=== PATIENT | male | born 1960 | race Caucasian/White ===

== ENCOUNTER 2017-01-26 15:11 | Inpatient (IN) | payer BC ==
[~2017-01-26] VITALS: Ht 172.7 cm; Wt 127.0 kg
[~2017-01-26 15:11] MED LIST: BUSP5TAB PEG; CHOL100017 PO; DICL100G28 TP; DICL100G7 TP; FAMO20TA5 PO; FLUO20CA8 PEG; FLUO90CA5 PO; FLUT16SP NS; IPRA3AMP NEB; LOPE2CAP3 PO; MELA1TAB33 PEG; MERO500V3 IV; NYST1000 PO; OXCA300T PEG; QUET25TA PEG; RIVA20TA2 PEG; THIA100T8 PEG; VANC125S PO
[2017-01-26] MEDS ORDERED: ONDANSETRON PF 4 MG/2 ML VIAL. IV PRN (16:30)
[2017-01-26] MEDS ORDERED: IV NORMAL SALINE 1000ML BAG 1,000 ML IV ONE (16:30)
[2017-01-26 16:57] LABS: BASO # 0.1 x10^3/uL (0.0-0.2); BASO % 1 % (0-3); EOS % 6 % (0-3); HEMATOCRIT 35.5 % (39.0-53.0); HEMOGLOBIN 11.9 g/dL (13.0-17.5); LYMPH # 1.5 x10^3/uL (1.0-4.8); LYMPH % 28 % (24-48); MEAN CORPUSCULAR HEMOGLOBIN 30 pg (25-35); MEAN CORPUSCULAR HGB CONC 34 g/dL (31-37); MEAN CORPUSCULAR VOLUME 89 fL (79-100); MONO % 8 % (0-9); NEUT % 57 % (31-73); PLATELET COUNT 237 x10^3/uL (140-400); RED BLOOD COUNT 4.01 x10^6/uL (4.30-5.70); RED CELL DISTRIBUTION WIDTH 16.1 % (11.5-14.5); WHITE BLOOD COUNT 5.5 x10^3/uL (4.0-11.0)
--- NOTE | 2017-01-26 17:04 | PDOC1 ---
History and Physical Date of Admission Date of Admission DATE: 01/26/17 TIME: 17:01 Identification/Chief Complaint Chief Complaint lost j-tube access Source Source: Chart review, Patient History of Present Illness History of Present Illness 57 yo male, [place] resident, aphasic mostly, w/ malnutrition and dysphagia, transferred to ER when J-tube "fell out" IR consulted, will replace 4/5 has abd wound, poorly healing after gastric bypass surg per some pain, 02/01, not much complaint Family History Family History: No Significant Social History Smoke: No ALCOHOL: rare Current Medications Current Medications Current Medications Ondansetron HCl 4 mg 4 mg PRN Q8HRS PRN IV NAUSEA/VOMITING; Start 01/26/17 at 16 :30; Stop 01/27/17 at 16:29 Sodium Chloride (Iv Sodium Chloride 0.9% 1000ml Bag) 1,000 ml @ 100 mls/hr 1X ONCE IV ; Start 01/26/17 at 16:30; Stop 01/27/17 at 02:29 Active Scripts Active Reported Fluticasone Propionate Nasal Mcdaniels (Fluticasone Propionate) 16 Gm Mcdaniels.susp 2 Mcdaniels NS HS Fluoxetine Hcl 20 Mg Capsule 1 Cap PEG DAILY Fluoxetine Dr (Fluoxetine Hcl) 90 Mg Capsule.dr 90 Mg PO WEEKLY Fluoxetine Hcl 20 Mg Capsule 1 Cap PEG DAILY Xarelto (Rivaroxaban) 20 Mg Tablet 20 Mg PEG DAILY Buspirone Hcl 5 Mg Tablet 1 Tab PEG TID Vitamin D (Cholecalciferol (Vitamin D3)) 10,000 Unit Capsule 50,000 Unit PO Diclofenac Sodium 100 Gm Gel..gram. 100 Gm TP BID Voltaren (Diclofenac Sodium) 100 Gm Gel..gram. 1 Gm TP BID Famotidine 20 Mg Tablet 20 Mg PO BID Thiamine Hcl 100 Mg Tablet 100 Mg PEG DAILY Quetiapine Fumarate 25 Mg Tablet 25 Mg PEG HS Oxcarbazepine 300 Mg Tablet 1 Tab PEG BID Melatonin 1 Mg Tablet.er 3 Mg PEG HS Nystatin 100,000 Unit/1 Ml Oral.susp 5 Ml PO QID Duoneb 0.5-3(2.5) Mg/3 Ml (Albuterol/Ipratropium) 3 Ml Ampul.neb 3 Ml NEB BID Anti-Diarrheal (Loperamide Hcl) 2 Mg Capsule 2 Mg PO BID Vancomycin HCl 125 Mg/2.5 Ml Syringe 125 Mg PO QID Meropenem 500 Mg Vial 500 Mg IV Q8HRS Allergies Allergies: Coded Allergies: aripiprazole (Verified Allergy, Intermediate, 01/06/17) clarithromycin (Verified Allergy, Intermediate, 01/06/17) divalproex sodium (Verified Allergy, Intermediate, 01/06/17) fluvoxamine (Verified Allergy, Intermediate, 01/06/17) gabapentin (Verified Allergy, Intermediate, 01/06/17) gluten (Verified Allergy, Intermediate, 01/06/17) lurasidone (Verified Allergy, Intermediate, 01/06/17) pregabalin (Verified Allergy, Intermediate, 01/06/17) ROS Review of System unable to fully complete due to aphasia General: No: Appetite, Chills, Fatigue, Malaise, Night Sweats, Other Musculoskeletal: Yes Pain In: (back) Physical Exam General: Alert, Cooperative, No acute distress, Other HEENT: Atraumatic, PERRLA, EOMI, Mucous membr. moist/pink Lungs: Clear to auscultation Heart: no murmurs Abdomen: Normal bowel sounds, Soft Extremities: Normal pulses Neuro: Normal tone, Sensation intact, Other (sluggish speech, slow to respond , word finding difficulty) Psych/Mental Status: Other Vitals Vitals Vital Signs Date Time Temp Pulse Resp B/P Pulse Ox O2 Delivery O2 Flow Rate FiO2 01/26/17 15:11 98.0 88 18 132/73 99 Room Air 98.0 VTE Prophylaxis Ordered VTE Prophylaxis Devices: No (obs) VTE Pharmacological Prophylaxi: No Assessment/Plan Assessment/Plan dysphagia aphasia J tube fell out today needs replaced, discussed with IR, case was complicated before, needs at least 33 minutes fluoro. WIll sched for AM admit obs, plan to DC after tube placed WADE MOHAN MD Jan 26, 2017 17:04
[2017-01-26 17:21] LABS: CALCIUM 9.1 mg/dL (8.5-10.1); CREATININE 0.6 mg/dL (0.7-1.3); GFR 139.4; POTASSIUM 4.6 mmol/L (3.5-5.1)
--- NOTE | 2017-01-26 17:36 | PHYS DOC ---
Past Medical History Past Medical History: Anxiety, GERD, Seizure, Schizophrenia Additional Past Medical Histor: ENCEPHALITIS, RESPIRATORY DISORDERS Past Surgical History: Gastric Bypass Additional Past Surgical Histo: J TUBE PLACEMENT Additional Information: UNKNOWN Social History Narrative: UNKNOWN Adult General Chief Complaint Chief Complaint: GTUBE REPLACEMENT/MALFUNCTION HPI HPI 57-year-old male who is usually nonverbal who pulled out his J-tube at his assisted living facility approximately 1-2 hours prior to arrival. Upon my initial evaluation, patient cannot verbalize any complaints but appears to be in no distress. There is an ostomy overlying his right upper quadrant that is not draining. There is no evidence of any cellulitic change or bleeding. Review of Systems Review of Systems A 10 point review of systems is unable to be obtained secondary to the patient' s underlying mental status. Allergies Allergies Allergies Coded Allergies Type Severity Reaction Last Updated Verified aripiprazole Allergy Intermediate 01/06/17 Yes clarithromycin Allergy Intermediate 01/06/17 Yes divalproex sodium Allergy Intermediate 01/06/17 Yes fluvoxamine Allergy Intermediate 01/06/17 Yes gabapentin Allergy Intermediate 01/06/17 Yes gluten Allergy Intermediate 01/06/17 Yes lurasidone Allergy Intermediate 01/06/17 Yes pregabalin Allergy Intermediate 01/06/17 Yes Physical Exam Physical Exam Constitutional: Well developed, well nourished, no acute distress, non-toxic appearance. [] HENT: Normocephalic, atraumatic, bilateral external ears normal, oropharynx moist, no oral exudates, nose normal. [] Eyes: PERRLA, EOMI, conjunctiva normal, no discharge. [] Neck: Normal range of motion, no tenderness, supple, no stridor. [] Cardiovascular:Heart rate regular rhythm, no murmur [] Lungs & Thorax: Bilateral breath sounds clear to auscultation [] Abdomen: Bowel sounds normal, soft, no tenderness, no masses, no pulsatile masses, ostomy site in the RUQ is non-draining and non-cellulitic. [] Skin: Warm, dry, no erythema, no rash. [] Back: No tenderness, no CVA tenderness. [] Extremities: No tenderness, no cyanosis, no clubbing, ROM intact, no edema. [] Neurologic: Normal motor function, normal sensory function, no focal deficits noted. [] Psychologic: Affect normal, judgement normal, mood normal. [] Current Patient Data Vital Signs Vital Signs Date Time Temp Pulse Resp B/P Pulse Ox O2 Delivery O2 Flow Rate FiO2 01/26/17 16:20 76 102/64 01/26/17 15:11 98.0 18 99 Room Air 98.0 EKG EKG [] Radiology/Procedures Radiology/Procedures [] Course & Med Decision Making Course & Med Decision Making Pertinent Labs and Imaging studies reviewed. (See chart for details) 57-year-old male who had a J-tube that was pulled out inadvertently by the patient will be admitted. I discussed the case with the on-call interventionalist, Dr. Cervantes, who states he does not have a team available right now to replace it. Dr. Cervantes replaced his J-tube several weeks ago and states it was a complicated placement. I discussed the need to admit the patient with the hospitalist, Dr. Keenan, who agrees with this plan. A 16 [place] Heart catheter was slightly advanced into the ostomy site and the balloon was inflated with several cc of air to keep the ostomy site patent. This was then taped to the abdomen and secured with gauze. Pt tolerated the procedure well. He was admitted without incident. Dragon Disclaimer Dragon Disclaimer This electronic medical record was generated, in whole or in part, using a voice recognition dictation system. Departure Departure Impression: Primary Impression: Feeding tube dysfunction Disposition: ADMITTED INPATIENT Admitting Physician: Cynthia Keenan Condition: STABLE Referrals: ULYSSES LAN MD (PCP) MARGOTH REED DO Jan 26, 2017 17:36
[2017-01-26 19:00] VITALS: BP 112/72
[2017-01-26 23:00] VITALS: BP 117/75
[2017-01-27] VITALS (21 sets, daily range): BP systolic 89–139; BP diastolic 46–93
[2017-01-27] MEDS: MORPHINE SULFATE 4 MG/ML DISP.SYRIN. IV PRN ×5 (01:42→23:20)
[2017-01-27] MEDS ORDERED: LACT20SO AD (02:50)
[2017-01-27] MEDS ORDERED: TAMS0.4C2 PO (02:50)
[2017-01-27] MEDS ORDERED: DICL1PAT4 TP (02:50)
[2017-01-27] MEDS ORDERED: TRAZ100T12 PEG (02:50)
[2017-01-27] MEDS ORDERED: MELA5CAP PEG (02:50)
[2017-01-27] MEDS ORDERED: VALA10005 PO (02:50)
[2017-01-27] MEDS ORDERED: CYAN10002 IJ (02:50)
[2017-01-27] MEDS ORDERED: METH479P PO (02:50)
[2017-01-27] MEDS ORDERED: FLUT16SP NS (02:50)
[2017-01-27] MEDS ORDERED: HYDR-2679 PO (02:50)
[2017-01-27] MEDS ORDERED: TEST5GEL TP (02:50)
[2017-01-27] MEDS ORDERED: HYDR-2678 PEG (02:50)
[2017-01-27] MEDS ORDERED: POLY17PO5 PO (02:50)
[2017-01-27] MEDS ORDERED: OXCA300T3 PO (02:50)
[2017-01-27] MEDS: LIDOCAINE (700MG/PATCH) PATCH. TD SCH (08:03)
[2017-01-27] MEDS ORDERED: ONDANSETRON PF 4 MG/2 ML VIAL. IV PRN (08:06)
[2017-01-27] MEDS ORDERED: HYDROCODONE/APAP 5/325MG TABLET. PEG PRN (08:15)
[2017-01-27 08:47] LABS: BASO % 1 % (0-3); EOS % 8 % (0-3); HEMATOCRIT 32.9 % (39.0-53.0); HEMOGLOBIN 11.2 g/dL (13.0-17.5); LYMPH # 1.6 x10^3/uL (1.0-4.8); LYMPH % 32 % (24-48); MEAN CORPUSCULAR HEMOGLOBIN 30 pg (25-35); MEAN CORPUSCULAR HGB CONC 34 g/dL (31-37); MEAN CORPUSCULAR VOLUME 88 fL (79-100); MONO % 9 % (0-9); NEUT % 51 % (31-73); PLATELET COUNT 197 x10^3/uL (140-400); RED BLOOD COUNT 3.73 x10^6/uL (4.30-5.70); RED CELL DISTRIBUTION WIDTH 16.2 % (11.5-14.5)
[2017-01-27 09:00] LABS: CALCIUM 8.8 mg/dL (8.5-10.1); CREATININE 0.6 mg/dL (0.7-1.3); GFR 139.4; POTASSIUM 4.4 mmol/L (3.5-5.1)
[2017-01-27] MEDS: THIAMINE 100 MG TABLET. PEG SCH (09:00)
[2017-01-27] MEDS: FAMOTIDINE 20 MG TABLET. PO SCH ×2 (09:00→21:09)
[2017-01-27] MEDS ORDERED: FLUOXETINE HCL 90 MG PO SCH (09:00)
[2017-01-27] MEDS: NON FORMULARY ITEM (Testosterone (Androgel) 1 PACKET) TP SCH (09:00)
[2017-01-27] MEDS: OXCARBAZEPINE 300 MG TABLET. PEG SCH ×2 (09:00→21:10)
[2017-01-27] MEDS: TAMSULOSIN 0.4 MG CAP.ER.24H. PO SCH (09:00)
[2017-01-27] MEDS: LACTULOSE 20 GM/30 ML SOLUTION. FT SCH ×2 (09:00→17:00)
[2017-01-27] MEDS ORDERED: DICLOFENAC EPOLAMINE 1.3% PATCH 5PATCH PACKET. TD SCH (09:00)
[2017-01-27] MEDS: POLYETHYLENE GLYCOL 3350 17 GM PACKET. PO SCH (09:00)
[2017-01-27] MEDS: LOPERAMIDE 2 MG CAPSULE PO SCH ×2 (09:00→21:09)
[2017-01-27] MEDS: RIVAROXABAN 10 MG TABLET. PO SCH (09:00)
[2017-01-27] MEDS: FLUOXETINE HCL 20 MG CAPSULE. PEG SCH (09:00)
[2017-01-27] MEDS: valACYclovir 500 MG TABLET. PO SCH (09:00)
[2017-01-27] MEDS: NYSTATIN 100,000 UNITS/ML 5 ML ORAL.SUSP. PO SCH ×4 (09:00→21:00)
[2017-01-27] MEDS: FLUTICASONE 50MCG/NASAL SPRAY 16GM BOTTLE. NS SCH ×2 (09:00→15:44)
[2017-01-27] MEDS: busPIRone 5 MG TABLET. PEG SCH ×3 (09:00→21:09)
--- NOTE | 2017-01-27 11:15 | ACF ---
Admission Forms Criteria GENERAL ADMISSION CRITERIA (Place 'X' for any and all applicable criteria): Admission is indicated for ANY ONE of the following: [ ]I. Hemodynamic instability as indicated by ANY ONE of the following(1)(2) (3)(4)(5): [ ]a) Vital sign abnormality not readily corrected by appropriate treatment within 12 to 24 hours indicated by ANY ONE of the following: [ ]i) Hypotension [ ]ii) Symptomatic Tachycardia unresponsive to treatment (eg , analgesia, fluids, sedation as indicated) [ ]iii) Orthostatic vital sign changes unresponsive to treatment (eg, fluids) [ ]b) Vital sign abnormality that is severe indicated by ANY ONE of the following: [ ]i) Inadequate perfusion indicated by ANY ONE of the following: [ ]1) Lactic acidosis (greater than 2 mmol/L) [ ]2) New abnormal capillary refill (greater than 3 seconds) [ ]3) Other metabolic acidosis (arterial pH less than 7.35) not otherwise explained [ ]4) Reduced urine output [ ]5) Altered mental status [ ]6) Myocardial Ischemia [ ]v) Mean arterial pressure[A] less than 60 mm Hg [ ]vi) Mean arterial pressure[A] less than 70 mm Hg after 30 minutes of appropriate treatment (eg, fluid resuscitation) [ ]vii) IV inotropic or vasopressor medication required to maintain adequate blood pressure or perfusion [ ]viii) Sustained heart rate greater than 120 beats per minute in adult or child 6 years or older[B]] [ ]II. Hypertension requiring inpatient treatment as indicated by ANY ONE of the following(6)(7)(8): [ ]a) SBP greater than 220 mm Hg or DBP greater than 120 mm Hg despite treatment [ ]b) SBP greater than 140 mm Hg or DBP greater than 100 mm Hg with evidence of acute end organ damage as indicated by ANY ONE of the following: [ ]i) Encephalopathy [ ]ii) Acute renal failure as indicated by new onset of ANY ONE of the following(9)(10)(11)(12)(13): [ ]1) A 3-fold rise in serum creatinine from baseline [ ]2) Serum creatinine greater than 4 mg/dL ( 354 micromoles/L) with acute rise greater than 0.5 mg/dL (44.2 micromoles/L) [ ]3) Reduction of more than 75% in estimated glomerular filtration rate from baseline [ ]4) Estimated glomerular filtration rate less than 35 mL/min/1.73m2 (0.59 mL/sec/1.73m2) in child up to 18 years of age [ ]5) Cessation of urine output indicated by ALL of the following: [ ]A. Adequate volume status [ ]B. Inadequate urine output as indicated by ANY ONE of the following: [ ]a. Urine output less than 0.3 mL/kg/hr for 24 hours [ ]b. Anuria (urine output less than 0.1 mL/kg/hr) for 12 hours [ ]iii) Aortic dissection [ ]iv) Myocardial ischemia [ ]v) Left ventricular heart failure [ ]vi) Retinal hemorrhage [ ]vii) Other significant finding [ ]c) Hypertension in child requiring inpatient treatment as indicated by ALL of the following(14)(15)(16): [ ]i) Outpatient treatment not effective, not available, or not appropriate [ ]ii) SBP or DBP greater than 95th percentile for age [ ]iii) Evidence of acute end organ damage as indicated by ANY ONE of the following: [ ]1) Altered mental status [ ]2) Acute renal failure as indicated by new onset of ANY ONE of the following(9)(10)(11)(12)(13): [ ]A. A 3-fold rise in serum creatinine from baseline [ ]B. Serum creatinine greater than 4 mg/dL (354 micromoles/L) with acute rise greater than 0.5 mg/dL (44.2 micromoles/L) [ ]C. Reduction of more than 75% in estimated glomerular filtration rate from baseline [ ]D. Estimated glomerular filtration rate less than 35 mL/min/1.73m2 (0.59 mL/sec/1.73m2)in child up to 18 years of age [ ]E. Cessation of urine output indicated by ALL of the following: [ ]a. Adequate volume status [ ]b. Inadequate urine output as indicated by ANY ONE of the following: [ ]1) Urine output less than 0.3 mL/kg/hr for 24 hours [ ]2) Anuria (urine output less than 0.1 mL/kg/hr) for 12 hours [ ]3) Severe headache [ ]4) Visual disturbance [ ]5) Retinal hemorrhage [ ]6) Other significant finding [ ]III. Acute cardiac or peripheral ischemia as indicated by ANY ONE of the following: [ ]a) Acute coronary syndrome(17)(18) [ ]b) Acute peripheral ischemia (eg, pulseless, cool, mottled, or cyanotic extremity)(19) [ ]IV. Cardiac arrhythmias or findings of immediate concern indicated by ANY ONE of the following(20)(21): [ ]a) Heart rhythms that are inherently dangerous or unstable indicated by ANY ONE of the following(22)(23)(24): [ ]i) Resuscitated ventricular fibrillation or cardiac arrest [ ]ii) Ventricular escape rhythm [ ]iii) Sustained ventricular tachycardia (30 seconds or more of ventricular rhythm at greater than 100 beats per minute) [ ]iv) Nonsustained ventricular tachycardia and ANY ONE of the following: [ ]1) Suspected cardiac ischemia as cause or consequence of ventricular tachycardia [ ]2) In setting of acute myocarditis [ ]b) Unstable cardiac conduction defects indicated by ANY ONE of the following(24)(25)(26): [ ]i) Type II second-degree atrioventricular block [ ]ii) Third-degree atrioventricular block [ ]iii) New-onset left bundle branch block with suspected myocardial ischemia [ ]c) Any heart rhythm and ANY ONE of the following(22)(23)(27)(28)( 29): [ ] i) Continuous long-term ECG monitoring needed (eg, initiation of drug requiring monitoring for more than 24 hours) [ ] ii) Patient has automatic implanted cardioverter defibrillator that is repeatedly firing, malfunctioning, or in need of immediate adjustment of settings beyond the scope of ambulatory or observation care. [ ]d) Heart rhythms of concern due to ANY ONE of the following: [ ]i) Hypotension [ ]ii) Respiratory distress [ ]iii) Association with other significant symptoms (eg, bradycardia with syncope or ongoing dizziness, supraventricular tachycardia with chest pain) (27)(28) (30) [ ] V. Severe heart failure as indicated by ANY ONE of the following ( 31)(32): [ ]a) Respiratory distress [ ]b) Hypotension [ ]c) Anasarca (refractory to outpatient therapy) [ ]d) Cardiac arrhythmias of immediate concern [ ]e) Myocardial ischemia [ ]. Respiratory abnormalities, including ANY ONE of the following(33)(34) (35)(36): [ ]a) Respiratory rate greater than 30 breaths per minute unresponsive to treatment [A] [ ]b) New saturation of arterial oxygen less than 90% [ ]c) New partial pressure of carbon dioxide greater than 44 mm Hg ( 5.9 kPa) [ ]d) Supplemental oxygen or respiratory treatments needed that are new or not performable at other levels of care [ ]e) New-onset cyanosis [ ]f) Inability to protect airway [ ]g) Chronic lung disease with severe deterioration (not responsive to emergency and observation care treatment as appropriate) as indicated by ANY ONE of the following(34)(36 ): [ ]i) SaO2 5% below baseline in patient with chronic hypoxemia [ ]ii) New requirement for supplemental oxygen to keep SaO2 at baseline or acceptable level [ ]iii) Required supplemental oxygen performable only in acute inpatient setting [ ]iv) Severe airflow or ventilation abnormalities [ ]v) Previously mobile patient unable to walk between rooms [ ]vi Inability to eat or sleep due to dyspnea [ ]vii) Rapid rate of exacerbation onset [ ]viii) Altered mental status ]VII. Severe airflow or ventilation abnormalities (not responsive to emergency and observation care treatment as appropriate) as indicated by ANY ONE of the following(33)(34)(35)(37): [ ]a) PCO2 greater than 42 mm Hg (5.6 kPa) and pH less than 7.35 (new ) [ ]b) Documented PCO2 increased more than 5 mm Hg (0.7 kPa) from disease baseline [ ]c) Airflow measurements [B] less than 60% of previous best or predicted (eg, peak expiratory flow rate less than 300 L/minute) despite intensive emergent treatment [C] [ ]d) Required respiratory treatments that are performable only in acute inpatient setting [ ]VIII. Impending or actual respiratory arrest ( Also use Respiratory Failure GRG for severe respiratory disease and long-term mechanical ventilation patients) [ ]IX. Neurologic abnormalities, including ANY ONE of the following: [ ]a) New findings that suggest ANY ONE of the following: [ ]i) GRAVEL SCREENER infection(38) [ ]ii) Cerebral bleeding, ischemia, or vasospasm(39)(40) [ ]iii) Increased intracranial pressure, hydrocephalus, or cerebral edema(41)(42)(43) [ ]iv) Spinal cord injury(44) [ ]b) Uncontrolled seizures(45) [ ]c) New-onset coma (eg, Erika coma scale score less than 9) or unexplained abnormal mental status (eg, Erika coma scale score less than 14) [D](41)(46)(47) [ ]X. New-onset severe neurologic findings requiring inpatient care; examples include(42)(48)(49): [ ]a) Papilledema [ ]b) Cerebral edema [ ]c) Mass effect on CT scan [ ]XI. Suspected acute intra-abdominal process with peritoneal signs, abdominal mass, or similar findings (50)(51)(52) [ ]XII. Severe physiologic disorder remaining after emergency or observation level care (as appropriate) as indicated by ANY ONE of the following (53): [ ]a) Significant dehydration [ ]b) Diabetic ketoacidosis [ ]c) Hyperglycemic hyperosmolar state (eg, osmolality greater than 320 mOsm/kg (mmol/kg) [ ]d) Hypoglycemia [ ]e) Other (new) acid-base disorder with pH less than 7.35 or greater than 7.5(54) [ ]f) Thyroid storm (55) [ ]g) Myxedema coma (55) [ ]XIII. Abdominal abnormalities with ANY ONE of the following(56)(57): [ ]a) Absent bowel sounds with complete ileus [ ]b) Signs of intestinal obstruction or peritonitis [E] [ ]c) Nausea and vomiting that cannot be controlled with outpatient or observation care [ ]XIV. Acute renal failure as indicated by new onset of ANY ONE of the following(9)(10)(11)(12)(13): [ ]a) A 3-fold rise in serum creatinine from baseline [ ]b) Serum creatinine greater than 4 mg/dL (354 micromoles/L) with acute rise greater than 0.5 mg/dL (44.2 micromoles/L) [ ]c) Reduction of more than 75% in estimated glomerular filtration rate from baseline [ ]d) Estimated glomerular filtration rate less than 35 mL/min/ 1.73m2 (0.59 mL/sec/1.73m2) in child up to 18 years of age [ ]e) Cessation of urine output indicated by ALL of the following: [ ]i) Adequate volume status [ ]ii) Inadequate urine output as indicated by ANY ONE of the following: [ ]1) Urine output less than 0.3 mL/kg/hr for 24 hours [ ]2) Anuria (urine output less than 0.1 mL/kg/hr) for 12 hours [ ]XV. Significant uremic complications as indicated by ANY ONE of the following(58)(59)(60): [ ]a) Outpatient therapy is ineffective or not feasible for ANY ONE of the following: [ ]i) Severe heart failure [ ]ii) Severehypertension [ ]iii) Pleural effusion [ ]iv) Pericarditis or pericardial effusion [ ]b) Cardiac arrhythmias of immediate concern [ ]c) Intractable nausea or vomiting [ ]d) Recurrent seizures [ ]e) Encephalopathy [ ]f) Bleeding abnormalities (eg, platelet dysfunction) with active (eg, gastrointestinal) bleeding [ ]g) Dialysis indicated before long-term access or ambulatory arrangements can be made [ ]h) Significant metabolic or electrolyte abnormalities (eg, severe acidosis or hyperkalemia) [ ]XVI. High fever or other high-risk infection situation as indicated by ANY ONE of the following(61)(62)(63)(64): [ ]a) Outpatient and observation care antimicrobial treatment unavailable, not effective, or not appropriate [ ]b) Documented bacteremia [ ]c) Temperature greater than 40.5 degrees C (104.9 degrees F) ( oral) [ ]d) Temperature greater than 39.5 degrees C (103.1 degrees F) ( oral) or less than 36 degrees C (96.8 degrees F) (rectal) that does not respond to e treatment and observation care [ ] XVII. Temperature less than 95 degrees F (35 degrees C)(rectal)(65) [ ] XVIII. Severe nutritional abnormalities as indicated by ALL of the following (66)(67): [ ]a) Inability to tolerate or establish sufficient oral or other enteral nutrition in outpatient setting [ ]b) Parenteral nutrition regimen need that must be implemented on inpatient basis [ ] XIX. Severe electrolyte abnormalities indicated by ALL of the following(68) (69)(70): [ ]a) Electrolytes and associated findings are not as expected for patient baseline or acceptable treatment effects. [ ]b) Severe abnormalities indicated by ANY ONE of the following: [ ]i) Sodium less than 130 mEq/L (mmol/L) (new) [ ]ii)Sodium less than 135 mEq/L (mmol/L) with ANY ONE of the following: [ ]1) Uncorrectable (to near normal or chronic baseline) after trial of outpatient and emergency treatment [ ]2) Altered mental status [ ]3) Seizures [ ]4) Severe medical etiology requiring inpatient management (eg, heart failure, hypovolemia) [ ]iii) Sodium greater than 155 mEq/L (mmol/L) [ ]iv) Sodium greater than 150 mEq/L (mmol/L) with ANY ONE of the following: [ ]1) Uncorrectable (to near normal or chronic baseline) with outpatient and emergency treatment [ ]2) Altered mental status [ ]3) Seizures [ ]4) Severe medical etiology (eg, hypovolemia, diabetes insipidus) [ ]v) Potassium less than 2.5 mEq/L (mmol/L) despite outpatient and emergency treatment [ ]vi) Potassium less than 3 mEq/L (mmol/L) with ANY ONE of the following: [ ]1) Weakness [ ]2) Cardiac abnormality (eg, arrhythmia, conduction disturbance) [ ]3) Cardiac ischemia [ ]4) Ileus [ ]5) Ongoing medical cause requiring inpatient management (eg, acute renal wasting or SIADH) [ ]6) Other severe symptoms [ ]vii) Potassium greater than 6.5 mEq/L (mmol/L) [ ]viii) Potassium greater than 5 mEq/L (mmol/L) with ANY ONE of the following: [ ]1) Uncorrectable (to near normal or chronic baseline) with outpatient and emergency treatment [ ]2) Severe ECG findings [F] [ ]3) Acute worsening of renal failure (creatinine greater than 2.5 mg/dL (221 micromoles/L) or significant elevation for age and size) [ ]4) Severe weakness [ ]5) Severe medical etiology (eg, hemolysis, infection, drug overdose) [ ]ix) Calcium less than 7 mg/dL (1.75 mmol/L) despite outpatient and emergency treatment (72) [ ]x) Calcium less than 8 mg/dL (2 mmol/L) with significant symptoms or findings; examples include(72): [ ]1) Altered mental status [ ]2) Muscle spasms [ ]3) Seizures [ ]4) Breathing difficulty [ ]5) Cardiac abnormality (eg, arrhythmia or conduction disturbance) [ ]xi) Calcium greater than 14 mg/dL (3.5 mmol/L)(72) [ ]xii) Calcium greater than 12 mg/dL (3 mmol/L) with ANY ONE of the following(72): [ ]1) Uncorrectable (to near normal or chronic baseline) with outpatient and emergency treatment [ ]2) Significant dehydration or hypovolemia as indicated by ALL of the following(70)(73)(74): [ ]A. Not resolved with initial treatments [ ]B. Clinically significant dehydration as indicated by ANY ONE of the following: [ ]a. Vomiting refractory to outpatient treatment (ie, precluding oral rehydration) [ ]b. Inability to drink [ ]c. Hypernatremia or other electrolyte abnormality unable to be corrected with outpatient and emergency treatment [ ]d. Failure to remain hydrated with outpatient therapy [ ]e. Reduced urine output [ ]f. Hypotension [ ]g. Serious cause for dehydration requiring acute hospitalization (eg, bowel obstruction, increased intracranial pressure, infectious cause) [ ]h. Child with ANY ONE of the following(75): [ ]1) Severe abdominal tenderness [ ]2) Adequate care not available at home [ ]3) Severe dehydration ( greater than 9% loss of body weight) [ ]4) Significant symptoms or findings; examples include: [ ]A. Altered mental status [ ]B. Cardiac abnormality (eg, arrhythmia, conduction disturbance) [ ]C. Malignant etiology requiring inpatient treatment [ ]xiii) Phosphorus less than 1 mg/dL (0.32 mmol/L) [ ]xiv) Phosphorus less than 1.5 mg/dL (0.48 mmol/L) with ANY ONE of the following: [ ]1) Patient unresponsive to outpatient and emergency treatment [ ]2) Significant symptoms or findings; examples include: [ ]A. Weakness [ ]B. Altered mental status [ ]C. Breathing difficulty [ ]D. Seizures [ ]E. Rhabdomyolysis [ ]xv) Phosphorus greater than 10 mg/dL (3.2 mmol/L) [ ]xvi) Phosphorus greater than 4.5 mg/dL (1.45 mmol/L) (new) with ANY ONE of the following: [ ]1) Severe medical etiology (eg, crush injury, acute renal failure) [ ]2) Associated hypocalcemia with significant findings; examples include: [ ]A. Neurologic symptoms [ ]B. Altered mental status [ ]C. Muscle spasms [ ]D. Seizures [ ]E. Breathing difficulty [ ]F. Cardiac abnormality (eg, arrhythmia, conduction disturbance) [ ]xvii) Magnesium less than 1 mg/dL (0.41 mmol/L) [ ]xviii) Magnesium less than 1.5 mg/dL (0.62 mmol/L) with ANY ONE of the following: [ ]1) Patient unresponsive to outpatient and emergency treatment [ ]2) Associated hypocalcemia with significant findings; examples include: [ ]A. Altered mental status [ ]B. Muscle spasms [ ]C. Seizures [ ]D. Breathing difficulty [ ]E. Cardiac abnormality (eg, arrhythmia , conduction disturbance) [ ]3) Associated hypokalemia (potassium less than 3 mEq/L (mmol/L)) with risk of arrhythmia [ ]xix) Magnesium greater than 4 mEq/L (2 mmol/L) [ ]xx) Magnesium greater than 2.5 mEq/L (1.25 mmol/L) with significant symptoms or findings; examples include: [ ]1) Weakness [ ]2) Altered mental status [ ]3) Cardiac abnormality (eg, arrhythmia, conduction disturbance) [ ]4) Breathing difficulty [ ]5) Severe medical etiology (eg, renal failure, hypovolemia) [ ]xxi) Uric acid greater than 20 mg/dL (1190 micromoles/L)(76) [ ]xxii) Uric acid greater than 8 mg/dL (476 micromoles/L) with significant symptoms or findings of tumor lysis syndrome; examples include(76): [ ]1) Creatinine greater than 1.5 times upper limit of normal [ ]2) Cardiac abnormality (eg, arrhythmia, conduction disturbance) [ ]3) Seizure [ ]XX. Acute blood loss causing significant abnormality as indicated by ANY ONE of the following(77)(78): [ ]a) Hemoglobin less than 10 g/dL (100 g/L) (not baseline) [ ]b) Hematocrit less than 30% (0.30) (not baseline) [ ]c) Repeat hematocrit decreased more than 2% (0.02) [ ]d) Uncontrolled bleeding [ ]XXI. Severe anemia indicated by ANY ONE of the following(78)(79): [ ]a) Altered mental status [ ]b) Chest pain [ ]c) Exertional dyspnea [ ]d) Syncope [ ]e) Other findings suggesting inadequate perfusion [ ]f) Treatment with transfusion or volume replacement is ineffective at resolving ANY ONE of the following [G]: [ ]i) Tachycardia for age [ ]ii) Orthostatic vital sign changes as indicated by ANY ONE of the following(80): [ ]1) Fall in SBP of 20 mm Hg or more 1 to 3 minutes after patient sits or stands from recumbent position [ ]2) Fall in DBP of 10 mm Hg or more 1 to 3 minutes after patient sits or stands from recumbent position [ ]XXII. High-risk low platelet count as indicated by ANY ONE of the following( 81)(82): [ ]a) Severe or life-threatening bleeding (eg, intracranial, major gastrointestinal, or extensive mucosal bleeding), with any reduced platelet count [ ]b) Platelet count less than 20,000/mm3 (20 x109/L) with any active bleeding [ ]c) Platelet count less than 10,000/mm3 (10 x109/L) with minor purpura or petechiae [ ]d) Platelet count less than 5000/mm3 (5 x109/L) [ ]e) Low platelet count with hemolytic anemia [ ]XXIII. Disseminated intravascular coagulation(77)(83) [ ]XXIV. Severe adverse drug or systemic toxin reaction requiring inpatient treatment; examples include(84)(85): [ ]a) Serotonin syndrome(86) [ ]b) Neuroleptic malignant syndrome(86) [ ]c) Cholinergic syndrome with severe symptoms (eg, bronchorrhea, weakness, mental status changes, seizures) [ ]d) Sympathetic syndrome with severe symptoms (eg, seizures, mental status changes, cardiac dysrhythmias) [ ]e) Anticholinergic syndrome [ ]XXV. Severe pain requiring acute inpatient management as indicated by ALL of the following (87)(88)(89): [ ]a) Continuous or frequent (eg, every 2 to 4 hours) parenteral analgesics required [H] [ ]b) Rapid improvement expected from treatment or acute intervention (eg, surgery, anesthesia procedure) [ ]XXVI.Severe behavioral health issues judged unmanageable at a lower level of care (eg, residential) in a patient who is ANY ONE of the following(91) [ ]a) Acutely suicidal [ ]b) A danger to self (eg, self-mutilating or suicidal behavior) [ ]c) A danger to others (eg, assaultive or homicidal behavior) [ ]d) Incapacitated because of grave disability (eg, inability to provide for self at lower level of care) (92) [X]XXVII. Inpatient monitoring needed; examples include(1)(3)(87)(93)(94)(95)(96 ): [X]a) Vital signs, neurologic signs, or vascular checks more frequently than every 4 hours [ ]b) Cardiac or respiratory monitoring beyond the scope (eg, over 24 hours) of observation care [ ]c) Pulmonary artery catheter monitoring [ ]d) Suspected compartment syndrome(97) (98) [ ]e) Cerebral bleeding, hydrocephalus, or vasospasm monitoring [ ]f) Increased intracranial pressure or cerebral edema monitoring [ ]g) monitoring [ ]XXVIII. Treatment requiring inpatient care; examples include: [ ]a) IV fluid to replace significant ongoing losses (greater than 3 L/m2 per day)(53) [ ]b) High concentration oxygen (greater than 40%)(33)(99)(100) [ ]c) Frequent respiratory therapy (more frequently than every 4 hours) to maintain airflow rates greater than 60% of baseline(33)(99)(100) [ ]d) Epidural analgesia(87) [ ]e) IV anticoagulation, vasoactive, or antiarrhythmic medication(19 )(23) [ ]f) Acute thrombolytics (generally require 24 hours of observation )(101)(102) [ ]XXIX. Emergency procedures needed; examples include: [ ]a) Emergency inpatient surgery [ ]b) Temporary pacemaker placement(103) [ ]c) Chest tube placement with active evacuation (eg, suction, drainage)(104) [ ]d) Emergent cardioversion(105) [ ]e) Emergent cardiac or vascular procedures (eg, cardiac catheterization, angioplasty) (17)(18) [ ]f) Emergent dialysis access placement and institution(10)(106) [ ]g) Emergent pericardiocentesis(107) [ ]h) Emergent plasmapheresis or leukapheresis(83) [ ]i) Emergent tracheostomy The original [employer] content created by [employer] has been revised. The portions of the content which have been revised are identified through the use of italic text or in bold, and [facility] has neither reviewed nor approved the modified material. All other unmodified content is copyright [employer]. Please see references footnoted in the original [employer] edition 2016 Admission Criteria Met?: Yes MONTSERRAT CHAWLA Jan 27, 2017 11:15
[2017-01-27] MEDS: IPRATRPIUM/ALBUTEROL 0.5/2.5MG 3 ML NEBU. NEB SCH ×2 (12:00→21:09)
[2017-01-27] MEDS ORDERED: IOHEXOL 300 MG/ML 50 ML VIAL. ONE (13:16)
--- NOTE | 2017-01-27 13:33 | PDOC ---
PROGRESS NOTES Chief Complaint Chief Complaint 1. J tube malfunction 2. Hx elective gastric bypass with morbid complications thereafter including sepsis, chronic encephalopathy, trached decanulated, bed bound/immobility 3. Muscle spasms, chronic 4,. Chronic encephalopathy 5. Ventral abdominal wound (exposed dermis) 6. MUltiple allergies including to clinda History of Present Illness History of Present Illness Confused [facility]U resident Labs and VS ok PLanned for IR re insertion of J tube later PM Nutrition consulted -Jevity at 65cc is the goal BUt abd has a significant sized exposed dermis, some yellowish dc on dressing and mild erythema around the site NO fevers, no white ct PLAn; NPO, NS at 100 while NPO Dc NS once TF started VAnc x 1 Wound care Will dc on PO augmentin for the wound once TF functioning fine Home meds resumed Dw JONNATHAN Allen Vitals Vitals Vital Signs Date Time Temp Pulse Resp B/P Pulse Ox O2 Delivery O2 Flow Rate FiO2 01/27/17 13:15 67 20 122/55 100 Room Air 01/27/17 09:45 97.9 97.9 Physical Exam General: Alert, Cooperative, No acute distress, Other Abdomen: Normal bowel sounds, Soft Extremities: Normal pulses Labs LABS Laboratory Tests Test 01/26/17 16:45 01/27/17 08:35 White Blood Count 5.5x10^3/uL (4.0-11.0) 5.0x10^3/uL (4.0-11.0) Red Blood Count 4.01x10^6/uL (4.30-5.70) 3.73x10^6/uL (4.30-5.70) Hemoglobin 11.9g/dL (13.0-17.5) 11.2g/dL (13.0-17.5) Hematocrit 35.5% (39.0-53.0) 32.9% (39.0-53.0) Mean Corpuscular Volume 89fL (79-100) 88fL (79-100) Mean Corpuscular Hemoglobin 30pg (25-35) 30pg (25-35) Mean Corpuscular Hemoglobin Concent 34g/dL (31-37) 34g/dL (31-37) Red Cell Distribution Width 16.1% (11.5-14.5) 16.2% (11.5-14.5) Platelet Count 237x10^3/uL (140-400) 197x10^3/uL (140-400) Neutrophils (%) (Auto) 57% (31-73) 51% (31-73) Lymphocytes (%) (Auto) 28% (24-48) 32% (24-48) Monocytes (%) (Auto) 8% (0-9) 9% (0-9) Eosinophils (%) (Auto) 6% (0-3) 8% (0-3) Basophils (%) (Auto) 1% (0-3) 1% (0-3) Neutrophils # (Auto) 3.1x10^3uL (1.8-7.7) 2.5x10^3uL (1.8-7.7) Lymphocytes # (Auto) 1.5x10^3/uL (1.0-4.8) 1.6x10^3/uL (1.0-4.8) Monocytes # (Auto) 0.4x10^3/uL (0.0-1.1) 0.4x10^3/uL (0.0-1.1) Eosinophils # (Auto) 0.4x10^3/uL (0.0-0.7) 0.4x10^3/uL (0.0-0.7) Basophils # (Auto) 0.1x10^3/uL (0.0-0.2) 0.0x10^3/uL (0.0-0.2) Sodium Level 141mmol/L (136-145) 143mmol/L (136-145) Potassium Level 4.6mmol/L (3.5-5.1) 4.4mmol/L (3.5-5.1) Chloride Level 102mmol/L (98-107) 107mmol/L (98-107) Carbon Dioxide Level 30mmol/L (21-32) 27mmol/L (21-32) Anion Gap 9 (6-14) 9 (6-14) Blood Urea Nitrogen 10mg/dL (8-26) 9mg/dL (8-26) Creatinine 0.6mg/dL (0.7-1.3) 0.6mg/dL (0.7-1.3) Estimated GFR (Cockcroft-Gault) 139.4 139.4 Glucose Level 101mg/dL (70-99) 96mg/dL (70-99) Calcium Level 9.1mg/dL (8.5-10.1) 8.8mg/dL (8.5-10.1) Review of Systems Review of Systems confused Assessment and Plan Assessmemt and Plan Problems Medical Problems: (1) Feeding tube dysfunction Status: Acute Problems: Comment Review of Relevant I have reviewed the following items ambrose (where applicable) has been applied. Labs Laboratory Tests Test 01/26/17 16:45 01/27/17 08:35 White Blood Count 5.5x10^3/uL (4.0-11.0) 5.0x10^3/uL (4.0-11.0) Red Blood Count 4.01x10^6/uL (4.30-5.70) 3.73x10^6/uL (4.30-5.70) Hemoglobin 11.9g/dL (13.0-17.5) 11.2g/dL (13.0-17.5) Hematocrit 35.5% (39.0-53.0) 32.9% (39.0-53.0) Mean Corpuscular Volume 89fL (79-100) 88fL (79-100) Mean Corpuscular Hemoglobin 30pg (25-35) 30pg (25-35) Mean Corpuscular Hemoglobin Concent 34g/dL (31-37) 34g/dL (31-37) Red Cell Distribution Width 16.1% (11.5-14.5) 16.2% (11.5-14.5) Platelet Count 237x10^3/uL (140-400) 197x10^3/uL (140-400) Neutrophils (%) (Auto) 57% (31-73) 51% (31-73) Lymphocytes (%) (Auto) 28% (24-48) 32% (24-48) Monocytes (%) (Auto) 8% (0-9) 9% (0-9) Eosinophils (%) (Auto) 6% (0-3) 8% (0-3) Basophils (%) (Auto) 1% (0-3) 1% (0-3) Neutrophils # (Auto) 3.1x10^3uL (1.8-7.7) 2.5x10^3uL (1.8-7.7) Lymphocytes # (Auto) 1.5x10^3/uL (1.0-4.8) 1.6x10^3/uL (1.0-4.8) Monocytes # (Auto) 0.4x10^3/uL (0.0-1.1) 0.4x10^3/uL (0.0-1.1) Eosinophils # (Auto) 0.4x10^3/uL (0.0-0.7) 0.4x10^3/uL (0.0-0.7) Basophils # (Auto) 0.1x10^3/uL (0.0-0.2) 0.0x10^3/uL (0.0-0.2) Sodium Level 141mmol/L (136-145) 143mmol/L (136-145) Potassium Level 4.6mmol/L (3.5-5.1) 4.4mmol/L (3.5-5.1) Chloride Level 102mmol/L (98-107) 107mmol/L (98-107) Carbon Dioxide Level 30mmol/L (21-32) 27mmol/L (21-32) Anion Gap 9 (6-14) 9 (6-14) Blood Urea Nitrogen 10mg/dL (8-26) 9mg/dL (8-26) Creatinine 0.6mg/dL (0.7-1.3) 0.6mg/dL (0.7-1.3) Estimated GFR (Cockcroft-Gault) 139.4 139.4 Glucose Level 101mg/dL (70-99) 96mg/dL (70-99) Calcium Level 9.1mg/dL (8.5-10.1) 8.8mg/dL (8.5-10.1) Laboratory Tests Test 01/26/17 16:45 01/27/17 08:35 White Blood Count 5.5x10^3/uL (4.0-11.0) 5.0x10^3/uL (4.0-11.0) Red Blood Count 4.01x10^6/uL (4.30-5.70) 3.73x10^6/uL (4.30-5.70) Hemoglobin 11.9g/dL (13.0-17.5) 11.2g/dL (13.0-17.5) Hematocrit 35.5% (39.0-53.0) 32.9% (39.0-53.0) Mean Corpuscular Volume 89fL (79-100) 88fL (79-100) Mean Corpuscular Hemoglobin 30pg (25-35) 30pg (25-35) Mean Corpuscular Hemoglobin Concent 34g/dL (31-37) 34g/dL (31-37) Red Cell Distribution Width 16.1% (11.5-14.5) 16.2% (11.5-14.5) Platelet Count 237x10^3/uL (140-400) 197x10^3/uL (140-400) Neutrophils (%) (Auto) 57% (31-73) 51% (31-73) Lymphocytes (%) (Auto) 28% (24-48) 32% (24-48) Monocytes (%) (Auto) 8% (0-9) 9% (0-9) Eosinophils (%) (Auto) 6% (0-3) 8% (0-3) Basophils (%) (Auto) 1% (0-3) 1% (0-3) Neutrophils # (Auto) 3.1x10^3uL (1.8-7.7) 2.5x10^3uL (1.8-7.7) Lymphocytes # (Auto) 1.5x10^3/uL (1.0-4.8) 1.6x10^3/uL (1.0-4.8) Monocytes # (Auto) 0.4x10^3/uL (0.0-1.1) 0.4x10^3/uL (0.0-1.1) Eosinophils # (Auto) 0.4x10^3/uL (0.0-0.7) 0.4x10^3/uL (0.0-0.7) Basophils # (Auto) 0.1x10^3/uL (0.0-0.2) 0.0x10^3/uL (0.0-0.2) Sodium Level 141mmol/L (136-145) 143mmol/L (136-145) Potassium Level 4.6mmol/L (3.5-5.1) 4.4mmol/L (3.5-5.1) Chloride Level 102mmol/L (98-107) 107mmol/L (98-107) Carbon Dioxide Level 30mmol/L (21-32) 27mmol/L (21-32) Anion Gap 9 (6-14) 9 (6-14) Blood Urea Nitrogen 10mg/dL (8-26) 9mg/dL (8-26) Creatinine 0.6mg/dL (0.7-1.3) 0.6mg/dL (0.7-1.3) Estimated GFR (Cockcroft-Gault) 139.4 139.4 Glucose Level 101mg/dL (70-99) 96mg/dL (70-99) Calcium Level 9.1mg/dL (8.5-10.1) 8.8mg/dL (8.5-10.1) Medications Current Medications Ondansetron HCl 4 mg 4 mg PRN Q8HRS PRN IV NAUSEA/VOMITING; Start 01/26/17 at 16 :30; Stop 01/27/17 at 08:10; Status DC Sodium Chloride (Iv Sodium Chloride 0.9% 1000ml Bag) 1,000 ml @ 100 mls/hr 1X ONCE IV Last administered on 01/26/17 18:30; Start 01/26/17 at 16:30; Stop at 02:29; Status DC Morphine Sulfate 4 mg PRN Q2HR PRN IV severe pain Last administered on 08:06; Start 01/26/17 at 22:30 Lidocaine (Lidoderm) 1 patch DAILY TD Last administered on 01/27/17 08:03; Start 01/27/17 at 09:00 Ondansetron HCl (Zofran) 4 mg PRN Q6HRS PRN IV NAUSEA/VOMITING; Start 01/27/17 at 08:06 Buspirone HCl (Buspar) 5 mg TID PEG ; Start 01/27/17 at 09:00 Diclofenac Epolamine (Flector) 1 patch BID TD ; Start 01/27/17 at 09:00; Stop 01/27/17 at 09:00; Status DC Diclofenac Sodium (Voltaren) 1 vijay BID TP ; Start 01/27/17 at 09:00 Famotidine (Pepcid) 20 mg BID PO ; Start 01/27/17 at 09:00 Fluoxetine HCl (Prozac) 20 mg DAILY PEG ; Start 01/27/17 at 09:00 Fluticasone Propionate (Flonase) 2 spray DAILY NS ; Start 01/27/17 at 09:00 Acetaminophen/ Hydrocodone Bitart (Lortab 5/325) 1 tab PRN Q6HRS PRN PEG PAIN; Start 01/27/17 at 08:15 Albuterol/ Ipratropium (Duoneb) 3 ml RTBID NEB Last administered on 01/27/17t 12 :00; Start 01/27/17 at 09:00 Lactulose 10 gm BIDWMEALS FT ; Start 01/27/17 at 09:00 Loperamide HCl (Imodium) 2 mg BID PO ; Start 01/27/17 at 09:00 Nystatin 5 ml QID PO ; Start 01/27/17 at 09:00 Oxcarbazepine (Trileptal) 300 mg BID PEG ; Start 01/27/17 at 09:00 Polyethylene Glycol (miraLAX PACKET) 17 gm DAILY PO ; Start 01/27/17 at 09:00 Quetiapine Fumarate (SEROquel) 25 mg HS PEG ; Start 01/27/17 at 21:00 Tamsulosin HCl (Flomax) 0.4 mg DAILY PO ; Start 01/27/17 at 09:00 Thiamine HCl (Vitamin B-1) 100 mg DAILY PEG ; Start 01/27/17 at 09:00 Trazodone HCl (Desyrel) 100 mg QHS PEG ; Start 01/27/17 at 21:00 Non-Formulary Medication 90 mg WEEKLY PO ; Start 01/27/17 at 09:00; Stop 01/27/17 at 09:00; Status DC Non-Formulary Medication 3 mg HS PEG ; Start 01/27/17 at 21:00; Stop 01/27/17 at 21:00; Status DC Rivaroxaban (Xarelto) 20 mg DAILY PO ; Start 01/27/17 at 09:00 Non-Formulary Medication 1 packet DAILY TP ; Start 01/27/17 at 09:00; Status UNV Valacyclovir HCl 1000 mg 1,000 mg DAILY PO ; Start 01/27/17 at 09:00 Vancomycin HCl 1 gm/Sodium Chloride 250 ml @ 250 mls/hr 1X ONCE IV ; Start 01/27/17 at 14:00; Stop 01/27/17 at 14:59 Sodium Chloride (Iv Sodium Chloride 0.9% 1000ml Bag) 1,000 ml @ 100 mls/hr Q10H IV ; Start 01/27/17 at 13:00 Active Scripts Active Reported Valtrex (Valacyclovir Hcl) 1,000 Mg Tablet 1 Tab PO DAILY Trileptal (Oxcarbazepine) 300 Mg Tablet 1 Tab PO BID Trazodone Hcl 100 Mg Tablet 2 Tab PEG QHS Tamsulosin Hcl 0.4 Mg Cap.er.24h 1 Cap PO DAILY Miralax (Polyethylene Glycol 3350) 17 Gm Powd.pack 1 Packet PO DAILY Melatonin 5 Mg Capsule 5 Mg PEG PRN QHS PRN Lactulose 20 Gm/30 Ml Solution 10 Gm AD BIDWMEALS Lortab 7.5-325 mg Tablet (Hydrocodone/Acetaminophen) 1 Each Tablet 1 Tab PO PRN Q12HR PRN Lortab 5-325 mg Tablet (Hydrocodone/Acetaminophen) 1 Each Tablet 1 Tab PEG PRN Q6HRS PRN Fluticasone Propionate Nasal [place] (Fluticasone Propionate) 16 Gm [place].susp 2 [place] NS DAILY Flector (Diclofenac Epolamine) 1 Each Patch.td12 1 Patch TP BID Cyanocobalamin Injection (Cyanocobalamin (Vitamin B-12)) 1,000 Mcg/1 Ml Vial 1, 000 Mcg IJ Citrucel (Methylcellulose) 479 Gm Powder 479 Gm PO Androgel (Testosterone) 5 Gm Gel.packet 1 Packet TP DAILY Fluticasone Propionate Nasal [place] (Fluticasone Propionate) 16 Gm [place].susp 2 [place] NS HS Fluoxetine Hcl 20 Mg Capsule 1 Cap PEG DAILY Fluoxetine Dr (Fluoxetine Hcl) 90 Mg Capsule.dr 90 Mg PO WEEKLY Fluoxetine Hcl 20 Mg Capsule 1 Cap PEG DAILY Xarelto (Rivaroxaban) 20 Mg Tablet 20 Mg PEG DAILY Buspirone Hcl 5 Mg Tablet 1 Tab PEG TID Vitamin D (Cholecalciferol (Vitamin D3)) 10,000 Unit Capsule 50,000 Unit PO Diclofenac Sodium 100 Gm Gel..gram. 100 Gm TP BID Voltaren (Diclofenac Sodium) 100 Gm Gel..gram. 1 Gm TP BID Famotidine 20 Mg Tablet 20 Mg PO BID Thiamine Hcl 100 Mg Tablet 100 Mg PEG DAILY Quetiapine Fumarate 25 Mg Tablet 25 Mg PEG HS Oxcarbazepine 300 Mg Tablet 1 Tab PEG BID Melatonin 1 Mg Tablet.er 3 Mg PEG HS Nystatin 100,000 Unit/1 Ml Oral.susp 5 Ml PO QID Duoneb 0.5-3(2.5) Mg/3 Ml (Albuterol/Ipratropium) 3 Ml Ampul.neb 3 Ml NEB BID Anti-Diarrheal (Loperamide Hcl) 2 Mg Capsule 2 Mg PO BID Vancomycin HCl 125 Mg/2.5 Ml Syringe 125 Mg PO QID Meropenem 500 Mg Vial 500 Mg IV Q8HRS Vitals/I & O Vital Sign - Last 24 Hours 01/26/17 01/26/17 01/26/17 01/26/17 15:11 15:50 16:20 16:50 Temp 98.0 98.0 Pulse 88 83 76 83 Resp 18 B/P 132/73 117/82 102/64 120/71 Pulse Ox 99 97 O2 Delivery Room Air Room Air 01/26/17 01/26/17 01/26/17 01/26/17 17:20 19:00 20:00 23:00 Temp 98.2 97.6 98.2 97.6 Pulse 79 79 75 Resp 18 18 B/P 180/90 112/72 117/75 Pulse Ox 97 97 95 O2 Delivery Room Air Room Air Room Air Room Air 01/27/17 01/27/17 01/27/17 01/27/17 01:42 03:00 05:02 05:33 Temp 98.2 98.2 Pulse 79 Resp 18 B/P 114/68 Pulse Ox 95 95 95 95 O2 Delivery Room Air Room Air Room Air Room Air 01/27/17 01/27/17 01/27/17 01/27/17 07:00 08:00 08:06 09:30 Temp 98.0 98.0 Pulse 83 70 Resp 18 20 20 B/P 132/47 139/93 Pulse Ox 95 95 O2 Delivery Room Air Room Air Room Air Room Air 01/27/17 01/27/17 01/27/17 01/27/17 09:45 10:00 10:15 10:45 Temp 97.9 97.9 Pulse 80 84 83 77 Resp 20 B/P 110/46 116/77 128/79 126/74 Pulse Ox 93 O2 Delivery Room Air 01/27/17 01/27/17 01/27/17 01/27/17 11:15 12:15 13:03 13:15 Pulse 82 80 67 Resp 20 20 B/P 89/61 130/79 122/55 92/56 113/65 Pulse Ox 93 100 O2 Delivery Room Air Room Air Room Air Intake and Output 01/26/17 01/26/17 01/27/17 15:00 23:00 07:00 Intake Total 0 ml 950 ml Output Total 0 ml 0 ml Balance 0 ml 950 ml KUSUM OSPINA MD Jan 27, 2017 13:33
[2017-01-27] MEDS ORDERED: MIDAZOLAM HCL/PF 2 MG/2 ML VIAL. ONE (13:55)
[2017-01-27] MEDS ORDERED: FENTANYL PF 100 MCG/2 ML VIAL. ONE (13:55)
[2017-01-27] MEDS ORDERED: VANCOMYCIN 1 GM in IV NORMAL SALINE 250ML 250 ML IV ONE (14:00)
[2017-01-27] MEDS ORDERED: FENTANYL PF 100 MCG/2 ML VIAL. IV ONE (14:15)
[2017-01-27] MEDS ORDERED: MIDAZOLAM HCL/PF 2 MG/2 ML VIAL. IV ONE (14:15)
[2017-01-27] MEDS ORDERED: IOHEXOL 350 MG/ML 50 ML VIAL. IART ONE (14:15)
--- NOTE | 2017-01-27 14:26 | PDOC ---
MODERATE SEDATION ASSESSMENT RISKS/ALTERNATIVES Risks/Alternatives Risks and alternatives of this type of sedation and procedure discussed with: RISK/ALTERNATIVES: Patient H & P ON CHART H & P H & P on chart and reviewed for co-morbid conditions and appropriate labs. H&P ON CHART: Yes STATUS PREG STATUS ASSESSED: N/A MEDS/ALLERGIES REVIEWED Meds/Allergies Reviewed Medications and Allergies including time and route of recently administered narcotics and sedatives. MEDS/ALLERGIES REVIEWED: Yes ASA RATING ASA RATING: III AIRWAY ASSESSMENT Airway Assessment Airway patency, oral function limitations, presence of caps, crowns, dentures, partials, and ability to extend neck assessed. AIRWAY ASSESSMENT: Yes MALLAMPATI SCORE MALLAMPATI SCORE: III PRE-SEDATION ASSESSMENT PRE-SEDATION ASSESSMENT: Yes DANIELE FINN MD Jan 27, 2017 14:25
[2017-01-27] MEDS ORDERED: IOHEXOL 300 MG/ML 50 ML VIAL. IJ ONE (14:30)
--- NOTE | 2017-01-27 14:32 | PDOC ---
Exam Child Monitor Child Monitor Helen Thread Winder Automatic Thread Winder Automatic F Ndumbu Pre-Procedure Diagnosis Pre-Procedure Diagnosis 57 YO male with dysphagia, s/p gastric bypass surgery. Indwelling J-tube "fell out". Post-Procedure Diagnosis Post-Procedure Diagnosis Same Procedure Performed Procedure Performed Fluoro guided J-tube replacement Type of Anesthesia Type of Anesthesia Mod sedation. Estimated Blood Loss EBL: Trace Specimens Specimans 16F marin catheter removed from J-tube tract Drain/Tubes Drains/Tubes New 22F STACI J-tube inserted. Note: Distance from J-tube hub to retention balloon within J-tube tract is barely long enough to allow intraluminal position of balloon. Surgical replacement with a shorter tract may be necessary. Condition of Patient Condition of Patient No apparent compliciation. Disposition Disposition From IR return to 408. OK to use new J-tube. Full report to follow. DANIELE FINN MD Jan 27, 2017 14:32
[2017-01-27] MEDS: IV NORMAL SALINE 1000ML BAG 1,000 ML IV SCH (15:33)
[2017-01-27] MEDS: DICLOFENAC SODIUM 1% TOPICAL GEL 100GM TUBE. TP SCH ×2 (15:44→21:00)
[2017-01-27] MEDS ORDERED: CONTRAST GIVEN MC PRN (16:00)
[2017-01-27] MEDS ORDERED: QUEtiapine 25 MG TABLET. PEG SCH (21:00)
[2017-01-27] MEDS ORDERED: traZODone 100 MG TABLET. PEG SCH (21:00)
[2017-01-27] MEDS ORDERED: NON FORMULARY ITEM (Melatonin 3 MG) PEG SCH (21:00)
[2017-01-28] MEDS: IV NORMAL SALINE 1000ML BAG 1,000 ML IV SCH ×2 (02:22→09:00)
[2017-01-28 02:56] VITALS: BP 130/72
[2017-01-28 07:00] VITALS: BP 114/65
[2017-01-28] MEDS: IPRATRPIUM/ALBUTEROL 0.5/2.5MG 3 ML NEBU. NEB SCH (07:12)
--- NOTE | 2017-01-28 07:15 | RAD ---
Fluoroscopy guided replacement of jejunostomy tube Indication: 57-year-old male with dysphagia, status post gastric bypass surgery. His recently replaced jejunostomy tube has been pulled out. Fluoroscopy guided replacement has been requested. Fluoroscopy time: 4.2 minutes Kerma-area Product: 26 Gycm2 Contrast material: 20 cc Omnipaque 300 Anesthesia: 16 minutes moderate sedation was provided utilizing a total of 1.5 mg Versed and 75 mcg fentanyl, IV. The patient was appropriately monitored by a qualified independent observer throughout the time of moderate sedation. Sterility: All elements of maximal sterile barrier technique were utilized, including cap, mask, sterile gown, sterile gloves, large sterile sheet, appropriate hand hygiene, and 2% chlorhexidine for cutaneous antisepsis. Procedure: Informed consent was obtained from the patient's . He was placed supine on the angiography table. Moderate sedation was provided with IV Versed and fentanyl. Upper abdomen was prepped and draped in the usual sterile fashion. A 16 [place] Heart type catheter had been placed into the jejunostomy tract, to keep it open. The 16 [place] Heart catheter was then exchanged over a Roadrunner wire for a 5 [place] Omni Flush catheter, which was easily advanced through the jejunostomy tract and was positioned deeply within jejunum. Intraluminal position of the Omni Flush catheter within jejunum was confirmed with contrast injection and a fluoroscopic spot image. The Omni Flush catheter was then removed over a stiff Glidewire. A new 20 [place] STACI jejunostomy tube was then advanced over the stiff Glidewire under fluoroscopic guidance. Tip of the J-tube was appropriately positioned within jejunum. This was documented with contrast injection. Retention balloon of the jejunostomy tube was inflated with 10 cc of sterile water. A sterile dressing was applied. Patient tolerated the procedure well without apparent complication. Impression: Successful, uneventful fluoroscopy guided jejunostomy tube replacement, as described.
[2017-01-28] MEDS: NON FORMULARY ITEM (Testosterone (Androgel) 1 PACKET) TP SCH (09:00)
[2017-01-28] MEDS: LOPERAMIDE 2 MG CAPSULE PO SCH ×2 (09:00→09:03)
[2017-01-28] MEDS: DICLOFENAC SODIUM 1% TOPICAL GEL 100GM TUBE. TP SCH (09:00)
[2017-01-28] MEDS ORDERED: RIVAROXABAN 10 MG TABLET. ONE (09:00)
[2017-01-28] MEDS: POLYETHYLENE GLYCOL 3350 17 GM PACKET. PO SCH (09:02)
[2017-01-28] MEDS: LIDOCAINE (700MG/PATCH) PATCH. TD SCH (09:02)
[2017-01-28] MEDS: LACTULOSE 20 GM/30 ML SOLUTION. FT SCH (09:03)
[2017-01-28] MEDS: THIAMINE 100 MG TABLET. PEG SCH (09:03)
[2017-01-28] MEDS: FLUOXETINE HCL 20 MG CAPSULE. PEG SCH (09:03)
[2017-01-28] MEDS: NYSTATIN 100,000 UNITS/ML 5 ML ORAL.SUSP. PO SCH ×2 (09:03→13:18)
[2017-01-28] MEDS: FAMOTIDINE 20 MG TABLET. PO SCH (09:04)
[2017-01-28] MEDS: OXCARBAZEPINE 300 MG TABLET. PEG SCH (09:04)
[2017-01-28] MEDS: TAMSULOSIN 0.4 MG CAP.ER.24H. PO SCH (09:04)
[2017-01-28] MEDS: RIVAROXABAN 10 MG TABLET. PO SCH (09:04)
[2017-01-28] MEDS: valACYclovir 500 MG TABLET. PO SCH (09:04)
[2017-01-28] MEDS: busPIRone 5 MG TABLET. PEG SCH ×2 (09:04→13:18)
[2017-01-28 11:00] VITALS: BP 92/60
--- NOTE | 2017-01-28 12:40 | PDOC3 ---
Discharge Summary Visit Information Date of Admission: Jan 26, 2017 Date of Discharge: Jan 28, 2017 Admitting Diagnosis Comment: 1. J tube malfunction 2. Hx elective gastric bypass with morbid complications thereafter including sepsis, chronic encephalopathy, trached decanulated, bed bound/immobility 3. Muscle spasms, chronic 4,. Chronic encephalopathy 5. Ventral abdominal wound (exposed dermis) 6. MUltiple allergies including to clinda Final Diagnosis Problems Medical Problems: (1) Feeding tube dysfunction Status: Acute (2) Malfunctioning jejunostomy tube Status: Acute Brief Hospital Course Allergies Allergies Coded Allergies Type Severity Reaction Last Updated Verified aripiprazole Allergy Intermediate 01/06/17 Yes clarithromycin Allergy Intermediate 01/06/17 Yes divalproex sodium Allergy Intermediate 01/06/17 Yes fluvoxamine Allergy Intermediate 01/06/17 Yes gabapentin Allergy Intermediate 01/06/17 Yes gluten Allergy Intermediate 01/06/17 Yes lurasidone Allergy Intermediate 01/06/17 Yes pregabalin Allergy Intermediate 01/06/17 Yes Vital Signs Vital Signs Date Time Temp Pulse Resp B/P Pulse Ox O2 Delivery O2 Flow Rate FiO2 01/28/17 11:00 98.0 86 22 92/60 92 Room Air 98.0 Lab Results Laboratory Tests Test 01/26/17 16:45 01/27/17 08:35 White Blood Count 5.5x10^3/uL (4.0-11.0) 5.0x10^3/uL (4.0-11.0) Red Blood Count 4.01x10^6/uL (4.30-5.70) 3.73x10^6/uL (4.30-5.70) Hemoglobin 11.9g/dL (13.0-17.5) 11.2g/dL (13.0-17.5) Hematocrit 35.5% (39.0-53.0) 32.9% (39.0-53.0) Mean Corpuscular Volume 89fL (79-100) 88fL (79-100) Mean Corpuscular Hemoglobin 30pg (25-35) 30pg (25-35) Mean Corpuscular Hemoglobin Concent 34g/dL (31-37) 34g/dL (31-37) Red Cell Distribution Width 16.1% (11.5-14.5) 16.2% (11.5-14.5) Platelet Count 237x10^3/uL (140-400) 197x10^3/uL (140-400) Neutrophils (%) (Auto) 57% (31-73) 51% (31-73) Lymphocytes (%) (Auto) 28% (24-48) 32% (24-48) Monocytes (%) (Auto) 8% (0-9) 9% (0-9) Eosinophils (%) (Auto) 6% (0-3) 8% (0-3) Basophils (%) (Auto) 1% (0-3) 1% (0-3) Neutrophils # (Auto) 3.1x10^3uL (1.8-7.7) 2.5x10^3uL (1.8-7.7) Lymphocytes # (Auto) 1.5x10^3/uL (1.0-4.8) 1.6x10^3/uL (1.0-4.8) Monocytes # (Auto) 0.4x10^3/uL (0.0-1.1) 0.4x10^3/uL (0.0-1.1) Eosinophils # (Auto) 0.4x10^3/uL (0.0-0.7) 0.4x10^3/uL (0.0-0.7) Basophils # (Auto) 0.1x10^3/uL (0.0-0.2) 0.0x10^3/uL (0.0-0.2) Sodium Level 141mmol/L (136-145) 143mmol/L (136-145) Potassium Level 4.6mmol/L (3.5-5.1) 4.4mmol/L (3.5-5.1) Chloride Level 102mmol/L (98-107) 107mmol/L (98-107) Carbon Dioxide Level 30mmol/L (21-32) 27mmol/L (21-32) Anion Gap 9 (6-14) 9 (6-14) Blood Urea Nitrogen 10mg/dL (8-26) 9mg/dL (8-26) Creatinine 0.6mg/dL (0.7-1.3) 0.6mg/dL (0.7-1.3) Estimated GFR (Cockcroft-Gault) 139.4 139.4 Glucose Level 101mg/dL (70-99) 96mg/dL (70-99) Calcium Level 9.1mg/dL (8.5-10.1) 8.8mg/dL (8.5-10.1) Brief Hospital Course Mr. Stevens is a 57 old male sent from [facility]U bec J tube fell off. Pt underwent IR replacement of J tube, TF running fine post procedure, INcidental anterior abd wound, not infected but did have some yellowish minor dc on arrival. Got a dose of vanc, no fever, no white ct. WOund care consulted, Will dc on PO augmentin - has allergy to clinda- dw over he phone, SW and RN Dc 31 mins Pt seen and examined MAR done DIspo: back to SNU Partial code Discharge Information Condition at Discharge: Improved, Stable Disposition/Orders: Other (snu) Scheduled Buspirone Hcl (Buspirone Hcl) 1 TAB PEG TID (Reported) Diclofenac Epolamine (Flector) 1 PATCH TP BID (Reported) Diclofenac Sodium (Voltaren) 1 GM TP BID (Reported) Diclofenac Sodium (Diclofenac Sodium) 100 GM TP BID (Reported) Famotidine (Famotidine) 20 MG PO BID (Reported) Fluoxetine Hcl (Fluoxetine Hcl) 1 CAP PEG DAILY (Reported) Fluoxetine Hcl (Fluoxetine Dr) 90 MG PO WEEKLY (Reported) Fluoxetine Hcl (Fluoxetine Hcl) 1 CAP PEG DAILY (Reported) Fluticasone Propionate (Fluticasone Propionate Nasal [place]) 2 SPRAY NS HS ( Reported) Fluticasone Propionate (Fluticasone Propionate Nasal [place]) 2 SPRAY NS DAILY ( Reported) Ipratropium/Albuterol Sulfate (Duoneb 0.5-3(2.5) Mg/3 Ml) 3 ML NEB BID (Reported ) Lactulose (Lactulose) 10 GM AD BIDWMEALS (Reported) Loperamide Hcl (Anti-Diarrheal) 2 MG PO BID (Reported) Melatonin (Melatonin) 3 MG PEG HS (Reported) Meropenem (Meropenem) 500 MG IV Q8HRS (Reported) Nystatin (Nystatin) 5 ML PO QID (Reported) Oxcarbazepine (Oxcarbazepine) 1 TAB PEG BID (Reported) Oxcarbazepine (Trileptal) 1 TAB PO BID (Reported) Polyethylene Glycol 3350 (Miralax) 1 PACKET PO DAILY (Reported) Quetiapine Fumarate (Quetiapine Fumarate) 25 MG PEG HS (Reported) Rivaroxaban (Xarelto) 20 MG PEG DAILY (Reported) Tamsulosin Hcl (Tamsulosin Hcl) 1 CAP PO DAILY (Reported) Testosterone (Androgel) 1 PACKET TP DAILY (Reported) Thiamine Hcl (Thiamine Hcl) 100 MG PEG DAILY (Reported) Trazodone Hcl (Trazodone Hcl) 2 TAB PEG QHS (Reported) Valacyclovir Hcl (Valtrex) 1 TAB PO DAILY (Reported) Vancomycin HCl (Vancomycin HCl) 125 MG PO QID (Reported) Scheduled PRN Hydrocodone/Acetaminophen (Lortab 5-325 mg Tablet) 1 TAB PEG PRN Q6HRS PRN PRN PAIN (Reported) Hydrocodone/Acetaminophen (Lortab 7.5-325 mg Tablet) 1 TAB PO PRN Q12HR PRN PRN PAIN (Reported) Melatonin (Melatonin) 5 MG PEG PRN QHS PRN PRN INSOMNIA (Reported) Miscellaneous Medications Cholecalciferol (Vitamin D3) (Vitamin D) 50,000 UNIT PO (Reported) Cyanocobalamin (Vitamin B-12) (Cyanocobalamin Injection) 1,000 MCG IJ (Reported ) Methylcellulose (Citrucel) 479 GM PO (Reported) KUSUM OSPINA MD Jan 28, 2017 12:40
[2017-01-28 15:00] VITALS: BP 108/66
== END 2017-01-28 16:05 | DRG 393 ==
LOC: ER 15:11 → 4 NORTH 16:22
PROVIDERS: ADMIT Internal Medicine; ATTEND Internal Medicine
PROC: 0DHA3UZ Insertion of Feeding Device into Jejunum, Percutaneous Approach (ICD-10-PCS; principal; 2017-01-27)
DX: K94.13 Enterostomy malfunction (principal); G93.40 Encephalopathy, unspecified; E46 Unspecified protein-calorie malnutrition; Z68.41 Body mass index [BMI] 40.0-44.9, adult; K21.9 Gastro-esophageal reflux disease without esophagitis; F20.9 Schizophrenia, unspecified; R13.10 Dysphagia, unspecified; Y83.3 Surgical operation with formation of external stoma as the cause of abnormal reaction of the patient, or of later complication, without mention of misadventure at the time of the procedure; Z86.61 Personal history of infections of the central nervous system; Z98.84 Bariatric surgery status; Z79.899 Other long term (current) drug therapy; Z88.8 Allergy status to other drugs, medicaments and biological substances
CPT/HCPCS: 36415; 43760; 49451; 51702; 80048; 85027; 94640; 94760; C1713; C1769; J2250; J2270; J2405; J3010; J3370; J7030; J7050; J7620; Q9967; 99285-25

== ENCOUNTER 2017-01-31 19:55 | Emergency (ER) | payer BC ==
[~2017-01-31] VITALS: Ht 180.3 cm; Wt 127.0 kg
[~2017-01-31 19:55] MED LIST changes: +CYAN10002 IJ; +DICL1PAT4 TP; +HYDR-2678 PEG; +HYDR-2679 PO; +LACT20SO AD; +MELA5CAP PEG; +METH479P PO; +OXCA300T3 PO; +POLY17PO5 PO; +TAMS0.4C2 PO; +TEST5GEL TP; +TRAZ100T12 PEG; +VALA10005 PO
[2017-01-31 20:34] VITALS: BP 135/70
--- NOTE | 2017-01-31 20:39 | PHYS DOC ---
Past Medical History Past Medical History: Anxiety, GERD, Seizure, Schizophrenia Additional Past Medical Histor: ENCEPHALITIS, RESPIRATORY DISORDERS Past Surgical History: Gastric Bypass Additional Past Surgical Histo: J TUBE PLACEMENT Adult General Chief Complaint Chief Complaint: OTHER COMPLAINTS HPI HPI 57-year-old male with chronic encephalopathy who is bed bound and uses a J- tube. He returns tonight to the emergency department after pulling out his J- tube. There are no other issues. Patient was admitted and had a jejunostomy tube replaced on January 26, 2017. [] Review of Systems Review of Systems Review of systems is unobtainable secondary to dementia Allergies Allergies Allergies Coded Allergies Type Severity Reaction Last Updated Verified aripiprazole Allergy Intermediate 01/06/17 Yes clarithromycin Allergy Intermediate 01/06/17 Yes divalproex sodium Allergy Intermediate 01/06/17 Yes fluvoxamine Allergy Intermediate 01/06/17 Yes gabapentin Allergy Intermediate 01/06/17 Yes gluten Allergy Intermediate 01/06/17 Yes lurasidone Allergy Intermediate 01/06/17 Yes pregabalin Allergy Intermediate 01/06/17 Yes Physical Exam Physical Exam Constitutional: Well developed, well nourished, no acute distress, non-toxic appearance. [] HENT: Normocephalic, atraumatic, bilateral external ears normal, oropharynx moist, no oral exudates, nose normal. [] Eyes: PERRLA, EOMI, conjunctiva normal, no discharge. [] Neck: Normal range of motion, no tenderness, supple, no stridor. [] Cardiovascular:Heart rate regular rhythm, no murmur [] Lungs & Thorax: Bilateral breath sounds clear to auscultation [] Abdomen: Stoma from jejunostomy there does not appear to be any significant damage from the removal of the tube. [] Skin: Warm, dry, no erythema, no rash. [] Back: No tenderness, no CVA tenderness. [] Extremities: No tenderness, no cyanosis, no clubbing, ROM intact, no edema. [] Neurologic: Awake and alert but unable to communicate, normal motor function, normal sensory function, no focal deficits noted. [] Psychologic: Unable to assess Current Patient Data Vital Signs Vital Signs Date Time Temp Pulse Resp B/P Pulse Ox O2 Delivery O2 Flow Rate FiO2 01/31/17 20:34 96 20 135/70 96 Room Air 01/31/17 20:00 98.5 98.5 EKG EKG [] Radiology/Procedures Radiology/Procedures [] Course & Med Decision Making Course & Med Decision Making Pertinent Labs and Imaging studies reviewed. (See chart for details) [ED course: Evaluation reveals a 57-year-old male in no distress who had a jejunostomy tube accidentally pulled out today. This will need to be placed by interventional radiology. This is nonemergent procedure and can be arranged as an outpatient tomorrow.] Dragon Disclaimer Dragon Disclaimer This electronic medical record was generated, in whole or in part, using a voice recognition dictation system. Departure Departure Impression: Primary Impression: Malfunctioning jejunostomy tube Disposition: HOME, SELF-CARE Condition: STABLE Referrals: ULYSSES LAN MD (PCP) Additional Instructions: He'll need to follow up with interventional radiology tomorrow to have her J- tube replaced. SAMEER LAN DO Jan 31, 2017 20:39
[2017-02-01] MEDS ORDERED: ACET325T9 PEG (15:19)
== END 2017-01-31 21:55 | disposition home or self-care (01) ==
LOC: ER 19:55
DX: K94.13 Enterostomy malfunction (principal); K21.9 Gastro-esophageal reflux disease without esophagitis; F20.9 Schizophrenia, unspecified; F41.9 Anxiety disorder, unspecified; Z98.84 Bariatric surgery status; Z88.1 Allergy status to other antibiotic agents; Z88.8 Allergy status to other drugs, medicaments and biological substances; Z88.9 Allergy status to unspecified drugs, medicaments and biological substances
CPT/HCPCS: 99284

== ENCOUNTER 2017-02-01 11:45 | Inpatient (IN) | payer BC ==
[~2017-02-01] VITALS: Ht 172.7 cm; Wt 127.0 kg
[2017-02-01 12:57] LABS: BASO # 0.1 x10^3/uL (0.0-0.2); BASO % 1 % (0-3); EOS % 5 % (0-3); LYMPH # 1.2 x10^3/uL (1.0-4.8); LYMPH % 22 % (24-48); MEAN CORPUSCULAR HEMOGLOBIN 30 pg (25-35); MEAN CORPUSCULAR HGB CONC 34 g/dL (31-37); MEAN CORPUSCULAR VOLUME 89 fL (79-100); MONO % 8 % (0-9); NEUT % 64 % (31-73); PLATELET COUNT 245 x10^3/uL (140-400); RED BLOOD COUNT 4.05 x10^6/uL (4.30-5.70); WHITE BLOOD COUNT 5.5 x10^3/uL (4.0-11.0)
[2017-02-01 13:05] LABS: CALCIUM 9.3 mg/dL (8.5-10.1); CREATININE 0.8 mg/dL (0.7-1.3); POTASSIUM 4.1 mmol/L (3.5-5.1)
[2017-02-01 14:20] VITALS: BP 119/79
[2017-02-01] MEDS ORDERED: ONDANSETRON PF 4 MG/2 ML VIAL. IV PRN (15:00)
[2017-02-01] MEDS ORDERED: ACET325T9 PEG (15:19)
[2017-02-01] MEDS: IV DEXTROSE 5% - 0.9 % NACL 1,000 ML IV SCH (15:30)
--- NOTE | 2017-02-01 16:11 | PDOC2 ---
CONSULT Date of Consult Date of Consult DATE: 02/01/17 TIME: 15:53 Reason for Consult Reason for Consult: Dislodged jejunostomy tube. Referring Physician Referring Physician: Dr. Rodgers Source Source: Chart review, Unable to obtain due to (chronic encephalopathy) History of Present Illness Reason for Visit: 57 y/o male with complications of bariatric surgery (type unknown), including chronic abdominal wound (nearly healed). Dependent on jejunostomy feedings, but apparently has repeatedly pulled these out. Last here for this on 01/26; in ER last night and sent back to SNU with the expressed intent to have replacement done today as outpatient, though apparently no arrangements made. Patient chronically encephalopathic (Wernicke's? per prior EEG). No history available from him. Others' notes reviewed and no mention of other GI issues/ history other than possible GERD. Not currently smoking or using alcohol obviously, but past history of any of this not available. Past Medical History CENTRAL NERVOUS SYSTEM: Other (chronic encephalopathy, "muscle spasms") GI: GERD (?) Psych: Schizophrenia Musculoskeletal: Other (spasms) Endocrine: Other (obesity) Dermatology: Other (chronic wound) Past Surgical History Past Surgical History: Other (gastric "bypass"/surgical jejunostomy) Family History Family History unable to obtain Social History Social History past habits unknown No ALCOHOL: none Current Problem List Problem List Problems Medical Problems: (1) Feeding tube dysfunction Status: Acute (2) Malfunctioning jejunostomy tube Status: Acute Current Medications Current Medications Current Medications Ondansetron HCl 4 mg 4 mg PRN Q8HRS PRN IV NAUSEA/VOMITING; Start 02/01/17 at 15:00; Stop 02/02/17 at 14:59 Dextrose/Sodium Chloride (Iv D5% - NS) 1,000 ml @ 100 mls/hr Q10H IV Last administered on 02/01/17t 15:30; Start 02/01/17 at 15:00 Active Scripts Active Reported Tylenol (Acetaminophen) 325 Mg Tablet 2 Tab PEG PRN Q4-6HRS PRN Valtrex (Valacyclovir Hcl) 1,000 Mg Tablet 1 Tab PO DAILY Trazodone Hcl 100 Mg Tablet 2 Tab PEG QHS Tamsulosin Hcl 0.4 Mg Cap.er.24h 1 Cap PO DAILY Miralax (Polyethylene Glycol 3350) 17 Gm Powd.pack 1 Packet PO DAILY Melatonin 5 Mg Capsule 5 Mg PEG PRN QHS PRN Lactulose 20 Gm/30 Ml Solution 10 Gm AD BIDWMEALS Lortab 7.5-325 mg Tablet (Hydrocodone/Acetaminophen) 1 Each Tablet 1 Tab PO PRN Q12HR PRN Lortab 5-325 mg Tablet (Hydrocodone/Acetaminophen) 1 Each Tablet 1 Tab PEG PRN Q6HRS PRN Cyanocobalamin Injection (Cyanocobalamin (Vitamin B-12)) 1,000 Mcg/1 Ml Vial 1, 000 Mcg IJ Citrucel (Methylcellulose) 479 Gm Powder 479 Gm PO Fluticasone Propionate Nasal [place] (Fluticasone Propionate) 16 Gm [place].susp 2 [place] NS HS Xarelto (Rivaroxaban) 20 Mg Tablet 20 Mg PEG DAILY Buspirone Hcl 5 Mg Tablet 1 Tab PEG TID Vitamin D (Cholecalciferol (Vitamin D3)) 10,000 Unit Capsule 50,000 Unit PO QFR Voltaren (Diclofenac Sodium) 100 Gm Gel..gram. 1 Gm TP BID Famotidine 20 Mg Tablet 20 Mg PO BID Thiamine Hcl 100 Mg Tablet 100 Mg PEG DAILY Quetiapine Fumarate 25 Mg Tablet 25 Mg PEG HS Oxcarbazepine 300 Mg Tablet 1 Tab PEG BID Melatonin 1 Mg Tablet.er 3 Mg PEG HS Nystatin 100,000 Unit/1 Ml Oral.susp 5 Ml PO QID Duoneb 0.5-3(2.5) Mg/3 Ml (Albuterol/Ipratropium) 3 Ml Ampul.neb 3 Ml NEB BID Anti-Diarrheal (Loperamide Hcl) 2 Mg Capsule 2 Mg PO BID Vancomycin HCl 125 Mg/2.5 Ml Syringe 125 Mg PO QID Allergies Allergies: Coded Allergies: aripiprazole (Verified Allergy, Intermediate, 01/06/17) clarithromycin (Verified Allergy, Intermediate, 01/06/17) divalproex sodium (Verified Allergy, Intermediate, 01/06/17) fluvoxamine (Verified Allergy, Intermediate, 01/06/17) gabapentin (Verified Allergy, Intermediate, 01/06/17) gluten (Verified Allergy, Intermediate, 01/06/17) lurasidone (Verified Allergy, Intermediate, 01/06/17) pregabalin (Verified Allergy, Intermediate, 01/06/17) ROS Review of System unobtainable from patient Physical Exam General: No acute distress, Other (awake, not oriented/mumbles unintelligibly) Lungs: Clear to auscultation Heart: Regular rate, Normal S1, Normal S2, No murmurs Abdomen: Normal bowel sounds, Soft, No tenderness, No hepatosplenomegaly, No masses, Other (nearly healed midline incisiion/RUQ jejunostomy) Extremities: No edema Skin: No significant lesion Neuro: Normal tone, Sensation intact, Cranial nerves 3-12 NL, Reflexes 2+ Psych/Mental Status: Other (unable to gauge) MUSCULOSKELETAL: No deformity, No swelling Vitals VITALS Vital Signs Date Time Temp Pulse Resp B/P Pulse Ox O2 Delivery O2 Flow Rate FiO2 02/01/17 14:48 Room Air 02/01/17 14:20 96.8 85 20 119/79 96 96.8 Labs Labs Laboratory Tests Test 02/01/17 12:30 White Blood Count 5.5x10^3/uL (4.0-11.0) Red Blood Count 4.05x10^6/uL (4.30-5.70) Hemoglobin 12.0g/dL (13.0-17.5) Hematocrit 36.0% (39.0-53.0) Mean Corpuscular Volume 89fL (79-100) Mean Corpuscular Hemoglobin 30pg (25-35) Mean Corpuscular Hemoglobin Concent 34g/dL (31-37) Red Cell Distribution Width 16.0% (11.5-14.5) Platelet Count 245x10^3/uL (140-400) Neutrophils (%) (Auto) 64% (31-73) Lymphocytes (%) (Auto) 22% (24-48) Monocytes (%) (Auto) 8% (0-9) Eosinophils (%) (Auto) 5% (0-3) Basophils (%) (Auto) 1% (0-3) Neutrophils # (Auto) 3.5x10^3uL (1.8-7.7) Lymphocytes # (Auto) 1.2x10^3/uL (1.0-4.8) Monocytes # (Auto) 0.4x10^3/uL (0.0-1.1) Eosinophils # (Auto) 0.3x10^3/uL (0.0-0.7) Basophils # (Auto) 0.1x10^3/uL (0.0-0.2) Sodium Level 143mmol/L (136-145) Potassium Level 4.1mmol/L (3.5-5.1) Chloride Level 104mmol/L (98-107) Carbon Dioxide Level 30mmol/L (21-32) Anion Gap 9 (6-14) Blood Urea Nitrogen 9mg/dL (8-26) Creatinine 0.8mg/dL (0.7-1.3) Estimated GFR (Cockcroft-Gault) 100.0 Glucose Level 91mg/dL (70-99) Calcium Level 9.3mg/dL (8.5-10.1) Laboratory Tests Test 02/01/17 12:30 White Blood Count 5.5x10^3/uL (4.0-11.0) Red Blood Count 4.05x10^6/uL (4.30-5.70) Hemoglobin 12.0g/dL (13.0-17.5) Hematocrit 36.0% (39.0-53.0) Mean Corpuscular Volume 89fL (79-100) Mean Corpuscular Hemoglobin 30pg (25-35) Mean Corpuscular Hemoglobin Concent 34g/dL (31-37) Red Cell Distribution Width 16.0% (11.5-14.5) Platelet Count 245x10^3/uL (140-400) Neutrophils (%) (Auto) 64% (31-73) Lymphocytes (%) (Auto) 22% (24-48) Monocytes (%) (Auto) 8% (0-9) Eosinophils (%) (Auto) 5% (0-3) Basophils (%) (Auto) 1% (0-3) Neutrophils # (Auto) 3.5x10^3uL (1.8-7.7) Lymphocytes # (Auto) 1.2x10^3/uL (1.0-4.8) Monocytes # (Auto) 0.4x10^3/uL (0.0-1.1) Eosinophils # (Auto) 0.3x10^3/uL (0.0-0.7) Basophils # (Auto) 0.1x10^3/uL (0.0-0.2) Sodium Level 143mmol/L (136-145) Potassium Level 4.1mmol/L (3.5-5.1) Chloride Level 104mmol/L (98-107) Carbon Dioxide Level 30mmol/L (21-32) Anion Gap 9 (6-14) Blood Urea Nitrogen 9mg/dL (8-26) Creatinine 0.8mg/dL (0.7-1.3) Estimated GFR (Cockcroft-Gault) 100.0 Glucose Level 91mg/dL (70-99) Calcium Level 9.3mg/dL (8.5-10.1) Assessment/Plan Assessment/Plan IMP: Dislodged J-tube. Case discussed with Dr. Cervantes; he feels anatomy of jejunostomy is such that no available tube will remain in place, hence the recurring issues. He recommends surgical consultation re: revision (has apparently discussed with Dr. Gallardo in the past). Complications of bariatric surgery; exact nature unclear from available records, but tube-feeding dependent. Chronic encephalopathy; Dr. Shea mentions Wernicke's on EEG report. REC: After consulting IR, they recommend GS opinion. Will ask Dr. Gallardo to see. Thanks for allowing me to assist in the care of this patient. Please call if questions. MALIK CANAS MD Feb 01, 2017 16:11
--- NOTE | 2017-02-01 17:18 | ED.ADGEN ---
Past Medical History Past Medical History: Anxiety, GERD, Seizure, Schizophrenia Additional Past Medical Histor: ENCEPHALITIS, RESPIRATORY DISORDERS Past Surgical History: Gastric Bypass Additional Past Surgical Histo: J TUBE PLACEMENT Alcohol Use: None Drug Use: None Adult General Chief Complaint Chief Complaint: OTHER COMPLAINTS HPI HPI Patient is a 57 year old man, history of encephalopathy, seizure disorder, schizophrenia, GERD, chronic wound to the abdomen, who presents the emergency department with report of J-tube dislodgment. Patient was seen in the emergency department and subsequently admitted for replacement of G-tube 5 days ago. Patient dislodged tube last night. No other concerning history reported. Patient is nonverbal at baseline. Afebrile upon arousing the emergency department, resting comfortably in the ED. Review of Systems Review of Systems Patient is nonverbal, unable to provide information. Allergies Allergies Allergies Coded Allergies Type Severity Reaction Last Updated Verified aripiprazole Allergy Intermediate 01/06/17 Yes clarithromycin Allergy Intermediate 01/06/17 Yes divalproex sodium Allergy Intermediate 01/06/17 Yes fluvoxamine Allergy Intermediate 01/06/17 Yes gabapentin Allergy Intermediate 01/06/17 Yes gluten Allergy Intermediate 01/06/17 Yes lurasidone Allergy Intermediate 01/06/17 Yes pregabalin Allergy Intermediate 01/06/17 Yes Physical Exam Physical Exam Constitutional: Well developed, well nourished, no acute distress, non-toxic appearance. [] HENT: Normocephalic, atraumatic, bilateral external ears normal, oropharynx moist, no oral exudates, nose normal. [] Eyes: PERRLA, EOMI, conjunctiva normal, no discharge. [] Neck: Normal range of motion, no tenderness, supple, no stridor. [] Cardiovascular:Heart rate regular rhythm, no murmur , S1, S2, rubs or gallops. [ ] Lungs & Thorax: Bilateral breath sounds clear to auscultation, no wheezing, rhonchi, rales. [] Abdomen: Bowel sounds normal, soft, no tenderness, no masses, no pulsatile masses. Patient with chronic low noted on the mid abdominal region, area of exposed lower dermis, no evidence of inflammation or induration, granulation tissue is present, sterile dressing in place. J-tube insertion site is clean dry and intact, nontender, no signs of irritation or other concerning findings. Skin: Warm, dry, no erythema, no rash. [] Back: No tenderness, no CVA tenderness. [] Extremities: No tenderness, no cyanosis, no clubbing, ROM intact, no edema. [] Neurologic: Alert, patient with spontaneous eye opening, moving extremities, at baseline mental status per report. Psychologic: Affect baseline, mood normal. Current Patient Data Vital Signs Vital Signs Date Time Temp Pulse Resp B/P Pulse Ox O2 Delivery O2 Flow Rate FiO2 02/01/17 11:55 98.0 88 18 170/73 95 Room Air 98.0 EKG EKG Not indicated. [] Radiology/Procedures Radiology/Procedures Not indicated. [] Course & Med Decision Making Course & Med Decision Making Pertinent Labs and Imaging studies reviewed. (See chart for details) Patient presents for reinsertion of jejunostomy tube. Patient is well-appearing , with no concerning findings identified at the tube site. As tube was previously inserted by IR, IR was contacted. Dr. Cervantes is familiar with this patient, reviewed the patient's imaging, and made the recommendation is that the tube be surgically implanted, as there is a great likelihood that it would be dislodged again based on the patient's anatomy and history. I did speak to Dr. Gallardo of Gen. surgery, request the patient be admitted to the hospitalist service, he will see the patient for placement of a jejunostomy tube. Findings as above discussed with Dr. Treadwell of internal medicine, patient accepted to his service as a full admission to the medical surgical floor, with surgery consultation for tube placement as stated. Dragon Disclaimer Dragon Disclaimer This electronic medical record was generated, in whole or in part, using a voice recognition dictation system. Departure Impression: Primary Impression: Dislodged jejunostomy tube Disposition: ADMITTED INPATIENT Admitting Physician: Reinier Treadwell Condition: IMPROVED RA CABEZAS DO Feb 01, 2017 17:18
[2017-02-01 19:00] VITALS: BP 118/73
[2017-02-01 23:00] VITALS: BP 110/42
--- NOTE | 2017-02-02 00:25 | HP ---
ADMIT DATE: 02/01/2017 CHIEF COMPLAINT: Pulled his PEG tube. HISTORY OF PRESENT ILLNESS: The patient is a pleasant 57-year-old male who is at a facility. He has seizures, schizophrenia and chronic encephalopathy basically pulled his PEG tube. I have discussed the case with the ER physician. We are going to admit the patient and consult GI for a new PEG. PAST MEDICAL HISTORY: Schizophrenia, PEG tube, GERD, seizures, ____, respiratory issues, anxiety and gastric bypass. ALLERGIES: MULTIPLE, PLEASE REFER TO THE CHART. FAMILY HISTORY: Unknown. SOCIAL HISTORY: He resides at a facility. He does not drink, smoke or take drugs. MEDICATIONS: Reviewed, please refer to the MRAD. REVIEW OF SYSTEMS: Unobtainable. PHYSICAL EXAMINATION: VITAL SIGNS: Temperature afebrile, pulse 63, respirations 18, blood pressure 118/70. GENERAL: He is awake. He mumbles. HEART: Normal S1, S2. LUNGS: Clear. ABDOMEN: Soft, decreased bowel sounds. EXTREMITIES: There is a PEG site without a PEG in place. It has been pulled. The left side of the abdomen also has some excoriation, this appears to be chronic. ENDOCRINE: No thyromegaly. LYMPHATICS: No cervical nodes. HEMATOPOIETIC: No bruising. LABORATORY DATA: White count 5, hemoglobin 12, platelets 245. Electrolytes normal. ASSESSMENT AND PLAN: Pulled PEG. The patient has been admitted. We are consulting GI. He will be given a new PEG tomorrow. We hope to ____. MANNY MONTERO DO DR: RAY/franny JOB#: [id number] / [id number]
[2017-02-02] MEDS: IV DEXTROSE 5% - 0.9 % NACL 1,000 ML IV SCH ×3 (01:07→21:00)
[2017-02-02 07:00] VITALS: BP 117/82
[2017-02-02 07:17] LABS: BASO % 0 % (0-3); EOS % 1 % (0-3); HEMATOCRIT 34.2 % (39.0-53.0); HEMOGLOBIN 11.3 g/dL (13.0-17.5); LYMPH # 1.1 x10^3/uL (1.0-4.8); LYMPH % 13 % (24-48); MEAN CORPUSCULAR HEMOGLOBIN 30 pg (25-35); MEAN CORPUSCULAR HGB CONC 33 g/dL (31-37); MEAN CORPUSCULAR VOLUME 90 fL (79-100); MONO % 8 % (0-9); NEUT % 78 % (31-73); PLATELET COUNT 248 x10^3/uL (140-400); RED BLOOD COUNT 3.79 x10^6/uL (4.30-5.70); RED CELL DISTRIBUTION WIDTH 15.8 % (11.5-14.5)
--- NOTE | 2017-02-02 07:25 | PDOC2 ---
CONSULT Date of Consult Date of Consult DATE: 02/01/17 TIME: 07:24 Past Medical History CENTRAL NERVOUS SYSTEM: Other (chronic encephalopathy, "muscle spasms") GI: GERD (?) Psych: Schizophrenia Musculoskeletal: Other (spasms) Endocrine: Other (obesity) Dermatology: Other (chronic wound) Past Surgical History Past Surgical History: Other (gastric "bypass"/surgical jejunostomy) Social History No ALCOHOL: none Current Problem List Problem List Problems Medical Problems: (1) Dislodged jejunostomy tube Status: Acute (2) Feeding tube dysfunction Status: Acute (3) Malfunctioning jejunostomy tube Status: Acute Current Medications Current Medications Current Medications Ondansetron HCl 4 mg 4 mg PRN Q8HRS PRN IV NAUSEA/VOMITING; Start 02/01/17 at 15:00; Stop 02/02/17 at 14:59 Dextrose/Sodium Chloride (Iv D5% - NS) 1,000 ml @ 100 mls/hr Q10H IV Last administered on 02/02/17t 01:07; Start 02/01/17 at 15:00 Active Scripts Active Reported Tylenol (Acetaminophen) 325 Mg Tablet 2 Tab PEG PRN Q4-6HRS PRN Valtrex (Valacyclovir Hcl) 1,000 Mg Tablet 1 Tab PO DAILY Trazodone Hcl 100 Mg Tablet 2 Tab PEG QHS Tamsulosin Hcl 0.4 Mg Cap.er.24h 1 Cap PO DAILY Miralax (Polyethylene Glycol 3350) 17 Gm Powd.pack 1 Packet PO DAILY Melatonin 5 Mg Capsule 5 Mg PEG PRN QHS PRN Lactulose 20 Gm/30 Ml Solution 10 Gm AD BIDWMEALS Lortab 7.5-325 mg Tablet (Hydrocodone/Acetaminophen) 1 Each Tablet 1 Tab PO PRN Q12HR PRN Lortab 5-325 mg Tablet (Hydrocodone/Acetaminophen) 1 Each Tablet 1 Tab PEG PRN Q6HRS PRN Cyanocobalamin Injection (Cyanocobalamin (Vitamin B-12)) 1,000 Mcg/1 Ml Vial 1, 000 Mcg IJ Citrucel (Methylcellulose) 479 Gm Powder 479 Gm PO Fluticasone Propionate Nasal [place] (Fluticasone Propionate) 16 Gm [place].susp 2 [place] NS HS Xarelto (Rivaroxaban) 20 Mg Tablet 20 Mg PEG DAILY Buspirone Hcl 5 Mg Tablet 1 Tab PEG TID Vitamin D (Cholecalciferol (Vitamin D3)) 10,000 Unit Capsule 50,000 Unit PO QFR Voltaren (Diclofenac Sodium) 100 Gm Gel..gram. 1 Gm TP BID Famotidine 20 Mg Tablet 20 Mg PO BID Thiamine Hcl 100 Mg Tablet 100 Mg PEG DAILY Quetiapine Fumarate 25 Mg Tablet 25 Mg PEG HS Oxcarbazepine 300 Mg Tablet 1 Tab PEG BID Melatonin 1 Mg Tablet.er 3 Mg PEG HS Nystatin 100,000 Unit/1 Ml Oral.susp 5 Ml PO QID Duoneb 0.5-3(2.5) Mg/3 Ml (Albuterol/Ipratropium) 3 Ml Ampul.neb 3 Ml NEB BID Anti-Diarrheal (Loperamide Hcl) 2 Mg Capsule 2 Mg PO BID Vancomycin HCl 125 Mg/2.5 Ml Syringe 125 Mg PO QID Allergies Allergies: Coded Allergies: aripiprazole (Verified Allergy, Intermediate, 01/06/17) clarithromycin (Verified Allergy, Intermediate, 01/06/17) divalproex sodium (Verified Allergy, Intermediate, 01/06/17) fluvoxamine (Verified Allergy, Intermediate, 01/06/17) gabapentin (Verified Allergy, Intermediate, 01/06/17) gluten (Verified Allergy, Intermediate, 01/06/17) lurasidone (Verified Allergy, Intermediate, 01/06/17) pregabalin (Verified Allergy, Intermediate, 01/06/17) Vitals VITALS Vital Signs Date Time Temp Pulse Resp B/P Pulse Ox O2 Delivery O2 Flow Rate FiO2 02/01/17 23:00 79 22 110/42 Room Air 02/01/17 19:00 98.2 91 98.2 Labs Labs Laboratory Tests Test 02/01/17 12:30 02/01/17 17:22 White Blood Count 5.5x10^3/uL (4.0-11.0) Red Blood Count 4.05x10^6/uL (4.30-5.70) Hemoglobin 12.0g/dL (13.0-17.5) Hematocrit 36.0% (39.0-53.0) Mean Corpuscular Volume 89fL (79-100) Mean Corpuscular Hemoglobin 30pg (25-35) Mean Corpuscular Hemoglobin Concent 34g/dL (31-37) Red Cell Distribution Width 16.0% (11.5-14.5) Platelet Count 245x10^3/uL (140-400) Neutrophils (%) (Auto) 64% (31-73) Lymphocytes (%) (Auto) 22% (24-48) Monocytes (%) (Auto) 8% (0-9) Eosinophils (%) (Auto) 5% (0-3) Basophils (%) (Auto) 1% (0-3) Neutrophils # (Auto) 3.5x10^3uL (1.8-7.7) Lymphocytes # (Auto) 1.2x10^3/uL (1.0-4.8) Monocytes # (Auto) 0.4x10^3/uL (0.0-1.1) Eosinophils # (Auto) 0.3x10^3/uL (0.0-0.7) Basophils # (Auto) 0.1x10^3/uL (0.0-0.2) Sodium Level 143mmol/L (136-145) Potassium Level 4.1mmol/L (3.5-5.1) Chloride Level 104mmol/L (98-107) Carbon Dioxide Level 30mmol/L (21-32) Anion Gap 9 (6-14) Blood Urea Nitrogen 9mg/dL (8-26) Creatinine 0.8mg/dL (0.7-1.3) Estimated GFR (Cockcroft-Gault) 100.0 Glucose Level 91mg/dL (70-99) Calcium Level 9.3mg/dL (8.5-10.1) Nasal Screen MRSA (PCR) Positive (Negative) Laboratory Tests Test 02/01/17 12:30 02/01/17 17:22 White Blood Count 5.5x10^3/uL (4.0-11.0) Red Blood Count 4.05x10^6/uL (4.30-5.70) Hemoglobin 12.0g/dL (13.0-17.5) Hematocrit 36.0% (39.0-53.0) Mean Corpuscular Volume 89fL (79-100) Mean Corpuscular Hemoglobin 30pg (25-35) Mean Corpuscular Hemoglobin Concent 34g/dL (31-37) Red Cell Distribution Width 16.0% (11.5-14.5) Platelet Count 245x10^3/uL (140-400) Neutrophils (%) (Auto) 64% (31-73) Lymphocytes (%) (Auto) 22% (24-48) Monocytes (%) (Auto) 8% (0-9) Eosinophils (%) (Auto) 5% (0-3) Basophils (%) (Auto) 1% (0-3) Neutrophils # (Auto) 3.5x10^3uL (1.8-7.7) Lymphocytes # (Auto) 1.2x10^3/uL (1.0-4.8) Monocytes # (Auto) 0.4x10^3/uL (0.0-1.1) Eosinophils # (Auto) 0.3x10^3/uL (0.0-0.7) Basophils # (Auto) 0.1x10^3/uL (0.0-0.2) Sodium Level 143mmol/L (136-145) Potassium Level 4.1mmol/L (3.5-5.1) Chloride Level 104mmol/L (98-107) Carbon Dioxide Level 30mmol/L (21-32) Anion Gap 9 (6-14) Blood Urea Nitrogen 9mg/dL (8-26) Creatinine 0.8mg/dL (0.7-1.3) Estimated GFR (Cockcroft-Gault) 100.0 Glucose Level 91mg/dL (70-99) Calcium Level 9.3mg/dL (8.5-10.1) Nasal Screen MRSA (PCR) Positive (Negative) Assessment/Plan Assessment/Plan FND Wk # [id number] needs feeding tube replaced will follow Thanks for consult MARK BARAKAT MD Feb 02, 2017 07:25
[2017-02-02 07:36] LABS: CALCIUM 8.9 mg/dL (8.5-10.1); CREATININE 0.8 mg/dL (0.7-1.3); POTASSIUM 4.1 mmol/L (3.5-5.1)
--- NOTE | 2017-02-02 09:44 | PDOC ---
Provider Note Provider Note IR Note: IR has been asked to again replace J-tube. This tube has been recently replaced percutaneously with fluoro guidance on 01/06 and 01/27/17. Unfortunately, the J-tube tract is longer than distance between STACI catheter hub and retention balloon----therefore the retention balloon cannot be appropriately placed within gut lumen. Further attempt to replace tube percutaneously is considered futile. I recommend general surgery consideration to replace tube via new, shorter tract. Call for questions. DANIELE FINN MD Feb 02, 2017 09:44
[2017-02-02 11:29] VITALS: BP 125/73
--- NOTE | 2017-02-02 11:50 | PDOC ---
G I PROGRESS NOTE Subjective Mumbling. Physical Exam Lungs clear. RRR Abdomen soft, not apparently tender. Wound/stoma present. Review of Relevant I have reviewed the following items ambrose (where applicable) has been applied. Labs Laboratory Tests Test 02/01/17 12:30 02/01/17 17:22 02/02/17 06:50 White Blood Count 5.5x10^3/uL (4.0-11.0) 8.0x10^3/uL (4.0-11.0) Red Blood Count 4.05x10^6/uL (4.30-5.70) 3.79x10^6/uL (4.30-5.70) Hemoglobin 12.0g/dL (13.0-17.5) 11.3g/dL (13.0-17.5) Hematocrit 36.0% (39.0-53.0) 34.2% (39.0-53.0) Mean Corpuscular Volume 89fL (79-100) 90fL (79-100) Mean Corpuscular Hemoglobin 30pg (25-35) 30pg (25-35) Mean Corpuscular Hemoglobin Concent 34g/dL (31-37) 33g/dL (31-37) Red Cell Distribution Width 16.0% (11.5-14.5) 15.8% (11.5-14.5) Platelet Count 245x10^3/uL (140-400) 248x10^3/uL (140-400) Neutrophils (%) (Auto) 64% (31-73) 78% (31-73) Lymphocytes (%) (Auto) 22% (24-48) 13% (24-48) Monocytes (%) (Auto) 8% (0-9) 8% (0-9) Eosinophils (%) (Auto) 5% (0-3) 1% (0-3) Basophils (%) (Auto) 1% (0-3) 0% (0-3) Neutrophils # (Auto) 3.5x10^3uL (1.8-7.7) 6.3x10^3uL (1.8-7.7) Lymphocytes # (Auto) 1.2x10^3/uL (1.0-4.8) 1.1x10^3/uL (1.0-4.8) Monocytes # (Auto) 0.4x10^3/uL (0.0-1.1) 0.6x10^3/uL (0.0-1.1) Eosinophils # (Auto) 0.3x10^3/uL (0.0-0.7) 0.1x10^3/uL (0.0-0.7) Basophils # (Auto) 0.1x10^3/uL (0.0-0.2) 0.0x10^3/uL (0.0-0.2) Sodium Level 143mmol/L (136-145) 146mmol/L (136-145) Potassium Level 4.1mmol/L (3.5-5.1) 4.1mmol/L (3.5-5.1) Chloride Level 104mmol/L (98-107) 108mmol/L (98-107) Carbon Dioxide Level 30mmol/L (21-32) 25mmol/L (21-32) Anion Gap 9 (6-14) 13 (6-14) Blood Urea Nitrogen 9mg/dL (8-26) 13mg/dL (8-26) Creatinine 0.8mg/dL (0.7-1.3) 0.8mg/dL (0.7-1.3) Estimated GFR (Cockcroft-Gault) 100.0 100.0 Glucose Level 91mg/dL (70-99) 104mg/dL (70-99) Calcium Level 9.3mg/dL (8.5-10.1) 8.9mg/dL (8.5-10.1) Nasal Screen MRSA (PCR) Positive (Negative) Laboratory Tests Test 02/01/17 12:30 02/01/17 17:22 02/02/17 06:50 White Blood Count 5.5x10^3/uL (4.0-11.0) 8.0x10^3/uL (4.0-11.0) Red Blood Count 4.05x10^6/uL (4.30-5.70) 3.79x10^6/uL (4.30-5.70) Hemoglobin 12.0g/dL (13.0-17.5) 11.3g/dL (13.0-17.5) Hematocrit 36.0% (39.0-53.0) 34.2% (39.0-53.0) Mean Corpuscular Volume 89fL (79-100) 90fL (79-100) Mean Corpuscular Hemoglobin 30pg (25-35) 30pg (25-35) Mean Corpuscular Hemoglobin Concent 34g/dL (31-37) 33g/dL (31-37) Red Cell Distribution Width 16.0% (11.5-14.5) 15.8% (11.5-14.5) Platelet Count 245x10^3/uL (140-400) 248x10^3/uL (140-400) Neutrophils (%) (Auto) 64% (31-73) 78% (31-73) Lymphocytes (%) (Auto) 22% (24-48) 13% (24-48) Monocytes (%) (Auto) 8% (0-9) 8% (0-9) Eosinophils (%) (Auto) 5% (0-3) 1% (0-3) Basophils (%) (Auto) 1% (0-3) 0% (0-3) Neutrophils # (Auto) 3.5x10^3uL (1.8-7.7) 6.3x10^3uL (1.8-7.7) Lymphocytes # (Auto) 1.2x10^3/uL (1.0-4.8) 1.1x10^3/uL (1.0-4.8) Monocytes # (Auto) 0.4x10^3/uL (0.0-1.1) 0.6x10^3/uL (0.0-1.1) Eosinophils # (Auto) 0.3x10^3/uL (0.0-0.7) 0.1x10^3/uL (0.0-0.7) Basophils # (Auto) 0.1x10^3/uL (0.0-0.2) 0.0x10^3/uL (0.0-0.2) Sodium Level 143mmol/L (136-145) 146mmol/L (136-145) Potassium Level 4.1mmol/L (3.5-5.1) 4.1mmol/L (3.5-5.1) Chloride Level 104mmol/L (98-107) 108mmol/L (98-107) Carbon Dioxide Level 30mmol/L (21-32) 25mmol/L (21-32) Anion Gap 9 (6-14) 13 (6-14) Blood Urea Nitrogen 9mg/dL (8-26) 13mg/dL (8-26) Creatinine 0.8mg/dL (0.7-1.3) 0.8mg/dL (0.7-1.3) Estimated GFR (Cockcroft-Gault) 100.0 100.0 Glucose Level 91mg/dL (70-99) 104mg/dL (70-99) Calcium Level 9.3mg/dL (8.5-10.1) 8.9mg/dL (8.5-10.1) Nasal Screen MRSA (PCR) Positive (Negative) Medications Current Medications Ondansetron HCl 4 mg 4 mg PRN Q8HRS PRN IV NAUSEA/VOMITING; Start 02/01/17 at 15:00; Stop 02/02/17 at 14:59 Dextrose/Sodium Chloride (Iv D5% - NS) 1,000 ml @ 100 mls/hr Q10H IV Last administered on 02/02/17t 11:46; Start 02/01/17 at 15:00 Active Scripts Active Reported Tylenol (Acetaminophen) 325 Mg Tablet 2 Tab PEG PRN Q4-6HRS PRN Valtrex (Valacyclovir Hcl) 1,000 Mg Tablet 1 Tab PO DAILY Trazodone Hcl 100 Mg Tablet 2 Tab PEG QHS Tamsulosin Hcl 0.4 Mg Cap.er.24h 1 Cap PO DAILY Miralax (Polyethylene Glycol 3350) 17 Gm Powd.pack 1 Packet PO DAILY Melatonin 5 Mg Capsule 5 Mg PEG PRN QHS PRN Lactulose 20 Gm/30 Ml Solution 10 Gm AD BIDWMEALS Lortab 7.5-325 mg Tablet (Hydrocodone/Acetaminophen) 1 Each Tablet 1 Tab PO PRN Q12HR PRN Lortab 5-325 mg Tablet (Hydrocodone/Acetaminophen) 1 Each Tablet 1 Tab PEG PRN Q6HRS PRN Cyanocobalamin Injection (Cyanocobalamin (Vitamin B-12)) 1,000 Mcg/1 Ml Vial 1, 000 Mcg IJ Citrucel (Methylcellulose) 479 Gm Powder 479 Gm PO Fluticasone Propionate Nasal [place] (Fluticasone Propionate) 16 Gm [place].susp 2 [place] NS HS Xarelto (Rivaroxaban) 20 Mg Tablet 20 Mg PEG DAILY Buspirone Hcl 5 Mg Tablet 1 Tab PEG TID Vitamin D (Cholecalciferol (Vitamin D3)) 10,000 Unit Capsule 50,000 Unit PO QFR Voltaren (Diclofenac Sodium) 100 Gm Gel..gram. 1 Gm TP BID Famotidine 20 Mg Tablet 20 Mg PO BID Thiamine Hcl 100 Mg Tablet 100 Mg PEG DAILY Quetiapine Fumarate 25 Mg Tablet 25 Mg PEG HS Oxcarbazepine 300 Mg Tablet 1 Tab PEG BID Melatonin 1 Mg Tablet.er 3 Mg PEG HS Nystatin 100,000 Unit/1 Ml Oral.susp 5 Ml PO QID Duoneb 0.5-3(2.5) Mg/3 Ml (Albuterol/Ipratropium) 3 Ml Ampul.neb 3 Ml NEB BID Anti-Diarrheal (Loperamide Hcl) 2 Mg Capsule 2 Mg PO BID Vancomycin HCl 125 Mg/2.5 Ml Syringe 125 Mg PO QID Vitals/I & O Vital Sign - Last 24 Hours 02/01/17 02/01/17 02/01/17 02/01/17 11:55 14:20 14:20 14:48 Temp 98.0 96.8 96.8 98.0 96.8 96.8 Pulse 88 85 85 Resp 18 20 20 B/P 170/73 119/79 119/79 Pulse Ox 95 96 96 O2 Delivery Room Air Room Air Room Air Room Air 02/01/17 02/01/17 02/01/17 02/02/17 19:00 20:00 23:00 07:00 Temp 98.2 98.4 98.2 98.4 Pulse 94 79 101 Resp 20 22 B/P 118/73 110/42 117/82 Pulse Ox 91 96 O2 Delivery Room Air Room Air Room Air Room Air 02/02/17 02/02/17 07:40 11:29 Temp 98.1 98.1 Pulse 62 Resp 16 B/P 125/73 Pulse Ox 92 O2 Delivery Room Air Room Air Intake and Output 02/01/17 02/01/17 02/02/17 15:00 23:00 07:00 Intake Total 0 ml 0 ml Balance 0 ml 0 ml Problem List Problems Medical Problems: (1) Dislodged jejunostomy tube Status: Acute (2) Feeding tube dysfunction Status: Acute (3) Malfunctioning jejunostomy tube Status: Acute Assessment Unfavorable jejunostomy anatomy, precluding IR replacement. Plan of Care: Continue current Tx, Mgmt Plan of Care Note Await any surgical plans. MALIK CANAS MD Feb 02, 2017 11:50
--- NOTE | 2017-02-02 14:09 | PDOC ---
SURGICAL PROGRESS NOTE Subjective makes eye contact Vital Signs Vital Signs Date Time Temp Pulse Resp B/P Pulse Ox O2 Delivery O2 Flow Rate FiO2 02/02/17 11:29 98.1 62 16 125/73 92 Room Air 98.1 I&O Intake and Output 02/02/17 07:00 Intake Total 0 ml Balance 0 ml Intake Oral 0 ml # Voids 4 PATIENT HAS A TERAN: No General: No acute distress Abdomen: Soft, Other (midline superficial ulcer in old surgical scar) Labs Laboratory Tests Test 02/01/17 12:30 02/01/17 17:22 02/02/17 06:50 White Blood Count 5.5x10^3/uL (4.0-11.0) 8.0x10^3/uL (4.0-11.0) Red Blood Count 4.05x10^6/uL (4.30-5.70) 3.79x10^6/uL (4.30-5.70) Hemoglobin 12.0g/dL (13.0-17.5) 11.3g/dL (13.0-17.5) Hematocrit 36.0% (39.0-53.0) 34.2% (39.0-53.0) Mean Corpuscular Volume 89fL (79-100) 90fL (79-100) Mean Corpuscular Hemoglobin 30pg (25-35) 30pg (25-35) Mean Corpuscular Hemoglobin Concent 34g/dL (31-37) 33g/dL (31-37) Red Cell Distribution Width 16.0% (11.5-14.5) 15.8% (11.5-14.5) Platelet Count 245x10^3/uL (140-400) 248x10^3/uL (140-400) Neutrophils (%) (Auto) 64% (31-73) 78% (31-73) Lymphocytes (%) (Auto) 22% (24-48) 13% (24-48) Monocytes (%) (Auto) 8% (0-9) 8% (0-9) Eosinophils (%) (Auto) 5% (0-3) 1% (0-3) Basophils (%) (Auto) 1% (0-3) 0% (0-3) Neutrophils # (Auto) 3.5x10^3uL (1.8-7.7) 6.3x10^3uL (1.8-7.7) Lymphocytes # (Auto) 1.2x10^3/uL (1.0-4.8) 1.1x10^3/uL (1.0-4.8) Monocytes # (Auto) 0.4x10^3/uL (0.0-1.1) 0.6x10^3/uL (0.0-1.1) Eosinophils # (Auto) 0.3x10^3/uL (0.0-0.7) 0.1x10^3/uL (0.0-0.7) Basophils # (Auto) 0.1x10^3/uL (0.0-0.2) 0.0x10^3/uL (0.0-0.2) Sodium Level 143mmol/L (136-145) 146mmol/L (136-145) Potassium Level 4.1mmol/L (3.5-5.1) 4.1mmol/L (3.5-5.1) Chloride Level 104mmol/L (98-107) 108mmol/L (98-107) Carbon Dioxide Level 30mmol/L (21-32) 25mmol/L (21-32) Anion Gap 9 (6-14) 13 (6-14) Blood Urea Nitrogen 9mg/dL (8-26) 13mg/dL (8-26) Creatinine 0.8mg/dL (0.7-1.3) 0.8mg/dL (0.7-1.3) Estimated GFR (Cockcroft-Gault) 100.0 100.0 Glucose Level 91mg/dL (70-99) 104mg/dL (70-99) Calcium Level 9.3mg/dL (8.5-10.1) 8.9mg/dL (8.5-10.1) Nasal Screen MRSA (PCR) Positive (Negative) Laboratory Tests Test 02/01/17 17:22 02/02/17 06:50 Nasal Screen MRSA (PCR) Positive (Negative) White Blood Count 8.0x10^3/uL (4.0-11.0) Red Blood Count 3.79x10^6/uL (4.30-5.70) Hemoglobin 11.3g/dL (13.0-17.5) Hematocrit 34.2% (39.0-53.0) Mean Corpuscular Volume 90fL (79-100) Mean Corpuscular Hemoglobin 30pg (25-35) Mean Corpuscular Hemoglobin Concent 33g/dL (31-37) Red Cell Distribution Width 15.8% (11.5-14.5) Platelet Count 248x10^3/uL (140-400) Neutrophils (%) (Auto) 78% (31-73) Lymphocytes (%) (Auto) 13% (24-48) Monocytes (%) (Auto) 8% (0-9) Eosinophils (%) (Auto) 1% (0-3) Basophils (%) (Auto) 0% (0-3) Neutrophils # (Auto) 6.3x10^3uL (1.8-7.7) Lymphocytes # (Auto) 1.1x10^3/uL (1.0-4.8) Monocytes # (Auto) 0.6x10^3/uL (0.0-1.1) Eosinophils # (Auto) 0.1x10^3/uL (0.0-0.7) Basophils # (Auto) 0.0x10^3/uL (0.0-0.2) Sodium Level 146mmol/L (136-145) Potassium Level 4.1mmol/L (3.5-5.1) Chloride Level 108mmol/L (98-107) Carbon Dioxide Level 25mmol/L (21-32) Anion Gap 13 (6-14) Blood Urea Nitrogen 13mg/dL (8-26) Creatinine 0.8mg/dL (0.7-1.3) Estimated GFR (Cockcroft-Gault) 100.0 Glucose Level 104mg/dL (70-99) Calcium Level 8.9mg/dL (8.5-10.1) Problem List Problems Medical Problems: (1) Dislodged jejunostomy tube Status: Acute (2) Feeding tube dysfunction Status: Acute (3) Malfunctioning jejunostomy tube Status: Acute Assessment/Plan feeding tube dependent size and location of chronic would makes surgical approach difficult will check with PCP for possible recent imagery Problems: MARK BARAKAT MD Feb 02, 2017 14:09
--- NOTE | 2017-02-02 14:19 | PDOC ---
PROGRESS NOTES Chief Complaint Chief Complaint cc: Removal of PEG tube -Schizophrenia -Seizures -Chronic encephalopathy -GERD -Anxiety -Respiratory bypass -Gastric bypass -Cholecystectomy -Bipolar personality disorder History of Present Illness History of Present Illness Patient was lying in bed in [facility]. He is a poor historian, but initial impression did not show overt signs of pain or distress. Vitals Vitals Vital Signs Date Time Temp Pulse Resp B/P Pulse Ox O2 Delivery O2 Flow Rate FiO2 02/02/17 11:29 98.1 62 16 125/73 92 Room Air 98.1 Physical Exam General: Cooperative, No acute distress Heart: Regular rate, Normal S1, Normal S2, No murmurs Lungs: Clear, Other (No chest retractions) Abdomen: Soft, No masses Extremities: No clubbing, No edema Skin: No rashes, No breakdown Labs LABS Laboratory Tests Test 02/01/17 17:22 02/02/17 06:50 Nasal Screen MRSA (PCR) Positive (Negative) White Blood Count 8.0x10^3/uL (4.0-11.0) Red Blood Count 3.79x10^6/uL (4.30-5.70) Hemoglobin 11.3g/dL (13.0-17.5) Hematocrit 34.2% (39.0-53.0) Mean Corpuscular Volume 90fL (79-100) Mean Corpuscular Hemoglobin 30pg (25-35) Mean Corpuscular Hemoglobin Concent 33g/dL (31-37) Red Cell Distribution Width 15.8% (11.5-14.5) Platelet Count 248x10^3/uL (140-400) Neutrophils (%) (Auto) 78% (31-73) Lymphocytes (%) (Auto) 13% (24-48) Monocytes (%) (Auto) 8% (0-9) Eosinophils (%) (Auto) 1% (0-3) Basophils (%) (Auto) 0% (0-3) Neutrophils # (Auto) 6.3x10^3uL (1.8-7.7) Lymphocytes # (Auto) 1.1x10^3/uL (1.0-4.8) Monocytes # (Auto) 0.6x10^3/uL (0.0-1.1) Eosinophils # (Auto) 0.1x10^3/uL (0.0-0.7) Basophils # (Auto) 0.0x10^3/uL (0.0-0.2) Sodium Level 146mmol/L (136-145) Potassium Level 4.1mmol/L (3.5-5.1) Chloride Level 108mmol/L (98-107) Carbon Dioxide Level 25mmol/L (21-32) Anion Gap 13 (6-14) Blood Urea Nitrogen 13mg/dL (8-26) Creatinine 0.8mg/dL (0.7-1.3) Estimated GFR (Cockcroft-Gault) 100.0 Glucose Level 104mg/dL (70-99) Calcium Level 8.9mg/dL (8.5-10.1) Review of Systems Review of Systems Patient is a poor historian and did not respond to questioning. Assessment and Plan Assessmemt and Plan Problems Medical Problems: (1) Dislodged jejunostomy tube Status: Acute (2) Feeding tube dysfunction Status: Acute (3) Malfunctioning jejunostomy tube Status: Acute Assessment: Mr. Stevens is a 57 year old male that presented after his PEG tube was pulled out. -Schizophrenia -Seizures -Chronic encephalopathy -GERD -Anxiety -Respiratory bypass -Gastric bypass -Cholecystectomy -Bipolar personality disorder Plan: 1. Continue home medications 2. Recheck labs 3. Consider PT/OT to maintain baseline 4. Continue nutrition through fluids 5. Appreciate consultation from surgery, GI, IR Problems: Comment Review of Relevant I have reviewed the following items ambrose (where applicable) has been applied. Labs Laboratory Tests Test 02/01/17 12:30 02/01/17 17:22 02/02/17 06:50 White Blood Count 5.5x10^3/uL (4.0-11.0) 8.0x10^3/uL (4.0-11.0) Red Blood Count 4.05x10^6/uL (4.30-5.70) 3.79x10^6/uL (4.30-5.70) Hemoglobin 12.0g/dL (13.0-17.5) 11.3g/dL (13.0-17.5) Hematocrit 36.0% (39.0-53.0) 34.2% (39.0-53.0) Mean Corpuscular Volume 89fL (79-100) 90fL (79-100) Mean Corpuscular Hemoglobin 30pg (25-35) 30pg (25-35) Mean Corpuscular Hemoglobin Concent 34g/dL (31-37) 33g/dL (31-37) Red Cell Distribution Width 16.0% (11.5-14.5) 15.8% (11.5-14.5) Platelet Count 245x10^3/uL (140-400) 248x10^3/uL (140-400) Neutrophils (%) (Auto) 64% (31-73) 78% (31-73) Lymphocytes (%) (Auto) 22% (24-48) 13% (24-48) Monocytes (%) (Auto) 8% (0-9) 8% (0-9) Eosinophils (%) (Auto) 5% (0-3) 1% (0-3) Basophils (%) (Auto) 1% (0-3) 0% (0-3) Neutrophils # (Auto) 3.5x10^3uL (1.8-7.7) 6.3x10^3uL (1.8-7.7) Lymphocytes # (Auto) 1.2x10^3/uL (1.0-4.8) 1.1x10^3/uL (1.0-4.8) Monocytes # (Auto) 0.4x10^3/uL (0.0-1.1) 0.6x10^3/uL (0.0-1.1) Eosinophils # (Auto) 0.3x10^3/uL (0.0-0.7) 0.1x10^3/uL (0.0-0.7) Basophils # (Auto) 0.1x10^3/uL (0.0-0.2) 0.0x10^3/uL (0.0-0.2) Sodium Level 143mmol/L (136-145) 146mmol/L (136-145) Potassium Level 4.1mmol/L (3.5-5.1) 4.1mmol/L (3.5-5.1) Chloride Level 104mmol/L (98-107) 108mmol/L (98-107) Carbon Dioxide Level 30mmol/L (21-32) 25mmol/L (21-32) Anion Gap 9 (6-14) 13 (6-14) Blood Urea Nitrogen 9mg/dL (8-26) 13mg/dL (8-26) Creatinine 0.8mg/dL (0.7-1.3) 0.8mg/dL (0.7-1.3) Estimated GFR (Cockcroft-Gault) 100.0 100.0 Glucose Level 91mg/dL (70-99) 104mg/dL (70-99) Calcium Level 9.3mg/dL (8.5-10.1) 8.9mg/dL (8.5-10.1) Nasal Screen MRSA (PCR) Positive (Negative) Laboratory Tests Test 02/01/17 17:22 02/02/17 06:50 Nasal Screen MRSA (PCR) Positive (Negative) White Blood Count 8.0x10^3/uL (4.0-11.0) Red Blood Count 3.79x10^6/uL (4.30-5.70) Hemoglobin 11.3g/dL (13.0-17.5) Hematocrit 34.2% (39.0-53.0) Mean Corpuscular Volume 90fL (79-100) Mean Corpuscular Hemoglobin 30pg (25-35) Mean Corpuscular Hemoglobin Concent 33g/dL (31-37) Red Cell Distribution Width 15.8% (11.5-14.5) Platelet Count 248x10^3/uL (140-400) Neutrophils (%) (Auto) 78% (31-73) Lymphocytes (%) (Auto) 13% (24-48) Monocytes (%) (Auto) 8% (0-9) Eosinophils (%) (Auto) 1% (0-3) Basophils (%) (Auto) 0% (0-3) Neutrophils # (Auto) 6.3x10^3uL (1.8-7.7) Lymphocytes # (Auto) 1.1x10^3/uL (1.0-4.8) Monocytes # (Auto) 0.6x10^3/uL (0.0-1.1) Eosinophils # (Auto) 0.1x10^3/uL (0.0-0.7) Basophils # (Auto) 0.0x10^3/uL (0.0-0.2) Sodium Level 146mmol/L (136-145) Potassium Level 4.1mmol/L (3.5-5.1) Chloride Level 108mmol/L (98-107) Carbon Dioxide Level 25mmol/L (21-32) Anion Gap 13 (6-14) Blood Urea Nitrogen 13mg/dL (8-26) Creatinine 0.8mg/dL (0.7-1.3) Estimated GFR (Cockcroft-Gault) 100.0 Glucose Level 104mg/dL (70-99) Calcium Level 8.9mg/dL (8.5-10.1) Medications Current Medications Ondansetron HCl 4 mg 4 mg PRN Q8HRS PRN IV NAUSEA/VOMITING; Start 02/01/17 at 15:00; Stop 02/02/17 at 14:59 Dextrose/Sodium Chloride (Iv D5% - NS) 1,000 ml @ 100 mls/hr Q10H IV Last administered on 02/02/17t 11:46; Start 02/01/17 at 15:00 Active Scripts Active Reported Tylenol (Acetaminophen) 325 Mg Tablet 2 Tab PEG PRN Q4-6HRS PRN Valtrex (Valacyclovir Hcl) 1,000 Mg Tablet 1 Tab PO DAILY Trazodone Hcl 100 Mg Tablet 2 Tab PEG QHS Tamsulosin Hcl 0.4 Mg Cap.er.24h 1 Cap PO DAILY Miralax (Polyethylene Glycol 3350) 17 Gm Powd.pack 1 Packet PO DAILY Melatonin 5 Mg Capsule 5 Mg PEG PRN QHS PRN Lactulose 20 Gm/30 Ml Solution 10 Gm AD BIDWMEALS Lortab 7.5-325 mg Tablet (Hydrocodone/Acetaminophen) 1 Each Tablet 1 Tab PO PRN Q12HR PRN Lortab 5-325 mg Tablet (Hydrocodone/Acetaminophen) 1 Each Tablet 1 Tab PEG PRN Q6HRS PRN Cyanocobalamin Injection (Cyanocobalamin (Vitamin B-12)) 1,000 Mcg/1 Ml Vial 1, 000 Mcg IJ Citrucel (Methylcellulose) 479 Gm Powder 479 Gm PO Fluticasone Propionate Nasal [place] (Fluticasone Propionate) 16 Gm [place].susp 2 [place] NS HS Xarelto (Rivaroxaban) 20 Mg Tablet 20 Mg PEG DAILY Buspirone Hcl 5 Mg Tablet 1 Tab PEG TID Vitamin D (Cholecalciferol (Vitamin D3)) 10,000 Unit Capsule 50,000 Unit PO QFR Voltaren (Diclofenac Sodium) 100 Gm Gel..gram. 1 Gm TP BID Famotidine 20 Mg Tablet 20 Mg PO BID Thiamine Hcl 100 Mg Tablet 100 Mg PEG DAILY Quetiapine Fumarate 25 Mg Tablet 25 Mg PEG HS Oxcarbazepine 300 Mg Tablet 1 Tab PEG BID Melatonin 1 Mg Tablet.er 3 Mg PEG HS Nystatin 100,000 Unit/1 Ml Oral.susp 5 Ml PO QID Duoneb 0.5-3(2.5) Mg/3 Ml (Albuterol/Ipratropium) 3 Ml Ampul.neb 3 Ml NEB BID Anti-Diarrheal (Loperamide Hcl) 2 Mg Capsule 2 Mg PO BID Vancomycin HCl 125 Mg/2.5 Ml Syringe 125 Mg PO QID Vitals/I & O Vital Sign - Last 24 Hours 02/01/17 02/01/17 02/01/17 02/01/17 14:20 14:20 14:48 19:00 Temp 96.8 96.8 98.2 96.8 96.8 98.2 Pulse 85 85 94 Resp 20 20 20 B/P 119/79 119/79 118/73 Pulse Ox 96 96 91 O2 Delivery Room Air Room Air Room Air Room Air 02/01/17 02/01/17 02/02/17 02/02/17 20:00 23:00 07:00 07:40 Temp 98.4 98.4 Pulse 79 101 Resp 22 B/P 110/42 117/82 Pulse Ox 96 O2 Delivery Room Air Room Air Room Air Room Air 02/02/17 11:29 Temp 98.1 98.1 Pulse 62 Resp 16 B/P 125/73 Pulse Ox 92 O2 Delivery Room Air Intake and Output 02/01/17 02/01/17 02/02/17 15:00 23:00 07:00 Intake Total 0 ml 0 ml Balance 0 ml 0 ml MANNY MONTERO III DO Feb 02, 2017 14:19
[2017-02-02 15:00] VITALS: BP 120/70
--- NOTE | 2017-02-02 18:50 | VNOTE ---
CALL BACK NOTE CALL BACK notified by RN that would like to get pt transferred to [facility], to his bariatric surgeon Dr Rajan Reyes, to address the J-tube issue. Transfer Center at [facility] notified; case d/w transfer surgeon Dr Feli Briggs. unfortunately , no beds available and too many pts waiting in ER currently, that not even "waiting list" is taken. call back in AM; Dr Gallardo can call Dr Reyes through transfer Center, , to discuss options. ILANA VALENTIN MD Feb 02, 2017 18:50
[2017-02-02] MEDS: AA 3%/ELECTROLYTE-TPN SOLN/GLY 1,000 ML IV SCH (19:09)
[2017-02-02 20:30] VITALS: BP 125/83
[2017-02-02 23:37] VITALS: BP 113/69
--- NOTE | 2017-02-03 00:14 | CONS ---
DATE OF CONSULTATION: 02/01/2017 HISTORY OF PRESENT ILLNESS: The patient is a 57-year-old who has a long history is schizophrenia and chronic encephalopathy. He has had some type of weight loss surgery in the past. He was jejunostomy tube feeding dependent. He has pulled this tube out several times in the past, most recently was unable to be replaced. We were asked to see him for possible surgical placement of the feeding tube. Information in the history section is obtained primarily from the chart given the patient's baseline mental status and at times nonsensical speech. PAST MEDICAL HISTORY: Schizophrenia, GERD, and seizure disorder. PAST SURGICAL HISTORY: Bariatric surgery and feeding tube placement. ROUTINE MEDICATIONS: Listed on reconciliation. SOCIAL HISTORY: He ____ facility. FAMILY HISTORY: Unknown. ALLERGIES: MULTIPLE. Please see the chart for details. PHYSICAL EXAMINATION: GENERAL: Reveals an elderly gentleman, who does not make eye contact or respond in understandable verbiage to questions. HEENT: Normocephalic. NECK: Supple. LUNGS: Clear. HEART: Regular rate and rhythm. ABDOMEN: The belly is slightly obese, soft, well-healed scars from previous procedures. Right upper quadrant exit site from the previous jejunostomy tube has a small amount of drainage on the dressing, there is chronic abdominal scar open wound in the mid portion of the midline incision, which by report is gradually healing albeit slowly. EXTREMITIES: Somewhat rigid in an extension. NEUROLOGIC: The patient is awake, mumbles at times. LABORATORY DATA: On presentation showed a white count of 5000, chemistries unremarkable. The patient did have a positive MRSA nasal screen. IMPRESSION: J-tube feeding dependent in this gentleman with a long history of seizure disorder, schizophrenia, status post previous bariatric surgery with a chronic non-healing skin wound. PLAN: Location of the skin wound may have dictated the distance of the exit site previous jejunostomy tube from its insertion into the bowel. We will discuss with the patient's family regarding endeavor to try and replaced some type of tube. Thank you for asking us to see the patient and participate in his care. We will follow him with you during this hospitalization. MARK BARAKAT MD DR: HERMAN/franny JOB#: [id number] / [id number]
[2017-02-03 02:53] VITALS: BP 118/72
[2017-02-03] MEDS: AA 3%/ELECTROLYTE-TPN SOLN/GLY 1,000 ML IV SCH (05:16)
[2017-02-03 07:00] VITALS: BP 99/69
--- NOTE | 2017-02-03 09:59 | PDOC ---
SURGICAL PROGRESS NOTE Subjective I received a call from the RN last evening that Mrs Stevens was here and had questions about replacing the feeding tube for her . I spoke with her on the phone. I explained that it would require and incision to replace the tube since IR was unsuccessful percutaneously. She did not understand why it couldn' t be done that way again since it had been replaced twice before with that method. I told her that the only way I could place a tube was with an incision and that because of his large midline open wound that would be difficult. She expressed concern over Frankie going for 48 hrs without enteral nutrition. She felt like it would be better for him to be transferred to [facility] where his bariatric surgeon is. Vital Signs Vital Signs Date Time Temp Pulse Resp B/P Pulse Ox O2 Delivery O2 Flow Rate FiO2 02/03/17 07:00 96.4 83 20 99/69 95 Room Air 96.4 I&O Intake and Output 02/03/17 07:00 Output Total 250 ml Balance -250 ml Output Urine Total 250 ml # Voids 2 PATIENT HAS A TREAN: No General: Alert Psych/Mental Status: Other (confused, rambling speech when understandable) Labs Laboratory Tests Test 02/01/17 12:30 02/01/17 17:22 02/02/17 06:50 White Blood Count 5.5x10^3/uL (4.0-11.0) 8.0x10^3/uL (4.0-11.0) Red Blood Count 4.05x10^6/uL (4.30-5.70) 3.79x10^6/uL (4.30-5.70) Hemoglobin 12.0g/dL (13.0-17.5) 11.3g/dL (13.0-17.5) Hematocrit 36.0% (39.0-53.0) 34.2% (39.0-53.0) Mean Corpuscular Volume 89fL (79-100) 90fL (79-100) Mean Corpuscular Hemoglobin 30pg (25-35) 30pg (25-35) Mean Corpuscular Hemoglobin Concent 34g/dL (31-37) 33g/dL (31-37) Red Cell Distribution Width 16.0% (11.5-14.5) 15.8% (11.5-14.5) Platelet Count 245x10^3/uL (140-400) 248x10^3/uL (140-400) Neutrophils (%) (Auto) 64% (31-73) 78% (31-73) Lymphocytes (%) (Auto) 22% (24-48) 13% (24-48) Monocytes (%) (Auto) 8% (0-9) 8% (0-9) Eosinophils (%) (Auto) 5% (0-3) 1% (0-3) Basophils (%) (Auto) 1% (0-3) 0% (0-3) Neutrophils # (Auto) 3.5x10^3uL (1.8-7.7) 6.3x10^3uL (1.8-7.7) Lymphocytes # (Auto) 1.2x10^3/uL (1.0-4.8) 1.1x10^3/uL (1.0-4.8) Monocytes # (Auto) 0.4x10^3/uL (0.0-1.1) 0.6x10^3/uL (0.0-1.1) Eosinophils # (Auto) 0.3x10^3/uL (0.0-0.7) 0.1x10^3/uL (0.0-0.7) Basophils # (Auto) 0.1x10^3/uL (0.0-0.2) 0.0x10^3/uL (0.0-0.2) Sodium Level 143mmol/L (136-145) 146mmol/L (136-145) Potassium Level 4.1mmol/L (3.5-5.1) 4.1mmol/L (3.5-5.1) Chloride Level 104mmol/L (98-107) 108mmol/L (98-107) Carbon Dioxide Level 30mmol/L (21-32) 25mmol/L (21-32) Anion Gap 9 (6-14) 13 (6-14) Blood Urea Nitrogen 9mg/dL (8-26) 13mg/dL (8-26) Creatinine 0.8mg/dL (0.7-1.3) 0.8mg/dL (0.7-1.3) Estimated GFR (Cockcroft-Gault) 100.0 100.0 Glucose Level 91mg/dL (70-99) 104mg/dL (70-99) Calcium Level 9.3mg/dL (8.5-10.1) 8.9mg/dL (8.5-10.1) Nasal Screen MRSA (PCR) Positive (Negative) Problem List Problems Medical Problems: (1) Dislodged jejunostomy tube Status: Acute (2) Feeding tube dysfunction Status: Acute (3) Malfunctioning jejunostomy tube Status: Acute Assessment/Plan s/p gastric bypass with feeding tube, now out and needing replacement Mrs Stevens is talking about transferring him to [facility] her decision Problems: MARK BARAKAT MD Feb 03, 2017 09:59
--- NOTE | 2017-02-03 10:12 | PDOC ---
Subjective: Subjective: No meaningful history from pt. Objective: Objective: Reviewed Dr. Gallardo's note, d/w RN - requests transfer to [facility]. Vital Signs: Vital Signs Date Time Temp Pulse Resp B/P Pulse Ox O2 Delivery O2 Flow Rate FiO2 02/03/17 07:00 96.4 83 20 99/69 95 Room Air 96.4 PE: GEN: NAD LUNGS: clear anteriorly HEART: RRR ABD: soft, non-tender, +wound/stoma NEURO/PSYCH: repeats "I'm a number 3" A/P: S/p bariatric surgery, dislodged J-tube, encephalopathy -surgery/IR involved -- Transfer to [facility] requested by family. YESENIA PRICE Feb 03, 2017 10:12
[2017-02-03 11:00] VITALS: BP 134/60
[2017-02-03 15:00] VITALS: BP 128/75
--- NOTE | 2017-02-03 16:07 | PDOC ---
PROGRESS NOTES Chief Complaint Chief Complaint cc: Removal of PEG tube -Schizophrenia -Seizures -Chronic encephalopathy -GERD -Anxiety -Respiratory bypass -Gastric bypass -Cholecystectomy -Bipolar personality disorder History of Present Illness History of Present Illness The patient was lying in bed in NAD. He had problems communicating his present condition, and his thoughts appeared tangential. He appeared to be comfortable. The patient was discussed with Dr. Gallardo. Vitals Vitals Vital Signs Date Time Temp Pulse Resp B/P Pulse Ox O2 Delivery O2 Flow Rate FiO2 02/03/17 11:00 99.1 99 20 134/60 95 Room Air 99.1 Physical Exam General: Alert, Cooperative, No acute distress Heart: Regular rate, Normal S1, Normal S2 Lungs: Clear, Other (No chest retractions) Abdomen: Soft, No masses Extremities: No clubbing, No cyanosis Skin: No rashes, No breakdown Review of Systems Review of Systems The patient was not able to adequately express a response to this line of questioning. Assessment and Plan Assessmemt and Plan Problems Medical Problems: (1) Dislodged jejunostomy tube Status: Acute (2) Feeding tube dysfunction Status: Acute (3) Malfunctioning jejunostomy tube Status: Acute Assessment: Mr. Stevens is a 57 year old male that presented because he removed his PEG tube. -Schizophrenia -Seizures -Chronic encephalopathy -GERD -Anxiety -Respiratory bypass -Gastric bypass -Cholecystectomy -Bipolar personality disorder Plan: 1. Possible transfer to [facility] for procedure 2. Continue nutritional supplement 3. Consider PT/OT 4. Continue home medications if transferred 5. Appreciate consultation from Surgery, GI, and IR Problems: Comment Review of Relevant I have reviewed the following items ambrose (where applicable) has been applied. Labs Laboratory Tests Test 02/01/17 17:22 02/02/17 06:50 Nasal Screen MRSA (PCR) Positive (Negative) White Blood Count 8.0x10^3/uL (4.0-11.0) Red Blood Count 3.79x10^6/uL (4.30-5.70) Hemoglobin 11.3g/dL (13.0-17.5) Hematocrit 34.2% (39.0-53.0) Mean Corpuscular Volume 90fL (79-100) Mean Corpuscular Hemoglobin 30pg (25-35) Mean Corpuscular Hemoglobin Concent 33g/dL (31-37) Red Cell Distribution Width 15.8% (11.5-14.5) Platelet Count 248x10^3/uL (140-400) Neutrophils (%) (Auto) 78% (31-73) Lymphocytes (%) (Auto) 13% (24-48) Monocytes (%) (Auto) 8% (0-9) Eosinophils (%) (Auto) 1% (0-3) Basophils (%) (Auto) 0% (0-3) Neutrophils # (Auto) 6.3x10^3uL (1.8-7.7) Lymphocytes # (Auto) 1.1x10^3/uL (1.0-4.8) Monocytes # (Auto) 0.6x10^3/uL (0.0-1.1) Eosinophils # (Auto) 0.1x10^3/uL (0.0-0.7) Basophils # (Auto) 0.0x10^3/uL (0.0-0.2) Sodium Level 146mmol/L (136-145) Potassium Level 4.1mmol/L (3.5-5.1) Chloride Level 108mmol/L (98-107) Carbon Dioxide Level 25mmol/L (21-32) Anion Gap 13 (6-14) Blood Urea Nitrogen 13mg/dL (8-26) Creatinine 0.8mg/dL (0.7-1.3) Estimated GFR (Cockcroft-Gault) 100.0 Glucose Level 104mg/dL (70-99) Calcium Level 8.9mg/dL (8.5-10.1) Medications Current Medications Ondansetron HCl 4 mg 4 mg PRN Q8HRS PRN IV NAUSEA/VOMITING; Start 02/01/17 at 15:00; Stop 02/02/17 at 14:59; Status DC Dextrose/Sodium Chloride 1,000 ml @ 100 mls/hr Q10H IV Last administered on 11:46; Start 02/01/17 at 15:00; Stop 02/02/17 at 22:00; Status DC Amino Acids/ Glycerin/ Electrolytes (Procalamine) 1,000 ml @ 80 mls/hr [id number] IV Last administered on 02/03/17 05:16; Start 02/02/17 at 19:15 Active Scripts Active Reported Tylenol (Acetaminophen) 325 Mg Tablet 2 Tab PEG PRN Q4-6HRS PRN Valtrex (Valacyclovir Hcl) 1,000 Mg Tablet 1 Tab PO DAILY Trazodone Hcl 100 Mg Tablet 2 Tab PEG QHS Tamsulosin Hcl 0.4 Mg Cap.er.24h 1 Cap PO DAILY Miralax (Polyethylene Glycol 3350) 17 Gm Powd.pack 1 Packet PO DAILY Melatonin 5 Mg Capsule 5 Mg PEG PRN QHS PRN Lactulose 20 Gm/30 Ml Solution 10 Gm AD BIDWMEALS Lortab 7.5-325 mg Tablet (Hydrocodone/Acetaminophen) 1 Each Tablet 1 Tab PO PRN Q12HR PRN Lortab 5-325 mg Tablet (Hydrocodone/Acetaminophen) 1 Each Tablet 1 Tab PEG PRN Q6HRS PRN Cyanocobalamin Injection (Cyanocobalamin (Vitamin B-12)) 1,000 Mcg/1 Ml Vial 1, 000 Mcg IJ Citrucel (Methylcellulose) 479 Gm Powder 479 Gm PO Fluticasone Propionate Nasal [place] (Fluticasone Propionate) 16 Gm [place].susp 2 [place] NS HS Xarelto (Rivaroxaban) 20 Mg Tablet 20 Mg PEG DAILY Buspirone Hcl 5 Mg Tablet 1 Tab PEG TID Vitamin D (Cholecalciferol (Vitamin D3)) 10,000 Unit Capsule 50,000 Unit PO QFR Voltaren (Diclofenac Sodium) 100 Gm Gel..gram. 1 Gm TP BID Famotidine 20 Mg Tablet 20 Mg PO BID Thiamine Hcl 100 Mg Tablet 100 Mg PEG DAILY Quetiapine Fumarate 25 Mg Tablet 25 Mg PEG HS Oxcarbazepine 300 Mg Tablet 1 Tab PEG BID Melatonin 1 Mg Tablet.er 3 Mg PEG HS Nystatin 100,000 Unit/1 Ml Oral.susp 5 Ml PO QID Duoneb 0.5-3(2.5) Mg/3 Ml (Albuterol/Ipratropium) 3 Ml Ampul.neb 3 Ml NEB BID Anti-Diarrheal (Loperamide Hcl) 2 Mg Capsule 2 Mg PO BID Vancomycin HCl 125 Mg/2.5 Ml Syringe 125 Mg PO QID Vitals/I & O Vital Sign - Last 24 Hours 02/02/17 02/02/17 02/02/17 02/02/17 19:15 20:30 20:30 23:37 Temp 98.4 98.0 98.4 98.0 Pulse 90 94 92 Resp 20 18 B/P 125/83 113/69 Pulse Ox 96 96 O2 Delivery Room Air Room Air Room Air 02/03/17 02/03/17 02/03/17 02/03/17 02:53 07:00 08:00 11:00 Temp 98.2 96.4 99.1 98.2 96.4 99.1 Pulse 88 83 99 Resp 20 20 20 B/P 118/72 99/69 134/60 Pulse Ox 95 95 95 O2 Delivery Room Air Room Air Room Air Room Air Intake and Output 02/02/17 02/02/17 02/03/17 15:00 23:00 07:00 Output Total 250 ml Balance -250 ml MANNY MONTERO III DO Feb 03, 2017 16:07
[2017-02-03] MEDS ORDERED: ACETAMINOPHEN 325 MG SUPP.RECT. PR PRN (16:30)
[2017-02-03] MEDS ORDERED: CEFTRIAXONE SODIUM 1 GM in IV NORMAL SALINE 50ML 50 ML IV SCH (17:00)
--- NOTE | 2017-02-16 08:37 | DS ---
DATE OF DISCHARGE: 02/03/2017 ADMISSION DIAGNOSES: Pulled PEG. DISCHARGE DIAGNOSIS: Pulled PEG. HOSPITAL COURSE: The patient is a pleasant elderly male who has a PEG tube, basically he pulled. We admitted him to get a new PEG, but GI could not put it in. Dr. Gallardo said he really could not put it in. It was too complex. He has got unusual anatomy. The patient was transferred to [facility] for the procedure. DISPOSITION: [facility]. ACTIVITY: As tolerated. DIET: N.p.o. MEDICATIONS: Please see the MRAD. TOTAL TIME: 32 minutes. MANNY MONTERO DO DR: RAY/franny JOB#: [id number] / [id number]
== END 2017-02-03 18:00 | disposition short-term general hospital (02) | DRG 393 ==
LOC: ER 11:45 → 5 NORTH 12:19
PROVIDERS: ADMIT Internal Medicine; ATTEND Internal Medicine
DX: Z43.1 Encounter for attention to gastrostomy (principal); G93.40 Encephalopathy, unspecified; Z68.41 Body mass index [BMI] 40.0-44.9, adult; F41.9 Anxiety disorder, unspecified; F31.9 Bipolar disorder, unspecified; K21.9 Gastro-esophageal reflux disease without esophagitis; G40.909 Epilepsy, unspecified, not intractable, without status epilepticus; E66.9 Obesity, unspecified; F20.9 Schizophrenia, unspecified; Z88.1 Allergy status to other antibiotic agents; Z88.8 Allergy status to other drugs, medicaments and biological substances; Z98.84 Bariatric surgery status; Z86.61 Personal history of infections of the central nervous system
CPT/HCPCS: 36415; 80048; 85027; 87641; J0696; J7042; 99285-25

== ENCOUNTER 2017-03-11 18:02 | Inpatient (IN) | payer BC ==
[~2017-03-11] VITALS: Ht 170.2 cm; Wt 93.1 kg
[2017-03-11] VITALS (7 sets, daily range): BP systolic 96–105; BP diastolic 66–70
[2017-03-11] MEDS: POTASSIUM CHLORIDE 10MEQ 100 ML IV SCH
[~2017-03-11 18:02] MED LIST changes: +ACET325T9 PEG; +DICL100G18 TP; -DICL100G7 TP; -DICL1PAT4 TP; +FLECTOR1 EACH TP; +MERO500V15 IV; -MERO500V3 IV; -NYST1000 PO; +NYST100054 PO; +POLY17PO29 PO; -POLY17PO5 PO
[2017-03-11] MEDS ORDERED: 0.9 % SODIUM CHLORIDE 10 ML DISP.SYRIN. IV PRN (18:15)
[2017-03-11] MEDS ORDERED: NORMAL SALINE IV SCH (18:15)
[2017-03-11] MEDS ORDERED: PIPERACILLIN/TAZOBACTAM 4.5 GM in IV NORMAL SALINE 100ML 100 ML IV ONE (18:15)
[2017-03-11] MEDS ORDERED: NOREPINEPHRIN PREMIX 250 ML IV ONE (18:15)
[2017-03-11] MEDS ORDERED: MIDAZOLAM PREMIX 100 ML IV ONE (18:30)
[2017-03-11] MEDS ORDERED: VANCOMYCIN PER PHARMACY MC PRN (18:30)
[2017-03-11] MEDS ORDERED: PIP/TAZO PER PHARMACY MC PRN (18:30)
[2017-03-11 18:40] LABS: BASO # 0.1 x10^3/uL (0.0-0.2); BASO % 0 % (0-3); EOS % 0 % (0-3); HEMATOCRIT 53.2 % (39.0-53.0); HEMOGLOBIN 16.5 g/dL (13.0-17.5); LYMPH # 0.9 x10^3/uL (1.0-4.8); LYMPH % 5 % (24-48); MEAN CORPUSCULAR HEMOGLOBIN 30 pg (25-35); MEAN CORPUSCULAR HGB CONC 31 g/dL (31-37); MEAN CORPUSCULAR VOLUME 96 fL (79-100); MONO % 7 % (0-9); NEUT % 88 % (31-73); PLATELET COUNT 189 x10^3/uL (140-400); RED BLOOD COUNT 5.54 x10^6/uL (4.30-5.70); WHITE BLOOD COUNT 20.3 x10^3/uL (4.0-11.0)
[2017-03-11] MEDS ORDERED: ETOMIDATE 20 MG/10 ML VIAL. IV ONE (18:40)
[2017-03-11] MEDS ORDERED: SUCCINYLCHOLINE 200 MG/10 ML VIAL. ONE (18:40)
[2017-03-11] MEDS ORDERED: IV NORMAL SALINE 1000ML BAG 1,000 ML IV SCH ×2 (18:45→18:51)
[2017-03-11 18:55] LABS: BILIRUBIN,URINE MODERATE (NEG); GLUCOSE,URINE NEGATIVE (NEG); NITRITE,URINE NEGATIVE (NEG); PROTEIN,URINE 30 mg/dL (NEG-TRACE)
[2017-03-11 19:00] LABS: BACTERIA,URINE 0 /HPF (0-FEW); RBC,URINE OCC /HPF (0-2); SQUAMOUS EPITHELIAL CELL,UR FEW /LPF; WBC,URINE 0 /HPF (0-4)
[2017-03-11] MEDS ORDERED: ONDANSETRON PF 4 MG/2 ML VIAL. IV PRN (19:00)
[2017-03-11 19:01] LABS: ALBUMIN 3.6 g/dL (3.4-5.0); ALBUMIN/GLOBULIN RATIO 0.8 (1.0-1.7); CALCIUM 9.5 mg/dL (8.5-10.1); CREATININE 3.2 mg/dL (0.7-1.3); GFR 20.2; TOTAL PROTEIN 8.3 g/dL (6.4-8.2)
--- NOTE | 2017-03-11 19:01 | PHYS DOC ---
Past Medical History Past Medical History: Anxiety, GERD, Seizure, Schizophrenia Additional Past Medical Histor: ENCEPHALITIS, RESPIRATORY DISORDERS Past Surgical History: Gastric Bypass Additional Past Surgical Histo: J TUBE PLACEMENT Alcohol Use: None Drug Use: None Adult General Chief Complaint Chief Complaint: DYSPNEA/RESPIRATOY DISTRESS HPI HPI This is a 57-year-old male who presents by EMS from [facility] for acute respiratory failure as well as concern for aspiration. Upon arrival, the patient is saturating in the mid to upper 80s with copious amounts of oral secretions and significant respiratory distress and visibly gagging on his oral secretions. EMS was able to suction out a large amount of secretions with improvement of saturations. Patient has history of encephalopathic brain injury and is certainly acutely altered compared to his baseline per the facility. Normally he is somewhat conversant but currently he is unable to provide any medical history. Patient does have a fever and appears toxic upon arrival. Review of Systems Review of Systems 10 point review of systems is unable to be obtained secondary to patient's mental status. Current Medications Current Medications Current Medications Medications (Trade) Dose Ordered Sig/Eleazar Start Time Stop Time Status Last Admin Dose Admin Norepinephrine Bitartrate 250 ml @ 0 mls/hr CONT PRN 03/11/17 18:15 Piperacillin Sod/ Tazobactam Sod 4.5 gm/Sodium Chloride 100 ml @ 200 mls/hr 1X ONCE 03/11/17 18:15 03/11/17 18:52 DC 03/11/17 18:54 200 MLS/HR Sodium Chloride 3,300 ml @ 3,300 mls/hr Q1H 03/11/17 18:15 03/11/17 18:37 DC 03/11/17 18:33 3,300 MLS/HR Sodium Chloride (Normal Saline Flush) 10 ml QSHIFT PRN 03/11/17 18:15 Allergies Allergies Allergies Coded Allergies Type Severity Reaction Last Updated Verified aripiprazole Allergy Intermediate 01/06/17 Yes clarithromycin Allergy Intermediate 01/06/17 Yes divalproex sodium Allergy Intermediate 01/06/17 Yes fluvoxamine Allergy Intermediate 01/06/17 Yes gabapentin Allergy Intermediate 01/06/17 Yes gluten Allergy Intermediate 01/06/17 Yes lurasidone Allergy Intermediate 01/06/17 Yes pregabalin Allergy Intermediate 01/06/17 Yes I S O L A T I O N *CONTACT* Allergy Unknown 02/02/17 Yes Physical Exam Physical Exam Constitutional: Significant respiratory distress, toxic appearance. [] HENT: Normocephalic, atraumatic, bilateral external ears normal, oropharynx moist, no oral exudates, nose normal. [] Eyes: PERRLA, EOMI, conjunctiva normal, no discharge. [] Neck: Normal range of motion, no tenderness, supple, no stridor. [] Cardiovascular:Heart rate tachycardic regular rhythm, no murmur [] Lungs & Thorax: Rhonchi bilaterally with significant respiratory distress [] Abdomen: Bowel sounds normal, soft, large wound to the midline of the abdomen, no masses, no pulsatile masses. [] Skin: Warm, dry, no erythema, no rash. [] Back: No tenderness, no CVA tenderness. [] Extremities: No tenderness, no cyanosis, no clubbing, ROM intact, no edema. [] Neurologic: Unable to fully assess secondary to the patient's mental status. Current Patient Data Vital Signs Vital Signs Date Time Temp Pulse Resp B/P (MAP) Pulse Ox O2 Delivery O2 Flow Rate FiO2 03/11/17 18:28 130 24 66/51 (56) 99 Ventilator 03/11/17 18:10 101.6 101.6 Lab Values EKG EKG EKG as interpreted by me shows a sinus tachycardia with a rate of 130 bpm. There were no obvious signs of ischemia. This EKG does not meet STEMI criteria. QTc interval is slightly prolonged at 481 ms Radiology/Procedures Radiology/Procedures One view of the chest as interpreted by me shows what appears to be a bilateral pneumonia with an ET tube that appears appropriate. Course & Med Decision Making Course & Med Decision Making Pertinent Labs and Imaging studies reviewed. (See chart for details) This is a 57 year old male who presented with acute aspiration and was visibly choking on his own oral secretions. Patient was immediately intubated to protect his airway. Family at bedside states he has history of extensive encephalopathy and has had issues with swallowing. They currently stated that they would like him to be kept comfortable with DNI status. I discussed the grave nature of the patient with the family and they stated they would still like CPR done at this time but understand the critical nature of this patient's status. His acute respiratory failure is likely related to aspiration pneumonia as well as wound sepsis potential. Patient was placed on broad-spectrum metabolic therapy. Sepsis fluid protocol was started. Norepinephrine was started as well. Patient continues to remain hypotensive and norepi drip will continue to be titrated upward. Patient was given a stress dose of Solu-Cortef. His laboratory workup reveals a significantly elevated white count and lactate. Patient has a hypernatremia of 175 and a hypokalemia of 2.9. His liver functions are severely abnormal which are likely related to his ongoing sepsis. 1 gram of Tylenol was ordered for his fever. Approximately one hour of critical care time was used on this patient. Dragon Disclaimer Dragon Disclaimer This electronic medical record was generated, in whole or in part, using a voice recognition dictation system. Critical Care Time Critical care time was 60 minutes exclusive of procedures. Intubation Procedure Intub Indication: Respiratory failure Consent: Unable to give consent due to emergent nature. Medications Used: see nursing note Procedure: The patient was placed in the appropriate position. An attempted direct laryngoscopy was unsuccessful due to the patient's significant oral secretions as well as slightly narrowed epiglottic area. Intubation was then performed using video laryngoscopy with a 6.0 endotracheal tube. ET tube was appropriately secured. Initial confirmation of placement included bilateral breath sounds, tube fogging, adequate chest rise, adequate pulse oximetry reading. A chest x-ray to verify correct placement of the tube showed appropriate tube position. The patient tolerated the procedure well. Complications: none. Departure Departure Impression: Primary Impression: Aspiration pneumonia Additional Impressions: Severe sepsis Hypernatremia Hypokalemia Disposition: ADMITTED INPATIENT Admitting Physician: Ministerio Ferguson Condition: CRITICAL Referrals: ULYSSES LAN MD (PCP) Problem Qualifiers MARGOTH REED DO March 11, 2017 19:01
[2017-03-11 19:05] LABS: PLT ESTIMATE ADEQUATE (ADEQUATE); TOXIC GRANULATION SLIGHT
[2017-03-11 19:07] LABS: CKMB MASS 1.3 ng/mL (0.0-3.6)
[2017-03-11 19:12] LABS: POTASSIUM 2.9 mmol/L (3.5-5.1)
[2017-03-11] MEDS ORDERED: HYDROCORTISONE SOD SUCC/PF 100 MG/2 ML VIAL. IV ONE (19:15)
[2017-03-11] MEDS ORDERED: HYDROCORTISONE SOD SUCC/PF 250 MG/2 ML VIAL. IV ONE (19:45)
[2017-03-11] MEDS ORDERED: VANCOMYCIN 2 GM in IV NORMAL SALINE 500ML BAG 500 ML IV ONE (20:00)
[2017-03-11] MEDS ORDERED: ACETAMINOPHEN 650 MG SUPP.RECT. PR ONE (20:00)
[2017-03-11 20:33] LABS: ALLEN TEST POS
--- NOTE | 2017-03-11 20:39 | ACF ---
Admission Forms Criteria PNEUMONIA DUE TO ASPIRATION Clinical Indications for Admission to Inpatient Care (Place 'X' for any and all applicable criteria): Admission is indicated for ANY ONE of the following(1)(2)(3): [ ]I. Respiratory abnormalities [X ]II. Hemodynamic instability [ ]III. Aspiration pneumonitis associated with an acute event (eg, neurologic change, massive emesis, drug overdose) [ ]IV. Patient receives chronic care in a setting (eg, skilled nursing care, fci facility) where care for the aspiration has failed or cannot be provided (eg, patient is clinically unstable, and aggressive medical care is desired) (4) Extended stay beyond goal length of stay may be needed for(1)(6): [ ]a) Continued aspiration [ ]b) Empyema, atelectasis, large pleural effusion or lung abscess [ ]c) Severe hypoxemia or respiratory failure [ ]d) Comorbid clinically significant electrolyte disorder or acute renal injury (eg, hypernatremia, hyponatremia) [ ]e) Need for parenteral or tube (enteral) feedings (eg, severe malnutrition) [ ]f) Active comorbidities (eg, heart failure, COPD, renal failure) [ ]g) Comorbid severe neurologic problems(2)(17) The original [employer] content created by [employer] has been revised. The portions of the content which have been revised are identified through the use of italic text or in bold, and [facility] has neither reviewed nor approved the modified material. All other unmodified content is copyright [employer]. Please see references footnoted in the original [facility] edition 2016 Admission Criteria Met?: Yes RACHEL KING March 11, 2017 20:39
--- NOTE | 2017-03-11 21:14 | PDOC1 ---
History and Physical Past Medical History CENTRAL NERVOUS SYSTEM: Other GI: GERD Psych: Schizophrenia Endocrine: Other Past Surgical History Past Surgical History: Other Social History ALCOHOL: none Current Problem List Problem List Problems Medical Problems: (1) Hypernatremia Status: Acute (2) Hypokalemia Status: Acute Current Medications Current Medications Current Medications Medications (Trade) Dose Ordered Sig/Eleazar Start Time Stop Time Status Last Admin Dose Admin Acetaminophen (Acetaminophen Supp) 1,000 mg 1X ONCE 03/11/17 20:00 03/11/17 20:01 DC 03/11/17 20:27 1,000 MG Albuterol/ Ipratropium (Duoneb) 3 ml RTQID 03/11/17 20:00 03/12/17 19:59 Etomidate (Amidate) 20 mg STK-MED ONCE 03/11/17 18:40 03/11/17 18:41 DC Hydrocortisone Sodium Succinate (Solu-CORTEF) 250 mg 1X ONCE 03/11/17 19:45 03/11/17 19:46 DC 03/11/17 19:37 250 MG Midazolam HCl 100 ml @ 0 mls/hr 1X ONCE 03/11/17 18:30 03/11/17 18:59 DC 03/11/17 18:32 1 MLS/HR Norepinephrine Bitartrate 250 ml @ 0 mls/hr CONT PRN 03/11/17 18:15 Ondansetron HCl (Zofran) 4 mg PRN Q8HRS PRN 03/11/17 19:00 03/12/17 18:59 Piperacillin Sod/ Tazobactam Sod (Zosyn Per Pharmacy) 1 each PRN DAILY PRN 03/11/17 18:30 Piperacillin Sod/ Tazobactam Sod 4.5 gm/Sodium Chloride 100 ml @ 200 mls/hr Q6HRS 03/12/17 00:00 Sodium Chloride 1,000 ml @ 150 mls/hr Q6H40M 03/11/17 18:51 03/12/17 18:50 Sodium Chloride (Normal Saline Flush) 10 ml QSHIFT PRN 03/11/17 18:15 Succinylcholine Chloride (Anectine) 200 mg STK-MED ONCE 03/11/17 18:40 03/11/17 18:41 DC Vancomycin HCl 1 each 1X ONCE 03/13/17 19:30 03/13/17 19:31 Vancomycin HCl (Vanco Per Pharmacy) 1 each PRN DAILY PRN 03/11/17 18:30 03/11/17 19:59 1 EACH Vancomycin HCl 1.25 gm/Sodium Chloride 250 ml @ 166.667 mls/hr Q24H 03/12/17 20:00 Vancomycin HCl 2 gm/Sodium Chloride 500 ml @ 250 mls/hr 1X ONCE 03/11/17 20:00 03/11/17 21:59 03/11/17 19:40 250 MLS/HR Allergies Allergies Allergies Coded Allergies Type Severity Reaction Last Updated Verified aripiprazole Allergy Intermediate 01/06/17 Yes clarithromycin Allergy Intermediate 01/06/17 Yes divalproex sodium Allergy Intermediate 01/06/17 Yes fluvoxamine Allergy Intermediate 01/06/17 Yes gabapentin Allergy Intermediate 01/06/17 Yes gluten Allergy Intermediate 01/06/17 Yes lurasidone Allergy Intermediate 01/06/17 Yes pregabalin Allergy Intermediate 01/06/17 Yes I S O L A T I O N *CONTACT* Allergy Unknown 02/02/17 Yes ROS Review of System Couldn't able to obtain due to severity of the disease. Physical Exam Physical Exam GEN.: sedated and intubated. on Mechanical vetilaiton HEENT: Head is normocephalic, atraumatic NECK: Supple. no JVD, Trach scar LUNGS: Clear to auscultation. basal rales HEART: Tachycardia, S1, S2 present. Peripheral pulses intact ABDOMEN: Soft, nontender. Positive bowel sounds. EXTREMITIES: Without any cyanosis. NEUROLOGIC: sedated, PSYCHIATRIC: SKIN: dry, Vitals Vitals Vital Signs Date Time Temp Pulse Resp B/P (MAP) Pulse Ox O2 Delivery O2 Flow Rate FiO2 03/11/17 20:02 96 20 97/58 (71) 100 Ventilator 03/11/17 18:10 101.6 101.6 Labs Labs Laboratory Tests Test 03/11/17 18:15 03/11/17 18:30 03/11/17 18:38 O2 Saturation 99 % (92-99) Arterial Blood pH 7.33 (7.35-7.45) Arterial Blood pCO2 at Patient Temp 36 mmHg (35-46) Arterial Blood pO2 at Patient Temp 212 mmHg (75-108) Arterial Blood HCO3 18 mmol/L (21-28) Arterial Blood Base Excess -7 mmol/L (-3-3) Raul Test Pos FiO2 100 White Blood Count 20.3 x10^3/uL (4.0-11.0) Red Blood Count 5.54 x10^6/uL (4.30-5.70) Hemoglobin 16.5 g/dL (13.0-17.5) Hematocrit 53.2 % (39.0-53.0) Mean Corpuscular Volume 96 fL (79-100) Mean Corpuscular Hemoglobin 30 pg (25-35) Mean Corpuscular Hemoglobin Concent 31 g/dL (31-37) Red Cell Distribution Width 17.0 % (11.5-14.5) Platelet Count 189 x10^3/uL (140-400) Neutrophils (%) (Auto) 88 % (31-73) Lymphocytes (%) (Auto) 5 % (24-48) Monocytes (%) (Auto) 7 % (0-9) Eosinophils (%) (Auto) 0 % (0-3) Basophils (%) (Auto) 0 % (0-3) Neutrophils # (Auto) 18.0 x10^3uL (1.8-7.7) Lymphocytes # (Auto) 0.9 x10^3/uL (1.0-4.8) Monocytes # (Auto) 1.3 x10^3/uL (0.0-1.1) Eosinophils # (Auto) 0.0 x10^3/uL (0.0-0.7) Basophils # (Auto) 0.1 x10^3/uL (0.0-0.2) Segmented Neutrophils % 81 % (35-66) Band Neutrophils % 6 % (0-9) Lymphocytes % 8 % (24-48) Monocytes % 5 % (0-10) Toxic Granulation Slight Platelet Estimate Adequate (ADEQUATE) Sodium Level 175 mmol/L (136-145) Potassium Level 2.9 mmol/L (3.5-5.1) Chloride Level 132 mmol/L (98-107) Carbon Dioxide Level 25 mmol/L (21-32) Anion Gap 18 (6-14) Blood Urea Nitrogen 71 mg/dL (8-26) Creatinine 3.2 mg/dL (0.7-1.3) Estimated GFR (Cockcroft-Gault) 20.2 BUN/Creatinine Ratio 22 (6-20) Glucose Level 155 mg/dL (70-99) Lactic Acid Level 8.6 mmol/L (0.4-2.0) Calcium Level 9.5 mg/dL (8.5-10.1) Total Bilirubin 1.0 mg/dL (0.2-1.0) Aspartate Amino Transf (AST/SGOT) 86 U/L (15-37) Alanine Aminotransferase (ALT/SGPT) 117 U/L (16-63) Alkaline Phosphatase 236 U/L (46-116) Creatine Kinase 427 U/L (39-308) Creatine Kinase MB (Mass) 1.3 ng/mL (0.0-3.6) Creatine Kinase MB Relative Index 0.3 % (0-4) Troponin I Quantitative 0.027 ng/mL (0.000-0.055) Total Protein 8.3 g/dL (6.4-8.2) Albumin 3.6 g/dL (3.4-5.0) Albumin/Globulin Ratio 0.8 (1.0-1.7) Amylase Level 109 U/L (25-115) Lipase 57 U/L (73-393) Urine Collection Type U cath Urine Color Nicolasa Urine Clarity Clear Urine pH 5.0 Urine Specific Murdock >=1.030 Urine Protein 30 mg/dL (NEG-TRACE) Urine Glucose (UA) Negative mg/dL (NEG) Urine Ketones (Stick) Negative mg/dL (NEG) Urine Blood Negative (NEG) Urine Nitrite Negative (NEG) Urine Bilirubin Moderate (NEG) Urine Urobilinogen Dipstick 1.0 mg/dL (0.2 mg/dL) Urine Leukocyte Esterase Negative (NEG) Urine RBC Occ /HPF (0-2) Urine WBC 0 /HPF (0-4) Urine Squamous Epithelial Cells Few /LPF Urine Amorphous Sediment Present /HPF Urine Bacteria 0 /HPF (0-FEW) Urine Mucus Slight /LPF Laboratory Tests Test 03/11/17 18:15 03/11/17 18:30 03/11/17 18:38 O2 Saturation 99 % (92-99) Arterial Blood pH 7.33 (7.35-7.45) Arterial Blood pCO2 at Patient Temp 36 mmHg (35-46) Arterial Blood pO2 at Patient Temp 212 mmHg (75-108) Arterial Blood HCO3 18 mmol/L (21-28) Arterial Blood Base Excess -7 mmol/L (-3-3) Raul Test Pos FiO2 100 White Blood Count 20.3 x10^3/uL (4.0-11.0) Red Blood Count 5.54 x10^6/uL (4.30-5.70) Hemoglobin 16.5 g/dL (13.0-17.5) Hematocrit 53.2 % (39.0-53.0) Mean Corpuscular Volume 96 fL (79-100) Mean Corpuscular Hemoglobin 30 pg (25-35) Mean Corpuscular Hemoglobin Concent 31 g/dL (31-37) Red Cell Distribution Width 17.0 % (11.5-14.5) Platelet Count 189 x10^3/uL (140-400) Neutrophils (%) (Auto) 88 % (31-73) Lymphocytes (%) (Auto) 5 % (24-48) Monocytes (%) (Auto) 7 % (0-9) Eosinophils (%) (Auto) 0 % (0-3) Basophils (%) (Auto) 0 % (0-3) Neutrophils # (Auto) 18.0 x10^3uL (1.8-7.7) Lymphocytes # (Auto) 0.9 x10^3/uL (1.0-4.8) Monocytes # (Auto) 1.3 x10^3/uL (0.0-1.1) Eosinophils # (Auto) 0.0 x10^3/uL (0.0-0.7) Basophils # (Auto) 0.1 x10^3/uL (0.0-0.2) Segmented Neutrophils % 81 % (35-66) Band Neutrophils % 6 % (0-9) Lymphocytes % 8 % (24-48) Monocytes % 5 % (0-10) Toxic Granulation Slight Platelet Estimate Adequate (ADEQUATE) Sodium Level 175 mmol/L (136-145) Potassium Level 2.9 mmol/L (3.5-5.1) Chloride Level 132 mmol/L (98-107) Carbon Dioxide Level 25 mmol/L (21-32) Anion Gap 18 (6-14) Blood Urea Nitrogen 71 mg/dL (8-26) Creatinine 3.2 mg/dL (0.7-1.3) Estimated GFR (Cockcroft-Gault) 20.2 BUN/Creatinine Ratio 22 (6-20) Glucose Level 155 mg/dL (70-99) Lactic Acid Level 8.6 mmol/L (0.4-2.0) Calcium Level 9.5 mg/dL (8.5-10.1) Total Bilirubin 1.0 mg/dL (0.2-1.0) Aspartate Amino Transf (AST/SGOT) 86 U/L (15-37) Alanine Aminotransferase (ALT/SGPT) 117 U/L (16-63) Alkaline Phosphatase 236 U/L (46-116) Creatine Kinase 427 U/L (39-308) Creatine Kinase MB (Mass) 1.3 ng/mL (0.0-3.6) Creatine Kinase MB Relative Index 0.3 % (0-4) Troponin I Quantitative 0.027 ng/mL (0.000-0.055) Total Protein 8.3 g/dL (6.4-8.2) Albumin 3.6 g/dL (3.4-5.0) Albumin/Globulin Ratio 0.8 (1.0-1.7) Amylase Level 109 U/L (25-115) Lipase 57 U/L (73-393) Urine Collection Type U cath Urine Color Nicolasa Urine Clarity Clear Urine pH 5.0 Urine Specific Murdock >=1.030 Urine Protein 30 mg/dL (NEG-TRACE) Urine Glucose (UA) Negative mg/dL (NEG) Urine Ketones (Stick) Negative mg/dL (NEG) Urine Blood Negative (NEG) Urine Nitrite Negative (NEG) Urine Bilirubin Moderate (NEG) Urine Urobilinogen Dipstick 1.0 mg/dL (0.2 mg/dL) Urine Leukocyte Esterase Negative (NEG) Urine RBC Occ /HPF (0-2) Urine WBC 0 /HPF (0-4) Urine Squamous Epithelial Cells Few /LPF Urine Amorphous Sediment Present /HPF Urine Bacteria 0 /HPF (0-FEW) Urine Mucus Slight /LPF VTE Prophylaxis Ordered VTE Prophylaxis Devices: Yes VTE Pharmacological Prophylaxi: No STORMY ARAIZA MD March 11, 2017 21:14
[2017-03-11] MEDS: IPRATRPIUM/ALBUTEROL 0.5/2.5MG 3 ML NEBU. NEB SCH (21:20)
[2017-03-11] MEDS ORDERED: IV DEXTROSE 5% - 0.9 % NACL 1,000 ML IV SCH (21:30)
[2017-03-11] MEDS ORDERED: IV DEXTROSE 5 %-0.45 % NACL 500 ML IV ONE ×2 (21:30→22:30)
[2017-03-11] MEDS ORDERED: POTASSIUM CHLORIDE 40 MEQ in IV DEXTROSE 5% 1,000 ML IV ONE (21:45)
[2017-03-11 21:47] LABS: CALCIUM 8.2 mg/dL (8.5-10.1); CREATININE 2.7 mg/dL (0.7-1.3); GFR 24.6
[2017-03-11 21:49] LABS: POTASSIUM 2.7 mmol/L (3.5-5.1)
[2017-03-11] MEDS ORDERED: STERILE WATER IV SCH ×2 (22:30)
[2017-03-11] MEDS ORDERED: IV DEXTROSE 5 %-0.45 % NACL 1,000 ML IV ONE (22:30)
--- NOTE | 2017-03-11 23:00 | RAD ---
PROCEDURE Single view chest dated 03/11/2017. HISTORY Intubation. Cough. Respiratory failure. TECHNIQUE Single supine portable exam performed. COMPARISON None. FINDINGS Heart and mediastinal contours within normal limits. Endotracheal tube tip approximately 3.8 centimeters above the level the gracie. Lungs are somewhat hyperinflated. There is some minimal patchy infrahilar opacities bilaterally. No consolidation or pleural effusion. No pneumothorax. IMPRESSION - Mild patchy bibasilar opacities, atelectasis versus early pneumonia. - Endotracheal tube tip at mid trachea. Electronically signed by: Giovanni Denny (March 11, 2017 22:58:50)
[2017-03-12] VITALS (31 sets, daily range): BP systolic 72–125; BP diastolic 48–89
--- NOTE | 2017-03-12 00:36 | RAD ---
INDICATION: Tube placement COMPARISON: None IMPRESSION: Chest: Single view of chest obtained. Endotracheal tube mid thoracic trachea. Cardiac silhouette prominent but could be from portable technique. No definite focal consolidation or edema. Abdomen: Single-view abdomen obtained. There is a single enteric tube seen with tip likely just distal to the gastroesophageal junction. Probable cholecystectomy clips right upper quadrant. Electronically signed by: Skip Stephens (March 12, 2017 00:34:17)
--- NOTE | 2017-03-12 02:06 | HP ---
ADMIT DATE: 03/11/2017 CHIEF COMPLAINT: Respiratory distress. HISTORY OF PRESENT ILLNESS: A 57-year-old male patient with a prior history of encephalopathy and schizophrenia and bipolar disorder, brought to the hospital from [facility] for respiratory failure and possible aspiration. He was brought by the EMS and most of the history was obtained from the ER physician and the ER notes. Reportedly, the patient's saturations were low around 80s with copious amount of oral secretions and significant respiratory distress. He was immediately intubated in the ER; however, it was a difficult intubation due to his prior tracheostomy. 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 Also, he was noted to have some fevers and appears toxic and directed to the ICU for septic shock. PAST MEDICAL HISTORY: Anxiety, GERD, seizures, encephalitis, respiratory disorders, gastric bypass and J-tube placement. ALLERGIES: CLARITHROMYCIN, DIVALPROEX, GABAPENTIN, GLUTEN, PREGABALIN. REVIEW OF SYSTEMS: Please see my electronic H and P. PHYSICAL EXAMINATION: Please see my electronic H and P. FAMILY HISTORY: Unknown due to acuity of his illness. PAST SURGICAL HISTORY: As mentioned above. LABORATORY FINDINGS: Sodium is 175, potassium is 2.9, chloride is 132, gap is 18, BUN is 71, creatinine is 3.2, GFR is 20.2, BUN/creatinine ratio 22, glucose 155, calcium is 9.5, total bilirubin 1.0, AST is 86, ALT 117, alkaline phosphatase 236, lipase is 51. Hematology: WBC 20.3, hemoglobin is 16.5, MCV is 96, MCHC 31, platelets 189, neutrophils 88%. Blood gases, pH is 7.3, pO2 is 212, 100% oxygen. Urine, ketones negative, nitrites negative, leukocyte esterase negative. IMAGING STUDIES: Chest x-ray, preliminary report, suspected aspiration, final report pending. ASSESSMENT: 1. Acute hypoxic respiratory failure, present on admission. 2. Suspected aspiration pneumonia, present on admission. 3. Shock, sepsis versus hypovolemia. 4. Severe hypernatremia at 175. 5. Hypokalemia, present on admission. 6. Metabolic acidosis. 7. Acute kidney injury, present on admission. 8. Mild elevation of LFTs. 9. Acute on chronic metabolic encephalopathy. PLAN: 1. The patient is currently on broad-spectrum antibiotics, Zosyn and vancomycin. We will continue antibiotics. 2. Also, he was on severe volume resuscitation with Levophed and goal is to keep his systolic blood pressure, MAP more than 65. Central line placement ordered. 3. The patient's sodium is 175; however, his water deficit is more than 12 liters. I will start him on free water at 50 mL per hour and repeat. Sodium is still high at 173. Goal is to bring it to 165 at least in 24 hours and Nephrology has been consulted and potassium has been replaced. serial BMP, D/W RN 4. Continue D5 half normal saline at 125 mL per hour. 5. Pharmacy to dose vancomycin according to renal functions. 6. Family is aware of the critical nature of his condition. I did discuss with the ER physician. 7. Overall prognosis is poor/guarded. 8. Ventilator care, consult pulmonology. STORMY ARAIZA MD DR: SUSY/franny JOB#: [id number] / [id number] LESTER
[2017-03-12] MEDS ORDERED: TRAM50TA PO (02:21)
[2017-03-12] MEDS ORDERED: QUET50TA5 PO (02:23)
[2017-03-12] MEDS ORDERED: TRAZ100T12 PO (02:23)
[2017-03-12] MEDS ORDERED: PROT420P PO (02:24)
[2017-03-12] MEDS ORDERED: OLAN5TAB9 PO (02:30)
[2017-03-12] MEDS ORDERED: POLY17PO29 PO (02:32)
[2017-03-12] MEDS ORDERED: FLECTOR1 EACH TP (02:45)
[2017-03-12] MEDS ORDERED: LACT20SO PO (02:46)
[2017-03-12] MEDS ORDERED: CHOL100013 PO (02:53)
[2017-03-12] MEDS ORDERED: MELA3TAB2 PO (02:55)
[2017-03-12] MEDS ORDERED: MELA1TAB9 PO (02:55)
--- NOTE | 2017-03-12 03:11 | RAD ---
INDICATION: PICC line placement COMPARISON: March 11, 2017 FINDINGS: 1 view of chest obtained. Endotracheal tube near the thoracic inlet. Enteric tube seen coursing below the diaphragm. Right-sided PICC line is seen coursing into the neck with the tip not seen but likely pointed superiorly within the neck. No definite focal airspace consolidation or pulmonary edema. Scoliotic curvature of spine. IMPRESSION: Right-sided PICC line is seen coursing into the neck with the tip not seen but likely pointed superiorly within the neck. Electronically signed by: Skip Stephens (March 12, 2017 03:09:48)
[2017-03-12 04:08] LABS: BASO # 0.1 x10^3/uL (0.0-0.2); BASO % 0 % (0-3); EOS % 0 % (0-3); HEMATOCRIT 42.6 % (39.0-53.0); HEMOGLOBIN 13.4 g/dL (13.0-17.5); LYMPH # 1.4 x10^3/uL (1.0-4.8); LYMPH % 6 % (24-48); MEAN CORPUSCULAR HEMOGLOBIN 29 pg (25-35); MEAN CORPUSCULAR HGB CONC 32 g/dL (31-37); MEAN CORPUSCULAR VOLUME 93 fL (79-100); MONO % 4 % (0-9); NEUT % 90 % (31-73); PLATELET COUNT 145 x10^3/uL (140-400); RED CELL DISTRIBUTION WIDTH 16.5 % (11.5-14.5); WHITE BLOOD COUNT 24.1 x10^3/uL (4.0-11.0)
[2017-03-12 04:18] LABS: CALCIUM 8.1 mg/dL (8.5-10.1); CREATININE 2.4 mg/dL (0.7-1.3); GFR 28.1
[2017-03-12 04:26] LABS: POTASSIUM 2.3 mmol/L (3.5-5.1)
[2017-03-12] MEDS: POTASSIUM CHLORIDE 10MEQ 100 ML IV SCH ×15 (04:37→19:00)
[2017-03-12] MEDS: IV DEXTROSE 5 %-0.45 % NACL 1,000 ML IV SCH ×2 (05:23→10:05)
--- NOTE | 2017-03-12 06:16 | EKG ---
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
[2017-03-12] MEDS: PIPERACILLIN/TAZOBACTAM 4.5 GM in IV NORMAL SALINE 100ML 100 ML IV SCH ×3 (06:35)
--- NOTE | 2017-03-12 07:07 | RAD ---
Portable chest, 03/12/2017, 4:02 AM: History: Check PICC position Comparison is made to the study at 3:32 AM. There is continued malposition of the right PICC extending superiorly in the right neck. Its tip is not visible on this exam. The tip of the ET tube lies 7 cm above the gracie. An NG tube extends into the stomach. The heart size is normal. The lungs are clear. There is no evidence of pleural fluid. IMPRESSION: 1. Continued malposition of the right PICC. 2. No significant change since earlier in the day.
--- NOTE | 2017-03-12 07:08 | RAD ---
Portable chest, 03/12/2017, 3:32 AM: History: Check PICC placement Comparison is made to the study of earlier the same day at 2:59 AM. The tube positions are unchanged. There is continued malposition of the right PICC extending into the lower neck. The lungs remain clear.
[2017-03-12] MEDS: IPRATRPIUM/ALBUTEROL 0.5/2.5MG 3 ML NEBU. NEB SCH ×4 (07:30→19:25)
[2017-03-12 07:49] LABS: CARBON MONOXIDE 0.2 % (0.0-1.9); METHEMOGLOBIN 0.3 % (0.0-1.9); OXYHEMOGLOBIN 97.8 %; TOTAL HEMOGLOBIN 13.9 g/dL
[2017-03-12 07:50] LABS: BASE EXCESS COOX -5 mmol/L (-3-3); HCO3 COOX 19 mmol/L (21-28); PCO2 COOX 31 mmHg (35-46); PO2 COOX 136 mmHg (75-108); SAT O2 COOX 98 % (92-99)
[2017-03-12 07:51] LABS: FIO2 COOX 40
--- NOTE | 2017-03-12 09:04 | PDOC ---
PROGRESS NOTES Chief Complaint Chief Complaint cc: aspiration, respiratory failure A/P 1. Acute hypoxic respiratory failure, POA: On mechanical ventilation, on Vent bundle, iv Protonix daily, DVT prophylaxis, daily CXR, daily ABG. pulmonology consulted. 2. Suspected aspiration pneumonia, POA, : Blood cx positive gram negative rods , on Zosyn and vancomycin, ID consulted, continue supportive care. 3. Shock, Septic: on volume resuscitation, Levophed, goal MAP > 65, echo pending, 4. Severe hypernatremia at 175.: previous Na with in normal range, water deficit, 12 hrs, on D5, 1/2 NS, bolus 1l now, periodic BMPs, consult Nephrology, 5. Hypokalemia, present on admission.: check Magnesium, replace potassium. 6. Metabolic acidosis: due to sepsis. 7. Acute kidney injury, present on admission: possible VMN/Sepsis. 8. Mild elevation of LFTs. 9. Acute on chronic metabolic encephalopathy.: due to sepsis and Hyponatremia, 10. Nutrition: start tube feeds, nutrition consult. add free water, 200ml q6hrs for 1 days. 11. Prognosis poor, d/w son and at bedside, all questions answered, d/w RN , CC TIME 35 MIN. History of Present Illness History of Present Illness on Ventilator family at bedside low grade fevers not able to place PICC line Vitals Vitals Vital Signs Date Time Temp Pulse Resp B/P (MAP) Pulse Ox O2 Delivery O2 Flow Rate FiO2 03/12/17 07:31 100 Ventilator 03/12/17 06:00 74 20 103/74 (84) 03/12/17 04:12 99.6 99.6 Physical Exam General: Other (INTUBATED, SEDATED. ) Heart: Normal S1, Normal S2 Lungs: Clear, Other Abdomen: Normal bowel sounds, Soft Extremities: Other (MILD edema. ) Skin: Other (dressing present in abdominal region. ) Labs LABS Laboratory Tests Test 03/11/17 18:15 03/11/17 18:30 03/11/17 18:38 03/11/17 20:18 O2 Saturation 98 % (92-99) Arterial Blood pH 7.40 (7.35-7.45) Arterial Blood pCO2 at Patient Temp 31 mmHg (35-46) Arterial Blood pO2 at Patient Temp 136 mmHg (75-108) Arterial Blood HCO3 19 mmol/L (21-28) Arterial Blood Base Excess -5 mmol/L (-3-3) Raul Test Pos Oxyhemoglobin 97.8 % Methemoglobin 0.3 % (0.0-1.9) Carbon Monoxide, Quantitative 0.2 % (0.0-1.9) FiO2 40 White Blood Count 20.3 x10^3/uL (4.0-11.0) Red Blood Count 5.54 x10^6/uL (4.30-5.70) Hemoglobin 16.5 g/dL (13.0-17.5) Hematocrit 53.2 % (39.0-53.0) Mean Corpuscular Volume 96 fL (79-100) Mean Corpuscular Hemoglobin 30 pg (25-35) Mean Corpuscular Hemoglobin Concent 31 g/dL (31-37) Red Cell Distribution Width 17.0 % (11.5-14.5) Platelet Count 189 x10^3/uL (140-400) Neutrophils (%) (Auto) 88 % (31-73) Lymphocytes (%) (Auto) 5 % (24-48) Monocytes (%) (Auto) 7 % (0-9) Eosinophils (%) (Auto) 0 % (0-3) Basophils (%) (Auto) 0 % (0-3) Neutrophils # (Auto) 18.0 x10^3uL (1.8-7.7) Lymphocytes # (Auto) 0.9 x10^3/uL (1.0-4.8) Monocytes # (Auto) 1.3 x10^3/uL (0.0-1.1) Eosinophils # (Auto) 0.0 x10^3/uL (0.0-0.7) Basophils # (Auto) 0.1 x10^3/uL (0.0-0.2) Segmented Neutrophils % 81 % (35-66) Band Neutrophils % 6 % (0-9) Lymphocytes % 8 % (24-48) Monocytes % 5 % (0-10) Toxic Granulation Slight Platelet Estimate Adequate (ADEQUATE) Sodium Level 175 mmol/L (136-145) Potassium Level 2.9 mmol/L (3.5-5.1) Chloride Level 132 mmol/L (98-107) Carbon Dioxide Level 25 mmol/L (21-32) Anion Gap 18 (6-14) Blood Urea Nitrogen 71 mg/dL (8-26) Creatinine 3.2 mg/dL (0.7-1.3) Estimated GFR (Cockcroft-Gault) 20.2 BUN/Creatinine Ratio 22 (6-20) Glucose Level 155 mg/dL (70-99) Lactic Acid Level 8.6 mmol/L (0.4-2.0) 4.5 mmol/L (0.4-2.0) Calcium Level 9.5 mg/dL (8.5-10.1) Total Bilirubin 1.0 mg/dL (0.2-1.0) Aspartate Amino Transf (AST/SGOT) 86 U/L (15-37) Alanine Aminotransferase (ALT/SGPT) 117 U/L (16-63) Alkaline Phosphatase 236 U/L (46-116) Creatine Kinase 427 U/L (39-308) Creatine Kinase MB (Mass) 1.3 ng/mL (0.0-3.6) Creatine Kinase MB Relative Index 0.3 % (0-4) Troponin I Quantitative 0.027 ng/mL (0.000-0.055) Total Protein 8.3 g/dL (6.4-8.2) Albumin 3.6 g/dL (3.4-5.0) Albumin/Globulin Ratio 0.8 (1.0-1.7) Amylase Level 109 U/L (25-115) Lipase 57 U/L (73-393) Urine Collection Type U cath Urine Color Nicolasa Urine Clarity Clear Urine pH 5.0 Urine Specific [place] >=1.030 Urine Protein 30 mg/dL (NEG-TRACE) Urine Glucose (UA) Negative mg/dL (NEG) Urine Ketones (Stick) Negative mg/dL (NEG) Urine Blood Negative (NEG) Urine Nitrite Negative (NEG) Urine Bilirubin Moderate (NEG) Urine Urobilinogen Dipstick 1.0 mg/dL (0.2 mg/dL) Urine Leukocyte Esterase Negative (NEG) Urine RBC Occ /HPF (0-2) Urine WBC 0 /HPF (0-4) Urine Squamous Epithelial Cells Few /LPF Urine Amorphous Sediment Present /HPF Urine Bacteria 0 /HPF (0-FEW) Urine Mucus Slight /LPF Test 03/11/17 21:30 03/12/17 03:59 Sodium Level 173 mmol/L (136-145) 171 mmol/L (136-145) Potassium Level 2.7 mmol/L (3.5-5.1) 2.3 mmol/L (3.5-5.1) Chloride Level 136 mmol/L (98-107) 134 mmol/L (98-107) Carbon Dioxide Level 20 mmol/L (21-32) 22 mmol/L (21-32) Anion Gap 17 (6-14) 15 (6-14) Blood Urea Nitrogen 69 mg/dL (8-26) 67 mg/dL (8-26) Creatinine 2.7 mg/dL (0.7-1.3) 2.4 mg/dL (0.7-1.3) Estimated GFR (Cockcroft-Gault) 24.6 28.1 Glucose Level 162 mg/dL (70-99) 210 mg/dL (70-99) Calcium Level 8.2 mg/dL (8.5-10.1) 8.1 mg/dL (8.5-10.1) White Blood Count 24.1 x10^3/uL (4.0-11.0) Red Blood Count 4.60 x10^6/uL (4.30-5.70) Hemoglobin 13.4 g/dL (13.0-17.5) Hematocrit 42.6 % (39.0-53.0) Mean Corpuscular Volume 93 fL (79-100) Mean Corpuscular Hemoglobin 29 pg (25-35) Mean Corpuscular Hemoglobin Concent 32 g/dL (31-37) Red Cell Distribution Width 16.5 % (11.5-14.5) Platelet Count 145 x10^3/uL (140-400) Neutrophils (%) (Auto) 90 % (31-73) Lymphocytes (%) (Auto) 6 % (24-48) Monocytes (%) (Auto) 4 % (0-9) Eosinophils (%) (Auto) 0 % (0-3) Basophils (%) (Auto) 0 % (0-3) Neutrophils # (Auto) 21.7 x10^3uL (1.8-7.7) Lymphocytes # (Auto) 1.4 x10^3/uL (1.0-4.8) Monocytes # (Auto) 0.9 x10^3/uL (0.0-1.1) Eosinophils # (Auto) 0.0 x10^3/uL (0.0-0.7) Basophils # (Auto) 0.1 x10^3/uL (0.0-0.2) Lactic Acid Level 2.8 mmol/L (0.4-2.0) Assessment and Plan Assessmemt and Plan Problems Medical Problems: (1) Hypernatremia Status: Acute (2) Hypokalemia Status: Acute Problems: Comment Review of Relevant I have reviewed the following items ambrose (where applicable) has been applied. Labs Laboratory Tests Test 03/11/17 18:15 03/11/17 18:30 03/11/17 18:38 03/11/17 20:18 O2 Saturation 98 % (92-99) Arterial Blood pH 7.40 (7.35-7.45) Arterial Blood pCO2 at Patient Temp 31 mmHg (35-46) Arterial Blood pO2 at Patient Temp 136 mmHg (75-108) Arterial Blood HCO3 19 mmol/L (21-28) Arterial Blood Base Excess -5 mmol/L (-3-3) Raul Test Pos Oxyhemoglobin 97.8 % Methemoglobin 0.3 % (0.0-1.9) Carbon Monoxide, Quantitative 0.2 % (0.0-1.9) FiO2 40 White Blood Count 20.3 x10^3/uL (4.0-11.0) Red Blood Count 5.54 x10^6/uL (4.30-5.70) Hemoglobin 16.5 g/dL (13.0-17.5) Hematocrit 53.2 % (39.0-53.0) Mean Corpuscular Volume 96 fL (79-100) Mean Corpuscular Hemoglobin 30 pg (25-35) Mean Corpuscular Hemoglobin Concent 31 g/dL (31-37) Red Cell Distribution Width 17.0 % (11.5-14.5) Platelet Count 189 x10^3/uL (140-400) Neutrophils (%) (Auto) 88 % (31-73) Lymphocytes (%) (Auto) 5 % (24-48) Monocytes (%) (Auto) 7 % (0-9) Eosinophils (%) (Auto) 0 % (0-3) Basophils (%) (Auto) 0 % (0-3) Neutrophils # (Auto) 18.0 x10^3uL (1.8-7.7) Lymphocytes # (Auto) 0.9 x10^3/uL (1.0-4.8) Monocytes # (Auto) 1.3 x10^3/uL (0.0-1.1) Eosinophils # (Auto) 0.0 x10^3/uL (0.0-0.7) Basophils # (Auto) 0.1 x10^3/uL (0.0-0.2) Segmented Neutrophils % 81 % (35-66) Band Neutrophils % 6 % (0-9) Lymphocytes % 8 % (24-48) Monocytes % 5 % (0-10) Toxic Granulation Slight Platelet Estimate Adequate (ADEQUATE) Sodium Level 175 mmol/L (136-145) Potassium Level 2.9 mmol/L (3.5-5.1) Chloride Level 132 mmol/L (98-107) Carbon Dioxide Level 25 mmol/L (21-32) Anion Gap 18 (6-14) Blood Urea Nitrogen 71 mg/dL (8-26) Creatinine 3.2 mg/dL (0.7-1.3) Estimated GFR (Cockcroft-Gault) 20.2 BUN/Creatinine Ratio 22 (6-20) Glucose Level 155 mg/dL (70-99) Lactic Acid Level 8.6 mmol/L (0.4-2.0) 4.5 mmol/L (0.4-2.0) Calcium Level 9.5 mg/dL (8.5-10.1) Total Bilirubin 1.0 mg/dL (0.2-1.0) Aspartate Amino Transf (AST/SGOT) 86 U/L (15-37) Alanine Aminotransferase (ALT/SGPT) 117 U/L (16-63) Alkaline Phosphatase 236 U/L (46-116) Creatine Kinase 427 U/L (39-308) Creatine Kinase MB (Mass) 1.3 ng/mL (0.0-3.6) Creatine Kinase MB Relative Index 0.3 % (0-4) Troponin I Quantitative 0.027 ng/mL (0.000-0.055) Total Protein 8.3 g/dL (6.4-8.2) Albumin 3.6 g/dL (3.4-5.0) Albumin/Globulin Ratio 0.8 (1.0-1.7) Amylase Level 109 U/L (25-115) Lipase 57 U/L (73-393) Urine Collection Type U cath Urine Color Nicolasa Urine Clarity Clear Urine pH 5.0 Urine Specific [place] >=1.030 Urine Protein 30 mg/dL (NEG-TRACE) Urine Glucose (UA) Negative mg/dL (NEG) Urine Ketones (Stick) Negative mg/dL (NEG) Urine Blood Negative (NEG) Urine Nitrite Negative (NEG) Urine Bilirubin Moderate (NEG) Urine Urobilinogen Dipstick 1.0 mg/dL (0.2 mg/dL) Urine Leukocyte Esterase Negative (NEG) Urine RBC Occ /HPF (0-2) Urine WBC 0 /HPF (0-4) Urine Squamous Epithelial Cells Few /LPF Urine Amorphous Sediment Present /HPF Urine Bacteria 0 /HPF (0-FEW) Urine Mucus Slight /LPF Test 03/11/17 21:30 03/12/17 03:59 Sodium Level 173 mmol/L (136-145) 171 mmol/L (136-145) Potassium Level 2.7 mmol/L (3.5-5.1) 2.3 mmol/L (3.5-5.1) Chloride Level 136 mmol/L (98-107) 134 mmol/L (98-107) Carbon Dioxide Level 20 mmol/L (21-32) 22 mmol/L (21-32) Anion Gap 17 (6-14) 15 (6-14) Blood Urea Nitrogen 69 mg/dL (8-26) 67 mg/dL (8-26) Creatinine 2.7 mg/dL (0.7-1.3) 2.4 mg/dL (0.7-1.3) Estimated GFR (Cockcroft-Gault) 24.6 28.1 Glucose Level 162 mg/dL (70-99) 210 mg/dL (70-99) Calcium Level 8.2 mg/dL (8.5-10.1) 8.1 mg/dL (8.5-10.1) White Blood Count 24.1 x10^3/uL (4.0-11.0) Red Blood Count 4.60 x10^6/uL (4.30-5.70) Hemoglobin 13.4 g/dL (13.0-17.5) Hematocrit 42.6 % (39.0-53.0) Mean Corpuscular Volume 93 fL (79-100) Mean Corpuscular Hemoglobin 29 pg (25-35) Mean Corpuscular Hemoglobin Concent 32 g/dL (31-37) Red Cell Distribution Width 16.5 % (11.5-14.5) Platelet Count 145 x10^3/uL (140-400) Neutrophils (%) (Auto) 90 % (31-73) Lymphocytes (%) (Auto) 6 % (24-48) Monocytes (%) (Auto) 4 % (0-9) Eosinophils (%) (Auto) 0 % (0-3) Basophils (%) (Auto) 0 % (0-3) Neutrophils # (Auto) 21.7 x10^3uL (1.8-7.7) Lymphocytes # (Auto) 1.4 x10^3/uL (1.0-4.8) Monocytes # (Auto) 0.9 x10^3/uL (0.0-1.1) Eosinophils # (Auto) 0.0 x10^3/uL (0.0-0.7) Basophils # (Auto) 0.1 x10^3/uL (0.0-0.2) Lactic Acid Level 2.8 mmol/L (0.4-2.0) Laboratory Tests Test 03/11/17 18:15 03/11/17 18:30 03/11/17 18:38 03/11/17 20:18 O2 Saturation 98 % (92-99) Arterial Blood pH 7.40 (7.35-7.45) Arterial Blood pCO2 at Patient Temp 31 mmHg (35-46) Arterial Blood pO2 at Patient Temp 136 mmHg (75-108) Arterial Blood HCO3 19 mmol/L (21-28) Arterial Blood Base Excess -5 mmol/L (-3-3) Raul Test Pos Oxyhemoglobin 97.8 % Methemoglobin 0.3 % (0.0-1.9) Carbon Monoxide, Quantitative 0.2 % (0.0-1.9) FiO2 40 White Blood Count 20.3 x10^3/uL (4.0-11.0) Red Blood Count 5.54 x10^6/uL (4.30-5.70) Hemoglobin 16.5 g/dL (13.0-17.5) Hematocrit 53.2 % (39.0-53.0) Mean Corpuscular Volume 96 fL (79-100) Mean Corpuscular Hemoglobin 30 pg (25-35) Mean Corpuscular Hemoglobin Concent 31 g/dL (31-37) Red Cell Distribution Width 17.0 % (11.5-14.5) Platelet Count 189 x10^3/uL (140-400) Neutrophils (%) (Auto) 88 % (31-73) Lymphocytes (%) (Auto) 5 % (24-48) Monocytes (%) (Auto) 7 % (0-9) Eosinophils (%) (Auto) 0 % (0-3) Basophils (%) (Auto) 0 % (0-3) Neutrophils # (Auto) 18.0 x10^3uL (1.8-7.7) Lymphocytes # (Auto) 0.9 x10^3/uL (1.0-4.8) Monocytes # (Auto) 1.3 x10^3/uL (0.0-1.1) Eosinophils # (Auto) 0.0 x10^3/uL (0.0-0.7) Basophils # (Auto) 0.1 x10^3/uL (0.0-0.2) Segmented Neutrophils % 81 % (35-66) Band Neutrophils % 6 % (0-9) Lymphocytes % 8 % (24-48) Monocytes % 5 % (0-10) Toxic Granulation Slight Platelet Estimate Adequate (ADEQUATE) Sodium Level 175 mmol/L (136-145) Potassium Level 2.9 mmol/L (3.5-5.1) Chloride Level 132 mmol/L (98-107) Carbon Dioxide Level 25 mmol/L (21-32) Anion Gap 18 (6-14) Blood Urea Nitrogen 71 mg/dL (8-26) Creatinine 3.2 mg/dL (0.7-1.3) Estimated GFR (Cockcroft-Gault) 20.2 BUN/Creatinine Ratio 22 (6-20) Glucose Level 155 mg/dL (70-99) Lactic Acid Level 8.6 mmol/L (0.4-2.0) 4.5 mmol/L (0.4-2.0) Calcium Level 9.5 mg/dL (8.5-10.1) Total Bilirubin 1.0 mg/dL (0.2-1.0) Aspartate Amino Transf (AST/SGOT) 86 U/L (15-37) Alanine Aminotransferase (ALT/SGPT) 117 U/L (16-63) Alkaline Phosphatase 236 U/L (46-116) Creatine Kinase 427 U/L (39-308) Creatine Kinase MB (Mass) 1.3 ng/mL (0.0-3.6) Creatine Kinase MB Relative Index 0.3 % (0-4) Troponin I Quantitative 0.027 ng/mL (0.000-0.055) Total Protein 8.3 g/dL (6.4-8.2) Albumin 3.6 g/dL (3.4-5.0) Albumin/Globulin Ratio 0.8 (1.0-1.7) Amylase Level 109 U/L (25-115) Lipase 57 U/L (73-393) Urine Collection Type U cath Urine Color Nicolasa Urine Clarity Clear Urine pH 5.0 Urine Specific [place] >=1.030 Urine Protein 30 mg/dL (NEG-TRACE) Urine Glucose (UA) Negative mg/dL (NEG) Urine Ketones (Stick) Negative mg/dL (NEG) Urine Blood Negative (NEG) Urine Nitrite Negative (NEG) Urine Bilirubin Moderate (NEG) Urine Urobilinogen Dipstick 1.0 mg/dL (0.2 mg/dL) Urine Leukocyte Esterase Negative (NEG) Urine RBC Occ /HPF (0-2) Urine WBC 0 /HPF (0-4) Urine Squamous Epithelial Cells Few /LPF Urine Amorphous Sediment Present /HPF Urine Bacteria 0 /HPF (0-FEW) Urine Mucus Slight /LPF Test 03/11/17 21:30 03/12/17 03:59 Sodium Level 173 mmol/L (136-145) 171 mmol/L (136-145) Potassium Level 2.7 mmol/L (3.5-5.1) 2.3 mmol/L (3.5-5.1) Chloride Level 136 mmol/L (98-107) 134 mmol/L (98-107) Carbon Dioxide Level 20 mmol/L (21-32) 22 mmol/L (21-32) Anion Gap 17 (6-14) 15 (6-14) Blood Urea Nitrogen 69 mg/dL (8-26) 67 mg/dL (8-26) Creatinine 2.7 mg/dL (0.7-1.3) 2.4 mg/dL (0.7-1.3) Estimated GFR (Cockcroft-Gault) 24.6 28.1 Glucose Level 162 mg/dL (70-99) 210 mg/dL (70-99) Calcium Level 8.2 mg/dL (8.5-10.1) 8.1 mg/dL (8.5-10.1) White Blood Count 24.1 x10^3/uL (4.0-11.0) Red Blood Count 4.60 x10^6/uL (4.30-5.70) Hemoglobin 13.4 g/dL (13.0-17.5) Hematocrit 42.6 % (39.0-53.0) Mean Corpuscular Volume 93 fL (79-100) Mean Corpuscular Hemoglobin 29 pg (25-35) Mean Corpuscular Hemoglobin Concent 32 g/dL (31-37) Red Cell Distribution Width 16.5 % (11.5-14.5) Platelet Count 145 x10^3/uL (140-400) Neutrophils (%) (Auto) 90 % (31-73) Lymphocytes (%) (Auto) 6 % (24-48) Monocytes (%) (Auto) 4 % (0-9) Eosinophils (%) (Auto) 0 % (0-3) Basophils (%) (Auto) 0 % (0-3) Neutrophils # (Auto) 21.7 x10^3uL (1.8-7.7) Lymphocytes # (Auto) 1.4 x10^3/uL (1.0-4.8) Monocytes # (Auto) 0.9 x10^3/uL (0.0-1.1) Eosinophils # (Auto) 0.0 x10^3/uL (0.0-0.7) Basophils # (Auto) 0.1 x10^3/uL (0.0-0.2) Lactic Acid Level 2.8 mmol/L (0.4-2.0) Microbiology 03/11/17 Blood Culture - Final, Complete Medications Current Medications Norepinephrine Bitartrate 250 ml @ 0 mls/hr 1X ONCE IV Last administered on t 19:01; Start 03/11/17 at 18:15; Stop 03/11/17 at 18:16; Status DC Sodium Chloride (Normal Saline Flush) 10 ml QSHIFT PRN IV AFTER MEDS AND BLOOD DRAWS; Start 03/11/17 at 18:15 Sodium Chloride 3,300 ml @ 3,300 mls/hr Q1H IV Last administered on 03/11/17 18:33; Start 03/11/17 at 18:15; Stop 03/11/17 at 18:37; Status DC Piperacillin Sod/ Tazobactam Sod 4.5 gm/Sodium Chloride 100 ml @ 200 mls/hr 1X ONCE IV Last administered on 03/11/17 18:54; Start 03/11/17 at 18:15; Stop 03/11/17 at 18:52; Status DC Norepinephrine Bitartrate 250 ml @ 0 mls/hr CONT PRN IV PER PROTOCOL; Start at 18:15 Midazolam HCl 100 ml @ 0 mls/hr 1X ONCE IV Last administered on 03/11/17 18: 32; Start 03/11/17 at 18:30; Stop 03/11/17 at 18:59; Status DC Vancomycin HCl (Vanco Per Pharmacy) 1 each PRN DAILY PRN MC SEE COMMENTS Last administered on 03/11/17 19:59; Start 03/11/17 at 18:30 Piperacillin Sod/ Tazobactam Sod (Zosyn Per Pharmacy) 1 each PRN DAILY PRN MC SEE COMMENTS; Start 03/11/17 at 18:30 Sodium Chloride 1,000 ml @ 3,300 mls/hr Q19M IV Last administered on 18:45; Start 03/11/17 at 18:45; Stop 03/11/17 at 19:15; Status DC Etomidate (Amidate) 20 mg STK-MED ONCE IV ; Start 03/11/17 at 18:40; Stop at 18:41; Status DC Succinylcholine Chloride (Anectine) 200 mg STK-MED ONCE .ROUTE ; Start 03/11/17 at 18:40; Stop 03/11/17 at 18:41; Status DC Ondansetron HCl (Zofran) 4 mg PRN Q8HRS PRN IV NAUSEA/VOMITING; Start 03/11/17 at 19:00; Stop 03/12/17 at 18:59 Sodium Chloride 1,000 ml @ 150 mls/hr Q6H40M IV ; Start 03/11/17 at 18:51; Stop 03/11/17 at 21:31; Status DC Albuterol/ Ipratropium (Duoneb) 3 ml RTQID NEB Last administered on 03/12/17 07:30; Start 03/11/17 at 20:00; Stop 03/12/17 at 19:59 Vancomycin HCl 2 gm/Sodium Chloride 500 ml @ 250 mls/hr 1X ONCE IV Last administered on 03/11/17 19:40; Start 03/11/17 at 20:00; Stop 03/11/17 at 21:59 ; Status DC Piperacillin Sod/ Tazobactam Sod 4.5 gm/Sodium Chloride 100 ml @ 200 mls/hr Q6HRS IV Last administered on 03/12/17 06:35; Start 03/12/17 at 00:00 Hydrocortisone Sodium Succinate (Solu-CORTEF) 100 mg 1X ONCE IV ; Start at 19:15; Stop 03/11/17 at 19:32; Status DC Hydrocortisone Sodium Succinate (Solu-CORTEF) 250 mg 1X ONCE IV Last administered on 03/11/17 19:37; Start 03/11/17 at 19:45; Stop 03/11/17 at 19:46 ; Status DC Acetaminophen (Acetaminophen Supp) 1,000 mg 1X ONCE MS Last administered on 20:27; Start 03/11/17 at 20:00; Stop 03/11/17 at 20:01; Status DC Vancomycin HCl 1.25 gm/Sodium Chloride 250 ml @ 166.667 mls/hr Q24H IV ; Start 03/12/17 at 20:00 Vancomycin HCl 1 each 1X ONCE MC ; Start 03/13/17 at 19:30; Stop 03/13/17 at 19 :31 Dextrose/Sodium Chloride 500 ml @ 1,000 mls/hr 1X ONCE IV ; Start 03/11/17 at 21:30; Stop 03/11/17 at 21:59; Status DC Dextrose/Sodium Chloride 1,000 ml @ 150 mls/hr Q6H40M IV ; Start 03/11/17 at 21 :30; Stop 03/12/17 at 04:09; Status DC Potassium Chloride 40 meq/ Dextrose 1,020 ml @ 75 mls/hr 1X ONCE IV ; Start at 21:45; Stop 03/12/17 at 04:09; Status DC Dextrose/Sodium Chloride 500 ml @ 0 mls/hr 1X ONCE IV ; Start 03/11/17 at 22:30 ; Stop 03/11/17 at 22:31; Status DC Sterile Water 1,000 ml @ 50 mls/hr Q20H IV ; Start 03/11/17 at 22:30; Stop at 22:30; Status DC Sterile Water 1,000 ml @ 50 mls/hr Q20H IV ; Start 03/11/17 at 22:30; Stop at 23:45; Status DC Dextrose/Sodium Chloride 1,000 ml @ 125 mls/hr Q8H IV Last administered on t 05:23; Start 03/11/17 at 22:30 Dextrose/Sodium Chloride 1,000 ml @ 0 mls/hr 1X ONCE IV Last administered on 03/11/17t 22:30; Start 03/11/17 at 22:30; Stop 03/11/17 at 22:31; Status DC Potassium Chloride 100 ml @ 100 mls/hr Q1H IV Last administered on 03/12/17 06:59; Start 03/11/17 at 23:30; Stop 03/12/17 at 07:29; Status DC Active Scripts Active Reported Melatonin 3 Mg Tablet 1 Tab PO QHS Melatonin 1 Mg Tablet 1 Mg PO HS Vitamin D (Cholecalciferol (Vitamin D3)) 1,000 Unit Capsule 1,000 Cap PO DAILY Lactulose 20 Gm/30 Ml Solution 37.5 Gm PO TID PRN Flector (Diclofenac Epolamine) 1 Each Patch.td12 2 Patch TP BID Miralax (Polyethylene Glycol 3350) 17 Gm Powd.pack 1 Packet PO PRN Q12HR Olanzapine 5 Mg Tablet 1 Tab PO BID Nutritional Drink Mix (Protein Supplement) 420 Gm Powder 420 Gm PO Seroquel (Quetiapine Fumarate) 50 Mg Tablet 50 Mg PO BID Trazodone Hcl 100 Mg Tablet 1 Tab PO QHS Tramadol Hcl 50 Mg Tablet 50 Mg PO Q8HRS PRN Tylenol (Acetaminophen) 325 Mg Tablet 2 Tab PEG PRN Q4-6HRS PRN Valtrex (Valacyclovir Hcl) 1,000 Mg Tablet 1 Tab PO DAILY Tamsulosin Hcl 0.4 Mg Cap.er.24h 1 Cap PO DAILY Citrucel (Methylcellulose) 479 Gm Powder 479 Gm PO Fluticasone Propionate Nasal [place] (Fluticasone Propionate) 16 Gm [place].susp 2 [place] NS HS Xarelto (Rivaroxaban) 20 Mg Tablet 20 Mg PEG DAILY Buspirone Hcl 5 Mg Tablet 1 Tab PEG TID Vitamin D (Cholecalciferol (Vitamin D3)) 10,000 Unit Capsule 50,000 Unit PO QFR Famotidine 20 Mg Tablet 20 Mg PO BID Thiamine Hcl 100 Mg Tablet 100 Mg PEG DAILY Oxcarbazepine 300 Mg Tablet 1 Tab PEG BID Duoneb 0.5-3(2.5) Mg/3 Ml (Albuterol/Ipratropium) 3 Ml Ampul.neb 3 Ml NEB BID Anti-Diarrheal (Loperamide Hcl) 2 Mg Capsule 2 Mg PO BID Vitals/I & O Vital Sign - Last 24 Hours 03/11/17 03/11/17 03/11/17 03/11/17 18:10 18:11 18:17 18:18 Temp 101.6 101.6 Pulse 126 122 122 122 Resp 20 22 22 23 B/P (MAP) 71/44 (53) 79/64 (69) 100/78 (85) 115/76 (89) Pulse Ox 75 96 100 98 O2 Delivery NonRebreather Mask NonRebreather Mask Ventilator Ventilator 03/11/17 03/11/17 03/11/17 03/11/17 18:28 18:38 18:44 18:45 Pulse 130 126 122 112 Resp 24 20 24 19 B/P (MAP) 66/51 (56) 49/40 (43) 58/37 (44) Pulse Ox 99 98 98 O2 Delivery Ventilator Ventilator Ventilator Ventilator 03/11/17 03/11/17 03/11/17 03/11/17 18:48 18:57 18:58 19:02 Pulse 122 114 114 110 Resp 20 20 20 20 B/P (MAP) 87/65 (72) 58/46 (50) 66/46 (53) 55/42 (46) Pulse Ox 99 98 98 100 O2 Delivery Ventilator Ventilator Ventilator Ventilator 03/11/17 03/11/17 03/11/17 03/11/17 19:04 19:05 19:08 19:10 Pulse 110 110 108 108 Resp 20 20 20 19 B/P (MAP) 64/36 (45) 57/45 (49) 66/43 (51) 65/44 (51) Pulse Ox 100 100 100 100 O2 Delivery Ventilator Ventilator Ventilator Ventilator 03/11/17 03/11/17 03/11/17 03/11/17 19:12 19:16 19:18 19:20 Pulse 108 106 106 106 Resp 19 20 20 20 B/P (MAP) 66/46 (53) 71/46 (54) 70/45 (53) 64/49 (54) Pulse Ox 100 100 100 100 O2 Delivery Ventilator Ventilator Ventilator Ventilator 03/11/17 03/11/17 03/11/17 03/11/17 19:22 19:24 19:26 19:28 Pulse 104 104 104 102 Resp 20 19 19 20 B/P (MAP) 67/53 (58) 74/44 (54) 73/49 (57) 78/51 (60) Pulse Ox 100 100 100 100 O2 Delivery Ventilator Ventilator Ventilator Ventilator 03/11/17 03/11/17 03/11/17 03/11/17 19:30 19:32 19:34 19:36 Pulse 100 100 Resp 20 20 20 19 B/P (MAP) 75/55 (62) 76/54 (61) 81/54 (63) 81/54 (63) Pulse Ox 100 100 100 100 O2 Delivery Ventilator Ventilator Ventilator Ventilator 03/11/17 03/11/17 03/11/17 03/11/17 19:38 19:40 19:42 19:44 Pulse 98 98 96 98 Resp 20 19 19 20 B/P (MAP) 78/56 (63) 77/55 (62) 84/52 (63) 86/57 (67) Pulse Ox 100 100 100 100 O2 Delivery Ventilator Ventilator Ventilator Ventilator 03/11/17 03/11/17 03/11/17 03/11/17 19:46 19:48 19:50 19:52 Pulse 96 96 96 108 Resp 20 20 20 20 B/P (MAP) 86/57 (67) 84/59 (67) 87/62 (70) 91/60 (70) Pulse Ox 100 100 100 100 O2 Delivery Ventilator Ventilator Ventilator Ventilator 03/11/17 03/11/17 03/11/17 03/11/17 19:54 19:56 19:58 20:00 Pulse 98 96 94 94 Resp 20 20 19 20 B/P (MAP) 93/60 (71) 91/61 (71) 93/65 (74) 91/69 (76) Pulse Ox 100 100 100 100 O2 Delivery Ventilator Ventilator Ventilator Ventilator 17 03/11/17 03/11/17 03/11/17 20:02 20:04 20:06 20:11 Pulse 96 93 94 96 Resp 20 20 20 20 B/P (MAP) 97/58 (71) 92/55 (67) 98/58 (71) 109/71 (84) Pulse Ox 100 100 100 100 O2 Delivery Ventilator Ventilator Ventilator Ventilator 03/11/17 03/11/17 03/11/17 03/11/17 20:16 20:21 20:26 20:31 Pulse 97 96 93 97 Resp 20 20 20 20 B/P (MAP) 107/69 (82) 104/68 (80) 100/71 (81) 104/77 (86) Pulse Ox 100 100 100 100 O2 Delivery Ventilator Ventilator Ventilator Ventilator 03/11/17 03/11/17 03/11/17 03/11/17 20:36 20:41 20:46 20:51 Pulse 88 90 91 88 Resp 20 20 20 20 B/P (MAP) 101/70 (80) 106/69 (81) 96/55 (69) 101/66 (78) Pulse Ox 100 100 100 100 O2 Delivery Ventilator Ventilator Ventilator Ventilator 03/11/17 03/11/17 03/11/17 03/11/17 20:56 21:05 21:15 21:23 Temp 99.6 99.6 Pulse 90 92 Resp 20 19 B/P (MAP) 97/64 (75) 99/66 (77) Pulse Ox 100 100 100 O2 Delivery Ventilator Mechanical Ventilator Ventilator Ventilator 03/11/17 03/11/17 03/11/17 03/11/17 21:30 21:45 22:00 22:30 Pulse 90 86 88 78 Resp 20 19 19 20 B/P (MAP) 98/69 (79) 100/67 (78) 96/67 (77) 96/67 (77) Pulse Ox 100 100 100 100 O2 Delivery Ventilator Ventilator Ventilator Ventilator 03/11/17 03/11/17 03/11/17 03/11/17 23:00 23:30 23:49 23:59 Pulse 78 82 Resp 21 21 B/P (MAP) 105/67 (80) 105/70 (82) Pulse Ox 100 100 100 O2 Delivery Ventilator Ventilator Ventilator Mechanical Ventilator 03/12/17 03/12/17 03/12/17 03/12/17 00:00 01:00 01:31 02:00 Pulse 73 74 76 Resp 18 19 20 B/P (MAP) 86/61 (69) 108/68 (81) Pulse Ox 100 100 100 100 O2 Delivery Ventilator Ventilator Ventilator Ventilator 03/12/17 03/12/17 03/12/17 03/12/17 03:00 03:40 04:00 04:00 Temp 98.0 98.0 Pulse 84 79 Resp 20 19 B/P (MAP) 91/64 (73) 93/70 (78) Pulse Ox 100 100 100 O2 Delivery Ventilator Ventilator Mechanical Ventilator Ventilator 03/12/17 03/12/17 03/12/17 03/12/17 04:12 05:00 05:20 06:00 Temp 99.6 99.6 Pulse 88 75 74 Resp 20 19 20 B/P (MAP) 72/48 (56) 83/51 (62) 103/74 (84) Pulse Ox 100 100 100 100 O2 Delivery Ventilator Ventilator Ventilator Ventilator 03/12/17 07:31 Pulse Ox 100 O2 Delivery Ventilator Intake and Output 03/11/17 03/11/17 03/12/17 15:00 23:00 07:00 Intake Total 2600 ml 1752 ml Output Total 65 ml 255 ml Balance 2535 ml 1497 ml STORMY ARAIZA MD March 12, 2017 09:04
--- NOTE | 2017-03-12 09:31 | PDOC2 ---
CARDIAC CONSULT DATE OF CONSULT Date of Consult DATE: 03/12/17 TIME: 09:21 REASON FOR CONSULT Reason for Consult: shock REFERRING PHYSICIAN Referring Physician: Dr. Sotero Ferguson SOURCE Source: Caregiver, Chart review HISTORY OF PRESENT ILLNESS HISTORY OF PRESENT ILLNESS 57 year old male transferred to ER from [place] for respiratory distress. Noted to have difficulty with swallowing secretions and was intubated in the ER for airway protection with suspicion of aspiration. Lactic acid level was > 8 initially and pt hypernatremic @ 175 as well as hypokalemic with K @ 2.9 and then decreased to 2.3. Replacement in progress. Fluid resuscitation started. No acute changes and baseline rhythm is ST. Per family chronic history of hypotension and currently requiring vasopressors. CXR with infiltrates. Reason for Visit: shock PAST MEDICAL HISTORY Cardiovascular: CAD (listed on [place] records) CENTRAL NERVOUS SYSTEM: Seizure GI: GERD, Other (gastric bypass with post-operative complications including encephalitis) Psych: Anxiety, Depression, Schizophrenia PAST SURGICAL HISTORY Past Surgical History: Other (gastric bypass; J-tube; previous trach) FAMILY HISTORY Family History: Other (not pertinent) SOCIAL HISTORY Lives: Senior Care ([facility]) CURRENT MEDICATIONS CURRENT MEDICATIONS Current Medications Medications (Trade) Dose Ordered Sig/Eleazar Route PRN Reason Start Time Stop Time Status Last Admin Dose Admin Norepinephrine Bitartrate 250 ml @ 0 mls/hr 1X ONCE IV 03/11/17 18:15 03/11/17 18:16 DC 03/11/17 19:01 Sodium Chloride 3,300 ml @ 3,300 mls/hr Q1H IV 03/11/17 18:15 03/11/17 18:37 DC 03/11/17 18:33 Piperacillin Sod/ Tazobactam Sod 4.5 gm/Sodium Chloride 100 ml @ 200 mls/hr 1X ONCE IV 03/11/17 18:15 03/11/17 18:52 DC 03/11/17 18:54 Midazolam HCl 100 ml @ 0 mls/hr 1X ONCE IV 03/11/17 18:30 03/11/17 18:59 DC 03/11/17 18:32 Vancomycin HCl (Vanco Per Pharmacy) 1 each PRN DAILY PRN MC SEE COMMENTS 03/11/17 18:30 03/11/17 19:59 Sodium Chloride 1,000 ml @ 3,300 mls/hr Q19M IV 03/11/17 18:45 03/11/17 19:15 DC 03/11/17 18:45 Albuterol/ Ipratropium (Duoneb) 3 ml RTQID NEB 03/11/17 20:00 03/12/17 19:59 03/12/17 07:30 Vancomycin HCl 2 gm/Sodium Chloride 500 ml @ 250 mls/hr 1X ONCE IV 03/11/17 20:00 03/11/17 21:59 DC 03/11/17 19:40 Piperacillin Sod/ Tazobactam Sod 4.5 gm/Sodium Chloride 100 ml @ 200 mls/hr Q6HRS IV 03/12/17 00:00 03/12/17 06:35 Hydrocortisone Sodium Succinate (Solu-CORTEF) 250 mg 1X ONCE IV 03/11/17 19:45 03/11/17 19:46 DC 03/11/17 19:37 Acetaminophen (Acetaminophen Supp) 1,000 mg 1X ONCE TX 03/11/17 20:00 03/11/17 20:01 DC 03/11/17 20:27 Dextrose/Sodium Chloride 1,000 ml @ 125 mls/hr Q8H IV 03/11/17 22:30 03/12/17 05:23 Dextrose/Sodium Chloride 1,000 ml @ 0 mls/hr 1X ONCE IV 03/11/17 22:30 03/11/17 22:31 DC 03/11/17 22:30 Potassium Chloride 100 ml @ 100 mls/hr Q1H IV 03/11/17 23:30 03/12/17 07:29 DC 03/12/17 06:59 ALLERGIES ALLERGIES: Coded Allergies: aripiprazole (Verified Allergy, Intermediate, 01/06/17) clarithromycin (Verified Allergy, Intermediate, 01/06/17) divalproex sodium (Verified Allergy, Intermediate, 01/06/17) fluvoxamine (Verified Allergy, Intermediate, 01/06/17) gabapentin (Verified Allergy, Intermediate, 01/06/17) gluten (Verified Allergy, Intermediate, 01/06/17) lurasidone (Verified Allergy, Intermediate, 01/06/17) pregabalin (Verified Allergy, Intermediate, 01/06/17) I S O L A T I O N *CONTACT* (Verified Allergy, Unknown, 02/02/17) mrsa ROS Review of System unobtainable PHYSICAL EXAM General: Other (sedated) HEENT: Atraumatic VITALS VITALS Vital Signs Date Time Temp Pulse Resp B/P (MAP) Pulse Ox O2 Delivery O2 Flow Rate FiO2 03/12/17 07:31 100 Ventilator 03/12/17 06:00 74 20 103/74 (84) 03/12/17 04:12 99.6 99.6 LABS Lab: Laboratory Tests Test 03/11/17 18:15 03/11/17 18:30 03/11/17 18:38 03/11/17 20:18 O2 Saturation 98 % (92-99) Arterial Blood pH 7.40 (7.35-7.45) Arterial Blood pCO2 at Patient Temp 31 mmHg (35-46) Arterial Blood pO2 at Patient Temp 136 mmHg (75-108) Arterial Blood HCO3 19 mmol/L (21-28) Arterial Blood Base Excess -5 mmol/L (-3-3) Raul Test Pos Oxyhemoglobin 97.8 % Methemoglobin 0.3 % (0.0-1.9) Carbon Monoxide, Quantitative 0.2 % (0.0-1.9) FiO2 40 White Blood Count 20.3 x10^3/uL (4.0-11.0) Red Blood Count 5.54 x10^6/uL (4.30-5.70) Hemoglobin 16.5 g/dL (13.0-17.5) Hematocrit 53.2 % (39.0-53.0) Mean Corpuscular Volume 96 fL (79-100) Mean Corpuscular Hemoglobin 30 pg (25-35) Mean Corpuscular Hemoglobin Concent 31 g/dL (31-37) Red Cell Distribution Width 17.0 % (11.5-14.5) Platelet Count 189 x10^3/uL (140-400) Neutrophils (%) (Auto) 88 % (31-73) Lymphocytes (%) (Auto) 5 % (24-48) Monocytes (%) (Auto) 7 % (0-9) Eosinophils (%) (Auto) 0 % (0-3) Basophils (%) (Auto) 0 % (0-3) Neutrophils # (Auto) 18.0 x10^3uL (1.8-7.7) Lymphocytes # (Auto) 0.9 x10^3/uL (1.0-4.8) Monocytes # (Auto) 1.3 x10^3/uL (0.0-1.1) Eosinophils # (Auto) 0.0 x10^3/uL (0.0-0.7) Basophils # (Auto) 0.1 x10^3/uL (0.0-0.2) Segmented Neutrophils % 81 % (35-66) Band Neutrophils % 6 % (0-9) Lymphocytes % 8 % (24-48) Monocytes % 5 % (0-10) Toxic Granulation Slight Platelet Estimate Adequate (ADEQUATE) Sodium Level 175 mmol/L (136-145) Potassium Level 2.9 mmol/L (3.5-5.1) Chloride Level 132 mmol/L (98-107) Carbon Dioxide Level 25 mmol/L (21-32) Anion Gap 18 (6-14) Blood Urea Nitrogen 71 mg/dL (8-26) Creatinine 3.2 mg/dL (0.7-1.3) Estimated GFR (Cockcroft-Gault) 20.2 BUN/Creatinine Ratio 22 (6-20) Glucose Level 155 mg/dL (70-99) Lactic Acid Level 8.6 mmol/L (0.4-2.0) 4.5 mmol/L (0.4-2.0) Calcium Level 9.5 mg/dL (8.5-10.1) Total Bilirubin 1.0 mg/dL (0.2-1.0) Aspartate Amino Transf (AST/SGOT) 86 U/L (15-37) Alanine Aminotransferase (ALT/SGPT) 117 U/L (16-63) Alkaline Phosphatase 236 U/L (46-116) Creatine Kinase 427 U/L (39-308) Creatine Kinase MB (Mass) 1.3 ng/mL (0.0-3.6) Creatine Kinase MB Relative Index 0.3 % (0-4) Troponin I Quantitative 0.027 ng/mL (0.000-0.055) Total Protein 8.3 g/dL (6.4-8.2) Albumin 3.6 g/dL (3.4-5.0) Albumin/Globulin Ratio 0.8 (1.0-1.7) Amylase Level 109 U/L (25-115) Lipase 57 U/L (73-393) Urine Collection Type U cath Urine Color Nicolasa Urine Clarity Clear Urine pH 5.0 Urine Specific [place] >=1.030 Urine Protein 30 mg/dL (NEG-TRACE) Urine Glucose (UA) Negative mg/dL (NEG) Urine Ketones (Stick) Negative mg/dL (NEG) Urine Blood Negative (NEG) Urine Nitrite Negative (NEG) Urine Bilirubin Moderate (NEG) Urine Urobilinogen Dipstick 1.0 mg/dL (0.2 mg/dL) Urine Leukocyte Esterase Negative (NEG) Urine RBC Occ /HPF (0-2) Urine WBC 0 /HPF (0-4) Urine Squamous Epithelial Cells Few /LPF Urine Amorphous Sediment Present /HPF Urine Bacteria 0 /HPF (0-FEW) Urine Mucus Slight /LPF Test 03/11/17 21:30 03/12/17 03:59 Sodium Level 173 mmol/L (136-145) 171 mmol/L (136-145) Potassium Level 2.7 mmol/L (3.5-5.1) 2.3 mmol/L (3.5-5.1) Chloride Level 136 mmol/L (98-107) 134 mmol/L (98-107) Carbon Dioxide Level 20 mmol/L (21-32) 22 mmol/L (21-32) Anion Gap 17 (6-14) 15 (6-14) Blood Urea Nitrogen 69 mg/dL (8-26) 67 mg/dL (8-26) Creatinine 2.7 mg/dL (0.7-1.3) 2.4 mg/dL (0.7-1.3) Estimated GFR (Cockcroft-Gault) 24.6 28.1 Glucose Level 162 mg/dL (70-99) 210 mg/dL (70-99) Calcium Level 8.2 mg/dL (8.5-10.1) 8.1 mg/dL (8.5-10.1) White Blood Count 24.1 x10^3/uL (4.0-11.0) Red Blood Count 4.60 x10^6/uL (4.30-5.70) Hemoglobin 13.4 g/dL (13.0-17.5) Hematocrit 42.6 % (39.0-53.0) Mean Corpuscular Volume 93 fL (79-100) Mean Corpuscular Hemoglobin 29 pg (25-35) Mean Corpuscular Hemoglobin Concent 32 g/dL (31-37) Red Cell Distribution Width 16.5 % (11.5-14.5) Platelet Count 145 x10^3/uL (140-400) Neutrophils (%) (Auto) 90 % (31-73) Lymphocytes (%) (Auto) 6 % (24-48) Monocytes (%) (Auto) 4 % (0-9) Eosinophils (%) (Auto) 0 % (0-3) Basophils (%) (Auto) 0 % (0-3) Neutrophils # (Auto) 21.7 x10^3uL (1.8-7.7) Lymphocytes # (Auto) 1.4 x10^3/uL (1.0-4.8) Monocytes # (Auto) 0.9 x10^3/uL (0.0-1.1) Eosinophils # (Auto) 0.0 x10^3/uL (0.0-0.7) Basophils # (Auto) 0.1 x10^3/uL (0.0-0.2) Lactic Acid Level 2.8 mmol/L (0.4-2.0) IMAGES IMAGES infiltrates and ? of PICC line in the right neck EKG EKG no acute changes ECHOCARDIOGRAM ECHOCARDIOGRAM 12/2016: TTE: The left ventricle is normal size. The left ventricular systolic function is normal and the ejection fraction is within normal range. The Ejection Fraction is 55-60%. There is no significant aortic valvular stenosis. Doppler and Color Flow revealed no significant aortic regurgitation. Doppler and Color Flow revealed trace mitral valve regurgitation. Doppler and Color Flow revealed trace tricuspid valve regurgitation. There is no evidence of significant pericardial effusion. ASSESSMENT/PLAN ASSESSMENT/PLAN 1. septic shock lactic acid > 8 POA continue vasopressors and titrate for MAP > 90 limited echo to re-evaluate LVEF and assess for WMA abx per ID request records from [facility] - cardiac evaluation prior to to gastric bypass last fall 2. acute respiratory failure ? aspiration per PULM 3. CAD details unclear family denies - records requested 4. chronic hypotension now related to sepsis 5. hyponatremia fluid replacement in progress 6. hypokalemia replacement check MG and replace if indicated 7. Wernicke's encephalopathy since gastric bypass last fall 8. schizophrenia, anxiety, depression prognosis guarded Problems: ZEFERINO POLLOCK [employer] March 12, 2017 09:31
[2017-03-12 09:48] LABS: CALCIUM 7.8 mg/dL (8.5-10.1); CREATININE 2.1 mg/dL (0.7-1.3); GFR 32.8
--- NOTE | 2017-03-12 09:55 | PDOC ---
Infectious Disease Note ROS ROS Vital Sign Vital Signs Vital Signs Date Time Temp Pulse Resp B/P (MAP) Pulse Ox O2 Delivery O2 Flow Rate FiO2 03/12/17 07:31 100 Ventilator 03/12/17 06:00 74 20 103/74 (84) 03/12/17 04:12 99.6 99.6 Labs Lab Laboratory Tests Test 03/11/17 18:15 03/11/17 18:30 03/11/17 18:38 03/11/17 20:18 O2 Saturation 98 % (92-99) Arterial Blood pH 7.40 (7.35-7.45) Arterial Blood pCO2 at Patient Temp 31 mmHg (35-46) Arterial Blood pO2 at Patient Temp 136 mmHg (75-108) Arterial Blood HCO3 19 mmol/L (21-28) Arterial Blood Base Excess -5 mmol/L (-3-3) Raul Test Pos Oxyhemoglobin 97.8 % Methemoglobin 0.3 % (0.0-1.9) Carbon Monoxide, Quantitative 0.2 % (0.0-1.9) FiO2 40 White Blood Count 20.3 x10^3/uL (4.0-11.0) Red Blood Count 5.54 x10^6/uL (4.30-5.70) Hemoglobin 16.5 g/dL (13.0-17.5) Hematocrit 53.2 % (39.0-53.0) Mean Corpuscular Volume 96 fL (79-100) Mean Corpuscular Hemoglobin 30 pg (25-35) Mean Corpuscular Hemoglobin Concent 31 g/dL (31-37) Red Cell Distribution Width 17.0 % (11.5-14.5) Platelet Count 189 x10^3/uL (140-400) Neutrophils (%) (Auto) 88 % (31-73) Lymphocytes (%) (Auto) 5 % (24-48) Monocytes (%) (Auto) 7 % (0-9) Eosinophils (%) (Auto) 0 % (0-3) Basophils (%) (Auto) 0 % (0-3) Neutrophils # (Auto) 18.0 x10^3uL (1.8-7.7) Lymphocytes # (Auto) 0.9 x10^3/uL (1.0-4.8) Monocytes # (Auto) 1.3 x10^3/uL (0.0-1.1) Eosinophils # (Auto) 0.0 x10^3/uL (0.0-0.7) Basophils # (Auto) 0.1 x10^3/uL (0.0-0.2) Segmented Neutrophils % 81 % (35-66) Band Neutrophils % 6 % (0-9) Lymphocytes % 8 % (24-48) Monocytes % 5 % (0-10) Toxic Granulation Slight Platelet Estimate Adequate (ADEQUATE) Sodium Level 175 mmol/L (136-145) Potassium Level 2.9 mmol/L (3.5-5.1) Chloride Level 132 mmol/L (98-107) Carbon Dioxide Level 25 mmol/L (21-32) Anion Gap 18 (6-14) Blood Urea Nitrogen 71 mg/dL (8-26) Creatinine 3.2 mg/dL (0.7-1.3) Estimated GFR (Cockcroft-Gault) 20.2 BUN/Creatinine Ratio 22 (6-20) Glucose Level 155 mg/dL (70-99) Lactic Acid Level 8.6 mmol/L (0.4-2.0) 4.5 mmol/L (0.4-2.0) Calcium Level 9.5 mg/dL (8.5-10.1) Total Bilirubin 1.0 mg/dL (0.2-1.0) Aspartate Amino Transf (AST/SGOT) 86 U/L (15-37) Alanine Aminotransferase (ALT/SGPT) 117 U/L (16-63) Alkaline Phosphatase 236 U/L (46-116) Creatine Kinase 427 U/L (39-308) Creatine Kinase MB (Mass) 1.3 ng/mL (0.0-3.6) Creatine Kinase MB Relative Index 0.3 % (0-4) Troponin I Quantitative 0.027 ng/mL (0.000-0.055) Total Protein 8.3 g/dL (6.4-8.2) Albumin 3.6 g/dL (3.4-5.0) Albumin/Globulin Ratio 0.8 (1.0-1.7) Amylase Level 109 U/L (25-115) Lipase 57 U/L (73-393) Urine Collection Type U cath Urine Color Nicolasa Urine Clarity Clear Urine pH 5.0 Urine Specific [place] >=1.030 Urine Protein 30 mg/dL (NEG-TRACE) Urine Glucose (UA) Negative mg/dL (NEG) Urine Ketones (Stick) Negative mg/dL (NEG) Urine Blood Negative (NEG) Urine Nitrite Negative (NEG) Urine Bilirubin Moderate (NEG) Urine Urobilinogen Dipstick 1.0 mg/dL (0.2 mg/dL) Urine Leukocyte Esterase Negative (NEG) Urine RBC Occ /HPF (0-2) Urine WBC 0 /HPF (0-4) Urine Squamous Epithelial Cells Few /LPF Urine Amorphous Sediment Present /HPF Urine Bacteria 0 /HPF (0-FEW) Urine Mucus Slight /LPF Test 03/11/17 21:30 03/12/17 03:59 Sodium Level 173 mmol/L (136-145) 171 mmol/L (136-145) Potassium Level 2.7 mmol/L (3.5-5.1) 2.3 mmol/L (3.5-5.1) Chloride Level 136 mmol/L (98-107) 134 mmol/L (98-107) Carbon Dioxide Level 20 mmol/L (21-32) 22 mmol/L (21-32) Anion Gap 17 (6-14) 15 (6-14) Blood Urea Nitrogen 69 mg/dL (8-26) 67 mg/dL (8-26) Creatinine 2.7 mg/dL (0.7-1.3) 2.4 mg/dL (0.7-1.3) Estimated GFR (Cockcroft-Gault) 24.6 28.1 Glucose Level 162 mg/dL (70-99) 210 mg/dL (70-99) Calcium Level 8.2 mg/dL (8.5-10.1) 8.1 mg/dL (8.5-10.1) White Blood Count 24.1 x10^3/uL (4.0-11.0) Red Blood Count 4.60 x10^6/uL (4.30-5.70) Hemoglobin 13.4 g/dL (13.0-17.5) Hematocrit 42.6 % (39.0-53.0) Mean Corpuscular Volume 93 fL (79-100) Mean Corpuscular Hemoglobin 29 pg (25-35) Mean Corpuscular Hemoglobin Concent 32 g/dL (31-37) Red Cell Distribution Width 16.5 % (11.5-14.5) Platelet Count 145 x10^3/uL (140-400) Neutrophils (%) (Auto) 90 % (31-73) Lymphocytes (%) (Auto) 6 % (24-48) Monocytes (%) (Auto) 4 % (0-9) Eosinophils (%) (Auto) 0 % (0-3) Basophils (%) (Auto) 0 % (0-3) Neutrophils # (Auto) 21.7 x10^3uL (1.8-7.7) Lymphocytes # (Auto) 1.4 x10^3/uL (1.0-4.8) Monocytes # (Auto) 0.9 x10^3/uL (0.0-1.1) Eosinophils # (Auto) 0.0 x10^3/uL (0.0-0.7) Basophils # (Auto) 0.1 x10^3/uL (0.0-0.2) Lactic Acid Level 2.8 mmol/L (0.4-2.0) Objective Assessment Sepsis - GNR POA 03/11 1 bottles currently on 18 of Levophed Leukocytosis - on Hydrocortisone acute resp failure ? 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 Aware of Levophed Adjust Zosyn for renal function Add Micafungin at risk for resistant yeast Avoid quinolones given his status of his electrolytes as he is at risk for arrhythmias Check Procalcitonin F/u labs in am and cults Dose Cefepime times one D/w family Reviewed [place] notes D/w Dr. Cooper and Cardiology [employer] Ms. Montague 35 mins Thank you # [id number] JENNIFER AVELAR MD March 12, 2017 09:55
[2017-03-12] MEDS: PIPERACILLIN/TAZOBACTAM 2.25 GM in IV NORMAL SALINE 50ML 50 ML IV SCH ×3 (10:00→20:30)
[2017-03-12] MEDS ORDERED: CEFEPIME HCL 2 GM in IV NORMAL SALINE 100ML 100 ML IV ONE (10:00)
[2017-03-12] MEDS ORDERED: LIDOCAINE 1% / SOD BICARB 8.4% 20 ML VIAL. IJ ONE (10:15)
--- NOTE | 2017-03-12 10:24 | RAD ---
Examination: Single frontal view the chest. History: History of PICC line placement Comparison: 03/12/2017 same day exam 4:02 AM Findings: The ET tube, feeding tube are unchanged. The previously visualized right-sided PICC line extending into the neck is not visualized on this examination. The cardiomediastinal silhouette grossly appears unremarkable. There is no acute infiltrate or visualized pneumothorax identified. Impression: 1. The PICC line is not identified. 2. A ET tube, feeding tube are unchanged. 2. No acute cardiopulmonary findings.
[2017-03-12] MEDS: MICAFUNGIN 100 MG in IV DEXTROSE 5% 100 ML IV SCH (10:27)
--- NOTE | 2017-03-12 10:49 | PDOC ---
Provider Note Provider Note dictated PORTILLO CHERRY MD March 12, 2017 10:49
[2017-03-12] MEDS ORDERED: ATROPINE 0.5 MG/5 ML DISP.SYRIN. ONE ×3 (10:55→12:31)
--- NOTE | 2017-03-12 11:13 | PDOC2 ---
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) Psych: Anxiety, Depression, Schizophrenia Musculoskeletal: Other Endocrine: Other Past Surgical History Past Surgical History: Other (gastric bypass; J-tube; previous trach) Family History Family History: Other (not pertinent) Social History ALCOHOL: none Lives: [facility]) Current Problem List Problem List Problems Medical Problems: (1) Hypernatremia Status: Acute (2) Hypokalemia Status: Acute Current Medications Current Medications Current Medications Norepinephrine Bitartrate 250 ml @ 0 mls/hr 1X ONCE IV Last administered on 19:01; Start 03/11/17 at 18:15; Stop 03/11/17 at 18:16; Status DC Sodium Chloride (Normal Saline Flush) 10 ml QSHIFT PRN IV AFTER MEDS AND BLOOD DRAWS; Start 03/11/17 at 18:15 Sodium Chloride 3,300 ml @ 3,300 mls/hr Q1H IV Last administered on 03/11/17 18:33; Start 03/11/17 at 18:15; Stop 03/11/17 at 18:37; Status DC Piperacillin Sod/ Tazobactam Sod 4.5 gm/Sodium Chloride 100 ml @ 200 mls/hr 1X ONCE IV Last administered on 03/11/17 18:54; Start 03/11/17 at 18:15; Stop 03/11/17 at 18:52; Status DC Norepinephrine Bitartrate 250 ml @ 0 mls/hr CONT PRN IV PER PROTOCOL; Start at 18:15 Midazolam HCl 100 ml @ 0 mls/hr 1X ONCE IV Last administered on 03/11/17 18: 32; Start 03/11/17 at 18:30; Stop 03/11/17 at 18:59; Status DC Vancomycin HCl (Vanco Per Pharmacy) 1 each PRN DAILY PRN [facility] SEE COMMENTS Last administered on 03/11/17 19:59; Start 03/11/17 at 18:30; Stop 03/12/17 at 09:39 ; Status DC Piperacillin Sod/ Tazobactam Sod (Zosyn Per Pharmacy) 1 each PRN DAILY PRN MC SEE COMMENTS; Start 03/11/17 at 18:30 Sodium Chloride 1,000 ml @ 3,300 mls/hr Q19M IV Last administered on 18:45; Start 03/11/17 at 18:45; Stop 03/11/17 at 19:15; Status DC Etomidate (Amidate) 20 mg STK-MED ONCE IV ; Start 03/11/17 at 18:40; Stop at 18:41; Status DC Succinylcholine Chloride (Anectine) 200 mg STK-MED ONCE .ROUTE ; Start 03/11/17 at 18:40; Stop 03/11/17 at 18:41; Status DC Ondansetron HCl (Zofran) 4 mg PRN Q8HRS PRN IV NAUSEA/VOMITING; Start 03/11/17 at 19:00; Stop 03/12/17 at 18:59 Sodium Chloride 1,000 ml @ 150 mls/hr Q6H40M IV ; Start 03/11/17 at 18:51; Stop 03/11/17 at 21:31; Status DC Albuterol/ Ipratropium (Duoneb) 3 ml RTQID NEB Last administered on 03/12/17 07:30; Start 03/11/17 at 20:00; Stop 03/12/17 at 19:59 Vancomycin HCl 2 gm/Sodium Chloride 500 ml @ 250 mls/hr 1X ONCE IV Last administered on 03/11/17 19:40; Start 03/11/17 at 20:00; Stop 03/11/17 at 21:59 ; Status DC Piperacillin Sod/ Tazobactam Sod 4.5 gm/Sodium Chloride 100 ml @ 200 mls/hr Q6HRS IV Last administered on 03/12/17 06:35; Start 03/12/17 at 00:00; Stop at 09:39; Status DC Hydrocortisone Sodium Succinate (Solu-CORTEF) 100 mg 1X ONCE IV ; Start at 19:15; Stop 03/11/17 at 19:32; Status DC Hydrocortisone Sodium Succinate (Solu-CORTEF) 250 mg 1X ONCE IV Last administered on 03/11/17t 19:37; Start 03/11/17 at 19:45; Stop 03/11/17 at 19:46 ; Status DC Acetaminophen (Acetaminophen Supp) 1,000 mg 1X ONCE [place] Last administered on 20:27; Start 03/11/17 at 20:00; Stop 03/11/17 at 20:01; Status DC Vancomycin HCl 1.25 gm/Sodium Chloride 250 ml @ 166.667 mls/hr Q24H IV ; Start 03/12/17 at 20:00; Stop 03/12/17 at 20:00; Status DC Vancomycin HCl 1 each 1X ONCE MC ; Start 03/13/17 at 19:30; Stop 03/13/17 at 19 :31; Status Cancel Dextrose/Sodium Chloride 500 ml @ 1,000 mls/hr 1X ONCE IV ; Start 03/11/17 at 21:30; Stop 03/11/17 at 21:59; Status DC Dextrose/Sodium Chloride 1,000 ml @ 150 mls/hr Q6H40M IV ; Start 03/11/17 at 21 :30; Stop 03/12/17 at 04:09; Status DC Potassium Chloride 40 meq/ Dextrose 1,020 ml @ 75 mls/hr 1X ONCE IV ; Start at 21:45; Stop 03/12/17 at 04:09; Status DC Dextrose/Sodium Chloride 500 ml @ 0 mls/hr 1X ONCE IV ; Start 03/11/17 at 22:30 ; Stop 03/11/17 at 22:31; Status DC Sterile Water 1,000 ml @ 50 mls/hr Q20H IV ; Start 03/11/17 at 22:30; Stop at 22:30; Status DC Sterile Water 1,000 ml @ 50 mls/hr Q20H IV ; Start 03/11/17 at 22:30; Stop at 23:45; Status DC Dextrose/Sodium Chloride 1,000 ml @ 125 mls/hr Q8H IV Last administered on t 10:05; Start 03/11/17 at 22:30 Dextrose/Sodium Chloride 1,000 ml @ 0 mls/hr 1X ONCE IV Last administered on 03/11/17 22:30; Start 03/11/17 at 22:30; Stop 03/11/17 at 22:31; Status DC Potassium Chloride 100 ml @ 100 mls/hr Q1H IV Last administered on 03/12/17 10:04; Start 03/11/17 at 23:30; Stop 03/12/17 at 07:29; Status DC Piperacillin Sod/ Tazobactam Sod 2.25 gm/Sodium Chloride 50 ml @ 100 mls/hr Q6H IV Last administered on 03/12/17 10:00; Start 03/12/17 at 10:00 Linezolid 300 ml @ 300 mls/hr Q12HR IV Last administered on 03/12/17 10:00; Start 03/12/17 at 09:45 Micafungin Sodium 100 mg/Dextrose 100 ml @ 100 mls/hr Q24H IV Last administered on 03/12/17 10:27; Start 03/12/17 at 11:00 Pantoprazole Sodium (Protonix Vial) 40 mg DAILYAC IVP ; Start 03/13/17 at 07:30 Heparin Sodium (Porcine) (Heparin Sq) 5,000 unit Q8HRS SQ ; Start 03/12/17 at 14 :00 Cefepime HCl 2 gm/ Sodium Chloride 100 ml @ 200 mls/hr ONCE ONCE IV Last administered on 03/12/17 10:57; Start 03/12/17 at 10:00; Stop 03/12/17 at 10:29 ; Status DC Lidocaine/Sodium Bicarbonate (Buffered Lidocaine 1%) 3 ml 1X ONCE IJ ; Start at 10:15; Stop 03/12/17 at 10:16; Status DC Heparin Sodium/ Sodium Chloride 60 unit 1X ONCE IV ; Start 03/12/17 at 10:15; Stop 03/12/17 at 10:16; Status DC Metronidazole 100 ml @ 100 mls/hr Q8HRS IV ; Start 03/12/17 at 14:00 Atropine Sulfate 0.5 mg STK-MED ONCE .ROUTE ; Start 03/12/17 at 10:55; Stop at 10:56; Status DC Active Scripts Active Reported Melatonin 3 Mg Tablet 1 Tab PO QHS Melatonin 1 Mg Tablet 1 Mg PO HS Vitamin D (Cholecalciferol (Vitamin D3)) 1,000 Unit Capsule 1,000 Cap PO DAILY Lactulose 20 Gm/30 Ml Solution 37.5 Gm PO TID PRN Flector (Diclofenac Epolamine) 1 Each Patch.td12 2 Patch TP BID Miralax (Polyethylene Glycol 3350) 17 Gm Powd.pack 1 Packet PO PRN Q12HR Olanzapine 5 Mg Tablet 1 Tab PO BID Nutritional Drink Mix (Protein Supplement) 420 Gm Powder 420 Gm PO Seroquel (Quetiapine Fumarate) 50 Mg Tablet 50 Mg PO BID Trazodone Hcl 100 Mg Tablet 1 Tab PO QHS Tramadol Hcl 50 Mg Tablet 50 Mg PO Q8HRS PRN Tylenol (Acetaminophen) 325 Mg Tablet 2 Tab PEG PRN Q4-6HRS PRN Valtrex (Valacyclovir Hcl) 1,000 Mg Tablet 1 Tab PO DAILY Tamsulosin Hcl 0.4 Mg Cap.er.24h 1 Cap PO DAILY Citrucel (Methylcellulose) 479 Gm Powder 479 Gm PO Fluticasone Propionate Nasal [place] (Fluticasone Propionate) 16 Gm [place].susp 2 [place] NS HS Xarelto (Rivaroxaban) 20 Mg Tablet 20 Mg PEG DAILY Buspirone Hcl 5 Mg Tablet 1 Tab PEG TID Vitamin D (Cholecalciferol (Vitamin D3)) 10,000 Unit Capsule 50,000 Unit PO QFR Famotidine 20 Mg Tablet 20 Mg PO BID Thiamine Hcl 100 Mg Tablet 100 Mg PEG DAILY Oxcarbazepine 300 Mg Tablet 1 Tab PEG BID Duoneb 0.5-3(2.5) Mg/3 Ml (Albuterol/Ipratropium) 3 Ml Ampul.neb 3 Ml NEB BID Anti-Diarrheal (Loperamide Hcl) 2 Mg Capsule 2 Mg PO BID Allergies Allergies: Coded Allergies: aripiprazole (Verified Allergy, Intermediate, 01/06/17) clarithromycin (Verified Allergy, Intermediate, 01/06/17) divalproex sodium (Verified Allergy, Intermediate, 01/06/17) fluvoxamine (Verified Allergy, Intermediate, 01/06/17) gabapentin (Verified Allergy, Intermediate, 01/06/17) gluten (Verified Allergy, Intermediate, 01/06/17) lurasidone (Verified Allergy, Intermediate, 01/06/17) pregabalin (Verified Allergy, Intermediate, 01/06/17) I S O L A T I O N *CONTACT* (Verified Allergy, Unknown, 02/02/17) mrsa ROS Review of System unable to obtain from pt due to sedated and intubated state - otherwise as reviewed in HPI and in EMR Physical Exam Physical Exam General Appearance: not SEdated; intubated - min arousable Eyes: Conjunctiva Normal EN: No EN Drainage Mucous Memb. dryish Neck: no JVD no JVP Supple no Thyromegaly CVS: S1 S2 no Murmur No Gallop No Rub no Edema Resp: no Rales no Rhonchi no Acc. Muscle use GI: BS hypoactive NO Bruit Non Tender Non Distended : no CVA tenderness; no Suprapubic Tenderness SKIN: no visible petechial Rashes Breast Exam deferred Mu.Sk: Adequate passive ROM no Muscle Atrophy Heme: Unable to palpate Obvious LAD no palp Splenomegaly NEURO: unable to assess while intubated, does not follow commands Psych: unable to assess while intubated, Vital Signs Vital Signs Date Time Temp Pulse Resp B/P (MAP) Pulse Ox O2 Delivery O2 Flow Rate FiO2 03/12/17 09:49 100 Ventilator 03/12/17 06:00 74 20 103/74 (84) 03/12/17 04:12 99.6 99.6 Assessment & Plan ARF/ ? ATN v s VMN - suspect due to febrile illness and dehdyration. Current FLuid and E-lyte status does not necessitate emergent need for Dialysis. Will re-evaluate for Dialysis in am Sev ^Na - due to dehydration from Febrile illness - Hypotonic IVF as ordered Lactic Acidemia (improving iwth IVF) - ? Hypovolemic Shock, Sepsis cannot be ruled out Hypokalemia - K replacement as ordered HypoTN: Currently on Levophed; reval after Vol replete Discussed Plan of Care and prognosis etc. at length with family Labs Labs Laboratory Tests Test 03/11/17 18:15 03/11/17 18:30 03/11/17 18:38 03/11/17 20:18 O2 Saturation 98 % (92-99) Arterial Blood pH 7.40 (7.35-7.45) Arterial Blood pCO2 at Patient Temp 31 mmHg (35-46) Arterial Blood pO2 at Patient Temp 136 mmHg (75-108) Arterial Blood HCO3 19 mmol/L (21-28) Arterial Blood Base Excess -5 mmol/L (-3-3) Raul Test Pos Oxyhemoglobin 97.8 % Methemoglobin 0.3 % (0.0-1.9) Carbon Monoxide, Quantitative 0.2 % (0.0-1.9) FiO2 40 White Blood Count 20.3 x10^3/uL (4.0-11.0) Red Blood Count 5.54 x10^6/uL (4.30-5.70) Hemoglobin 16.5 g/dL (13.0-17.5) Hematocrit 53.2 % (39.0-53.0) Mean Corpuscular Volume 96 fL (79-100) Mean Corpuscular Hemoglobin 30 pg (25-35) Mean Corpuscular Hemoglobin Concent 31 g/dL (31-37) Red Cell Distribution Width 17.0 % (11.5-14.5) Platelet Count 189 x10^3/uL (140-400) Neutrophils (%) (Auto) 88 % (31-73) Lymphocytes (%) (Auto) 5 % (24-48) Monocytes (%) (Auto) 7 % (0-9) Eosinophils (%) (Auto) 0 % (0-3) Basophils (%) (Auto) 0 % (0-3) Neutrophils # (Auto) 18.0 x10^3uL (1.8-7.7) Lymphocytes # (Auto) 0.9 x10^3/uL (1.0-4.8) Monocytes # (Auto) 1.3 x10^3/uL (0.0-1.1) Eosinophils # (Auto) 0.0 x10^3/uL (0.0-0.7) Basophils # (Auto) 0.1 x10^3/uL (0.0-0.2) Segmented Neutrophils % 81 % (35-66) Band Neutrophils % 6 % (0-9) Lymphocytes % 8 % (24-48) Monocytes % 5 % (0-10) Toxic Granulation Slight Platelet Estimate Adequate (ADEQUATE) Sodium Level 175 mmol/L (136-145) Potassium Level 2.9 mmol/L (3.5-5.1) Chloride Level 132 mmol/L (98-107) Carbon Dioxide Level 25 mmol/L (21-32) Anion Gap 18 (6-14) Blood Urea Nitrogen 71 mg/dL (8-26) Creatinine 3.2 mg/dL (0.7-1.3) Estimated GFR (Cockcroft-Gault) 20.2 BUN/Creatinine Ratio 22 (6-20) Glucose Level 155 mg/dL (70-99) Lactic Acid Level 8.6 mmol/L (0.4-2.0) 4.5 mmol/L (0.4-2.0) Calcium Level 9.5 mg/dL (8.5-10.1) Total Bilirubin 1.0 mg/dL (0.2-1.0) Aspartate Amino Transf (AST/SGOT) 86 U/L (15-37) Alanine Aminotransferase (ALT/SGPT) 117 U/L (16-63) Alkaline Phosphatase 236 U/L (46-116) Creatine Kinase 427 U/L (39-308) Creatine Kinase MB (Mass) 1.3 ng/mL (0.0-3.6) Creatine Kinase MB Relative Index 0.3 % (0-4) Troponin I Quantitative 0.027 ng/mL (0.000-0.055) Total Protein 8.3 g/dL (6.4-8.2) Albumin 3.6 g/dL (3.4-5.0) Albumin/Globulin Ratio 0.8 (1.0-1.7) Amylase Level 109 U/L (25-115) Lipase 57 U/L (73-393) Urine Collection Type U cath Urine Color Nicolasa Urine Clarity Clear Urine pH 5.0 Urine Specific [place] >=1.030 Urine Protein 30 mg/dL (NEG-TRACE) Urine Glucose (UA) Negative mg/dL (NEG) Urine Ketones (Stick) Negative mg/dL (NEG) Urine Blood Negative (NEG) Urine Nitrite Negative (NEG) Urine Bilirubin Moderate (NEG) Urine Urobilinogen Dipstick 1.0 mg/dL (0.2 mg/dL) Urine Leukocyte Esterase Negative (NEG) Urine RBC Occ /HPF (0-2) Urine WBC 0 /HPF (0-4) Urine Squamous Epithelial Cells Few /LPF Urine Amorphous Sediment Present /HPF Urine Bacteria 0 /HPF (0-FEW) Urine Mucus Slight /LPF Test 03/11/17 21:30 03/12/17 03:59 03/12/17 09:14 Sodium Level 173 mmol/L (136-145) 171 mmol/L (136-145) 169 mmol/L (136-145) Potassium Level 2.7 mmol/L (3.5-5.1) 2.3 mmol/L (3.5-5.1) 3.0 mmol/L (3.5-5.1) Chloride Level 136 mmol/L (98-107) 134 mmol/L (98-107) 131 mmol/L (98-107) Carbon Dioxide Level 20 mmol/L (21-32) 22 mmol/L (21-32) 22 mmol/L (21-32) Anion Gap 17 (6-14) 15 (6-14) 16 (6-14) Blood Urea Nitrogen 69 mg/dL (8-26) 67 mg/dL (8-26) 62 mg/dL (8-26) Creatinine 2.7 mg/dL (0.7-1.3) 2.4 mg/dL (0.7-1.3) 2.1 mg/dL (0.7-1.3) Estimated GFR (Cockcroft-Gault) 24.6 28.1 32.8 Glucose Level 162 mg/dL (70-99) 210 mg/dL (70-99) 163 mg/dL (70-99) Calcium Level 8.2 mg/dL (8.5-10.1) 8.1 mg/dL (8.5-10.1) 7.8 mg/dL (8.5-10.1) White Blood Count 24.1 x10^3/uL (4.0-11.0) Red Blood Count 4.60 x10^6/uL (4.30-5.70) Hemoglobin 13.4 g/dL (13.0-17.5) Hematocrit 42.6 % (39.0-53.0) Mean Corpuscular Volume 93 fL (79-100) Mean Corpuscular Hemoglobin 29 pg (25-35) Mean Corpuscular Hemoglobin Concent 32 g/dL (31-37) Red Cell Distribution Width 16.5 % (11.5-14.5) Platelet Count 145 x10^3/uL (140-400) Neutrophils (%) (Auto) 90 % (31-73) Lymphocytes (%) (Auto) 6 % (24-48) Monocytes (%) (Auto) 4 % (0-9) Eosinophils (%) (Auto) 0 % (0-3) Basophils (%) (Auto) 0 % (0-3) Neutrophils # (Auto) 21.7 x10^3uL (1.8-7.7) Lymphocytes # (Auto) 1.4 x10^3/uL (1.0-4.8) Monocytes # (Auto) 0.9 x10^3/uL (0.0-1.1) Eosinophils # (Auto) 0.0 x10^3/uL (0.0-0.7) Basophils # (Auto) 0.1 x10^3/uL (0.0-0.2) Lactic Acid Level 2.8 mmol/L (0.4-2.0) Magnesium Level 2.0 mg/dL (1.8-2.4) Thyroid Stimulating Hormone (TSH) 1.539 uIU/mL (0.358-3.74) Laboratory Tests Test 03/11/17 18:15 03/11/17 18:30 03/11/17 18:38 03/11/17 20:18 O2 Saturation 98 % (92-99) Arterial Blood pH 7.40 (7.35-7.45) Arterial Blood pCO2 at Patient Temp 31 mmHg (35-46) Arterial Blood pO2 at Patient Temp 136 mmHg (75-108) Arterial Blood HCO3 19 mmol/L (21-28) Arterial Blood Base Excess -5 mmol/L (-3-3) Raul Test Pos Oxyhemoglobin 97.8 % Methemoglobin 0.3 % (0.0-1.9) Carbon Monoxide, Quantitative 0.2 % (0.0-1.9) FiO2 40 White Blood Count 20.3 x10^3/uL (4.0-11.0) Red Blood Count 5.54 x10^6/uL (4.30-5.70) Hemoglobin 16.5 g/dL (13.0-17.5) Hematocrit 53.2 % (39.0-53.0) Mean Corpuscular Volume 96 fL (79-100) Mean Corpuscular Hemoglobin 30 pg (25-35) Mean Corpuscular Hemoglobin Concent 31 g/dL (31-37) Red Cell Distribution Width 17.0 % (11.5-14.5) Platelet Count 189 x10^3/uL (140-400) Neutrophils (%) (Auto) 88 % (31-73) Lymphocytes (%) (Auto) 5 % (24-48) Monocytes (%) (Auto) 7 % (0-9) Eosinophils (%) (Auto) 0 % (0-3) Basophils (%) (Auto) 0 % (0-3) Neutrophils # (Auto) 18.0 x10^3uL (1.8-7.7) Lymphocytes # (Auto) 0.9 x10^3/uL (1.0-4.8) Monocytes # (Auto) 1.3 x10^3/uL (0.0-1.1) Eosinophils # (Auto) 0.0 x10^3/uL (0.0-0.7) Basophils # (Auto) 0.1 x10^3/uL (0.0-0.2) Segmented Neutrophils % 81 % (35-66) Band Neutrophils % 6 % (0-9) Lymphocytes % 8 % (24-48) Monocytes % 5 % (0-10) Toxic Granulation Slight Platelet Estimate Adequate (ADEQUATE) Sodium Level 175 mmol/L (136-145) Potassium Level 2.9 mmol/L (3.5-5.1) Chloride Level 132 mmol/L (98-107) Carbon Dioxide Level 25 mmol/L (21-32) Anion Gap 18 (6-14) Blood Urea Nitrogen 71 mg/dL (8-26) Creatinine 3.2 mg/dL (0.7-1.3) Estimated GFR (Cockcroft-Gault) 20.2 BUN/Creatinine Ratio 22 (6-20) Glucose Level 155 mg/dL (70-99) Lactic Acid Level 8.6 mmol/L (0.4-2.0) 4.5 mmol/L (0.4-2.0) Calcium Level 9.5 mg/dL (8.5-10.1) Total Bilirubin 1.0 mg/dL (0.2-1.0) Aspartate Amino Transf (AST/SGOT) 86 U/L (15-37) Alanine Aminotransferase (ALT/SGPT) 117 U/L (16-63) Alkaline Phosphatase 236 U/L (46-116) Creatine Kinase 427 U/L (39-308) Creatine Kinase MB (Mass) 1.3 ng/mL (0.0-3.6) Creatine Kinase MB Relative Index 0.3 % (0-4) Troponin I Quantitative 0.027 ng/mL (0.000-0.055) Total Protein 8.3 g/dL (6.4-8.2) Albumin 3.6 g/dL (3.4-5.0) Albumin/Globulin Ratio 0.8 (1.0-1.7) Amylase Level 109 U/L (25-115) Lipase 57 U/L (73-393) Urine Collection Type U cath Urine Color Nicolasa Urine Clarity Clear Urine pH 5.0 Urine Specific [place] >=1.030 Urine Protein 30 mg/dL (NEG-TRACE) Urine Glucose (UA) Negative mg/dL (NEG) Urine Ketones (Stick) Negative mg/dL (NEG) Urine Blood Negative (NEG) Urine Nitrite Negative (NEG) Urine Bilirubin Moderate (NEG) Urine Urobilinogen Dipstick 1.0 mg/dL (0.2 mg/dL) Urine Leukocyte Esterase Negative (NEG) Urine RBC Occ /HPF (0-2) Urine WBC 0 /HPF (0-4) Urine Squamous Epithelial Cells Few /LPF Urine Amorphous Sediment Present /HPF Urine Bacteria 0 /HPF (0-FEW) Urine Mucus Slight /LPF Test 03/11/17 21:30 03/12/17 03:59 03/12/17 09:14 Sodium Level 173 mmol/L (136-145) 171 mmol/L (136-145) 169 mmol/L (136-145) Potassium Level 2.7 mmol/L (3.5-5.1) 2.3 mmol/L (3.5-5.1) 3.0 mmol/L (3.5-5.1) Chloride Level 136 mmol/L (98-107) 134 mmol/L (98-107) 131 mmol/L (98-107) Carbon Dioxide Level 20 mmol/L (21-32) 22 mmol/L (21-32) 22 mmol/L (21-32) Anion Gap 17 (6-14) 15 (6-14) 16 (6-14) Blood Urea Nitrogen 69 mg/dL (8-26) 67 mg/dL (8-26) 62 mg/dL (8-26) Creatinine 2.7 mg/dL (0.7-1.3) 2.4 mg/dL (0.7-1.3) 2.1 mg/dL (0.7-1.3) Estimated GFR (Cockcroft-Gault) 24.6 28.1 32.8 Glucose Level 162 mg/dL (70-99) 210 mg/dL (70-99) 163 mg/dL (70-99) Calcium Level 8.2 mg/dL (8.5-10.1) 8.1 mg/dL (8.5-10.1) 7.8 mg/dL (8.5-10.1) White Blood Count 24.1 x10^3/uL (4.0-11.0) Red Blood Count 4.60 x10^6/uL (4.30-5.70) Hemoglobin 13.4 g/dL (13.0-17.5) Hematocrit 42.6 % (39.0-53.0) Mean Corpuscular Volume 93 fL (79-100) Mean Corpuscular Hemoglobin 29 pg (25-35) Mean Corpuscular Hemoglobin Concent 32 g/dL (31-37) Red Cell Distribution Width 16.5 % (11.5-14.5) Platelet Count 145 x10^3/uL (140-400) Neutrophils (%) (Auto) 90 % (31-73) Lymphocytes (%) (Auto) 6 % (24-48) Monocytes (%) (Auto) 4 % (0-9) Eosinophils (%) (Auto) 0 % (0-3) Basophils (%) (Auto) 0 % (0-3) Neutrophils # (Auto) 21.7 x10^3uL (1.8-7.7) Lymphocytes # (Auto) 1.4 x10^3/uL (1.0-4.8) Monocytes # (Auto) 0.9 x10^3/uL (0.0-1.1) Eosinophils # (Auto) 0.0 x10^3/uL (0.0-0.7) Basophils # (Auto) 0.1 x10^3/uL (0.0-0.2) Lactic Acid Level 2.8 mmol/L (0.4-2.0) Magnesium Level 2.0 mg/dL (1.8-2.4) Thyroid Stimulating Hormone (TSH) 1.539 uIU/mL (0.358-3.74) JONNY AGBRIEL MD March 12, 2017 11:13
[2017-03-12] MEDS ORDERED: POTASSIUM CL 20MEQ D5-0.2%NACL 1,000 ML IV SCH ×2 (11:30→12:15)
[2017-03-12] MEDS ORDERED: MAGNESIUM SULFATE 2GM 50 ML IV PRN (11:30)
--- NOTE | 2017-03-12 12:00 | CONS ---
DATE OF CONSULTATION: ATTENDING PHYSICIAN: Dr. Ferguson. REASON FOR CONSULTATION: Respiratory failure, septic shock. HISTORY OF PRESENT ILLNESS: The patient is a 57-year-old male, who has history of schizophrenia, seizure and history of mixed encephalopathy. The patient has a long medical history. He had gastric bypass surgery last July, which was complicated by leak, another ____, he had at least 7 or 8 surgeries. The patient at that time subsequently had tracheostomy and PEG tube. He was then moved to [facility] where he was subsequently weaned off the ventilator, but then he developed, again and was related to sepsis. He was transferred back to [facility] and then back to [facility]. From the LT, he was transferred to ____ [facility]. Mental status was marginal. He was brought in to the hospital after he was noted to be lethargic and had low blood pressure. He had also having copious amount of oral secretions, which he was unable to clear. He was gagging with the secretions. EMS was able to suction out a large amount of secretions, which did improve his saturation, which were initially in the mid-80s. The patient has history of encephalopathic brain injury. He was brought into the Emergency Room. He was a DNR, but at that time, the advanced directives were not available, as a result, he was intubated. All the history was given to me by the patient's , was at the bedside. He did have a difficult intubation. He has a history of C5-C6 plate and in the past has difficulty with intubation as well. His initial blood gases showed a pH of 7.40, pCO2 of 31 and a pO2 of 136 on 40% FiO2. He had at least 6 chest x-rays since yesterday and I have reviewed all of them. Endotracheal tube still sits high at about 5-6 cm above the gracie. He has tiny infiltrate, atelectasis of the left lower lobe. He was also noted his marked hypernatremia of 175, which is now down to 169. He was also noted to be in renal failure. According to the , he has not been eating well. Since his PEG tube has been dislodged, oral nutrition has been an issue. Currently, he is requiring ____ mcg of Levophed. His systolic blood pressure in the 90s. He has received about 3-1/2 liters of IV fluids so far. PAST MEDICAL HISTORY: Significant for history of encephalopathy, history of schizophrenia, seizure disorder, GERD and anxiety. PAST SURGICAL HISTORY: Including gastric bypass, tracheostomy, and G-tube placement. ALLERGIES: ____, CLARITHROMYCIN, DIVALPROEX, SODIUM, FLUVOXAMINE, GABAPENTIN, GLUTEN LURASIDONE AND PREGABALIN. CURRENT MEDICATIONS: Reviewed including broad spectrum antibiotics and antifungal. He is also on DVT prophylaxis. REVIEW OF SYSTEMS: Unable to obtain as the patient on the ventilator. PHYSICAL EXAMINATION: GENERAL: He is intubated. VITAL SIGNS: His T-max of 99.6. Blood pressure in the 90s on vasopressor, pulse ox 100%. HEENT: Sclerae nonicteric. NECK: Supple. LUNGS: Diminished breath sounds. CARDIOVASCULAR: Regular. ABDOMEN: Soft. He has a scar from previous PEG tube. EXTREMITIES: With trace pitting edema. LABORATORY DATA: Reviewed. His latest sodium is 169, potassium 3.0, chloride 131, BUN is 62 and a creatinine of 2.1. White cell count was 20.3 on admission, hemoglobin is 16.5, platelets are 189. His preliminary blood cultures have shown 1/4 bottles gram-negative rods. IMPRESSION: 1. Acute respiratory failure secondary to septic shock. 2. Gram-negative septic shock. The source is not so obvious. It could be a combination of aspiration pneumonia and could be an abdominal source vs UTI. 3. History of respiratory failure in the past post-gastric bypass surgery with multiple complications including leak requiring multiple surgeries. He had history of tracheostomy with subsequent decannulation. 4. Severe hypernatremia. 5. Acute renal failure. 6. Metabolic acidosis secondary to acute kidney injury and septic shock with marked lactic acidosis of 8.6 on admission, now slowly improving. 7. Acute renal failure secondary to shock. 8. Hypokalemia. RECOMMENDATIONS: 1. Continue with present assist control mode and make necessary adjustments based on ABGs. 2. Broad spectrum antibiotics. 3. Advanced endotracheal tube x 3 cm. 4. Follow the blood cultures. 5. Follow chest x-rays. 6. Deep venous thrombosis prophylaxis. 7. Stress ulcer prophylaxis. 8. Follow sodium level. 9. Follow renal recommendations. 10. Monitoring of renal function and electrolytes. 11. I had discussed at length with the patient's at the bedside about advanced directives. She states, he was supposed to be DNR, but advanced directives were not available to the ER physician, as a result he ended up with intubation. At this point, She only wants CPR and no electrical shocks. If the patient's clinical condition does not improve, she would allow natural . Discussed with RN and RT. Critical care time 45 minutes. PORTILLO CHERRY MD DR: DEEJAY/franny JOB#: [id number] / [id number] [place]
--- NOTE | 2017-03-12 12:25 | PDOC ---
Exam Management Sme Management Sme Helen Supervisor Packing Room Supervisor Packing Room F Ndumbu Pre-Procedure Diagnosis Pre-Procedure Diagnosis 57 YO male with pneumonia, sepsis, and hypotension. CV access required fo pressors. Post-Procedure Diagnosis Post-Procedure Diagnosis Same Procedure Performed Procedure Performed Bedside ICU sono guided CVC insertion Type of Anesthesia Type of Anesthesia Local Estimated Blood Loss EBL: Minimal Drain/Tubes Drains/Tubes Right IJ 7F 3L 20cm Power Injectable CVC Condition of Patient Condition of Patient No change. No apparent complication. Disposition Disposition STAT pCXR requested for CVC position. Full report to follow. DANIELE FINN MD March 12, 2017 12:25
[2017-03-12] MEDS ORDERED: POTASSIUM CL 20MEQ D5-0.2%NACL 1,000 ML IV ONE (12:30)
--- NOTE | 2017-03-12 13:11 | RAD ---
Examination: Single frontal view the chest History: History of central venous catheter insertion Comparison: 03/12/2017 Findings: The ET tube, feeding tube are unchanged. Right-sided IJ line is identified with the tip projecting at the SVC/RA junction. There is no acute infiltrate or visualized pneumothorax identified. Impression: 1. Interval placement of right internal jugular line in place. No pneumothorax. 2. ET tube, feeding tube are unchanged.
[2017-03-12 14:01] LABS: POTASSIUM 1.8 mmol/L (3.5-5.1)
[2017-03-12] MEDS: POTASSIUM CL 20MEQ D5-0.2%NACL 1,000 ML IV SCH (14:45)
[2017-03-12] MEDS: HEPARIN PF for SUB-Q USE 5,000 UNIT/0.5 ML VIAL. SQ SCH ×2 (14:53→22:10)
[2017-03-12] MEDS: POTASSIUM PHOSPHATE DIBASIC 13.6 MMOL in IV NORMAL SALINE 100ML 100 ML IV SCH ×3 (15:23→19:23)
--- NOTE | 2017-03-12 15:55 | CARD ---
APPROVED REPORT EXAM: Two-dimensional and M-mode echocardiogram with Doppler and color Doppler. Other Information Quality : Good Rhythm : NSR INDICATION Hypotension 2D DIMENSIONS RVDd2.6 (2.9-3.5cm)Left Atrium(2D)3.3 (1.6-4.0cm) IVSd0.9 (0.7-1.1cm)Aortic Root(2D)3.3 (2.0-3.7cm) LVDd4.5 (3.9-5.9cm)LVOT Diameter2.3 (1.8-2.4cm) PWd0.9 (0.7-1.1cm)LVDs3.1 (2.5-4.0cm) FS (%) 30.0 %SV52.7 ml LVEF(%)57.3 (>50%) LEFT VENTRICLE The left ventricle is normal size. There is normal left ventricular wall thickness. The left ventricu lar systolic function is normal and the ejection fraction is within normal range. The Ejection Fracti on is 55-60%. There is normal LV segmental wall motion. RIGHT VENTRICLE The right ventricle is normal size. There is normal right ventricular wall thickness. The right ventr icular systolic function is normal. ATRIA The left atrium size is normal. The right atrium size is normal. PULMONIC VALVE There is no pulmonic valvular stenosis. GREAT VESSELS The aortic root is normal in size. The ascending aorta is normal in size. The IVC was not visualized. PERICARDIAL EFFUSION There is no evidence of significant pericardial effusion. Critical Notification Critical Value: No <Conclusion> The left ventricular systolic function is normal and the ejection fraction is within normal range. T he Ejection Fraction is 55-60%. There is grossly normal LV segmental wall motion. No gross valvular lesions noted. Limited echo only.
--- NOTE | 2017-03-12 16:02 | RAD ---
Bedside ultrasound guided Central Venous Catheter placement Indication: 57-year-old ICU patient with respiratory failure, with sepsis and with hypotension. Bedside ICU central venous catheter insertion has been requested for IV antibiotics and pressors. Anesthesia: Local only Sterility: All elements of maximal sterile barrier technique were utilized, including cap, mask, sterile gown, sterile gloves, large sterile sheet, appropriate hand hygiene, and 2% chlorhexidine for cutaneous antisepsis. 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 This procedure was performed bedside in ICU. Preliminary ultrasound examination of right neck revealed wide patency of right internal jugular vein, which was documented with a single hard copy ultrasound image. Right neck was then prepped and draped in the usual sterile fashion, utilizing all elements of maximal sterile barrier technique, as described above. Using aseptic technique, local anesthesia, direct ultrasound guidance, and the micropuncture technique, successful entry was made into right internal jugular vein. The right IJ venostomy tract was then dilated and a 7 Turkish triple lumen 20 cm power injectable CVC was easily advanced centrally over an angiographic guidewire. The CVC was then demonstrated to flush and aspirate normally, and was secured at the skin exit site using suture and sterile dressing. Patient tolerated the procedure well, without apparent complication. A STAT portable CXR was requested for CVC position. Impression: Successful, uneventful sono guided placement of right IJ power injectable 7 Turkish triple lumen 20 cm CVC, bedside in ICU, as described.
[2017-03-12] MEDS ORDERED: VANCOMYCIN 1.25 GM in IV NORMAL SALINE 250ML 250 ML IV SCH (20:00)
[2017-03-12] MEDS: NOREPINEPHRIN PREMIX 250 ML IV PRN (20:27)
[2017-03-12] MEDS: fentaNYL PF VIAL 100 MCG/2 ML VIAL IV PRN (22:15)
[2017-03-12] MEDS: POTASSIUM CHLORIDE 20MEQ 50 ML IV SCH (23:13)
[2017-03-13] VITALS (27 sets, daily range): BP systolic 82–116; BP diastolic 51–73
[2017-03-13] MEDS: POTASSIUM CHLORIDE 20MEQ 50 ML IV SCH ×3 (00:19→02:29)
[2017-03-13] MEDS: fentaNYL PF VIAL 100 MCG/2 ML VIAL IV PRN ×2 (01:03→05:28)
--- NOTE | 2017-03-13 01:22 | CONS ---
DATE OF CONSULTATION: 03/12/2017 HISTORY OF PRESENT ILLNESS: The patient is a 57-year-old gentleman who apparently had a gastric bypass surgery at [facility]. He had a tremulous postoperative course and is currently at a senior living. He is felt to have underlying encephalopathy. He has had a J-tube in the past. He was on TPN for a while. He is also known to have anxiety, depression and schizophrenia. He was brought to the ER with altered mental status and some respiratory distress. at the time of presentation were noted to be in the 80s. He had a significant amount of oral secretions and was felt to have had some aspiration issues also. He did have a fever and "appear toxic the ER." In this setting, he was admitted to the ICU post-intubation. We were asked to see him for a sodium of 175 at presentation with potassium 2.9, BUN of 71 and creatinine of 3.2 and a lactic acid of 8 and elevated LFTs. This is improved after hypertonic IV fluids with dextrose and potassium replacement. sodium is 169. His potassium is 3, BUN 62, creatinine 2.1. Urine output is gently picking up. The CT scan of his head is available at this time. For rest of details, see electronic records. JONNY GABRIEL MD DR: CHRISTINE/franny JOB#: [id number] / [id number]
[2017-03-13] MEDS: POTASSIUM CL 20MEQ D5-0.2%NACL 1,000 ML IV SCH (02:42)
--- NOTE | 2017-03-13 02:50 | CONS ---
DATE OF CONSULTATION: 03/12/2017 PATIENT'S ROOM: ICU 5. REQUESTING PHYSICIAN: Dr. Ferguson. REASON FOR CONSULTATION: Aspiration pneumonia. HISTORY OF PRESENT ILLNESS: The patient is currently intubated and lightly sedated, but also has a history of Wernicke's encephalopathy and schizophrenia and has a history of chronic encephalopathy. He is in a skilled nursing at [facility] and apparently was transferred to [facility] Emergency Room on 03/11/2017 secondary to dyspnea and respiratory distress. He apparently was found to be satting in the upper 80s with copious amounts of oral secretions and developed significant respiratory distress including gagging on secretions. ENT was called and apparently suctioned a large amount of secretions with some improvement of saturations. He did have a fever and appeared toxic according to the ER notes on arrival. He has been intubated and sedated. His white blood cell count was 20.3 on arrival. Today, it has increased to 24.1. Additionally, he had a sodium of 175 and a creatinine of 3.2 on arrival. Lactic acid was 3.6, is now improved to 2.8. Chest x-ray obtained showed some mild patchy basilar infiltrates initially with atelectasis versus pneumonia. He was given doses of vancomycin and Zosyn, admitted to the Intensive Care Unit. Currently, he is on 18 mcg of Levophed. A blood culture obtained yesterday is already positive for gram-negative rods in 1 of 4 bottles. PAST MEDICAL HISTORY: Positive for chronic encephalopathy, history of muscle spasms, schizophrenia, gastroesophageal reflux disease, obesity, seizures, anxiety, coronary artery disease, major depressive disorder, BPH, Wernicke's encephalopathy, history of ____ shingles, history of positive MRSA. PAST SURGICAL HISTORY: Positive for PEG tube placements and removal as he had previously pulled out a PEG tube, also has a history of bariatric surgery. REVIEW OF SYSTEMS: Unobtainable. ALLERGIES: LISTED CLARITHROMYCIN, BIAXIN. ALSO LISTED ____, DIVALPROEX SODIUM, FLUVOXAMINE, GABAPENTIN, GLUTEN, LURASIDONE AND PREGABALIN. CURRENT MEDICATIONS: Included, he is on Levophed, vancomycin, Zosyn, Metadate, hydrocortisone, pantoprazole. Other meds are available and have been reviewed in the chart. PHYSICAL EXAMINATION: VITAL SIGNS: Current temperature 99.6, pulse 74, respirations 20, blood pressure 103/74, on 18 of Levophed, he has dropped into the 70s/40s. GENERAL: He is intubated. He is sedated. HEENT: His pupils are small and equal. Neck was supple. He did move his neck a little bit. When I checked his eyes, he had normal conjunctivae. No JVD. LUNGS: With some mild rhonchi. HEART: S1, S2, tachy, no murmur. ABDOMEN: Obese, soft, nontender, nondistended. He has a superficial wound in the right mid quadrant. Heart is in place. EXTREMITIES: Without clubbing, cyanosis with trace edema. SKIN: Warm to touch without signs of generalized rash. PICC line in the right upper extremity without signs of complications. LABORATORY DATA: White count 24.1, hemoglobin 13.4, platelets of 145, neutrophils of 90, lymphs are 6. Sodium 171, creatinine 2.4, glucose of 210, lactic acid of 2.8, AST was 86, ALT 117, alk phos 236, creatinine kinase was 427 on arrival, lipase was 57. Urinalysis was clean and not consistent with a urinary tract infection. Blood cultures positive for 1 out of 4 with gram-negative rods. Chest x-ray this morning shows improved lungs. IMPRESSION: 1. Sepsis, gram-negative rods, present on admission on 03/11/2017, 1 of 4 bottles, currently on 18 of Levophed. 2. Leukocytosis, on hydrocortisone. 3. Acute respiratory failure, questionable aspiration with patchy infiltrates. 4. Acute kidney injury. 5. Hypernatremia. 6. Transaminitis. 7. History of methicillin-resistant Staphylococcus aureus. 8. Biaxin allergy. RECOMMENDATIONS: We will discontinue further vancomycin with acute kidney injury. We will dose Zyvox given the MRSA with his respiratory failure. The chest x-ray is improved. He is at risk for VRE given the long-term exposure to health care system and ____ Levophed. We will adjust the Zosyn for renal function. We will add micafungin as he is at risk for resistant yeast, try to avoid the quinolones given the status of his electrolytes, as he is at risk for arrhythmias, we will check a procalcitonin. Follow up labs and cultures. Dose cefepime x 1. This was discussed with his family. I did review [facility] notes. This was discussed with Dr. Ferguson as well as Cardiology nurse practitioner, Sylvia Montague. I spent 35 minutes of critical care time. Thank you for allowing me to participate in this patient's care. If you have any questions, please do not hesitate to contact me. JENNIFER AVELAR MD DR: JAMIA/franny JOB#: [id number] / [id number]
[2017-03-13] MEDS: PIPERACILLIN/TAZOBACTAM 2.25 GM in IV NORMAL SALINE 50ML 50 ML IV SCH (03:33)
[2017-03-13] MEDS: HEPARIN PF for SUB-Q USE 5,000 UNIT/0.5 ML VIAL. SQ SCH (05:30)
[2017-03-13 05:57] LABS: BASO % 0 % (0-3); EOS % 0 % (0-3); HEMATOCRIT 33.5 % (39.0-53.0); HEMOGLOBIN 10.9 g/dL (13.0-17.5); LYMPH # 1.4 x10^3/uL (1.0-4.8); LYMPH % 12 % (24-48); MEAN CORPUSCULAR HEMOGLOBIN 30 pg (25-35); MEAN CORPUSCULAR HGB CONC 33 g/dL (31-37); MEAN CORPUSCULAR VOLUME 92 fL (79-100); MONO % 4 % (0-9); NEUT % 84 % (31-73); PLATELET COUNT 82 x10^3/uL (140-400); RED BLOOD COUNT 3.63 x10^6/uL (4.30-5.70); RED CELL DISTRIBUTION WIDTH 16.8 % (11.5-14.5); WHITE BLOOD COUNT 12.2 x10^3/uL (4.0-11.0)
[2017-03-13 06:40] LABS: ALBUMIN 2.1 g/dL (3.4-5.0); ALBUMIN/GLOBULIN RATIO 0.6 (1.0-1.7); CALCIUM 7.4 mg/dL (8.5-10.1); CREATININE 1.2 mg/dL (0.7-1.3); GFR 62.6; POTASSIUM 3.9 mmol/L (3.5-5.1); TOTAL BILIRUBIN 0.5 mg/dL (0.2-1.0); TOTAL PROTEIN 5.5 g/dL (6.4-8.2)
[2017-03-13] MEDS: NOREPINEPHRIN PREMIX 250 ML IV PRN ×2 (07:15→23:55)
[2017-03-13 08:39] LABS: PLT ESTIMATE DECREASED (ADEQUATE)
--- NOTE | 2017-03-13 08:47 | RAD ---
Indication: Respiratory failure. Technique: Upright portable chest radiograph was obtained and compared to a study from one day earlier. Findings: Right IJ central line and and endogastric tube are in place. There is also likely an endotracheal tube superimposed on the endogastric tube, tip below the thoracic inlet and well above the gracie. There is minimal atelectasis in the left lung base. The lungs otherwise are clear. The heart is not enlarged and there is no heart failure. Impression: Minimal atelectasis in the left lung base. Tubes and lines appear in place.
[2017-03-13] MEDS: PANTOPRAZOLE IV PUSH 40 MG VIAL. IVP SCH (08:55)
--- NOTE | 2017-03-13 08:55 | PDOC ---
Infectious Disease Note Subjective Subjective Remains intubated Off sedation Febrile Tmax 102.9 Hypotension, Levophed now down to 8 mcg Tube feedings No diarrhea Vital Sign Vital Signs Vital Signs Date Time Temp Pulse Resp B/P (MAP) Pulse Ox O2 Delivery O2 Flow Rate FiO2 03/13/17 08:00 85 24 86/54 (65) 100 Ventilator 03/13/17 07:00 102.7 102.7 03/12/17 16:00 40.0 Physical Exam PHYSICAL EXAM General: Intubated, calm, mittens HENT: PERRL. ETT. OGT LUNGS: Mechanical breath sounds HEART: Si and S2. regular ABD: BS present, soft : Heart EXT: No gross edema or cyanosis. 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 voice, noncommunicative, no follow commands RIJ clean Peripheral IVs Labs Lab Laboratory Tests Test 03/12/17 09:14 03/12/17 13:30 03/12/17 17:00 03/12/17 22:00 Sodium Level 169 mmol/L (136-145) 166 mmol/L (136-145) 164 mmol/L (136-145) 164 mmol/L (136-145) Potassium Level 3.0 mmol/L (3.5-5.1) 1.8 mmol/L (3.5-5.1) 2.8 mmol/L (3.5-5.1) 3.0 mmol/L (3.5-5.1) Chloride Level 131 mmol/L (98-107) Carbon Dioxide Level 22 mmol/L (21-32) Anion Gap 16 (6-14) Blood Urea Nitrogen 62 mg/dL (8-26) Creatinine 2.1 mg/dL (0.7-1.3) Estimated GFR (Cockcroft-Gault) 32.8 Glucose Level 163 mg/dL (70-99) Calcium Level 7.8 mg/dL (8.5-10.1) Magnesium Level 2.0 mg/dL (1.8-2.4) Procalcitonin 5.32 ng/mL (0.00-0.10) Thyroid Stimulating Hormone (TSH) 1.539 uIU/mL (0.358-3.74) Phosphorus Level 0.9 mg/dL (2.6-4.7) 4.0 mg/dL (2.6-4.7) Creatine Kinase 562 U/L (39-308) Free Thyroxine 0.88 ng/dL (0.76-1.46) Test 03/13/17 05:45 White Blood Count 12.2 x10^3/uL (4.0-11.0) Red Blood Count 3.63 x10^6/uL (4.30-5.70) Hemoglobin 10.9 g/dL (13.0-17.5) Hematocrit 33.5 % (39.0-53.0) Mean Corpuscular Volume 92 fL (79-100) Mean Corpuscular Hemoglobin 30 pg (25-35) Mean Corpuscular Hemoglobin Concent 33 g/dL (31-37) Red Cell Distribution Width 16.8 % (11.5-14.5) Platelet Count 82 x10^3/uL (140-400) Neutrophils (%) (Auto) 84 % (31-73) Lymphocytes (%) (Auto) 12 % (24-48) Monocytes (%) (Auto) 4 % (0-9) Eosinophils (%) (Auto) 0 % (0-3) Basophils (%) (Auto) 0 % (0-3) Neutrophils # (Auto) 10.2 x10^3uL (1.8-7.7) Lymphocytes # (Auto) 1.4 x10^3/uL (1.0-4.8) Monocytes # (Auto) 0.5 x10^3/uL (0.0-1.1) Eosinophils # (Auto) 0.0 x10^3/uL (0.0-0.7) Basophils # (Auto) 0.0 x10^3/uL (0.0-0.2) Platelet Estimate Decreased (ADEQUATE) Giant Platelets Present Sodium Level 163 mmol/L (136-145) Potassium Level 3.9 mmol/L (3.5-5.1) Chloride Level 131 mmol/L (98-107) Carbon Dioxide Level 20 mmol/L (21-32) Anion Gap 12 (6-14) Blood Urea Nitrogen 28 mg/dL (8-26) Creatinine 1.2 mg/dL (0.7-1.3) Estimated GFR (Cockcroft-Gault) 62.6 BUN/Creatinine Ratio 23 (6-20) Glucose Level 127 mg/dL (70-99) Lactic Acid Level 1.8 mmol/L (0.4-2.0) Calcium Level 7.4 mg/dL (8.5-10.1) Phosphorus Level 2.0 mg/dL (2.6-4.7) Magnesium Level 1.8 mg/dL (1.8-2.4) Total Bilirubin 0.5 mg/dL (0.2-1.0) Aspartate Amino Transf (AST/SGOT) 59 U/L (15-37) Alanine Aminotransferase (ALT/SGPT) 62 U/L (16-63) Alkaline Phosphatase 148 U/L (46-116) Total Protein 5.5 g/dL (6.4-8.2) Albumin 2.1 g/dL (3.4-5.0) Albumin/Globulin Ratio 0.6 (1.0-1.7) Procalcitonin 2.42 ng/mL (0.00-0.10) Micro BLOOD CULTURE Final GRAM NEGATIVE FREEDOM 2 SETS DRAWN, 2 OF 4 POSITIVE Sputum GRAM STAIN Final WBCS MANY MIXED EDGAR MANY SQUAMOUS EPITHELIAL CELLS OCCASIONAL Objective Assessment Sepsis - GNR POA 03/11 10/28 bottles currently on 18 of Levophed Fever Leukocytosis - on Hydrocortisone Acute resp failure ? aspiration with patchy infiltrates HERNÁN- better Hypernatremia Transaminitis H/o MRSA and C. diff Biaxin allergy Plan Plan of Care Zyvox given MRSA +/Resp failure and at risk for VRE given chcf exposure to Health care. Aware of Levophed Zosyn Micafungin at risk for resistant yeast Flagyl for h/o c. diff Cefepime times one 03/12 Avoid quinolones given his status of his electrolytes as he is at risk for arrhythmias Procalcitonin 2.42 F/u labs in am and cults Await GNR ID Attending Co-Sign The patient was seen and interviewed as well as examined at the bedside. The chart was reviewed. The case was discussed. Agree with the plan of care. cont zosyn, add cipro, d/c zyvox, d/c flagyl d/w in detail will do ct abd and pelvis THEE STUART APRN March 13, 2017 08:55 LUCRECIA GABRIEL MD March 13, 2017 12:12
[2017-03-13 09:00] LABS: HCO3 ABG 18 mmol/L (21-28); PCO2 ABG 27 mmHg (35-46); PH ABG 7.44 (7.35-7.45); PO2 ABG 139 mmHg (75-108); SAT O2 ABG 98 % (92-99)
[2017-03-13 09:03] LABS: FIO2 ABG 40
[2017-03-13] MEDS: PIPERACILLIN/TAZOBACTAM 3.375 GM in IV NORMAL SALINE 50ML 50 ML IV SCH ×3 (10:06→23:54)
--- NOTE | 2017-03-13 10:16 | PDOC ---
PULMONARY PROGRESS NOTES Subjective remains intubated/sedated on pressor Vitals Vital Signs Date Time Temp Pulse Resp B/P (MAP) Pulse Ox O2 Delivery O2 Flow Rate FiO2 03/13/17 08:58 102.9 102.9 03/13/17 08:42 100 Ventilator 03/13/17 08:00 85 24 86/54 (65) 03/12/17 16:00 40.0 Lungs: Other (decrease bs) Cardiovascular: S1 Abdomen: Soft Extremities: Other (trace edema) Skin: Warm Labs Laboratory Tests Test 03/11/17 18:15 03/11/17 18:30 03/11/17 18:38 03/11/17 20:18 O2 Saturation 98 % (92-99) Arterial Blood pH 7.40 (7.35-7.45) Arterial Blood pCO2 at Patient Temp 31 mmHg (35-46) Arterial Blood pO2 at Patient Temp 136 mmHg (75-108) Arterial Blood HCO3 19 mmol/L (21-28) Arterial Blood Base Excess -5 mmol/L (-3-3) Raul Test Pos Oxyhemoglobin 97.8 % Methemoglobin 0.3 % (0.0-1.9) Carbon Monoxide, Quantitative 0.2 % (0.0-1.9) FiO2 40 White Blood Count 20.3 x10^3/uL (4.0-11.0) Red Blood Count 5.54 x10^6/uL (4.30-5.70) Hemoglobin 16.5 g/dL (13.0-17.5) Hematocrit 53.2 % (39.0-53.0) Mean Corpuscular Volume 96 fL (79-100) Mean Corpuscular Hemoglobin 30 pg (25-35) Mean Corpuscular Hemoglobin Concent 31 g/dL (31-37) Red Cell Distribution Width 17.0 % (11.5-14.5) Platelet Count 189 x10^3/uL (140-400) Neutrophils (%) (Auto) 88 % (31-73) Lymphocytes (%) (Auto) 5 % (24-48) Monocytes (%) (Auto) 7 % (0-9) Eosinophils (%) (Auto) 0 % (0-3) Basophils (%) (Auto) 0 % (0-3) Neutrophils # (Auto) 18.0 x10^3uL (1.8-7.7) Lymphocytes # (Auto) 0.9 x10^3/uL (1.0-4.8) Monocytes # (Auto) 1.3 x10^3/uL (0.0-1.1) Eosinophils # (Auto) 0.0 x10^3/uL (0.0-0.7) Basophils # (Auto) 0.1 x10^3/uL (0.0-0.2) Segmented Neutrophils % 81 % (35-66) Band Neutrophils % 6 % (0-9) Lymphocytes % 8 % (24-48) Monocytes % 5 % (0-10) Toxic Granulation Slight Platelet Estimate Adequate (ADEQUATE) Sodium Level 175 mmol/L (136-145) Potassium Level 2.9 mmol/L (3.5-5.1) Chloride Level 132 mmol/L (98-107) Carbon Dioxide Level 25 mmol/L (21-32) Anion Gap 18 (6-14) Blood Urea Nitrogen 71 mg/dL (8-26) Creatinine 3.2 mg/dL (0.7-1.3) Estimated GFR (Cockcroft-Gault) 20.2 BUN/Creatinine Ratio 22 (6-20) Glucose Level 155 mg/dL (70-99) Lactic Acid Level 8.6 mmol/L (0.4-2.0) 4.5 mmol/L (0.4-2.0) Calcium Level 9.5 mg/dL (8.5-10.1) Total Bilirubin 1.0 mg/dL (0.2-1.0) Aspartate Amino Transf (AST/SGOT) 86 U/L (15-37) Alanine Aminotransferase (ALT/SGPT) 117 U/L (16-63) Alkaline Phosphatase 236 U/L (46-116) Creatine Kinase 427 U/L (39-308) Creatine Kinase MB (Mass) 1.3 ng/mL (0.0-3.6) Creatine Kinase MB Relative Index 0.3 % (0-4) Troponin I Quantitative 0.027 ng/mL (0.000-0.055) Total Protein 8.3 g/dL (6.4-8.2) Albumin 3.6 g/dL (3.4-5.0) Albumin/Globulin Ratio 0.8 (1.0-1.7) Amylase Level 109 U/L (25-115) Lipase 57 U/L (73-393) Urine Collection Type U cath Urine Color Nicolasa Urine Clarity Clear Urine pH 5.0 Urine Specific [place] >=1.030 Urine Protein 30 mg/dL (NEG-TRACE) Urine Glucose (UA) Negative mg/dL (NEG) Urine Ketones (Stick) Negative mg/dL (NEG) Urine Blood Negative (NEG) Urine Nitrite Negative (NEG) Urine Bilirubin Moderate (NEG) Urine Urobilinogen Dipstick 1.0 mg/dL (0.2 mg/dL) Urine Leukocyte Esterase Negative (NEG) Urine RBC Occ /HPF (0-2) Urine WBC 0 /HPF (0-4) Urine Squamous Epithelial Cells Few /LPF Urine Amorphous Sediment Present /HPF Urine Bacteria 0 /HPF (0-FEW) Urine Mucus Slight /LPF Test 03/11/17 21:30 03/11/17 23:16 03/12/17 03:59 03/12/17 09:14 Sodium Level 173 mmol/L (136-145) 171 mmol/L (136-145) 169 mmol/L (136-145) Potassium Level 2.7 mmol/L (3.5-5.1) 2.3 mmol/L (3.5-5.1) 3.0 mmol/L (3.5-5.1) Chloride Level 136 mmol/L (98-107) 134 mmol/L (98-107) 131 mmol/L (98-107) Carbon Dioxide Level 20 mmol/L (21-32) 22 mmol/L (21-32) 22 mmol/L (21-32) Anion Gap 17 (6-14) 15 (6-14) 16 (6-14) Blood Urea Nitrogen 69 mg/dL (8-26) 67 mg/dL (8-26) 62 mg/dL (8-26) Creatinine 2.7 mg/dL (0.7-1.3) 2.4 mg/dL (0.7-1.3) 2.1 mg/dL (0.7-1.3) Estimated GFR (Cockcroft-Gault) 24.6 28.1 32.8 Glucose Level 162 mg/dL (70-99) 210 mg/dL (70-99) 163 mg/dL (70-99) Calcium Level 8.2 mg/dL (8.5-10.1) 8.1 mg/dL (8.5-10.1) 7.8 mg/dL (8.5-10.1) Nasal Screen MRSA (PCR) Positive (Negative) White Blood Count 24.1 x10^3/uL (4.0-11.0) Red Blood Count 4.60 x10^6/uL (4.30-5.70) Hemoglobin 13.4 g/dL (13.0-17.5) Hematocrit 42.6 % (39.0-53.0) Mean Corpuscular Volume 93 fL (79-100) Mean Corpuscular Hemoglobin 29 pg (25-35) Mean Corpuscular Hemoglobin Concent 32 g/dL (31-37) Red Cell Distribution Width 16.5 % (11.5-14.5) Platelet Count 145 x10^3/uL (140-400) Neutrophils (%) (Auto) 90 % (31-73) Lymphocytes (%) (Auto) 6 % (24-48) Monocytes (%) (Auto) 4 % (0-9) Eosinophils (%) (Auto) 0 % (0-3) Basophils (%) (Auto) 0 % (0-3) Neutrophils # (Auto) 21.7 x10^3uL (1.8-7.7) Lymphocytes # (Auto) 1.4 x10^3/uL (1.0-4.8) Monocytes # (Auto) 0.9 x10^3/uL (0.0-1.1) Eosinophils # (Auto) 0.0 x10^3/uL (0.0-0.7) Basophils # (Auto) 0.1 x10^3/uL (0.0-0.2) Lactic Acid Level 2.8 mmol/L (0.4-2.0) Magnesium Level 2.0 mg/dL (1.8-2.4) Procalcitonin 5.32 ng/mL (0.00-0.10) Thyroid Stimulating Hormone (TSH) 1.539 uIU/mL (0.358-3.74) Test 03/12/17 13:30 03/12/17 17:00 03/12/17 22:00 03/13/17 05:45 Sodium Level 166 mmol/L (136-145) 164 mmol/L (136-145) 164 mmol/L (136-145) 163 mmol/L (136-145) Potassium Level 1.8 mmol/L (3.5-5.1) 2.8 mmol/L (3.5-5.1) 3.0 mmol/L (3.5-5.1) 3.9 mmol/L (3.5-5.1) Phosphorus Level 0.9 mg/dL (2.6-4.7) 4.0 mg/dL (2.6-4.7) 2.0 mg/dL (2.6-4.7) Creatine Kinase 562 U/L (39-308) Free Thyroxine 0.88 ng/dL (0.76-1.46) White Blood Count 12.2 x10^3/uL (4.0-11.0) Red Blood Count 3.63 x10^6/uL (4.30-5.70) Hemoglobin 10.9 g/dL (13.0-17.5) Hematocrit 33.5 % (39.0-53.0) Mean Corpuscular Volume 92 fL (79-100) Mean Corpuscular Hemoglobin 30 pg (25-35) Mean Corpuscular Hemoglobin Concent 33 g/dL (31-37) Red Cell Distribution Width 16.8 % (11.5-14.5) Platelet Count 82 x10^3/uL (140-400) Neutrophils (%) (Auto) 84 % (31-73) Lymphocytes (%) (Auto) 12 % (24-48) Monocytes (%) (Auto) 4 % (0-9) Eosinophils (%) (Auto) 0 % (0-3) Basophils (%) (Auto) 0 % (0-3) Neutrophils # (Auto) 10.2 x10^3uL (1.8-7.7) Lymphocytes # (Auto) 1.4 x10^3/uL (1.0-4.8) Monocytes # (Auto) 0.5 x10^3/uL (0.0-1.1) Eosinophils # (Auto) 0.0 x10^3/uL (0.0-0.7) Basophils # (Auto) 0.0 x10^3/uL (0.0-0.2) Platelet Estimate Decreased (ADEQUATE) Giant Platelets Present Chloride Level 131 mmol/L (98-107) Carbon Dioxide Level 20 mmol/L (21-32) Anion Gap 12 (6-14) Blood Urea Nitrogen 28 mg/dL (8-26) Creatinine 1.2 mg/dL (0.7-1.3) Estimated GFR (Cockcroft-Gault) 62.6 BUN/Creatinine Ratio 23 (6-20) Glucose Level 127 mg/dL (70-99) Lactic Acid Level 1.8 mmol/L (0.4-2.0) Calcium Level 7.4 mg/dL (8.5-10.1) Magnesium Level 1.8 mg/dL (1.8-2.4) Total Bilirubin 0.5 mg/dL (0.2-1.0) Aspartate Amino Transf (AST/SGOT) 59 U/L (15-37) Alanine Aminotransferase (ALT/SGPT) 62 U/L (16-63) Alkaline Phosphatase 148 U/L (46-116) Total Protein 5.5 g/dL (6.4-8.2) Albumin 2.1 g/dL (3.4-5.0) Albumin/Globulin Ratio 0.6 (1.0-1.7) Procalcitonin 2.42 ng/mL (0.00-0.10) Test 03/13/17 08:40 O2 Saturation 98 % (92-99) Arterial Blood pH 7.44 (7.35-7.45) Arterial Blood pCO2 at Patient Temp 27 mmHg (35-46) Arterial Blood pO2 at Patient Temp 139 mmHg (75-108) Arterial Blood HCO3 18 mmol/L (21-28) Arterial Blood Base Excess -5 mmol/L (-3-3) FiO2 40 Laboratory Tests Test 03/12/17 13:30 03/12/17 17:00 03/12/17 22:00 03/13/17 05:45 Sodium Level 166 mmol/L (136-145) 164 mmol/L (136-145) 164 mmol/L (136-145) 163 mmol/L (136-145) Potassium Level 1.8 mmol/L (3.5-5.1) 2.8 mmol/L (3.5-5.1) 3.0 mmol/L (3.5-5.1) 3.9 mmol/L (3.5-5.1) Phosphorus Level 0.9 mg/dL (2.6-4.7) 4.0 mg/dL (2.6-4.7) 2.0 mg/dL (2.6-4.7) Creatine Kinase 562 U/L (39-308) Free Thyroxine 0.88 ng/dL (0.76-1.46) White Blood Count 12.2 x10^3/uL (4.0-11.0) Red Blood Count 3.63 x10^6/uL (4.30-5.70) Hemoglobin 10.9 g/dL (13.0-17.5) Hematocrit 33.5 % (39.0-53.0) Mean Corpuscular Volume 92 fL (79-100) Mean Corpuscular Hemoglobin 30 pg (25-35) Mean Corpuscular Hemoglobin Concent 33 g/dL (31-37) Red Cell Distribution Width 16.8 % (11.5-14.5) Platelet Count 82 x10^3/uL (140-400) Neutrophils (%) (Auto) 84 % (31-73) Lymphocytes (%) (Auto) 12 % (24-48) Monocytes (%) (Auto) 4 % (0-9) Eosinophils (%) (Auto) 0 % (0-3) Basophils (%) (Auto) 0 % (0-3) Neutrophils # (Auto) 10.2 x10^3uL (1.8-7.7) Lymphocytes # (Auto) 1.4 x10^3/uL (1.0-4.8) Monocytes # (Auto) 0.5 x10^3/uL (0.0-1.1) Eosinophils # (Auto) 0.0 x10^3/uL (0.0-0.7) Basophils # (Auto) 0.0 x10^3/uL (0.0-0.2) Platelet Estimate Decreased (ADEQUATE) Giant Platelets Present Chloride Level 131 mmol/L (98-107) Carbon Dioxide Level 20 mmol/L (21-32) Anion Gap 12 (6-14) Blood Urea Nitrogen 28 mg/dL (8-26) Creatinine 1.2 mg/dL (0.7-1.3) Estimated GFR (Cockcroft-Gault) 62.6 BUN/Creatinine Ratio 23 (6-20) Glucose Level 127 mg/dL (70-99) Lactic Acid Level 1.8 mmol/L (0.4-2.0) Calcium Level 7.4 mg/dL (8.5-10.1) Magnesium Level 1.8 mg/dL (1.8-2.4) Total Bilirubin 0.5 mg/dL (0.2-1.0) Aspartate Amino Transf (AST/SGOT) 59 U/L (15-37) Alanine Aminotransferase (ALT/SGPT) 62 U/L (16-63) Alkaline Phosphatase 148 U/L (46-116) Total Protein 5.5 g/dL (6.4-8.2) Albumin 2.1 g/dL (3.4-5.0) Albumin/Globulin Ratio 0.6 (1.0-1.7) Procalcitonin 2.42 ng/mL (0.00-0.10) Test 03/13/17 08:40 O2 Saturation 98 % (92-99) Arterial Blood pH 7.44 (7.35-7.45) Arterial Blood pCO2 at Patient Temp 27 mmHg (35-46) Arterial Blood pO2 at Patient Temp 139 mmHg (75-108) Arterial Blood HCO3 18 mmol/L (21-28) Arterial Blood Base Excess -5 mmol/L (-3-3) FiO2 40 Medications Active Scripts Medications Dose Route/Sig Max Daily Dose Days Date Category Melatonin 3 Mg Tablet 1 Tab PO QHS 03/12/17 Reported Melatonin 1 Mg Tablet 1 Mg PO HS 03/12/17 Reported Vitamin D (Cholecalciferol (Vitamin D3)) 1,000 Unit Capsule 1,000 Cap PO DAILY 03/12/17 Reported Lactulose 20 Gm/30 Ml Solution 37.5 Gm PO TID PRN 03/12/17 Reported Flector (Diclofenac Epolamine) 1 Each Patch.td12 2 Patch TP BID 03/12/17 Reported Miralax (Polyethylene Glycol 3350) 17 Gm Powd.pack 1 Packet PO PRN Q12HR 03/12/17 Reported Olanzapine 5 Mg Tablet 1 Tab PO BID 03/12/17 Reported Nutritional Drink Mix (Protein Supplement) 420 Gm Powder 420 Gm PO 03/12/17 Reported Seroquel (Quetiapine Fumarate) 50 Mg Tablet 50 Mg PO BID 03/12/17 Reported Trazodone Hcl 100 Mg Tablet 1 Tab PO QHS 03/12/17 Reported Tramadol Hcl 50 Mg Tablet 50 Mg PO Q8HRS PRN 03/12/17 Reported Tylenol (Acetaminophen) 325 Mg Tablet 2 Tab PEG PRN Q4-6HRS PRN 02/01/17 Reported Valtrex (Valacyclovir Hcl) 1,000 Mg Tablet 1 Tab PO DAILY 01/27/17 Reported Tamsulosin Hcl 0.4 Mg Cap.er.24h 1 Cap PO DAILY 01/27/17 Reported Citrucel (Methylcellulose) 479 Gm Powder 479 Gm PO 01/27/17 Reported Fluticasone Propionate Nasal [place] (Fluticasone Propionate) 16 Gm [place].susp 2 [place] NS HS 01/06/17 Reported Xarelto (Rivaroxaban) 20 Mg Tablet 20 Mg PEG DAILY 01/06/17 Reported Buspirone Hcl 5 Mg Tablet 1 Tab PEG TID 01/06/17 Reported Vitamin D (Cholecalciferol (Vitamin D3)) 10,000 Unit Capsule 50,000 Unit PO QFR 01/06/17 Reported Famotidine 20 Mg Tablet 20 Mg PO BID 01/06/17 Reported Thiamine Hcl 100 Mg Tablet 100 Mg PEG DAILY 01/06/17 Reported Oxcarbazepine 300 Mg Tablet 1 Tab PEG BID 01/06/17 Reported Duoneb 0.5-3(2.5) Mg/3 Ml (Albuterol/Ipratropium) 3 Ml Ampul.neb 3 Ml NEB BID 01/06/17 Reported Anti-Diarrheal (Loperamide Hcl) 2 Mg Capsule 2 Mg PO BID 01/06/17 Reported Comments CXR 03/13 reviewed. no infiltrates ET still high Impression . 1. Acute respiratory failure secondary to septic shock. 2. Gram-negative septic shock. The source is not so obvious. It could be a combination of aspiration pneumonia and could be an abdominal source vs UTI. 3. History of respiratory failure in the past post-gastric bypass surgery with multiple complications including leak requiring multiple surgeries. He had history of tracheostomy with subsequent decannulation. 4. Severe hypernatremia. 5. Acute renal failure. 6. Metabolic acidosis secondary to acute kidney injury and septic shock with marked lactic acidosis of 8.6 on admission, now slowly improving. 7. Acute renal failure secondary to shock. 8. Hypokalemia. Plan . 1. Continue with present assist control mode and make necessary adjustments based on ABGs. 2. Broad spectrum antibiotics. 3. Advanced endotracheal tube x 3 cm today. d/w RN 4. Follow the blood cultures. 5. Follow chest x-rays. 6. Deep venous thrombosis prophylaxis. 7. Stress ulcer prophylaxis. 8. Follow sodium level. 9. Follow renal recommendations. 10. Monitoring of renal function and electrolytes. 11. I had discussed at length with the patient's at the bedside 03/12 about advanced directives. She states, he was supposed to be DNR, but advanced directives were not available to the ER physician, as a result he ended up with intubation. At this point, She only wants CPR and no electrical shocks. If the patient's clinical condition does not improve, she would allow natural . Discussed with PORTILLO CAMPOS MD March 13, 2017 10:16
--- NOTE | 2017-03-13 10:22 | PDOC ---
Renal-Progress Notes Subjective Notes Notes INTUBATED History of Present Illness Hx of present illness NO CHANGE Vitals Vitals Vital Signs Date Time Temp Pulse Resp B/P (MAP) Pulse Ox O2 Delivery O2 Flow Rate FiO2 03/13/17 10:00 80 21 82/57 (65) 100 Ventilator 03/13/17 08:58 102.9 102.9 03/12/17 16:00 40.0 Weight Weight [ ] I.O. Intake and Output Intake and Output 03/13/17 07:00 Intake Total 9672 ml Output Total 1395 ml Balance 8277 ml Intake Oral 0 ml IV Total 6680 ml Tube Feeding 311 ml Other 2681 ml Output Urine Total 1395 ml Labs Labs Laboratory Tests Test 03/12/17 13:30 03/12/17 17:00 03/12/17 22:00 03/13/17 05:45 Sodium Level 166 mmol/L (136-145) 164 mmol/L (136-145) 164 mmol/L (136-145) 163 mmol/L (136-145) Potassium Level 1.8 mmol/L (3.5-5.1) 2.8 mmol/L (3.5-5.1) 3.0 mmol/L (3.5-5.1) 3.9 mmol/L (3.5-5.1) Phosphorus Level 0.9 mg/dL (2.6-4.7) 4.0 mg/dL (2.6-4.7) 2.0 mg/dL (2.6-4.7) Creatine Kinase 562 U/L (39-308) Free Thyroxine 0.88 ng/dL (0.76-1.46) White Blood Count 12.2 x10^3/uL (4.0-11.0) Red Blood Count 3.63 x10^6/uL (4.30-5.70) Hemoglobin 10.9 g/dL (13.0-17.5) Hematocrit 33.5 % (39.0-53.0) Mean Corpuscular Volume 92 fL (79-100) Mean Corpuscular Hemoglobin 30 pg (25-35) Mean Corpuscular Hemoglobin Concent 33 g/dL (31-37) Red Cell Distribution Width 16.8 % (11.5-14.5) Platelet Count 82 x10^3/uL (140-400) Neutrophils (%) (Auto) 84 % (31-73) Lymphocytes (%) (Auto) 12 % (24-48) Monocytes (%) (Auto) 4 % (0-9) Eosinophils (%) (Auto) 0 % (0-3) Basophils (%) (Auto) 0 % (0-3) Neutrophils # (Auto) 10.2 x10^3uL (1.8-7.7) Lymphocytes # (Auto) 1.4 x10^3/uL (1.0-4.8) Monocytes # (Auto) 0.5 x10^3/uL (0.0-1.1) Eosinophils # (Auto) 0.0 x10^3/uL (0.0-0.7) Basophils # (Auto) 0.0 x10^3/uL (0.0-0.2) Platelet Estimate Decreased (ADEQUATE) Giant Platelets Present Chloride Level 131 mmol/L (98-107) Carbon Dioxide Level 20 mmol/L (21-32) Anion Gap 12 (6-14) Blood Urea Nitrogen 28 mg/dL (8-26) Creatinine 1.2 mg/dL (0.7-1.3) Estimated GFR (Cockcroft-Gault) 62.6 BUN/Creatinine Ratio 23 (6-20) Glucose Level 127 mg/dL (70-99) Lactic Acid Level 1.8 mmol/L (0.4-2.0) Calcium Level 7.4 mg/dL (8.5-10.1) Magnesium Level 1.8 mg/dL (1.8-2.4) Total Bilirubin 0.5 mg/dL (0.2-1.0) Aspartate Amino Transf (AST/SGOT) 59 U/L (15-37) Alanine Aminotransferase (ALT/SGPT) 62 U/L (16-63) Alkaline Phosphatase 148 U/L (46-116) Total Protein 5.5 g/dL (6.4-8.2) Albumin 2.1 g/dL (3.4-5.0) Albumin/Globulin Ratio 0.6 (1.0-1.7) Procalcitonin 2.42 ng/mL (0.00-0.10) Test 03/13/17 08:40 O2 Saturation 98 % (92-99) Arterial Blood pH 7.44 (7.35-7.45) Arterial Blood pCO2 at Patient Temp 27 mmHg (35-46) Arterial Blood pO2 at Patient Temp 139 mmHg (75-108) Arterial Blood HCO3 18 mmol/L (21-28) Arterial Blood Base Excess -5 mmol/L (-3-3) FiO2 40 Micro Micro Microbiology 03/11/17 Blood Culture - Final, Complete 03/12/17 Gram Stain - Final, Complete Review of Systems Constitutional: yes: no symptom reported Physical Exam General Appearance: no apparent distress Skin: warm Respiratory: decreased breath sounds Heart: S1S2 Abdomen: soft, bowel sounds present Genitourinary: bladder flat Extremities: no edema, atrophy Musculoskeletal: Other Assessment Assessment IMP HERNÁN-IMPROVING DEHYDRATION HYPERNATREMIA LEUCOCYTOSIS RESP FAILURE G NEG SEPSIS HYPOKALEMIA PLAN REPLACE K CONT WITH IVF'S-CHANGE TO D5W CONT WITH ANTIBIOTICS CONT TF AND ADD WATER FLUSHES LABS IN AM RANDALL VENTURA MD March 13, 2017 10:22
--- NOTE | 2017-03-13 10:26 | PDOC ---
PROGRESS NOTES Chief Complaint Chief Complaint cc: aspiration, respiratory failure A/P 1. Acute hypoxic respiratory failure, POA: On mechanical ventilation on Assist control, on Vent bundle, iv Protonix daily, DVT prophylaxis on hold, daily CXR , daily ABG. pulmonology following. 2. Suspected aspiration pneumonia, POA, : Blood cx positive gram negative rods , on Zosyn and Zyvox, Micafungin, ID consulted, continue supportive care. 3. Shock, Septic: on volume resuscitation, Levophed, and Dopamine, goal MAP > 65, Echo normal EF, Continue supportive care. 4. Severe hypernatremia at 175 poa.: previous Na with in normal range, water deficit, 12 hrs, on D5W, improved to 163 , Frequent BMP, water flushes with tube feeds, 5. Hypokalemia, present on admission.: check Magnesium, replace potassium. 6. Metabolic acidosis: due to sepsis. 7. Acute kidney injury, present on admission: possible VMN/Sepsis. Resolving. 8. Thrombocytopenia: possible due to sepsis, hold heparin, and monitor platelets. PT, APTT, INR, D - dimer, and fibrinogen ordered. 9. Acute on chronic metabolic encephalopathy.: due to sepsis and Hyponatremia, 10. Nutrition: start tube feeds, nutrition consult. 11. Prognosis poor, , d/w RN, CC TIME 32 MIN. History of Present Illness History of Present Illness on Ventilator fevers central Vitals Vitals Vital Signs Date Time Temp Pulse Resp B/P (MAP) Pulse Ox O2 Delivery O2 Flow Rate FiO2 03/13/17 10:00 80 21 82/57 (65) 100 Ventilator 03/13/17 08:58 102.9 102.9 03/12/17 16:00 40.0 Physical Exam General: Other (sedated) Heart: Normal S1, Normal S2 Lungs: Other (decrease bs) Abdomen: Normal bowel sounds, Soft Extremities: Other (MILD edema. ) Skin: Other (dressing present in abdominal region. ) Labs LABS Laboratory Tests Test 03/12/17 13:30 03/12/17 17:00 03/12/17 22:00 03/13/17 05:45 Sodium Level 166 mmol/L (136-145) 164 mmol/L (136-145) 164 mmol/L (136-145) 163 mmol/L (136-145) Potassium Level 1.8 mmol/L (3.5-5.1) 2.8 mmol/L (3.5-5.1) 3.0 mmol/L (3.5-5.1) 3.9 mmol/L (3.5-5.1) Phosphorus Level 0.9 mg/dL (2.6-4.7) 4.0 mg/dL (2.6-4.7) 2.0 mg/dL (2.6-4.7) Creatine Kinase 562 U/L (39-308) Free Thyroxine 0.88 ng/dL (0.76-1.46) White Blood Count 12.2 x10^3/uL (4.0-11.0) Red Blood Count 3.63 x10^6/uL (4.30-5.70) Hemoglobin 10.9 g/dL (13.0-17.5) Hematocrit 33.5 % (39.0-53.0) Mean Corpuscular Volume 92 fL (79-100) Mean Corpuscular Hemoglobin 30 pg (25-35) Mean Corpuscular Hemoglobin Concent 33 g/dL (31-37) Red Cell Distribution Width 16.8 % (11.5-14.5) Platelet Count 82 x10^3/uL (140-400) Neutrophils (%) (Auto) 84 % (31-73) Lymphocytes (%) (Auto) 12 % (24-48) Monocytes (%) (Auto) 4 % (0-9) Eosinophils (%) (Auto) 0 % (0-3) Basophils (%) (Auto) 0 % (0-3) Neutrophils # (Auto) 10.2 x10^3uL (1.8-7.7) Lymphocytes # (Auto) 1.4 x10^3/uL (1.0-4.8) Monocytes # (Auto) 0.5 x10^3/uL (0.0-1.1) Eosinophils # (Auto) 0.0 x10^3/uL (0.0-0.7) Basophils # (Auto) 0.0 x10^3/uL (0.0-0.2) Platelet Estimate Decreased (ADEQUATE) Giant Platelets Present Chloride Level 131 mmol/L (98-107) Carbon Dioxide Level 20 mmol/L (21-32) Anion Gap 12 (6-14) Blood Urea Nitrogen 28 mg/dL (8-26) Creatinine 1.2 mg/dL (0.7-1.3) Estimated GFR (Cockcroft-Gault) 62.6 BUN/Creatinine Ratio 23 (6-20) Glucose Level 127 mg/dL (70-99) Lactic Acid Level 1.8 mmol/L (0.4-2.0) Calcium Level 7.4 mg/dL (8.5-10.1) Magnesium Level 1.8 mg/dL (1.8-2.4) Total Bilirubin 0.5 mg/dL (0.2-1.0) Aspartate Amino Transf (AST/SGOT) 59 U/L (15-37) Alanine Aminotransferase (ALT/SGPT) 62 U/L (16-63) Alkaline Phosphatase 148 U/L (46-116) Total Protein 5.5 g/dL (6.4-8.2) Albumin 2.1 g/dL (3.4-5.0) Albumin/Globulin Ratio 0.6 (1.0-1.7) Procalcitonin 2.42 ng/mL (0.00-0.10) Test 03/13/17 08:40 O2 Saturation 98 % (92-99) Arterial Blood pH 7.44 (7.35-7.45) Arterial Blood pCO2 at Patient Temp 27 mmHg (35-46) Arterial Blood pO2 at Patient Temp 139 mmHg (75-108) Arterial Blood HCO3 18 mmol/L (21-28) Arterial Blood Base Excess -5 mmol/L (-3-3) FiO2 40 Assessment and Plan Assessmemt and Plan Problems Medical Problems: (1) Hypernatremia Status: Acute (2) Hypokalemia Status: Acute Problems: Comment Review of Relevant I have reviewed the following items ambrose (where applicable) has been applied. Labs Laboratory Tests Test 03/11/17 18:15 03/11/17 18:30 03/11/17 18:38 03/11/17 20:18 O2 Saturation 98 % (92-99) Arterial Blood pH 7.40 (7.35-7.45) Arterial Blood pCO2 at Patient Temp 31 mmHg (35-46) Arterial Blood pO2 at Patient Temp 136 mmHg (75-108) Arterial Blood HCO3 19 mmol/L (21-28) Arterial Blood Base Excess -5 mmol/L (-3-3) Raul Test Pos Oxyhemoglobin 97.8 % Methemoglobin 0.3 % (0.0-1.9) Carbon Monoxide, Quantitative 0.2 % (0.0-1.9) FiO2 40 White Blood Count 20.3 x10^3/uL (4.0-11.0) Red Blood Count 5.54 x10^6/uL (4.30-5.70) Hemoglobin 16.5 g/dL (13.0-17.5) Hematocrit 53.2 % (39.0-53.0) Mean Corpuscular Volume 96 fL (79-100) Mean Corpuscular Hemoglobin 30 pg (25-35) Mean Corpuscular Hemoglobin Concent 31 g/dL (31-37) Red Cell Distribution Width 17.0 % (11.5-14.5) Platelet Count 189 x10^3/uL (140-400) Neutrophils (%) (Auto) 88 % (31-73) Lymphocytes (%) (Auto) 5 % (24-48) Monocytes (%) (Auto) 7 % (0-9) Eosinophils (%) (Auto) 0 % (0-3) Basophils (%) (Auto) 0 % (0-3) Neutrophils # (Auto) 18.0 x10^3uL (1.8-7.7) Lymphocytes # (Auto) 0.9 x10^3/uL (1.0-4.8) Monocytes # (Auto) 1.3 x10^3/uL (0.0-1.1) Eosinophils # (Auto) 0.0 x10^3/uL (0.0-0.7) Basophils # (Auto) 0.1 x10^3/uL (0.0-0.2) Segmented Neutrophils % 81 % (35-66) Band Neutrophils % 6 % (0-9) Lymphocytes % 8 % (24-48) Monocytes % 5 % (0-10) Toxic Granulation Slight Platelet Estimate Adequate (ADEQUATE) Sodium Level 175 mmol/L (136-145) Potassium Level 2.9 mmol/L (3.5-5.1) Chloride Level 132 mmol/L (98-107) Carbon Dioxide Level 25 mmol/L (21-32) Anion Gap 18 (6-14) Blood Urea Nitrogen 71 mg/dL (8-26) Creatinine 3.2 mg/dL (0.7-1.3) Estimated GFR (Cockcroft-Gault) 20.2 BUN/Creatinine Ratio 22 (6-20) Glucose Level 155 mg/dL (70-99) Lactic Acid Level 8.6 mmol/L (0.4-2.0) 4.5 mmol/L (0.4-2.0) Calcium Level 9.5 mg/dL (8.5-10.1) Total Bilirubin 1.0 mg/dL (0.2-1.0) Aspartate Amino Transf (AST/SGOT) 86 U/L (15-37) Alanine Aminotransferase (ALT/SGPT) 117 U/L (16-63) Alkaline Phosphatase 236 U/L (46-116) Creatine Kinase 427 U/L (39-308) Creatine Kinase MB (Mass) 1.3 ng/mL (0.0-3.6) Creatine Kinase MB Relative Index 0.3 % (0-4) Troponin I Quantitative 0.027 ng/mL (0.000-0.055) Total Protein 8.3 g/dL (6.4-8.2) Albumin 3.6 g/dL (3.4-5.0) Albumin/Globulin Ratio 0.8 (1.0-1.7) Amylase Level 109 U/L (25-115) Lipase 57 U/L (73-393) Urine Collection Type U cath Urine Color Nicolasa Urine Clarity Clear Urine pH 5.0 Urine Specific [place] >=1.030 Urine Protein 30 mg/dL (NEG-TRACE) Urine Glucose (UA) Negative mg/dL (NEG) Urine Ketones (Stick) Negative mg/dL (NEG) Urine Blood Negative (NEG) Urine Nitrite Negative (NEG) Urine Bilirubin Moderate (NEG) Urine Urobilinogen Dipstick 1.0 mg/dL (0.2 mg/dL) Urine Leukocyte Esterase Negative (NEG) Urine RBC Occ /HPF (0-2) Urine WBC 0 /HPF (0-4) Urine Squamous Epithelial Cells Few /LPF Urine Amorphous Sediment Present /HPF Urine Bacteria 0 /HPF (0-FEW) Urine Mucus Slight /LPF Test 03/11/17 21:30 03/11/17 23:16 03/12/17 03:59 03/12/17 09:14 Sodium Level 173 mmol/L (136-145) 171 mmol/L (136-145) 169 mmol/L (136-145) Potassium Level 2.7 mmol/L (3.5-5.1) 2.3 mmol/L (3.5-5.1) 3.0 mmol/L (3.5-5.1) Chloride Level 136 mmol/L (98-107) 134 mmol/L (98-107) 131 mmol/L (98-107) Carbon Dioxide Level 20 mmol/L (21-32) 22 mmol/L (21-32) 22 mmol/L (21-32) Anion Gap 17 (6-14) 15 (6-14) 16 (6-14) Blood Urea Nitrogen 69 mg/dL (8-26) 67 mg/dL (8-26) 62 mg/dL (8-26) Creatinine 2.7 mg/dL (0.7-1.3) 2.4 mg/dL (0.7-1.3) 2.1 mg/dL (0.7-1.3) Estimated GFR (Cockcroft-Gault) 24.6 28.1 32.8 Glucose Level 162 mg/dL (70-99) 210 mg/dL (70-99) 163 mg/dL (70-99) Calcium Level 8.2 mg/dL (8.5-10.1) 8.1 mg/dL (8.5-10.1) 7.8 mg/dL (8.5-10.1) Nasal Screen MRSA (PCR) Positive (Negative) White Blood Count 24.1 x10^3/uL (4.0-11.0) Red Blood Count 4.60 x10^6/uL (4.30-5.70) Hemoglobin 13.4 g/dL (13.0-17.5) Hematocrit 42.6 % (39.0-53.0) Mean Corpuscular Volume 93 fL (79-100) Mean Corpuscular Hemoglobin 29 pg (25-35) Mean Corpuscular Hemoglobin Concent 32 g/dL (31-37) Red Cell Distribution Width 16.5 % (11.5-14.5) Platelet Count 145 x10^3/uL (140-400) Neutrophils (%) (Auto) 90 % (31-73) Lymphocytes (%) (Auto) 6 % (24-48) Monocytes (%) (Auto) 4 % (0-9) Eosinophils (%) (Auto) 0 % (0-3) Basophils (%) (Auto) 0 % (0-3) Neutrophils # (Auto) 21.7 x10^3uL (1.8-7.7) Lymphocytes # (Auto) 1.4 x10^3/uL (1.0-4.8) Monocytes # (Auto) 0.9 x10^3/uL (0.0-1.1) Eosinophils # (Auto) 0.0 x10^3/uL (0.0-0.7) Basophils # (Auto) 0.1 x10^3/uL (0.0-0.2) Lactic Acid Level 2.8 mmol/L (0.4-2.0) Magnesium Level 2.0 mg/dL (1.8-2.4) Procalcitonin 5.32 ng/mL (0.00-0.10) Thyroid Stimulating Hormone (TSH) 1.539 uIU/mL (0.358-3.74) Test 03/12/17 13:30 03/12/17 17:00 03/12/17 22:00 03/13/17 05:45 Sodium Level 166 mmol/L (136-145) 164 mmol/L (136-145) 164 mmol/L (136-145) 163 mmol/L (136-145) Potassium Level 1.8 mmol/L (3.5-5.1) 2.8 mmol/L (3.5-5.1) 3.0 mmol/L (3.5-5.1) 3.9 mmol/L (3.5-5.1) Phosphorus Level 0.9 mg/dL (2.6-4.7) 4.0 mg/dL (2.6-4.7) 2.0 mg/dL (2.6-4.7) Creatine Kinase 562 U/L (39-308) Free Thyroxine 0.88 ng/dL (0.76-1.46) White Blood Count 12.2 x10^3/uL (4.0-11.0) Red Blood Count 3.63 x10^6/uL (4.30-5.70) Hemoglobin 10.9 g/dL (13.0-17.5) Hematocrit 33.5 % (39.0-53.0) Mean Corpuscular Volume 92 fL (79-100) Mean Corpuscular Hemoglobin 30 pg (25-35) Mean Corpuscular Hemoglobin Concent 33 g/dL (31-37) Red Cell Distribution Width 16.8 % (11.5-14.5) Platelet Count 82 x10^3/uL (140-400) Neutrophils (%) (Auto) 84 % (31-73) Lymphocytes (%) (Auto) 12 % (24-48) Monocytes (%) (Auto) 4 % (0-9) Eosinophils (%) (Auto) 0 % (0-3) Basophils (%) (Auto) 0 % (0-3) Neutrophils # (Auto) 10.2 x10^3uL (1.8-7.7) Lymphocytes # (Auto) 1.4 x10^3/uL (1.0-4.8) Monocytes # (Auto) 0.5 x10^3/uL (0.0-1.1) Eosinophils # (Auto) 0.0 x10^3/uL (0.0-0.7) Basophils # (Auto) 0.0 x10^3/uL (0.0-0.2) Platelet Estimate Decreased (ADEQUATE) Giant Platelets Present Chloride Level 131 mmol/L (98-107) Carbon Dioxide Level 20 mmol/L (21-32) Anion Gap 12 (6-14) Blood Urea Nitrogen 28 mg/dL (8-26) Creatinine 1.2 mg/dL (0.7-1.3) Estimated GFR (Cockcroft-Gault) 62.6 BUN/Creatinine Ratio 23 (6-20) Glucose Level 127 mg/dL (70-99) Lactic Acid Level 1.8 mmol/L (0.4-2.0) Calcium Level 7.4 mg/dL (8.5-10.1) Magnesium Level 1.8 mg/dL (1.8-2.4) Total Bilirubin 0.5 mg/dL (0.2-1.0) Aspartate Amino Transf (AST/SGOT) 59 U/L (15-37) Alanine Aminotransferase (ALT/SGPT) 62 U/L (16-63) Alkaline Phosphatase 148 U/L (46-116) Total Protein 5.5 g/dL (6.4-8.2) Albumin 2.1 g/dL (3.4-5.0) Albumin/Globulin Ratio 0.6 (1.0-1.7) Procalcitonin 2.42 ng/mL (0.00-0.10) Test 03/13/17 08:40 O2 Saturation 98 % (92-99) Arterial Blood pH 7.44 (7.35-7.45) Arterial Blood pCO2 at Patient Temp 27 mmHg (35-46) Arterial Blood pO2 at Patient Temp 139 mmHg (75-108) Arterial Blood HCO3 18 mmol/L (21-28) Arterial Blood Base Excess -5 mmol/L (-3-3) FiO2 40 Laboratory Tests Test 03/12/17 13:30 03/12/17 17:00 03/12/17 22:00 03/13/17 05:45 Sodium Level 166 mmol/L (136-145) 164 mmol/L (136-145) 164 mmol/L (136-145) 163 mmol/L (136-145) Potassium Level 1.8 mmol/L (3.5-5.1) 2.8 mmol/L (3.5-5.1) 3.0 mmol/L (3.5-5.1) 3.9 mmol/L (3.5-5.1) Phosphorus Level 0.9 mg/dL (2.6-4.7) 4.0 mg/dL (2.6-4.7) 2.0 mg/dL (2.6-4.7) Creatine Kinase 562 U/L (39-308) Free Thyroxine 0.88 ng/dL (0.76-1.46) White Blood Count 12.2 x10^3/uL (4.0-11.0) Red Blood Count 3.63 x10^6/uL (4.30-5.70) Hemoglobin 10.9 g/dL (13.0-17.5) Hematocrit 33.5 % (39.0-53.0) Mean Corpuscular Volume 92 fL (79-100) Mean Corpuscular Hemoglobin 30 pg (25-35) Mean Corpuscular Hemoglobin Concent 33 g/dL (31-37) Red Cell Distribution Width 16.8 % (11.5-14.5) Platelet Count 82 x10^3/uL (140-400) Neutrophils (%) (Auto) 84 % (31-73) Lymphocytes (%) (Auto) 12 % (24-48) Monocytes (%) (Auto) 4 % (0-9) Eosinophils (%) (Auto) 0 % (0-3) Basophils (%) (Auto) 0 % (0-3) Neutrophils # (Auto) 10.2 x10^3uL (1.8-7.7) Lymphocytes # (Auto) 1.4 x10^3/uL (1.0-4.8) Monocytes # (Auto) 0.5 x10^3/uL (0.0-1.1) Eosinophils # (Auto) 0.0 x10^3/uL (0.0-0.7) Basophils # (Auto) 0.0 x10^3/uL (0.0-0.2) Platelet Estimate Decreased (ADEQUATE) Giant Platelets Present Chloride Level 131 mmol/L (98-107) Carbon Dioxide Level 20 mmol/L (21-32) Anion Gap 12 (6-14) Blood Urea Nitrogen 28 mg/dL (8-26) Creatinine 1.2 mg/dL (0.7-1.3) Estimated GFR (Cockcroft-Gault) 62.6 BUN/Creatinine Ratio 23 (6-20) Glucose Level 127 mg/dL (70-99) Lactic Acid Level 1.8 mmol/L (0.4-2.0) Calcium Level 7.4 mg/dL (8.5-10.1) Magnesium Level 1.8 mg/dL (1.8-2.4) Total Bilirubin 0.5 mg/dL (0.2-1.0) Aspartate Amino Transf (AST/SGOT) 59 U/L (15-37) Alanine Aminotransferase (ALT/SGPT) 62 U/L (16-63) Alkaline Phosphatase 148 U/L (46-116) Total Protein 5.5 g/dL (6.4-8.2) Albumin 2.1 g/dL (3.4-5.0) Albumin/Globulin Ratio 0.6 (1.0-1.7) Procalcitonin 2.42 ng/mL (0.00-0.10) Test 03/13/17 08:40 O2 Saturation 98 % (92-99) Arterial Blood pH 7.44 (7.35-7.45) Arterial Blood pCO2 at Patient Temp 27 mmHg (35-46) Arterial Blood pO2 at Patient Temp 139 mmHg (75-108) Arterial Blood HCO3 18 mmol/L (21-28) Arterial Blood Base Excess -5 mmol/L (-3-3) FiO2 40 Microbiology 03/11/17 Blood Culture - Final, Complete 03/12/17 Gram Stain - Final, Complete Medications Current Medications Norepinephrine Bitartrate 250 ml @ 0 mls/hr 1X ONCE IV Last administered on 19:01; Start 03/11/17 at 18:15; Stop 03/11/17 at 18:16; Status DC Sodium Chloride (Normal Saline Flush) 10 ml QSHIFT PRN IV AFTER MEDS AND BLOOD DRAWS; Start 03/11/17 at 18:15 Sodium Chloride 3,300 ml @ 3,300 mls/hr Q1H IV Last administered on 03/11/17 18:33; Start 03/11/17 at 18:15; Stop 03/11/17 at 18:37; Status DC Piperacillin Sod/ Tazobactam Sod 4.5 gm/Sodium Chloride 100 ml @ 200 mls/hr 1X ONCE IV Last administered on 03/11/17 18:54; Start 03/11/17 at 18:15; Stop 03/11/17 at 18:52; Status DC Norepinephrine Bitartrate 250 ml @ 0 mls/hr CONT PRN IV PER PROTOCOL Last administered on 03/13/17 07:15; Start 03/11/17 at 18:15 Midazolam HCl 100 ml @ 0 mls/hr 1X ONCE IV Last administered on 03/11/17 18: 32; Start 03/11/17 at 18:30; Stop 03/11/17 at 18:59; Status DC Vancomycin HCl (Vanco Per Pharmacy) 1 each PRN DAILY PRN MC SEE COMMENTS Last administered on 03/11/17 19:59; Start 03/11/17 at 18:30; Stop 03/12/17 at 09:39 ; Status DC Piperacillin Sod/ Tazobactam Sod (Zosyn Per Pharmacy) 1 each PRN DAILY PRN MC SEE COMMENTS; Start 03/11/17 at 18:30 Sodium Chloride 1,000 ml @ 3,300 mls/hr Q19M IV Last administered on 18:45; Start 03/11/17 at 18:45; Stop 03/11/17 at 19:15; Status DC Etomidate (Amidate) 20 mg STK-MED ONCE IV ; Start 03/11/17 at 18:40; Stop at 18:41; Status DC Succinylcholine Chloride (Anectine) 200 mg STK-MED ONCE .ROUTE ; Start 03/11/17 at 18:40; Stop 03/11/17 at 18:41; Status DC Ondansetron HCl (Zofran) 4 mg PRN Q8HRS PRN IV NAUSEA/VOMITING; Start 03/11/17 at 19:00; Stop 03/12/17 at 18:59; Status DC Sodium Chloride 1,000 ml @ 150 mls/hr Q6H40M IV ; Start 03/11/17 at 18:51; Stop 03/11/17 at 21:31; Status DC Albuterol/ Ipratropium (Duoneb) 3 ml RTQID NEB Last administered on 03/12/17 19:25; Start 03/11/17 at 20:00; Stop 03/12/17 at 19:59; Status DC Vancomycin HCl 2 gm/Sodium Chloride 500 ml @ 250 mls/hr 1X ONCE IV Last administered on 03/11/17 19:40; Start 03/11/17 at 20:00; Stop 03/11/17 at 21:59 ; Status DC Piperacillin Sod/ Tazobactam Sod 4.5 gm/Sodium Chloride 100 ml @ 200 mls/hr Q6HRS IV Last administered on 03/12/17 06:35; Start 03/12/17 at 00:00; Stop at 09:39; Status DC Hydrocortisone Sodium Succinate (Solu-CORTEF) 100 mg 1X ONCE IV ; Start at 19:15; Stop 03/11/17 at 19:32; Status DC Hydrocortisone Sodium Succinate (Solu-CORTEF) 250 mg 1X ONCE IV Last administered on 03/11/17 19:37; Start 03/11/17 at 19:45; Stop 03/11/17 at 19:46 ; Status DC Acetaminophen (Acetaminophen Supp) 1,000 mg 1X ONCE LA Last administered on 5/ 18/17at 20:27; Start 03/11/17 at 20:00; Stop 03/11/17 at 20:01; Status DC Vancomycin HCl 1.25 gm/Sodium Chloride 250 ml @ 166.667 mls/hr Q24H IV ; Start 03/12/17 at 20:00; Stop 03/12/17 at 20:00; Status DC Vancomycin HCl 1 each 1X ONCE MC ; Start 03/13/17 at 19:30; Stop 03/13/17 at 19 :31; Status Cancel Dextrose/Sodium Chloride 500 ml @ 1,000 mls/hr 1X ONCE IV ; Start 03/11/17 at 21:30; Stop 03/11/17 at 21:59; Status DC Dextrose/Sodium Chloride 1,000 ml @ 150 mls/hr Q6H40M IV ; Start 03/11/17 at 21 :30; Stop 03/12/17 at 04:09; Status DC Potassium Chloride 40 meq/ Dextrose 1,020 ml @ 75 mls/hr 1X ONCE IV ; Start at 21:45; Stop 03/12/17 at 04:09; Status DC Dextrose/Sodium Chloride 500 ml @ 0 mls/hr 1X ONCE IV ; Start 03/11/17 at 22:30 ; Stop 03/11/17 at 22:31; Status DC Sterile Water 1,000 ml @ 50 mls/hr Q20H IV ; Start 03/11/17 at 22:30; Stop at 22:30; Status DC Sterile Water 1,000 ml @ 50 mls/hr Q20H IV ; Start 03/11/17 at 22:30; Stop at 23:45; Status DC Dextrose/Sodium Chloride 1,000 ml @ 125 mls/hr Q8H IV Last administered on t 10:05; Start 03/11/17 at 22:30; Stop 03/12/17 at 11:52; Status DC Dextrose/Sodium Chloride 1,000 ml @ 0 mls/hr 1X ONCE IV Last administered on 03/11/17t 22:30; Start 03/11/17 at 22:30; Stop 03/11/17 at 22:31; Status DC Potassium Chloride 100 ml @ 100 mls/hr Q1H IV Last administered on 03/12/17t 10:04; Start 03/11/17 at 23:30; Stop 03/12/17 at 07:29; Status DC Piperacillin Sod/ Tazobactam Sod 2.25 gm/Sodium Chloride 50 ml @ 100 mls/hr Q6H IV Last administered on 03/13/17 03:33; Start 03/12/17 at 10:00; Stop at 08:35; Status DC Linezolid 300 ml @ 300 mls/hr Q12HR IV Last administered on 03/13/17 08:55; Start 03/12/17 at 09:45 Micafungin Sodium 100 mg/Dextrose 100 ml @ 100 mls/hr Q24H IV Last administered on 03/12/17 10:27; Start 03/12/17 at 11:00 Pantoprazole Sodium (Protonix Vial) 40 mg DAILYAC IVP Last administered on 03/13 08:55; Start 03/13/17 at 07:30 Heparin Sodium (Porcine) (Heparin Sq) 5,000 unit Q8HRS SQ Last administered on 03/13/17 05:30; Start 03/12/17 at 14:00 Cefepime HCl 2 gm/ Sodium Chloride 100 ml @ 200 mls/hr ONCE ONCE IV Last administered on 03/12/17 10:57; Start 03/12/17 at 10:00; Stop 03/12/17 at 10:29 ; Status DC Lidocaine/Sodium Bicarbonate (Buffered Lidocaine 1%) 3 ml 1X ONCE IJ Last administered on 03/12/17 12:26; Start 03/12/17 at 10:15; Stop 03/12/17 at 10:16 ; Status DC Heparin Sodium/ Sodium Chloride 60 unit 1X ONCE IV Last administered on 12:27; Start 03/12/17 at 10:15; Stop 03/12/17 at 10:16; Status DC Metronidazole 100 ml @ 100 mls/hr Q8HRS IV Last administered on 03/13/17 05: 28; Start 03/12/17 at 14:00 Atropine Sulfate 0.5 mg STK-MED ONCE .ROUTE ; Start 03/12/17 at 10:55; Stop at 10:56; Status DC Magnesium Sulfate/ Dextrose 50 ml @ 25 mls/hr PRN DAILY PRN IV for Mag < 1.7 on am labs; Start 03/12/17 at 11:30 Potassium Chloride/Dextrose/ Sod Cl 1,000 ml @ 100 mls/hr Q10H IV Last administered on 03/12/17 13:19; Start 03/12/17 at 11:30; Stop 03/12/17 at 14:46 ; Status DC Potassium Chloride 100 ml @ 100 mls/hr Q1H IV Last administered on 03/12/17 17:00; Start 03/12/17 at 12:00; Stop 03/12/17 at 19:59; Status DC Potassium Chloride/Dextrose/ Sod Cl 1,000 ml @ 100 mls/hr Q10H IV ; Start 03/12 at 12:15; Status UNV Atropine Sulfate 0.5 mg STK-MED ONCE .ROUTE ; Start 03/12/17 at 12:31; Stop at 12:32; Status DC Potassium Chloride/Dextrose/ Sod Cl 1,000 ml @ 100 mls/hr 1X ONCE IV ; Start 03/12/17 at 12:30; Stop 03/12/17 at 14:46; Status DC Potassium Phosphate 13.6 mmol/Sodium Chloride 104.5333 ml @ 52.267 m... Q2H IV Last administered on 03/12/17 19:23; Start 03/12/17 at 15:00; Stop 03/12/17 at 20:59; Status DC Potassium Chloride/Dextrose/ Sod Cl 1,000 ml @ 100 mls/hr Q10H IV Last administered on 03/13/17 02:42; Start 03/12/17 at 14:45; Stop 03/13/17 at 10:18 ; Status DC Dopamine HCl/ Dextrose 250 ml @ 16.423 mls/ hr CONT PRN IV SEE I/O RECORD; Start 03/12/17 at 16:30 Potassium Chloride 50 ml @ 25 mls/hr Q2H IV Last administered on 03/13/17 02: 29; Start 03/12/17 at 19:00; Stop 03/13/17 at 02:59; Status DC Fentanyl Citrate (Fentanyl 2ml Vial) 50 mcg PRN Q2HR PRN IV PAIN Last administered on 03/13/17 05:28; Start 03/12/17 at 20:30 Lorazepam (Ativan) 2 mg PRN Q4HRS PRN IV ANXIETY / AGITATION Last administered on 03/13/17 00:23; Start 03/12/17 at 20:30 Piperacillin Sod/ Tazobactam Sod 3.375 gm/Sodium Chloride 50 ml @ 100 mls/hr Q6HRS IV Last administered on 03/13/17 10:06; Start 03/13/17 at 10:00 Potassium Chloride/Dextrose 1,000 ml @ 125 mls/hr Q8H IV ; Start 03/13/17 at 10 :15 Active Scripts Active Reported Melatonin 3 Mg Tablet 1 Tab PO QHS Melatonin 1 Mg Tablet 1 Mg PO HS Vitamin D (Cholecalciferol (Vitamin D3)) 1,000 Unit Capsule 1,000 Cap PO DAILY Lactulose 20 Gm/30 Ml Solution 37.5 Gm PO TID PRN Flector (Diclofenac Epolamine) 1 Each Patch.td12 2 Patch TP BID Miralax (Polyethylene Glycol 3350) 17 Gm Powd.pack 1 Packet PO PRN Q12HR Olanzapine 5 Mg Tablet 1 Tab PO BID Nutritional Drink Mix (Protein Supplement) 420 Gm Powder 420 Gm PO Seroquel (Quetiapine Fumarate) 50 Mg Tablet 50 Mg PO BID Trazodone Hcl 100 Mg Tablet 1 Tab PO QHS Tramadol Hcl 50 Mg Tablet 50 Mg PO Q8HRS PRN Tylenol (Acetaminophen) 325 Mg Tablet 2 Tab PEG PRN Q4-6HRS PRN Valtrex (Valacyclovir Hcl) 1,000 Mg Tablet 1 Tab PO DAILY Tamsulosin Hcl 0.4 Mg Cap.er.24h 1 Cap PO DAILY Citrucel (Methylcellulose) 479 Gm Powder 479 Gm PO Fluticasone Propionate Nasal [place] (Fluticasone Propionate) 16 Gm [place].susp 2 [place] NS HS Xarelto (Rivaroxaban) 20 Mg Tablet 20 Mg PEG DAILY Buspirone Hcl 5 Mg Tablet 1 Tab PEG TID Vitamin D (Cholecalciferol (Vitamin D3)) 10,000 Unit Capsule 50,000 Unit PO QFR Famotidine 20 Mg Tablet 20 Mg PO BID Thiamine Hcl 100 Mg Tablet 100 Mg PEG DAILY Oxcarbazepine 300 Mg Tablet 1 Tab PEG BID Duoneb 0.5-3(2.5) Mg/3 Ml (Albuterol/Ipratropium) 3 Ml Ampul.neb 3 Ml NEB BID Anti-Diarrheal (Loperamide Hcl) 2 Mg Capsule 2 Mg PO BID Vitals/I & O Vital Sign - Last 24 Hours 03/12/17 03/12/17 03/12/17 03/12/17 10:30 11:00 11:33 11:37 Pulse 68 84 B/P (MAP) 108/65 (79) 117/75 (89) Pulse Ox 100 100 100 O2 Delivery Ventilator Ventilator Mechanical Ventilator Ventilator 03/12/17 03/12/17 03/12/17 03/12/17 12:00 12:30 13:00 13:00 Temp 98.6 98.6 Pulse 90 54 46 B/P (MAP) 114/67 (83) 118/68 (85) 125/67 (86) Pulse Ox 100 100 100 100 O2 Delivery Ventilator Ventilator Ventilator Ventilator 03/12/17 03/12/17 03/12/17 03/12/17 13:30 14:00 15:00 15:11 Pulse 90 76 69 Resp 19 B/P (MAP) 103/69 (80) 104/69 (81) 100/59 (73) Pulse Ox 100 100 100 100 O2 Delivery Ventilator Ventilator Ventilator Ventilator 03/12/17 03/12/17 03/12/17 03/12/17 15:30 16:00 16:00 16:30 Temp 98.9 98.9 Pulse 75 90 78 Resp 20 21 B/P (MAP) 96/60 (72) 114/67 (83) 107/68 (81) Pulse Ox 100 100 100 O2 Delivery Ventilator Mechanical Ventilator Ventilator Ventilator O2 Flow Rate 40.0 03/12/17 03/12/17 03/12/17 03/12/17 16:57 17:00 18:00 19:00 Temp 99.9 99.9 Pulse 65 77 78 Resp 20 20 20 B/P (MAP) 119/89 (99) 112/80 (91) 111/72 (85) Pulse Ox 100 100 100 100 O2 Delivery Ventilator Ventilator Ventilator Ventilator 03/12/17 03/12/17 03/12/17 03/12/17 19:25 20:00 20:00 21:00 Pulse 80 77 Resp 20 20 B/P (MAP) 105/67 (80) 111/67 (82) Pulse Ox 100 100 100 O2 Delivery Ventilator Mechanical Ventilator Ventilator Ventilator 03/12/17 03/12/17 03/12/17 03/12/17 21:45 22:00 22:15 23:00 Pulse 87 82 Resp 20 26 20 B/P (MAP) 122/77 (92) 99/62 (74) Pulse Ox 100 100 100 O2 Delivery Ventilator Ventilator BiPAP/CPAP Ventilator 03/12/17 03/12/17 03/13/17 03/13/17 23:18 23:59 00:00 00:55 Temp 98.8 98.8 Pulse 87 Resp 24 B/P (MAP) 108/65 (79) Pulse Ox 100 100 100 O2 Delivery Ventilator Mechanical Ventilator Ventilator Ventilator 03/13/17 03/13/17 03/13/17 03/13/17 01:00 01:03 02:00 03:00 Pulse 88 84 86 Resp 22 20 20 B/P (MAP) 116/71 (86) 96/62 (73) 102/57 (72) Pulse Ox 100 100 100 O2 Delivery Ventilator Ventilator Ventilator Ventilator 03/13/17 03/13/17 03/13/17 03/13/17 03:15 04:00 04:00 05:00 Temp 98.1 98.1 Pulse 93 83 Resp 22 B/P (MAP) 92/57 (69) 104/62 (76) Pulse Ox 100 100 100 O2 Delivery Ventilator Ventilator Mechanical Ventilator Ventilator 03/13/17 03/13/17 03/13/17 03/13/17 05:25 05:28 05:58 06:00 Pulse 84 Resp 20 20 B/P (MAP) 96/57 (70) Pulse Ox 100 100 O2 Delivery Ventilator Ventilator Ventilator Ventilator 03/13/17 03/13/17 03/13/17 03/13/17 07:00 08:00 08:00 08:42 Temp 102.7 102.7 Pulse 82 85 Resp 20 24 B/P (MAP) 94/59 (71) 86/54 (65) Pulse Ox 100 100 100 O2 Delivery Ventilator Mechanical Ventilator Ventilator Ventilator 03/13/17 03/13/17 08:58 10:00 Temp 102.9 102.9 Pulse 80 Resp 21 B/P (MAP) 82/57 (65) Pulse Ox 100 O2 Delivery Ventilator Intake and Output 03/12/17 03/12/17 03/13/17 15:00 23:00 07:00 Intake Total 3281 ml 3530 ml 2861 ml Output Total 465 ml 450 ml 480 ml Balance 2816 ml 3080 ml 2381 ml STORMY ARAIZA MD March 13, 2017 10:26
[2017-03-13] MEDS: MICAFUNGIN 100 MG in IV DEXTROSE 5% 100 ML IV SCH (10:48)
[2017-03-13] MEDS: POTASSIUM CL 20MEQ IN D5W 1,000 ML IV SCH ×2 (10:48→20:57)
--- NOTE | 2017-03-13 11:46 | PDOC ---
CARDIO Progress Notes Date and Time Date of Service 03/13/2017 Time of Evaluation 1130 Subjective Subjective: Other (intubated) Vitals Vitals Vital Signs Date Time Temp Pulse Resp B/P (MAP) Pulse Ox O2 Delivery O2 Flow Rate FiO2 03/13/17 11:19 85 21 93/60 (71) 98 Ventilator 03/13/17 08:58 102.9 102.9 03/12/17 16:00 40.0 Weight Weight [ ] Input and Output Intake and Output Intake and Output 03/13/17 07:00 Intake Total 9672 ml Output Total 1395 ml Balance 8277 ml Intake Oral 0 ml IV Total 6680 ml Tube Feeding 311 ml Other 2681 ml Output Urine Total 1395 ml Laboratory Labs Laboratory Tests Test 03/12/17 13:30 03/12/17 17:00 03/12/17 22:00 03/13/17 05:45 Sodium Level 166 mmol/L (136-145) 164 mmol/L (136-145) 164 mmol/L (136-145) 163 mmol/L (136-145) Potassium Level 1.8 mmol/L (3.5-5.1) 2.8 mmol/L (3.5-5.1) 3.0 mmol/L (3.5-5.1) 3.9 mmol/L (3.5-5.1) Phosphorus Level 0.9 mg/dL (2.6-4.7) 4.0 mg/dL (2.6-4.7) 2.0 mg/dL (2.6-4.7) Creatine Kinase 562 U/L (39-308) Free Thyroxine 0.88 ng/dL (0.76-1.46) White Blood Count 12.2 x10^3/uL (4.0-11.0) Red Blood Count 3.63 x10^6/uL (4.30-5.70) Hemoglobin 10.9 g/dL (13.0-17.5) Hematocrit 33.5 % (39.0-53.0) Mean Corpuscular Volume 92 fL (79-100) Mean Corpuscular Hemoglobin 30 pg (25-35) Mean Corpuscular Hemoglobin Concent 33 g/dL (31-37) Red Cell Distribution Width 16.8 % (11.5-14.5) Platelet Count 82 x10^3/uL (140-400) Neutrophils (%) (Auto) 84 % (31-73) Lymphocytes (%) (Auto) 12 % (24-48) Monocytes (%) (Auto) 4 % (0-9) Eosinophils (%) (Auto) 0 % (0-3) Basophils (%) (Auto) 0 % (0-3) Neutrophils # (Auto) 10.2 x10^3uL (1.8-7.7) Lymphocytes # (Auto) 1.4 x10^3/uL (1.0-4.8) Monocytes # (Auto) 0.5 x10^3/uL (0.0-1.1) Eosinophils # (Auto) 0.0 x10^3/uL (0.0-0.7) Basophils # (Auto) 0.0 x10^3/uL (0.0-0.2) Platelet Estimate Decreased (ADEQUATE) Giant Platelets Present Chloride Level 131 mmol/L (98-107) Carbon Dioxide Level 20 mmol/L (21-32) Anion Gap 12 (6-14) Blood Urea Nitrogen 28 mg/dL (8-26) Creatinine 1.2 mg/dL (0.7-1.3) Estimated GFR (Cockcroft-Gault) 62.6 BUN/Creatinine Ratio 23 (6-20) Glucose Level 127 mg/dL (70-99) Lactic Acid Level 1.8 mmol/L (0.4-2.0) Calcium Level 7.4 mg/dL (8.5-10.1) Magnesium Level 1.8 mg/dL (1.8-2.4) Total Bilirubin 0.5 mg/dL (0.2-1.0) Aspartate Amino Transf (AST/SGOT) 59 U/L (15-37) Alanine Aminotransferase (ALT/SGPT) 62 U/L (16-63) Alkaline Phosphatase 148 U/L (46-116) Total Protein 5.5 g/dL (6.4-8.2) Albumin 2.1 g/dL (3.4-5.0) Albumin/Globulin Ratio 0.6 (1.0-1.7) Procalcitonin 2.42 ng/mL (0.00-0.10) Test 03/13/17 08:40 O2 Saturation 98 % (92-99) Arterial Blood pH 7.44 (7.35-7.45) Arterial Blood pCO2 at Patient Temp 27 mmHg (35-46) Arterial Blood pO2 at Patient Temp 139 mmHg (75-108) Arterial Blood HCO3 18 mmol/L (21-28) Arterial Blood Base Excess -5 mmol/L (-3-3) FiO2 40 Microbiology Micro Microbiology 03/11/17 Blood Culture - Final, Complete 03/12/17 Gram Stain - Final, Complete Review of Systems Constitutional: yes: no symptom reported Physical Exam HEENT: Neck Supple W Full Motion Chest: Symmetric LUNGS: Other (intubated with mechanical ventilation; bibasilar crackles) Heart: S1S2, RRR (SR) Extremities: No Calf Tenderness, Other (1+ bilateral pitting edema) Neurology: oriented, other (intubated) Assessment Assessment 1. septic shock EF normal and normal wall motion Continue with levophed SR with no significant ectopies. Supportive care 2. acute respiratory failure Intubated/vent per pulmonary 3. CAD Remains unclear, no records yet 4. chronic hypotension now related to sepsis 5. Hypernatremia Per nephrology 6. Hypokalemia Better 7. Wernicke's encephalopathy since gastric bypass last fall 8. schizophrenia, anxiety, depression [facility] March 13, 2017 11:46
[2017-03-13] MEDS ORDERED: IOHEXOL 300 MG/ML 75 ML VIAL IV ONE (12:30)
[2017-03-13] MEDS ORDERED: IOHEXOL 240 MG/ML 50ML VIAL. PO ONE (12:30)
[2017-03-13] MEDS ORDERED: CONTRAST GIVEN MC PRN (12:45)
[2017-03-13 13:04] LABS: CALCIUM 7.3 mg/dL (8.5-10.1); CREATININE 1.1 mg/dL (0.7-1.3); GFR 69.2; POTASSIUM 3.6 mmol/L (3.5-5.1)
[2017-03-13] MEDS: OLANZapine 5 MG TABLET PO SCH ×2 (14:00→20:55)
[2017-03-13] MEDS: busPIRone 5 MG TABLET. PEG SCH ×2 (14:00→20:55)
[2017-03-13] MEDS: QUEtiapine 25 MG TABLET. PO SCH ×2 (14:00→20:55)
[2017-03-13] MEDS: CIPROFLOXACIN 400MG PREMIX 200 ML IV SCH ×2 (14:49→20:56)
[2017-03-13 17:01] LABS: INR 1.8 (0.8-1.1); PROTHROMBIN TIME PATIENT 19.4 SEC (11.7-14.0)
[2017-03-13] MEDS: ACETAMINOPHEN 325 MG TABLET. PO PRN (17:09)
[2017-03-13 17:10] LABS: CALCIUM 7.5 mg/dL (8.5-10.1); GFR 77.3; POTASSIUM 3.6 mmol/L (3.5-5.1)
--- NOTE | 2017-03-13 19:27 | RAD ---
PROCEDURE CT abdomen and pelvis with contrast. HISTORY Sepsis. TECHNIQUE Axial images and coronal and sagittal re-formatted images are provided. Oral contrast and 75 milliliters of intravenous Omnipaque 300 was administered without complication. One or more of the following individualized dose reduction techniques were utilized for this exam: 1. Automated exposure control. 2. Adjustment of the mA and/or kV according to patient's size. 3. Use of iterative reconstruction technique. COMPARISON None provided. FINDINGS Consolidation with air bronchograms is noted in the left lower lobe. Minimal patchy opacity is noted in the right lung base as well. There is no pleural effusion. The heart is not enlarged. There is artifact from the patient's arms which could not be raised. There is fatty infiltration of the liver. Gallbladder is absent. Common bile duct is prominent although this can be normal post cholecystectomy. Pancreas, adrenals, and spleen are unremarkable. Kidneys are symmetrically perfused. Aorta is normal caliber. There is minimal atheromatous disease in the abdominal aorta. There is no bowel obstruction or mural thickening normal appendix is noted. There are diverticula in the colon without findings of a diverticulitis. There is a wide mouthed ventral hernia containing small bowel and transverse colon. Air within the bladder is presumably from Heart catheter. There are clips in the inguinal region bilaterally. There are degenerative changes in the spine. IMPRESSION 1. Consolidation in the left lung base and patchy opacity in the right lung base, suspicious for pneumonia. 2. Wide mouthed ventral hernia containing small bowel and colon, no evidence of an associated obstruction or incarceration. Diverticulosis in the colon. Electronically signed by: Charles Banuelos MD (March 13, 2017 18:46:07)
[2017-03-13] MEDS: CHLORHEXIDINE 0.12% 15 ML MOUTHWASH. SWSP SCH (20:55)
[2017-03-14] VITALS (27 sets, daily range): BP systolic 71–109; BP diastolic 52–75
[2017-03-14] MEDS: ACETAMINOPHEN 325 MG TABLET. PO PRN ×3 (04:00→18:34)
[2017-03-14] MEDS: PIPERACILLIN/TAZOBACTAM 3.375 GM in IV NORMAL SALINE 50ML 50 ML IV SCH (05:29)
[2017-03-14 05:44] LABS: BASO % 0 % (0-3); EOS % 1 % (0-3); HEMATOCRIT 30.8 % (39.0-53.0); HEMOGLOBIN 10.5 g/dL (13.0-17.5); LYMPH # 1.4 x10^3/uL (1.0-4.8); LYMPH % 16 % (24-48); MEAN CORPUSCULAR HEMOGLOBIN 30 pg (25-35); MEAN CORPUSCULAR HGB CONC 34 g/dL (31-37); MEAN CORPUSCULAR VOLUME 89 fL (79-100); MONO % 5 % (0-9); NEUT % 78 % (31-73); PLATELET COUNT 70 x10^3/uL (140-400); RED BLOOD COUNT 3.46 x10^6/uL (4.30-5.70); RED CELL DISTRIBUTION WIDTH 17.5 % (11.5-14.5); WHITE BLOOD COUNT 8.4 x10^3/uL (4.0-11.0)
[2017-03-14 06:09] LABS: CALCIUM 7.6 mg/dL (8.5-10.1); CREATININE 1.2 mg/dL (0.7-1.3); GFR 62.6; PHOSPHORUS 1.2 mg/dL (2.6-4.7); POTASSIUM 3.6 mmol/L (3.5-5.1)
[2017-03-14 08:12] LABS: BODY TEMP ABG 102.2 DEG; CORRECTED PCO2 ABG 29 mmHg; CORRECTED PH ABG 7.49; CORRECTED PO2 ABG 174 mmHg; HCO3 ABG 21 mmol/L (21-28); PCO2 ABG 27 mmHg (35-46); PH ABG 7.52 (7.35-7.45); PO2 ABG 162 mmHg (75-108); SAT O2 ABG 99 % (92-99)
[2017-03-14 08:15] LABS: FIO2 ABG 40
--- NOTE | 2017-03-14 08:23 | PDOC ---
PROGRESS NOTES Chief Complaint Chief Complaint cc: aspiration, respiratory failure A/P 1. Acute hypoxic respiratory failure, POA: On mechanical ventilation on Assist control, on Vent bundle, iv Protonix daily, DVT prophylaxis on hold, daily CXR , daily ABG. pulmonology following. 2. Suspected aspiration pneumonia, POA, : Blood cx positive Ecoli, ID following , starting on Meropenem, continue to have fevers, 3. Shock, Septic: on volume resuscitation, Levophed, goal MAP > 65, Echo normal EF, Continue supportive care. making urine. 4. Severe hypernatremia at 175 poa.: previous Na with in normal range, improving with D5, hold free water 5. Hypokalemia, Magnesium, and Hypophosphatemia: replace electrolytes, 6. Metabolic acidosis: due to sepsis. 7. Acute kidney injury, present on admission: possible VMN/Sepsis. Resolving. 8. Thrombocytopenia: possible due to sepsis, hold heparin, and monitor platelets. PT, APTT, INR, D - dimer, and fibrinogen ordered. 9. Acute on chronic metabolic encephalopathy.: due to sepsis and Hyponatremia, 10. Nutrition: start tube feeds, nutrition consult. 11. Prognosis poor, Condition is critical , d/w RN, CC TIME 32 MIN. History of Present Illness History of Present Illness on Ventilator fevers central line on Levophed Vitals Vitals Vital Signs Date Time Temp Pulse Resp B/P (MAP) Pulse Ox O2 Delivery O2 Flow Rate FiO2 03/14/17 07:50 98 Ventilator 03/14/17 07:00 102.2 89 20 91/60 (70) 102.2 Physical Exam General: Other (sedated) Heart: Normal S1, Normal S2 Lungs: Other (decrease bs) Abdomen: Normal bowel sounds, Soft Extremities: Other (MILD edema. ) Skin: Other (dressing present in abdominal region. ) Labs LABS Laboratory Tests Test 03/13/17 08:40 03/13/17 12:45 03/13/17 16:35 03/13/17 23:50 O2 Saturation 98 % (92-99) Arterial Blood pH 7.44 (7.35-7.45) Arterial Blood pCO2 at Patient Temp 27 mmHg (35-46) Arterial Blood pO2 at Patient Temp 139 mmHg (75-108) Arterial Blood HCO3 18 mmol/L (21-28) Arterial Blood Base Excess -5 mmol/L (-3-3) FiO2 40 Sodium Level 160 mmol/L (136-145) 158 mmol/L (136-145) 158 mmol/L (136-145) Potassium Level 3.6 mmol/L (3.5-5.1) 3.6 mmol/L (3.5-5.1) Chloride Level 128 mmol/L (98-107) 125 mmol/L (98-107) Carbon Dioxide Level 21 mmol/L (21-32) 22 mmol/L (21-32) Anion Gap 11 (6-14) 11 (6-14) Blood Urea Nitrogen 22 mg/dL (8-26) 19 mg/dL (8-26) Creatinine 1.1 mg/dL (0.7-1.3) 1.0 mg/dL (0.7-1.3) Estimated GFR (Cockcroft-Gault) 69.2 77.3 Glucose Level 143 mg/dL (70-99) 117 mg/dL (70-99) Calcium Level 7.3 mg/dL (8.5-10.1) 7.5 mg/dL (8.5-10.1) Prothrombin Time 19.4 SEC (11.7-14.0) Prothromb Time International Ratio 1.8 (0.8-1.1) Activated Partial Thromboplast Time 48 SEC (24-38) Fibrinogen 520 mg/dL (200-440) D-Dimer (Angella) 4.99 ug/mlFEU (0.00-0.50) Test 03/14/17 05:30 03/14/17 07:50 White Blood Count 8.4 x10^3/uL (4.0-11.0) Red Blood Count 3.46 x10^6/uL (4.30-5.70) Hemoglobin 10.5 g/dL (13.0-17.5) Hematocrit 30.8 % (39.0-53.0) Mean Corpuscular Volume 89 fL (79-100) Mean Corpuscular Hemoglobin 30 pg (25-35) Mean Corpuscular Hemoglobin Concent 34 g/dL (31-37) Red Cell Distribution Width 17.5 % (11.5-14.5) Platelet Count 70 x10^3/uL (140-400) Neutrophils (%) (Auto) 78 % (31-73) Lymphocytes (%) (Auto) 16 % (24-48) Monocytes (%) (Auto) 5 % (0-9) Eosinophils (%) (Auto) 1 % (0-3) Basophils (%) (Auto) 0 % (0-3) Neutrophils # (Auto) 6.5 x10^3uL (1.8-7.7) Lymphocytes # (Auto) 1.4 x10^3/uL (1.0-4.8) Monocytes # (Auto) 0.4 x10^3/uL (0.0-1.1) Eosinophils # (Auto) 0.1 x10^3/uL (0.0-0.7) Basophils # (Auto) 0.0 x10^3/uL (0.0-0.2) Sodium Level 153 mmol/L (136-145) Potassium Level 3.6 mmol/L (3.5-5.1) Chloride Level 121 mmol/L (98-107) Carbon Dioxide Level 23 mmol/L (21-32) Anion Gap 9 (6-14) Blood Urea Nitrogen 12 mg/dL (8-26) Creatinine 1.2 mg/dL (0.7-1.3) Estimated GFR (Cockcroft-Gault) 62.6 Glucose Level 131 mg/dL (70-99) Calcium Level 7.6 mg/dL (8.5-10.1) Phosphorus Level 1.2 mg/dL (2.6-4.7) Magnesium Level 1.6 mg/dL (1.8-2.4) Albumin 2.0 g/dL (3.4-5.0) O2 Saturation 99 % (92-99) Arterial Blood pH 7.52 (7.35-7.45) Arterial Blood pH (Temp corrected) 7.49 Arterial Blood pCO2 at Patient Temp 27 mmHg (35-46) Arterial Blood pCO2 (Temp correct) 29 mmHg Arterial Blood pO2 at Patient Temp 162 mmHg (75-108) Arterial Blood pO2 (Temp corrected) 174 mmHg Arterial Blood HCO3 21 mmol/L (21-28) Arterial Blood Base Excess -1 mmol/L (-3-3) FiO2 40 Assessment and Plan Assessmemt and Plan Problems Medical Problems: (1) Hypernatremia Status: Acute (2) Hypokalemia Status: Acute Problems: Comment Review of Relevant I have reviewed the following items ambrose (where applicable) has been applied. Labs Laboratory Tests Test 03/12/17 09:14 03/12/17 13:30 03/12/17 17:00 03/12/17 22:00 Sodium Level 169 mmol/L (136-145) 166 mmol/L (136-145) 164 mmol/L (136-145) 164 mmol/L (136-145) Potassium Level 3.0 mmol/L (3.5-5.1) 1.8 mmol/L (3.5-5.1) 2.8 mmol/L (3.5-5.1) 3.0 mmol/L (3.5-5.1) Chloride Level 131 mmol/L (98-107) Carbon Dioxide Level 22 mmol/L (21-32) Anion Gap 16 (6-14) Blood Urea Nitrogen 62 mg/dL (8-26) Creatinine 2.1 mg/dL (0.7-1.3) Estimated GFR (Cockcroft-Gault) 32.8 Glucose Level 163 mg/dL (70-99) Calcium Level 7.8 mg/dL (8.5-10.1) Magnesium Level 2.0 mg/dL (1.8-2.4) Procalcitonin 5.32 ng/mL (0.00-0.10) Thyroid Stimulating Hormone (TSH) 1.539 uIU/mL (0.358-3.74) Phosphorus Level 0.9 mg/dL (2.6-4.7) 4.0 mg/dL (2.6-4.7) Creatine Kinase 562 U/L (39-308) Free Thyroxine 0.88 ng/dL (0.76-1.46) Test 03/13/17 05:45 03/13/17 08:40 03/13/17 12:45 03/13/17 16:35 White Blood Count 12.2 x10^3/uL (4.0-11.0) Red Blood Count 3.63 x10^6/uL (4.30-5.70) Hemoglobin 10.9 g/dL (13.0-17.5) Hematocrit 33.5 % (39.0-53.0) Mean Corpuscular Volume 92 fL (79-100) Mean Corpuscular Hemoglobin 30 pg (25-35) Mean Corpuscular Hemoglobin Concent 33 g/dL (31-37) Red Cell Distribution Width 16.8 % (11.5-14.5) Platelet Count 82 x10^3/uL (140-400) Neutrophils (%) (Auto) 84 % (31-73) Lymphocytes (%) (Auto) 12 % (24-48) Monocytes (%) (Auto) 4 % (0-9) Eosinophils (%) (Auto) 0 % (0-3) Basophils (%) (Auto) 0 % (0-3) Neutrophils # (Auto) 10.2 x10^3uL (1.8-7.7) Lymphocytes # (Auto) 1.4 x10^3/uL (1.0-4.8) Monocytes # (Auto) 0.5 x10^3/uL (0.0-1.1) Eosinophils # (Auto) 0.0 x10^3/uL (0.0-0.7) Basophils # (Auto) 0.0 x10^3/uL (0.0-0.2) Platelet Estimate Decreased (ADEQUATE) Giant Platelets Present Sodium Level 163 mmol/L (136-145) 160 mmol/L (136-145) 158 mmol/L (136-145) Potassium Level 3.9 mmol/L (3.5-5.1) 3.6 mmol/L (3.5-5.1) 3.6 mmol/L (3.5-5.1) Chloride Level 131 mmol/L (98-107) 128 mmol/L (98-107) 125 mmol/L (98-107) Carbon Dioxide Level 20 mmol/L (21-32) 21 mmol/L (21-32) 22 mmol/L (21-32) Anion Gap 12 (6-14) 11 (6-14) 11 (6-14) Blood Urea Nitrogen 28 mg/dL (8-26) 22 mg/dL (8-26) 19 mg/dL (8-26) Creatinine 1.2 mg/dL (0.7-1.3) 1.1 mg/dL (0.7-1.3) 1.0 mg/dL (0.7-1.3) Estimated GFR (Cockcroft-Gault) 62.6 69.2 77.3 BUN/Creatinine Ratio 23 (6-20) Glucose Level 127 mg/dL (70-99) 143 mg/dL (70-99) 117 mg/dL (70-99) Lactic Acid Level 1.8 mmol/L (0.4-2.0) Calcium Level 7.4 mg/dL (8.5-10.1) 7.3 mg/dL (8.5-10.1) 7.5 mg/dL (8.5-10.1) Phosphorus Level 2.0 mg/dL (2.6-4.7) Magnesium Level 1.8 mg/dL (1.8-2.4) Total Bilirubin 0.5 mg/dL (0.2-1.0) Aspartate Amino Transf (AST/SGOT) 59 U/L (15-37) Alanine Aminotransferase (ALT/SGPT) 62 U/L (16-63) Alkaline Phosphatase 148 U/L (46-116) Total Protein 5.5 g/dL (6.4-8.2) Albumin 2.1 g/dL (3.4-5.0) Albumin/Globulin Ratio 0.6 (1.0-1.7) Procalcitonin 2.42 ng/mL (0.00-0.10) O2 Saturation 98 % (92-99) Arterial Blood pH 7.44 (7.35-7.45) Arterial Blood pCO2 at Patient Temp 27 mmHg (35-46) Arterial Blood pO2 at Patient Temp 139 mmHg (75-108) Arterial Blood HCO3 18 mmol/L (21-28) Arterial Blood Base Excess -5 mmol/L (-3-3) FiO2 40 Prothrombin Time 19.4 SEC (11.7-14.0) Prothromb Time International Ratio 1.8 (0.8-1.1) Activated Partial Thromboplast Time 48 SEC (24-38) Fibrinogen 520 mg/dL (200-440) D-Dimer (Angella) 4.99 ug/mlFEU (0.00-0.50) Test 03/13/17 23:50 03/14/17 05:30 03/14/17 07:50 Sodium Level 158 mmol/L (136-145) 153 mmol/L (136-145) White Blood Count 8.4 x10^3/uL (4.0-11.0) Red Blood Count 3.46 x10^6/uL (4.30-5.70) Hemoglobin 10.5 g/dL (13.0-17.5) Hematocrit 30.8 % (39.0-53.0) Mean Corpuscular Volume 89 fL (79-100) Mean Corpuscular Hemoglobin 30 pg (25-35) Mean Corpuscular Hemoglobin Concent 34 g/dL (31-37) Red Cell Distribution Width 17.5 % (11.5-14.5) Platelet Count 70 x10^3/uL (140-400) Neutrophils (%) (Auto) 78 % (31-73) Lymphocytes (%) (Auto) 16 % (24-48) Monocytes (%) (Auto) 5 % (0-9) Eosinophils (%) (Auto) 1 % (0-3) Basophils (%) (Auto) 0 % (0-3) Neutrophils # (Auto) 6.5 x10^3uL (1.8-7.7) Lymphocytes # (Auto) 1.4 x10^3/uL (1.0-4.8) Monocytes # (Auto) 0.4 x10^3/uL (0.0-1.1) Eosinophils # (Auto) 0.1 x10^3/uL (0.0-0.7) Basophils # (Auto) 0.0 x10^3/uL (0.0-0.2) Potassium Level 3.6 mmol/L (3.5-5.1) Chloride Level 121 mmol/L (98-107) Carbon Dioxide Level 23 mmol/L (21-32) Anion Gap 9 (6-14) Blood Urea Nitrogen 12 mg/dL (8-26) Creatinine 1.2 mg/dL (0.7-1.3) Estimated GFR (Cockcroft-Gault) 62.6 Glucose Level 131 mg/dL (70-99) Calcium Level 7.6 mg/dL (8.5-10.1) Phosphorus Level 1.2 mg/dL (2.6-4.7) Magnesium Level 1.6 mg/dL (1.8-2.4) Albumin 2.0 g/dL (3.4-5.0) O2 Saturation 99 % (92-99) Arterial Blood pH 7.52 (7.35-7.45) Arterial Blood pH (Temp corrected) 7.49 Arterial Blood pCO2 at Patient Temp 27 mmHg (35-46) Arterial Blood pCO2 (Temp correct) 29 mmHg Arterial Blood pO2 at Patient Temp 162 mmHg (75-108) Arterial Blood pO2 (Temp corrected) 174 mmHg Arterial Blood HCO3 21 mmol/L (21-28) Arterial Blood Base Excess -1 mmol/L (-3-3) FiO2 40 Laboratory Tests Test 03/13/17 08:40 03/13/17 12:45 03/13/17 16:35 03/13/17 23:50 O2 Saturation 98 % (92-99) Arterial Blood pH 7.44 (7.35-7.45) Arterial Blood pCO2 at Patient Temp 27 mmHg (35-46) Arterial Blood pO2 at Patient Temp 139 mmHg (75-108) Arterial Blood HCO3 18 mmol/L (21-28) Arterial Blood Base Excess -5 mmol/L (-3-3) FiO2 40 Sodium Level 160 mmol/L (136-145) 158 mmol/L (136-145) 158 mmol/L (136-145) Potassium Level 3.6 mmol/L (3.5-5.1) 3.6 mmol/L (3.5-5.1) Chloride Level 128 mmol/L (98-107) 125 mmol/L (98-107) Carbon Dioxide Level 21 mmol/L (21-32) 22 mmol/L (21-32) Anion Gap 11 (6-14) 11 (6-14) Blood Urea Nitrogen 22 mg/dL (8-26) 19 mg/dL (8-26) Creatinine 1.1 mg/dL (0.7-1.3) 1.0 mg/dL (0.7-1.3) Estimated GFR (Cockcroft-Gault) 69.2 77.3 Glucose Level 143 mg/dL (70-99) 117 mg/dL (70-99) Calcium Level 7.3 mg/dL (8.5-10.1) 7.5 mg/dL (8.5-10.1) Prothrombin Time 19.4 SEC (11.7-14.0) Prothromb Time International Ratio 1.8 (0.8-1.1) Activated Partial Thromboplast Time 48 SEC (24-38) Fibrinogen 520 mg/dL (200-440) D-Dimer (Angella) 4.99 ug/mlFEU (0.00-0.50) Test 03/14/17 05:30 03/14/17 07:50 White Blood Count 8.4 x10^3/uL (4.0-11.0) Red Blood Count 3.46 x10^6/uL (4.30-5.70) Hemoglobin 10.5 g/dL (13.0-17.5) Hematocrit 30.8 % (39.0-53.0) Mean Corpuscular Volume 89 fL (79-100) Mean Corpuscular Hemoglobin 30 pg (25-35) Mean Corpuscular Hemoglobin Concent 34 g/dL (31-37) Red Cell Distribution Width 17.5 % (11.5-14.5) Platelet Count 70 x10^3/uL (140-400) Neutrophils (%) (Auto) 78 % (31-73) Lymphocytes (%) (Auto) 16 % (24-48) Monocytes (%) (Auto) 5 % (0-9) Eosinophils (%) (Auto) 1 % (0-3) Basophils (%) (Auto) 0 % (0-3) Neutrophils # (Auto) 6.5 x10^3uL (1.8-7.7) Lymphocytes # (Auto) 1.4 x10^3/uL (1.0-4.8) Monocytes # (Auto) 0.4 x10^3/uL (0.0-1.1) Eosinophils # (Auto) 0.1 x10^3/uL (0.0-0.7) Basophils # (Auto) 0.0 x10^3/uL (0.0-0.2) Sodium Level 153 mmol/L (136-145) Potassium Level 3.6 mmol/L (3.5-5.1) Chloride Level 121 mmol/L (98-107) Carbon Dioxide Level 23 mmol/L (21-32) Anion Gap 9 (6-14) Blood Urea Nitrogen 12 mg/dL (8-26) Creatinine 1.2 mg/dL (0.7-1.3) Estimated GFR (Cockcroft-Gault) 62.6 Glucose Level 131 mg/dL (70-99) Calcium Level 7.6 mg/dL (8.5-10.1) Phosphorus Level 1.2 mg/dL (2.6-4.7) Magnesium Level 1.6 mg/dL (1.8-2.4) Albumin 2.0 g/dL (3.4-5.0) O2 Saturation 99 % (92-99) Arterial Blood pH 7.52 (7.35-7.45) Arterial Blood pH (Temp corrected) 7.49 Arterial Blood pCO2 at Patient Temp 27 mmHg (35-46) Arterial Blood pCO2 (Temp correct) 29 mmHg Arterial Blood pO2 at Patient Temp 162 mmHg (75-108) Arterial Blood pO2 (Temp corrected) 174 mmHg Arterial Blood HCO3 21 mmol/L (21-28) Arterial Blood Base Excess -1 mmol/L (-3-3) FiO2 40 Microbiology 03/11/17 Blood Culture - Preliminary, Resulted 03/11/17 Blood Culture Result 1 (STACI) - Preliminary, Resulted 03/12/17 Gram Stain - Final, Complete Medications Current Medications Norepinephrine Bitartrate 250 ml @ 0 mls/hr 1X ONCE IV Last administered on 19:01; Start 03/11/17 at 18:15; Stop 03/11/17 at 18:16; Status DC Sodium Chloride (Normal Saline Flush) 10 ml QSHIFT PRN IV AFTER MEDS AND BLOOD DRAWS; Start 03/11/17 at 18:15 Sodium Chloride 3,300 ml @ 3,300 mls/hr Q1H IV Last administered on 03/11/17 18:33; Start 03/11/17 at 18:15; Stop 03/11/17 at 18:37; Status DC Piperacillin Sod/ Tazobactam Sod 4.5 gm/Sodium Chloride 100 ml @ 200 mls/hr 1X ONCE IV Last administered on 03/11/17 18:54; Start 03/11/17 at 18:15; Stop 03/11/17 at 18:52; Status DC Norepinephrine Bitartrate 250 ml @ 0 mls/hr CONT PRN IV PER PROTOCOL Last administered on 03/13/17 23:55; Start 03/11/17 at 18:15 Midazolam HCl 100 ml @ 0 mls/hr 1X ONCE IV Last administered on 03/11/17 18: 32; Start 03/11/17 at 18:30; Stop 03/11/17 at 18:59; Status DC Vancomycin HCl (Vanco Per Pharmacy) 1 each PRN DAILY PRN MC SEE COMMENTS Last administered on 03/11/17 19:59; Start 03/11/17 at 18:30; Stop 03/12/17 at 09:39 ; Status DC Piperacillin Sod/ Tazobactam Sod (Zosyn Per Pharmacy) 1 each PRN DAILY PRN MC SEE COMMENTS; Start 03/11/17 at 18:30 Sodium Chloride 1,000 ml @ 3,300 mls/hr Q19M IV Last administered on 18:45; Start 03/11/17 at 18:45; Stop 03/11/17 at 19:15; Status DC Etomidate (Amidate) 20 mg STK-MED ONCE IV ; Start 03/11/17 at 18:40; Stop at 18:41; Status DC Succinylcholine Chloride (Anectine) 200 mg STK-MED ONCE .ROUTE ; Start 03/11/17 at 18:40; Stop 03/11/17 at 18:41; Status DC Ondansetron HCl (Zofran) 4 mg PRN Q8HRS PRN IV NAUSEA/VOMITING; Start 03/11/17 at 19:00; Stop 03/12/17 at 18:59; Status DC Sodium Chloride 1,000 ml @ 150 mls/hr Q6H40M IV ; Start 03/11/17 at 18:51; Stop 03/11/17 at 21:31; Status DC Albuterol/ Ipratropium (Duoneb) 3 ml RTQID NEB Last administered on 03/12/17 19:25; Start 03/11/17 at 20:00; Stop 03/12/17 at 19:59; Status DC Vancomycin HCl 2 gm/Sodium Chloride 500 ml @ 250 mls/hr 1X ONCE IV Last administered on 03/11/17 19:40; Start 03/11/17 at 20:00; Stop 03/11/17 at 21:59 ; Status DC Piperacillin Sod/ Tazobactam Sod 4.5 gm/Sodium Chloride 100 ml @ 200 mls/hr Q6HRS IV Last administered on 03/12/17 06:35; Start 03/12/17 at 00:00; Stop at 09:39; Status DC Hydrocortisone Sodium Succinate (Solu-CORTEF) 100 mg 1X ONCE IV ; Start at 19:15; Stop 03/11/17 at 19:32; Status DC Hydrocortisone Sodium Succinate (Solu-CORTEF) 250 mg 1X ONCE IV Last administered on 03/11/17t 19:37; Start 03/11/17 at 19:45; Stop 03/11/17 at 19:46 ; Status DC Acetaminophen (Acetaminophen Supp) 1,[address] Last administered on 20:27; Start 03/11/17 at 20:00; Stop 03/11/17 at 20:01; Status DC Vancomycin HCl 1.25 gm/Sodium Chloride 250 ml @ 166.667 mls/hr Q24H IV ; Start 03/12/17 at 20:00; Stop 03/12/17 at 20:00; Status DC Vancomycin HCl 1 each 1X ONCE MC ; Start 03/13/17 at 19:30; Stop 03/13/17 at 19 :31; Status Cancel Dextrose/Sodium Chloride 500 ml @ 1,000 mls/hr 1X ONCE IV ; Start 03/11/17 at 21:30; Stop 03/11/17 at 21:59; Status DC Dextrose/Sodium Chloride 1,000 ml @ 150 mls/hr Q6H40M IV ; Start 03/11/17 at 21 :30; Stop 03/12/17 at 04:09; Status DC Potassium Chloride 40 meq/ Dextrose 1,020 ml @ 75 mls/hr 1X ONCE IV ; Start at 21:45; Stop 03/12/17 at 04:09; Status DC Dextrose/Sodium Chloride 500 ml @ 0 mls/hr 1X ONCE IV ; Start 03/11/17 at 22:30 ; Stop 03/11/17 at 22:31; Status DC Sterile Water 1,000 ml @ 50 mls/hr Q20H IV ; Start 03/11/17 at 22:30; Stop at 22:30; Status DC Sterile Water 1,000 ml @ 50 mls/hr Q20H IV ; Start 03/11/17 at 22:30; Stop at 23:45; Status DC Dextrose/Sodium Chloride 1,000 ml @ 125 mls/hr Q8H IV Last administered on t 10:05; Start 03/11/17 at 22:30; Stop 03/12/17 at 11:52; Status DC Dextrose/Sodium Chloride 1,000 ml @ 0 mls/hr 1X ONCE IV Last administered on 03/11/17 22:30; Start 03/11/17 at 22:30; Stop 03/11/17 at 22:31; Status DC Potassium Chloride 100 ml @ 100 mls/hr Q1H IV Last administered on 03/12/17 10:04; Start 03/11/17 at 23:30; Stop 03/12/17 at 07:29; Status DC Piperacillin Sod/ Tazobactam Sod 2.25 gm/Sodium Chloride 50 ml @ 100 mls/hr Q6H IV Last administered on 03/13/17 03:33; Start 03/12/17 at 10:00; Stop at 08:35; Status DC Linezolid 300 ml @ 300 mls/hr Q12HR IV Last administered on 03/13/17 08:55; Start 03/12/17 at 09:45; Stop 03/13/17 at 12:13; Status DC Micafungin Sodium 100 mg/Dextrose 100 ml @ 100 mls/hr Q24H IV Last administered on 03/13/17 10:48; Start 03/12/17 at 11:00; Stop 03/13/17 at 12:14 ; Status DC Pantoprazole Sodium (Protonix Vial) 40 mg DAILYAC IVP Last administered on 03/13 08:55; Start 03/13/17 at 07:30 Heparin Sodium (Porcine) (Heparin Sq) 5,000 unit Q8HRS SQ Last administered on 03/13/17 05:30; Start 03/12/17 at 14:00; Stop 03/13/17 at 10:23; Status DC Cefepime HCl 2 gm/ Sodium Chloride 100 ml @ 200 mls/hr ONCE ONCE IV Last administered on 03/12/17 10:57; Start 03/12/17 at 10:00; Stop 03/12/17 at 10:29 ; Status DC Lidocaine/Sodium Bicarbonate (Buffered Lidocaine 1%) 3 ml 1X ONCE IJ Last administered on 03/12/17 12:26; Start 03/12/17 at 10:15; Stop 03/12/17 at 10:16 ; Status DC Heparin Sodium/ Sodium Chloride 60 unit 1X ONCE IV Last administered on 12:27; Start 03/12/17 at 10:15; Stop 03/12/17 at 10:16; Status DC Metronidazole 100 ml @ 100 mls/hr Q8HRS IV Last administered on 03/13/17 05: 28; Start 03/12/17 at 14:00; Stop 03/13/17 at 12:14; Status DC Atropine Sulfate 0.5 mg STK-MED ONCE .ROUTE ; Start 03/12/17 at 10:55; Stop at 10:56; Status DC Magnesium Sulfate/ Dextrose 50 ml @ 25 mls/hr PRN DAILY PRN IV for Mag < 1.7 on am labs; Start 03/12/17 at 11:30 Potassium Chloride/Dextrose/ Sod Cl 1,000 ml @ 100 mls/hr Q10H IV Last administered on 03/12/17 13:19; Start 03/12/17 at 11:30; Stop 03/12/17 at 14:46 ; Status DC Potassium Chloride 100 ml @ 100 mls/hr Q1H IV Last administered on 03/12/17 17:00; Start 03/12/17 at 12:00; Stop 03/12/17 at 19:59; Status DC Potassium Chloride/Dextrose/ Sod Cl 1,000 ml @ 100 mls/hr Q10H IV ; Start 03/12 at 12:15; Status UNV Atropine Sulfate 0.5 mg STK-MED ONCE .ROUTE ; Start 03/12/17 at 12:31; Stop at 12:32; Status DC Potassium Chloride/Dextrose/ Sod Cl 1,000 ml @ 100 mls/hr 1X ONCE IV ; Start 03/12/17 at 12:30; Stop 03/12/17 at 14:46; Status DC Potassium Phosphate 13.6 mmol/Sodium Chloride 104.5333 ml @ 52.267 m... Q2H IV Last administered on 03/12/17 19:23; Start 03/12/17 at 15:00; Stop 03/12/17 at 20:59; Status DC Potassium Chloride/Dextrose/ Sod Cl 1,000 ml @ 100 mls/hr Q10H IV Last administered on 03/13/17 02:42; Start 03/12/17 at 14:45; Stop 03/13/17 at 10:18 ; Status DC Dopamine HCl/ Dextrose 250 ml @ 16.423 mls/ hr CONT PRN IV SEE I/O RECORD; Start 03/12/17 at 16:30 Potassium Chloride 50 ml @ 25 mls/hr Q2H IV Last administered on 03/13/17 02: 29; Start 03/12/17 at 19:00; Stop 03/13/17 at 02:59; Status DC Fentanyl Citrate (Fentanyl 2ml Vial) 50 mcg PRN Q2HR PRN IV PAIN Last administered on 03/13/17 05:28; Start 03/12/17 at 20:30 Lorazepam (Ativan) 2 mg PRN Q4HRS PRN IV ANXIETY / AGITATION Last administered on 03/14/17 02:00; Start 03/12/17 at 20:30 Piperacillin Sod/ Tazobactam Sod 3.375 gm/Sodium Chloride 50 ml @ 100 mls/hr Q6HRS IV Last administered on 03/14/17 05:29; Start 03/13/17 at 10:00 Potassium Chloride/Dextrose 1,000 ml @ 125 mls/hr Q8H IV Last administered on 03/13/17 20:57; Start 03/13/17 at 10:15 Acetaminophen (Tylenol) 325 mg PRN Q6HRS PRN PO MILD PAIN / TEMP Last administered on 03/14/17 04:00; Start 03/13/17 at 10:45 Ciprofloxacin Lactate 200 ml @ 200 mls/hr Q12HR IV Last administered on 20:56; Start 03/13/17 at 12:30 Iohexol (Omnipaque 300 Mg/ml) 75 ml 1X ONCE IV Last administered on 03/13/17 12:30; Start 03/13/17 at 12:30; Stop 03/13/17 at 12:31; Status DC Iohexol (Omnipaque 240 Mg/ml) 50 ml 1X ONCE PO Last administered on 03/13/17 12:30; Start 03/13/17 at 12:30; Stop 03/13/17 at 12:31; Status DC Info (Do NOT chart on this entry -- for MONITORING) 1 each PRN DAILY PRN MC SEE COMMENTS; Start 03/13/17 at 12:45; Stop 03/15/17 at 12:44 Buspirone HCl (Buspar) 5 mg TID PEG Last administered on 03/13/17 20:55; Start 03/13/17 at 14:00 Olanzapine (ZyPREXA) 5 mg BID PO Last administered on 03/13/17 20:55; Start at 14:00 Quetiapine Fumarate (SEROquel) 50 mg BID PO Last administered on 03/13/17 20: 55; Start 03/13/17 at 14:00 Chlorhexidine Gluconate (Peridex) 15 ml BID SWSP Last administered on 20:55; Start 03/13/17 at 21:00 Active Scripts Active Reported Melatonin 3 Mg Tablet 1 Tab PO QHS Melatonin 1 Mg Tablet 1 Mg PO HS Vitamin D (Cholecalciferol (Vitamin D3)) 1,000 Unit Capsule 1,000 Cap PO DAILY Lactulose 20 Gm/30 Ml Solution 37.5 Gm PO TID PRN Flector (Diclofenac Epolamine) 1 Each Patch.td12 2 Patch TP BID Miralax (Polyethylene Glycol 3350) 17 Gm Powd.pack 1 Packet PO PRN Q12HR Olanzapine 5 Mg Tablet 1 Tab PO BID Nutritional Drink Mix (Protein Supplement) 420 Gm Powder 420 Gm PO Seroquel (Quetiapine Fumarate) 50 Mg Tablet 50 Mg PO BID Trazodone Hcl 100 Mg Tablet 1 Tab PO QHS Tramadol Hcl 50 Mg Tablet 50 Mg PO Q8HRS PRN Tylenol (Acetaminophen) 325 Mg Tablet 2 Tab PEG PRN Q4-6HRS PRN Valtrex (Valacyclovir Hcl) 1,000 Mg Tablet 1 Tab PO DAILY Tamsulosin Hcl 0.4 Mg Cap.er.24h 1 Cap PO DAILY Citrucel (Methylcellulose) 479 Gm Powder 479 Gm PO Fluticasone Propionate Nasal Atkinson (Fluticasone Propionate) 16 Gm Atkinson.susp 2 Atkinson NS HS Xarelto (Rivaroxaban) 20 Mg Tablet 20 Mg PEG DAILY Buspirone Hcl 5 Mg Tablet 1 Tab PEG TID Vitamin D (Cholecalciferol (Vitamin D3)) 10,000 Unit Capsule 50,000 Unit PO QFR Famotidine 20 Mg Tablet 20 Mg PO BID Thiamine Hcl 100 Mg Tablet 100 Mg PEG DAILY Oxcarbazepine 300 Mg Tablet 1 Tab PEG BID Duoneb 0.5-3(2.5) Mg/3 Ml (Albuterol/Ipratropium) 3 Ml Ampul.neb 3 Ml NEB BID Anti-Diarrheal (Loperamide Hcl) 2 Mg Capsule 2 Mg PO BID Vitals/I & O Vital Sign - Last 24 Hours 03/13/17 03/13/17 03/13/17 03/13/17 08:42 08:58 10:00 10:15 Temp 102.9 102.9 Pulse 80 82 Resp 21 B/P (MAP) 82/57 (65) 91/56 (68) Pulse Ox 100 100 100 O2 Delivery Ventilator Ventilator Ventilator 03/13/17 03/13/17 03/13/17 03/13/17 10:30 11:19 12:00 12:00 Temp 102.1 102.1 Pulse 85 82 Resp B/P (MAP) 93/60 (71) 98/51 (67) Pulse Ox 100 98 100 O2 Delivery Ventilator Ventilator Mechanical Ventilator Ventilator 03/13/17 03/13/17 03/13/17 03/13/17 12:46 13:00 14:00 14:50 Pulse 78 78 Resp 22 B/P (MAP) 97/63 (74) 98/65 (76) Pulse Ox 98 99 99 99 O2 Delivery Ventilator Ventilator Ventilator Ventilator 03/13/17 03/13/17 03/13/17 03/13/17 15:00 16:00 16:00 17:00 Temp 102.8 102.8 Pulse 84 80 74 Resp 21 B/P (MAP) 103/71 (82) 100/59 (73) 100/67 (78) Pulse Ox 99 99 99 O2 Delivery Ventilator Ventilator Mechanical Ventilator Ventilator 03/13/17 03/13/17 03/13/17 03/13/17 17:06 18:00 19:00 19:45 Pulse 76 76 Resp 20 20 B/P (MAP) 98/55 (69) 111/73 (86) 99/63 (75) Pulse Ox 99 99 100 O2 Delivery Ventilator Ventilator Ventilator 03/13/17 03/13/17 03/13/17 03/13/17 20:00 20:00 20:23 21:00 Temp 101.4 101.4 Pulse 74 76 Resp 20 22 B/P (MAP) 102/64 (77) 86/66 (73) Pulse Ox 99 99 100 O2 Delivery Ventilator Mechanical Ventilator Ventilator Ventilator 03/13/17 03/13/17 03/13/17 03/13/17 22:00 22:15 22:45 23:00 Pulse 95 103 Resp 23 21 B/P (MAP) 94/55 (68) 110/65 (80) 95/59 (71) Pulse Ox 99 99 99 O2 Delivery Ventilator Ventilator Ventilator 03/13/17 03/13/17 03/14/17 03/14/17 23:15 23:59 00:00 01:00 Temp 102.1 102.1 Pulse 100 106 Resp 22 B/P (MAP) 93/57 (69) 97/64 (75) 90/65 (73) Pulse Ox 99 98 O2 Delivery Mechanical Ventilator Ventilator Ventilator 03/14/17 03/14/17 03/14/17 03/14/17 01:07 01:30 02:00 03:00 Pulse 101 104 Resp 24 B/P (MAP) 78/55 (63) 81/55 (64) 80/57 (65) Pulse Ox 98 96 97 O2 Delivery Ventilator Ventilator Ventilator 03/14/17 03/14/17 03/14/17 03/14/17 03:11 04:00 04:00 05:00 Temp 102.8 102.8 Pulse 103 104 Resp 27 B/P (MAP) 96/61 (73) 83/56 (65) Pulse Ox 97 98 98 O2 Delivery Ventilator Mechanical Ventilator Ventilator Ventilator 03/14/17 03/14/17 03/14/17 03/14/17 05:13 06:00 06:34 07:00 Temp 102.9 102.2 102.9 102.2 Pulse 100 98 89 Resp 26 20 B/P (MAP) 82/55 (64) 71/52 (58) 91/60 (70) Pulse Ox 98 98 98 O2 Delivery Ventilator Ventilator Ventilator 03/14/17 07:50 Pulse Ox 98 O2 Delivery Ventilator Intake and Output 03/13/17 03/13/17 03/14/17 15:00 23:00 07:00 Intake Total 450 ml 1926 ml 1933 ml Output Total 350 ml 2340 ml 1070 ml Balance 100 ml -414 ml 863 ml STORMY ARAIZA MD March 14, 2017 08:23
--- NOTE | 2017-03-14 08:26 | PDOC ---
Infectious Disease Note Subjective Subjective Vomited yesterday. Remains intubated. FiO2 40% Off sedation Febrile Tmax 102.9 Hypotension, Levophed 10 mcg Tube feedings + BM. No diarrhea ROS ROS unobtainable Vital Sign Vital Signs Vital Signs Date Time Temp Pulse Resp B/P (MAP) Pulse Ox O2 Delivery O2 Flow Rate FiO2 03/14/17 06:34 98 71/52 (58) 03/14/17 06:00 102.9 26 98 Ventilator 102.9 Physical Exam PHYSICAL EXAM General: Intubated, calm, mittens HENT: PERRL. ETT. OGT LUNGS: Clear HEART: S1 and S2. regular ABD: BS present, soft : Heart EXT: No gross edema or cyanosis. Heel protectors on SKIN: Without rash. Small superficial abdominal wound, no redness. NURSING EDUCATION SPECIALIST: Unresponsive to verbal and tactile stimuli RIJ clean Peripheral IV Labs Lab Laboratory Tests Test 03/13/17 08:40 03/13/17 12:45 03/13/17 16:35 03/13/17 23:50 O2 Saturation 98 % (92-99) Arterial Blood pH 7.44 (7.35-7.45) Arterial Blood pCO2 at Patient Temp 27 mmHg (35-46) Arterial Blood pO2 at Patient Temp 139 mmHg (75-108) Arterial Blood HCO3 18 mmol/L (21-28) Arterial Blood Base Excess -5 mmol/L (-3-3) FiO2 40 Sodium Level 160 mmol/L (136-145) 158 mmol/L (136-145) 158 mmol/L (136-145) Potassium Level 3.6 mmol/L (3.5-5.1) 3.6 mmol/L (3.5-5.1) Chloride Level 128 mmol/L (98-107) 125 mmol/L (98-107) Carbon Dioxide Level 21 mmol/L (21-32) 22 mmol/L (21-32) Anion Gap 11 (6-14) 11 (6-14) Blood Urea Nitrogen 22 mg/dL (8-26) 19 mg/dL (8-26) Creatinine 1.1 mg/dL (0.7-1.3) 1.0 mg/dL (0.7-1.3) Estimated GFR (Cockcroft-Gault) 69.2 77.3 Glucose Level 143 mg/dL (70-99) 117 mg/dL (70-99) Calcium Level 7.3 mg/dL (8.5-10.1) 7.5 mg/dL (8.5-10.1) Prothrombin Time 19.4 SEC (11.7-14.0) Prothromb Time International Ratio 1.8 (0.8-1.1) Activated Partial Thromboplast Time 48 SEC (24-38) Fibrinogen 520 mg/dL (200-440) D-Dimer (Angella) 4.99 ug/mlFEU (0.00-0.50) Test 03/14/17 05:30 White Blood Count 8.4 x10^3/uL (4.0-11.0) Red Blood Count 3.46 x10^6/uL (4.30-5.70) Hemoglobin 10.5 g/dL (13.0-17.5) Hematocrit 30.8 % (39.0-53.0) Mean Corpuscular Volume 89 fL (79-100) Mean Corpuscular Hemoglobin 30 pg (25-35) Mean Corpuscular Hemoglobin Concent 34 g/dL (31-37) Red Cell Distribution Width 17.5 % (11.5-14.5) Platelet Count 70 x10^3/uL (140-400) Neutrophils (%) (Auto) 78 % (31-73) Lymphocytes (%) (Auto) 16 % (24-48) Monocytes (%) (Auto) 5 % (0-9) Eosinophils (%) (Auto) 1 % (0-3) Basophils (%) (Auto) 0 % (0-3) Neutrophils # (Auto) 6.5 x10^3uL (1.8-7.7) Lymphocytes # (Auto) 1.4 x10^3/uL (1.0-4.8) Monocytes # (Auto) 0.4 x10^3/uL (0.0-1.1) Eosinophils # (Auto) 0.1 x10^3/uL (0.0-0.7) Basophils # (Auto) 0.0 x10^3/uL (0.0-0.2) Sodium Level 153 mmol/L (136-145) Potassium Level 3.6 mmol/L (3.5-5.1) Chloride Level 121 mmol/L (98-107) Carbon Dioxide Level 23 mmol/L (21-32) Anion Gap 9 (6-14) Blood Urea Nitrogen 12 mg/dL (8-26) Creatinine 1.2 mg/dL (0.7-1.3) Estimated GFR (Cockcroft-Gault) 62.6 Glucose Level 131 mg/dL (70-99) Calcium Level 7.6 mg/dL (8.5-10.1) Phosphorus Level 1.2 mg/dL (2.6-4.7) Magnesium Level 1.6 mg/dL (1.8-2.4) Albumin 2.0 g/dL (3.4-5.0) IMPRESSION 1. Consolidation in the left lung base and patchy opacity in the right lung base, suspicious for pneumonia. 2. Wide mouthed ventral hernia containing small bowel and colon, no evidence of an associated obstruction or incarceration. Diverticulosis in the colon. Micro BLD CULT RESULT 1 Preliminary Escherichia coli Recovered from anaerobic bottle only. ANTIMICROBIAL SUSCEPTIBILITY Preliminary Comment S = Susceptible; I = Intermediate; R = Resistant P = Positive; N = Negative MICS are expressed in micrograms per mL Antibiotic RSLT#1 RSLT#2 RSLT#3 RSLT#4 Amoxicillin/Clavulanic Acid I Ampicillin R Cefazolin R Cefepime R Ceftriaxone R Cefuroxime R Cephalothin R Ciprofloxacin R Ertapenem S Gentamicin S Imipenem S Levofloxacin R Nitrofurantoin S Piperacillin R Tetracycline R Tobramycin S Trimethoprim/Sulfa R SPUTUM CULT RES 1 Preliminary Gram negative rods Objective Assessment Sepsis with hypotension. POA. MDR E. coli (S aminoglycosides, NFT and imipenem) . Fever Leukocytosis. better Acute resp failure ? aspiration with patchy infiltrates. GNR HERNÁN- better Hypernatremia Transaminitis H/o MRSA and C. diff Biaxin allergy Thrombocytopenia Plan Plan of Care Start meropenem and give one time dose of gent per Dr. Matthias Gabriel D/c Zosyn and cipro. Await GNR ID in sputum. Monitor lab values Supportive care Attending Co-Sign The patient was seen and interviewed as well as examined at the bedside. The chart was reviewed. The case was discussed. Agree with the plan of care. d/w family at bedside THEE STUART APRN March 14, 2017 08:26 LUCRECIA GABRIEL MD March 14, 2017 12:17
--- NOTE | 2017-03-14 08:56 | RAD ---
Indication: Respiratory failure. Technique: Upright portable chest radiograph was obtained. Comparison is from one day earlier. Findings: Endotracheal tube, endogastric tube, and right IJ central line remain in place. There is again minimal basilar atelectasis, greater on the left. The lungs otherwise are clear. The heart is not enlarged and there is no heart failure. Bony structures are intact. Leads overlie the patient. Anterior cervical fusion hardware is noted. Impression: Minimal atelectasis in the left lung base.
[2017-03-14] MEDS ORDERED: GENTAMICIN SULFATE 380 MG in IV NORMAL SALINE 100ML 100 ML IV ONE (09:30)
[2017-03-14] MEDS ORDERED: IV DEXTROSE 5% - 0.9 % NACL 1,000 ML IV ONE (09:45)
[2017-03-14] MEDS: POTASSIUM CL 20MEQ IN D5W 1,000 ML IV SCH ×2 (10:09→21:29)
[2017-03-14] MEDS: CHLORHEXIDINE 0.12% 15 ML MOUTHWASH. SWSP SCH ×2 (10:10→21:29)
[2017-03-14] MEDS: MEROPENEM 1 GM in IV NORMAL SALINE 100ML 100 ML IV SCH ×2 (10:11→18:25)
[2017-03-14] MEDS: QUEtiapine 25 MG TABLET. PO SCH ×2 (10:11→21:33)
[2017-03-14] MEDS: PANTOPRAZOLE IV PUSH 40 MG VIAL. IVP SCH (10:11)
[2017-03-14] MEDS: OLANZapine 5 MG TABLET PO SCH ×2 (10:11→21:33)
[2017-03-14] MEDS: busPIRone 5 MG TABLET. PEG SCH ×3 (10:11→21:33)
--- NOTE | 2017-03-14 10:49 | PDOC ---
Renal-Progress Notes Subjective Notes Notes REMAINS INTUBATED History of Present Illness Hx of present illness STABLE Vitals Vitals Vital Signs Date Time Temp Pulse Resp B/P (MAP) Pulse Ox O2 Delivery O2 Flow Rate FiO2 03/14/17 10:00 82 20 99/58 (72) 98 Ventilator 03/14/17 07:00 102.2 102.2 Weight Weight [ ] I.O. Intake and Output Intake and Output 03/14/17 07:00 Intake Total 4309 ml Output Total 3760 ml Balance 549 ml IV Total 3915 ml Tube Feeding 394 ml Output Urine Total 3760 ml # Bowel Movements 4 Labs Labs Laboratory Tests Test 03/13/17 12:45 03/13/17 16:35 03/13/17 23:50 03/14/17 05:30 Sodium Level 160 mmol/L (136-145) 158 mmol/L (136-145) 158 mmol/L (136-145) 153 mmol/L (136-145) Potassium Level 3.6 mmol/L (3.5-5.1) 3.6 mmol/L (3.5-5.1) 3.6 mmol/L (3.5-5.1) Chloride Level 128 mmol/L (98-107) 125 mmol/L (98-107) 121 mmol/L (98-107) Carbon Dioxide Level 21 mmol/L (21-32) 22 mmol/L (21-32) 23 mmol/L (21-32) Anion Gap 11 (6-14) 11 (6-14) 9 (6-14) Blood Urea Nitrogen 22 mg/dL (8-26) 19 mg/dL (8-26) 12 mg/dL (8-26) Creatinine 1.1 mg/dL (0.7-1.3) 1.0 mg/dL (0.7-1.3) 1.2 mg/dL (0.7-1.3) Estimated GFR (Cockcroft-Gault) 69.2 77.3 62.6 Glucose Level 143 mg/dL (70-99) 117 mg/dL (70-99) 131 mg/dL (70-99) Calcium Level 7.3 mg/dL (8.5-10.1) 7.5 mg/dL (8.5-10.1) 7.6 mg/dL (8.5-10.1) Prothrombin Time 19.4 SEC (11.7-14.0) Prothromb Time International Ratio 1.8 (0.8-1.1) Activated Partial Thromboplast Time 48 SEC (24-38) Fibrinogen 520 mg/dL (200-440) D-Dimer (Angella) 4.99 ug/mlFEU (0.00-0.50) White Blood Count 8.4 x10^3/uL (4.0-11.0) Red Blood Count 3.46 x10^6/uL (4.30-5.70) Hemoglobin 10.5 g/dL (13.0-17.5) Hematocrit 30.8 % (39.0-53.0) Mean Corpuscular Volume 89 fL (79-100) Mean Corpuscular Hemoglobin 30 pg (25-35) Mean Corpuscular Hemoglobin Concent 34 g/dL (31-37) Red Cell Distribution Width 17.5 % (11.5-14.5) Platelet Count 70 x10^3/uL (140-400) Neutrophils (%) (Auto) 78 % (31-73) Lymphocytes (%) (Auto) 16 % (24-48) Monocytes (%) (Auto) 5 % (0-9) Eosinophils (%) (Auto) 1 % (0-3) Basophils (%) (Auto) 0 % (0-3) Neutrophils # (Auto) 6.5 x10^3uL (1.8-7.7) Lymphocytes # (Auto) 1.4 x10^3/uL (1.0-4.8) Monocytes # (Auto) 0.4 x10^3/uL (0.0-1.1) Eosinophils # (Auto) 0.1 x10^3/uL (0.0-0.7) Basophils # (Auto) 0.0 x10^3/uL (0.0-0.2) Phosphorus Level 1.2 mg/dL (2.6-4.7) Magnesium Level 1.6 mg/dL (1.8-2.4) Albumin 2.0 g/dL (3.4-5.0) Test 03/14/17 07:50 O2 Saturation 99 % (92-99) Arterial Blood pH 7.52 (7.35-7.45) Arterial Blood pH (Temp corrected) 7.49 Arterial Blood pCO2 at Patient Temp 27 mmHg (35-46) Arterial Blood pCO2 (Temp correct) 29 mmHg Arterial Blood pO2 at Patient Temp 162 mmHg (75-108) Arterial Blood pO2 (Temp corrected) 174 mmHg Arterial Blood HCO3 21 mmol/L (21-28) Arterial Blood Base Excess -1 mmol/L (-3-3) FiO2 40 Micro Micro Microbiology 03/11/17 Blood Culture - Preliminary, Resulted 03/11/17 Blood Culture Result 1 (STACI) - Preliminary, Resulted 03/12/17 Gram Stain - Final, Complete Review of Systems Constitutional: yes: no symptom reported Physical Exam General Appearance: no apparent distress Skin: warm Respiratory: decreased breath sounds Heart: S1S2 Abdomen: soft, bowel sounds present Genitourinary: bladder flat Extremities: no edema, atrophy Neurology: oriented, other (intubated) Musculoskeletal: Other Assessment Assessment IMP HERNÁN-IMPROVING DEHYDRATION HYPERNATREMIA LEUCOCYTOSIS RESP FAILURE G NEG SEPSIS LOW PO4/MAG PLAN REPLACE PO4 AND MAG CONT WITH IVF'S CONT WITH ANTIBIOTICS CONT TF AND ADD WATER FLUSHES WEAN PRESSORS TOLERATED LABS IN AM RANDALL VETNURA MD March 14, 2017 10:49
[2017-03-14] MEDS: POTASSIUM PHOSPHATE DIBASIC 20 MMOL in IV NORMAL SALINE 250ML 250 ML IV SCH ×2 (11:09→14:39)
[2017-03-14] MEDS ORDERED: MAGNESIUM SULFATE 4GM 100 ML IV PRN (11:13)
--- NOTE | 2017-03-14 11:22 | PDOC ---
PULMONARY PROGRESS NOTES Subjective remains intubated/sedated on pressor/ LEVO 10 MICS Vitals Vital Signs Date Time Temp Pulse Resp B/P (MAP) Pulse Ox O2 Delivery O2 Flow Rate FiO2 03/14/17 11:03 85 23 86/52 (63) 98 Ventilator 03/14/17 07:00 102.2 102.2 Lungs: Other (decrease bs) Cardiovascular: S1 Abdomen: Soft Extremities: Other (trace edema) Skin: Warm Labs Laboratory Tests Test 03/12/17 13:30 03/12/17 17:00 03/12/17 22:00 03/13/17 05:45 Sodium Level 166 mmol/L (136-145) 164 mmol/L (136-145) 164 mmol/L (136-145) 163 mmol/L (136-145) Potassium Level 1.8 mmol/L (3.5-5.1) 2.8 mmol/L (3.5-5.1) 3.0 mmol/L (3.5-5.1) 3.9 mmol/L (3.5-5.1) Phosphorus Level 0.9 mg/dL (2.6-4.7) 4.0 mg/dL (2.6-4.7) 2.0 mg/dL (2.6-4.7) Creatine Kinase 562 U/L (39-308) Free Thyroxine 0.88 ng/dL (0.76-1.46) White Blood Count 12.2 x10^3/uL (4.0-11.0) Red Blood Count 3.63 x10^6/uL (4.30-5.70) Hemoglobin 10.9 g/dL (13.0-17.5) Hematocrit 33.5 % (39.0-53.0) Mean Corpuscular Volume 92 fL (79-100) Mean Corpuscular Hemoglobin 30 pg (25-35) Mean Corpuscular Hemoglobin Concent 33 g/dL (31-37) Red Cell Distribution Width 16.8 % (11.5-14.5) Platelet Count 82 x10^3/uL (140-400) Neutrophils (%) (Auto) 84 % (31-73) Lymphocytes (%) (Auto) 12 % (24-48) Monocytes (%) (Auto) 4 % (0-9) Eosinophils (%) (Auto) 0 % (0-3) Basophils (%) (Auto) 0 % (0-3) Neutrophils # (Auto) 10.2 x10^3uL (1.8-7.7) Lymphocytes # (Auto) 1.4 x10^3/uL (1.0-4.8) Monocytes # (Auto) 0.5 x10^3/uL (0.0-1.1) Eosinophils # (Auto) 0.0 x10^3/uL (0.0-0.7) Basophils # (Auto) 0.0 x10^3/uL (0.0-0.2) Platelet Estimate Decreased (ADEQUATE) Giant Platelets Present Chloride Level 131 mmol/L (98-107) Carbon Dioxide Level 20 mmol/L (21-32) Anion Gap 12 (6-14) Blood Urea Nitrogen 28 mg/dL (8-26) Creatinine 1.2 mg/dL (0.7-1.3) Estimated GFR (Cockcroft-Gault) 62.6 BUN/Creatinine Ratio 23 (6-20) Glucose Level 127 mg/dL (70-99) Lactic Acid Level 1.8 mmol/L (0.4-2.0) Calcium Level 7.4 mg/dL (8.5-10.1) Magnesium Level 1.8 mg/dL (1.8-2.4) Total Bilirubin 0.5 mg/dL (0.2-1.0) Aspartate Amino Transf (AST/SGOT) 59 U/L (15-37) Alanine Aminotransferase (ALT/SGPT) 62 U/L (16-63) Alkaline Phosphatase 148 U/L (46-116) Total Protein 5.5 g/dL (6.4-8.2) Albumin 2.1 g/dL (3.4-5.0) Albumin/Globulin Ratio 0.6 (1.0-1.7) Procalcitonin 2.42 ng/mL (0.00-0.10) Test 03/13/17 08:40 03/13/17 12:45 03/13/17 16:35 03/13/17 23:50 O2 Saturation 98 % (92-99) Arterial Blood pH 7.44 (7.35-7.45) Arterial Blood pCO2 at Patient Temp 27 mmHg (35-46) Arterial Blood pO2 at Patient Temp 139 mmHg (75-108) Arterial Blood HCO3 18 mmol/L (21-28) Arterial Blood Base Excess -5 mmol/L (-3-3) FiO2 40 Sodium Level 160 mmol/L (136-145) 158 mmol/L (136-145) 158 mmol/L (136-145) Potassium Level 3.6 mmol/L (3.5-5.1) 3.6 mmol/L (3.5-5.1) Chloride Level 128 mmol/L (98-107) 125 mmol/L (98-107) Carbon Dioxide Level 21 mmol/L (21-32) 22 mmol/L (21-32) Anion Gap 11 (6-14) 11 (6-14) Blood Urea Nitrogen 22 mg/dL (8-26) 19 mg/dL (8-26) Creatinine 1.1 mg/dL (0.7-1.3) 1.0 mg/dL (0.7-1.3) Estimated GFR (Cockcroft-Gault) 69.2 77.3 Glucose Level 143 mg/dL (70-99) 117 mg/dL (70-99) Calcium Level 7.3 mg/dL (8.5-10.1) 7.5 mg/dL (8.5-10.1) Prothrombin Time 19.4 SEC (11.7-14.0) Prothromb Time International Ratio 1.8 (0.8-1.1) Activated Partial Thromboplast Time 48 SEC (24-38) Fibrinogen 520 mg/dL (200-440) D-Dimer (Angella) 4.99 ug/mlFEU (0.00-0.50) Test 03/14/17 05:30 03/14/17 07:50 White Blood Count 8.4 x10^3/uL (4.0-11.0) Red Blood Count 3.46 x10^6/uL (4.30-5.70) Hemoglobin 10.5 g/dL (13.0-17.5) Hematocrit 30.8 % (39.0-53.0) Mean Corpuscular Volume 89 fL (79-100) Mean Corpuscular Hemoglobin 30 pg (25-35) Mean Corpuscular Hemoglobin Concent 34 g/dL (31-37) Red Cell Distribution Width 17.5 % (11.5-14.5) Platelet Count 70 x10^3/uL (140-400) Neutrophils (%) (Auto) 78 % (31-73) Lymphocytes (%) (Auto) 16 % (24-48) Monocytes (%) (Auto) 5 % (0-9) Eosinophils (%) (Auto) 1 % (0-3) Basophils (%) (Auto) 0 % (0-3) Neutrophils # (Auto) 6.5 x10^3uL (1.8-7.7) Lymphocytes # (Auto) 1.4 x10^3/uL (1.0-4.8) Monocytes # (Auto) 0.4 x10^3/uL (0.0-1.1) Eosinophils # (Auto) 0.1 x10^3/uL (0.0-0.7) Basophils # (Auto) 0.0 x10^3/uL (0.0-0.2) Sodium Level 153 mmol/L (136-145) Potassium Level 3.6 mmol/L (3.5-5.1) Chloride Level 121 mmol/L (98-107) Carbon Dioxide Level 23 mmol/L (21-32) Anion Gap 9 (6-14) Blood Urea Nitrogen 12 mg/dL (8-26) Creatinine 1.2 mg/dL (0.7-1.3) Estimated GFR (Cockcroft-Gault) 62.6 Glucose Level 131 mg/dL (70-99) Calcium Level 7.6 mg/dL (8.5-10.1) Phosphorus Level 1.2 mg/dL (2.6-4.7) Magnesium Level 1.6 mg/dL (1.8-2.4) Albumin 2.0 g/dL (3.4-5.0) O2 Saturation 99 % (92-99) Arterial Blood pH 7.52 (7.35-7.45) Arterial Blood pH (Temp corrected) 7.49 Arterial Blood pCO2 at Patient Temp 27 mmHg (35-46) Arterial Blood pCO2 (Temp correct) 29 mmHg Arterial Blood pO2 at Patient Temp 162 mmHg (75-108) Arterial Blood pO2 (Temp corrected) 174 mmHg Arterial Blood HCO3 21 mmol/L (21-28) Arterial Blood Base Excess -1 mmol/L (-3-3) FiO2 40 Laboratory Tests Test 5/20/17 12:45 03/13/17 16:35 03/13/17 23:50 03/14/17 05:30 Sodium Level 160 mmol/L (136-145) 158 mmol/L (136-145) 158 mmol/L (136-145) 153 mmol/L (136-145) Potassium Level 3.6 mmol/L (3.5-5.1) 3.6 mmol/L (3.5-5.1) 3.6 mmol/L (3.5-5.1) Chloride Level 128 mmol/L (98-107) 125 mmol/L (98-107) 121 mmol/L (98-107) Carbon Dioxide Level 21 mmol/L (21-32) 22 mmol/L (21-32) 23 mmol/L (21-32) Anion Gap 11 (6-14) 11 (6-14) 9 (6-14) Blood Urea Nitrogen 22 mg/dL (8-26) 19 mg/dL (8-26) 12 mg/dL (8-26) Creatinine 1.1 mg/dL (0.7-1.3) 1.0 mg/dL (0.7-1.3) 1.2 mg/dL (0.7-1.3) Estimated GFR (Cockcroft-Gault) 69.2 77.3 62.6 Glucose Level 143 mg/dL (70-99) 117 mg/dL (70-99) 131 mg/dL (70-99) Calcium Level 7.3 mg/dL (8.5-10.1) 7.5 mg/dL (8.5-10.1) 7.6 mg/dL (8.5-10.1) Prothrombin Time 19.4 SEC (11.7-14.0) Prothromb Time International Ratio 1.8 (0.8-1.1) Activated Partial Thromboplast Time 48 SEC (24-38) Fibrinogen 520 mg/dL (200-440) D-Dimer (Angella) 4.99 ug/mlFEU (0.00-0.50) White Blood Count 8.4 x10^3/uL (4.0-11.0) Red Blood Count 3.46 x10^6/uL (4.30-5.70) Hemoglobin 10.5 g/dL (13.0-17.5) Hematocrit 30.8 % (39.0-53.0) Mean Corpuscular Volume 89 fL (79-100) Mean Corpuscular Hemoglobin 30 pg (25-35) Mean Corpuscular Hemoglobin Concent 34 g/dL (31-37) Red Cell Distribution Width 17.5 % (11.5-14.5) Platelet Count 70 x10^3/uL (140-400) Neutrophils (%) (Auto) 78 % (31-73) Lymphocytes (%) (Auto) 16 % (24-48) Monocytes (%) (Auto) 5 % (0-9) Eosinophils (%) (Auto) 1 % (0-3) Basophils (%) (Auto) 0 % (0-3) Neutrophils # (Auto) 6.5 x10^3uL (1.8-7.7) Lymphocytes # (Auto) 1.4 x10^3/uL (1.0-4.8) Monocytes # (Auto) 0.4 x10^3/uL (0.0-1.1) Eosinophils # (Auto) 0.1 x10^3/uL (0.0-0.7) Basophils # (Auto) 0.0 x10^3/uL (0.0-0.2) Phosphorus Level 1.2 mg/dL (2.6-4.7) Magnesium Level 1.6 mg/dL (1.8-2.4) Albumin 2.0 g/dL (3.4-5.0) Test 03/14/17 07:50 O2 Saturation 99 % (92-99) Arterial Blood pH 7.52 (7.35-7.45) Arterial Blood pH (Temp corrected) 7.49 Arterial Blood pCO2 at Patient Temp 27 mmHg (35-46) Arterial Blood pCO2 (Temp correct) 29 mmHg Arterial Blood pO2 at Patient Temp 162 mmHg (75-108) Arterial Blood pO2 (Temp corrected) 174 mmHg Arterial Blood HCO3 21 mmol/L (21-28) Arterial Blood Base Excess -1 mmol/L (-3-3) FiO2 40 Medications Active Scripts Medications Dose Route/Sig Max Daily Dose Days Date Category Melatonin 3 Mg Tablet 1 Tab PO QHS 03/12/17 Reported Melatonin 1 Mg Tablet 1 Mg PO HS 03/12/17 Reported Vitamin D (Cholecalciferol (Vitamin D3)) 1,000 Unit Capsule 1,000 Cap PO DAILY 03/12/17 Reported Lactulose 20 Gm/30 Ml Solution 37.5 Gm PO TID PRN 03/12/17 Reported Flector (Diclofenac Epolamine) 1 Each Patch.td12 2 Patch TP BID 03/12/17 Reported Miralax (Polyethylene Glycol 3350) 17 Gm Powd.pack 1 Packet PO PRN Q12HR 03/12/17 Reported Olanzapine 5 Mg Tablet 1 Tab PO BID 03/12/17 Reported Nutritional Drink Mix (Protein Supplement) 420 Gm Powder 420 Gm PO 03/12/17 Reported Seroquel (Quetiapine Fumarate) 50 Mg Tablet 50 Mg PO BID 03/12/17 Reported Trazodone Hcl 100 Mg Tablet 1 Tab PO QHS 03/12/17 Reported Tramadol Hcl 50 Mg Tablet 50 Mg PO Q8HRS PRN 03/12/17 Reported Tylenol (Acetaminophen) 325 Mg Tablet 2 Tab PEG PRN Q4-6HRS PRN 02/01/17 Reported Valtrex (Valacyclovir Hcl) 1,000 Mg Tablet 1 Tab PO DAILY 01/27/17 Reported Tamsulosin Hcl 0.4 Mg Cap.er.24h 1 Cap PO DAILY 01/27/17 Reported Citrucel (Methylcellulose) 479 Gm Powder 479 Gm PO 01/27/17 Reported Fluticasone Propionate Nasal [place] (Fluticasone Propionate) 16 Gm [place].susp 2 [place] NS HS 01/06/17 Reported Xarelto (Rivaroxaban) 20 Mg Tablet 20 Mg PEG DAILY 01/06/17 Reported Buspirone Hcl 5 Mg Tablet 1 Tab PEG TID 01/06/17 Reported Vitamin D (Cholecalciferol (Vitamin D3)) 10,000 Unit Capsule 50,000 Unit PO QFR 01/06/17 Reported Famotidine 20 Mg Tablet 20 Mg PO BID 01/06/17 Reported Thiamine Hcl 100 Mg Tablet 100 Mg PEG DAILY 01/06/17 Reported Oxcarbazepine 300 Mg Tablet 1 Tab PEG BID 01/06/17 Reported Duoneb 0.5-3(2.5) Mg/3 Ml (Albuterol/Ipratropium) 3 Ml Ampul.neb 3 Ml NEB BID 01/06/17 Reported Anti-Diarrheal (Loperamide Hcl) 2 Mg Capsule 2 Mg PO BID 01/06/17 Reported Comments CXR 03/14 reviewed.LLL atelectasis ET above gracie 4-5 cm Impression . 1. Acute respiratory failure secondary to septic shock. 2. E-Coli septic shock. suspect due to aspiration pneumonia (E-Coli in sputum/ blood) 3. History of respiratory failure in the past post-gastric bypass surgery with multiple complications including leak requiring multiple surgeries. He had history of tracheostomy with subsequent decannulation. 4. Severe hypernatremia. 5. Acute renal failure. 6. Metabolic acidosis secondary to acute kidney injury and septic shock with marked lactic acidosis of 8.6 on admission, now slowly improving. 7. Acute renal failure secondary to shock. 8. Hypokalemia. Plan . 1. Continue with present assist control mode and make necessary adjustments based on ABGs. 2. antibiotics per ID/ multi-resistant E-coli 3. Pressor wean as tolerated 4. ct abdomen with LLL consolidation 5. Follow chest x-rays. 6. Deep venous thrombosis prophylaxis. 7. Stress ulcer prophylaxis. 8. Follow sodium level. 9. Follow renal recommendations. 10. Monitoring of renal function and electrolytes. 11. Only CPR per family d/w PORTILLO CHERRY MD March 14, 2017 11:22
--- NOTE | 2017-03-14 12:07 | PDOC ---
PROGRESS NOTES Subjective Subjective Intubated Objective Objective Vital Signs Date Time Temp Pulse Resp B/P (MAP) Pulse Ox O2 Delivery O2 Flow Rate FiO2 03/14/17 11:03 85 23 86/52 (63) 98 Ventilator 03/14/17 07:00 102.2 102.2 03/12/17 16:00 40.0 Intake and Output 03/14/17 07:00 Intake Total 4309 ml Output Total 3760 ml Balance 549 ml IV Total 3915 ml Tube Feeding 394 ml Output Urine Total 3760 ml # Bowel Movements 4 Physical Exam Abdomen: Normal bowel sounds Heart: Regular rate General: Other (intubated) Lungs: Other (decreased breath sounds) Assessment Assessment Problems Medical Problems: (1) Hypernatremia Status: Acute (2) Hypokalemia Status: Acute Assessment Assessment 1. septic shock EF normal and normal wall motion Continue with levophed SR with no significant ectopies. Supportive care 2. acute respiratory failure Intubated/vent per pulmonary 3. CAD Continue present treatment. 4. chronic hypotension now related to sepsis 5. Hypernatremia Per nephrology 6. Hypokalemia Better 7. Wernicke's encephalopathy since gastric bypass last fall 8. schizophrenia, anxiety, depression Comment Review of Relevant I have reviewed the following items ambrose (where applicable) has been applied. Labs Laboratory Tests Test 03/12/17 13:30 03/12/17 17:00 03/12/17 22:00 03/13/17 05:45 Sodium Level 166 mmol/L (136-145) 164 mmol/L (136-145) 164 mmol/L (136-145) 163 mmol/L (136-145) Potassium Level 1.8 mmol/L (3.5-5.1) 2.8 mmol/L (3.5-5.1) 3.0 mmol/L (3.5-5.1) 3.9 mmol/L (3.5-5.1) Phosphorus Level 0.9 mg/dL (2.6-4.7) 4.0 mg/dL (2.6-4.7) 2.0 mg/dL (2.6-4.7) Creatine Kinase 562 U/L (39-308) Free Thyroxine 0.88 ng/dL (0.76-1.46) White Blood Count 12.2 x10^3/uL (4.0-11.0) Red Blood Count 3.63 x10^6/uL (4.30-5.70) Hemoglobin 10.9 g/dL (13.0-17.5) Hematocrit 33.5 % (39.0-53.0) Mean Corpuscular Volume 92 fL (79-100) Mean Corpuscular Hemoglobin 30 pg (25-35) Mean Corpuscular Hemoglobin Concent 33 g/dL (31-37) Red Cell Distribution Width 16.8 % (11.5-14.5) Platelet Count 82 x10^3/uL (140-400) Neutrophils (%) (Auto) 84 % (31-73) Lymphocytes (%) (Auto) 12 % (24-48) Monocytes (%) (Auto) 4 % (0-9) Eosinophils (%) (Auto) 0 % (0-3) Basophils (%) (Auto) 0 % (0-3) Neutrophils # (Auto) 10.2 x10^3uL (1.8-7.7) Lymphocytes # (Auto) 1.4 x10^3/uL (1.0-4.8) Monocytes # (Auto) 0.5 x10^3/uL (0.0-1.1) Eosinophils # (Auto) 0.0 x10^3/uL (0.0-0.7) Basophils # (Auto) 0.0 x10^3/uL (0.0-0.2) Platelet Estimate Decreased (ADEQUATE) Giant Platelets Present Chloride Level 131 mmol/L (98-107) Carbon Dioxide Level 20 mmol/L (21-32) Anion Gap 12 (6-14) Blood Urea Nitrogen 28 mg/dL (8-26) Creatinine 1.2 mg/dL (0.7-1.3) Estimated GFR (Cockcroft-Gault) 62.6 BUN/Creatinine Ratio 23 (6-20) Glucose Level 127 mg/dL (70-99) Lactic Acid Level 1.8 mmol/L (0.4-2.0) Calcium Level 7.4 mg/dL (8.5-10.1) Magnesium Level 1.8 mg/dL (1.8-2.4) Total Bilirubin 0.5 mg/dL (0.2-1.0) Aspartate Amino Transf (AST/SGOT) 59 U/L (15-37) Alanine Aminotransferase (ALT/SGPT) 62 U/L (16-63) Alkaline Phosphatase 148 U/L (46-116) Total Protein 5.5 g/dL (6.4-8.2) Albumin 2.1 g/dL (3.4-5.0) Albumin/Globulin Ratio 0.6 (1.0-1.7) Procalcitonin 2.42 ng/mL (0.00-0.10) Test 03/13/17 08:40 03/13/17 12:45 03/13/17 16:35 03/13/17 23:50 O2 Saturation 98 % (92-99) Arterial Blood pH 7.44 (7.35-7.45) Arterial Blood pCO2 at Patient Temp 27 mmHg (35-46) Arterial Blood pO2 at Patient Temp 139 mmHg (75-108) Arterial Blood HCO3 18 mmol/L (21-28) Arterial Blood Base Excess -5 mmol/L (-3-3) FiO2 40 Sodium Level 160 mmol/L (136-145) 158 mmol/L (136-145) 158 mmol/L (136-145) Potassium Level 3.6 mmol/L (3.5-5.1) 3.6 mmol/L (3.5-5.1) Chloride Level 128 mmol/L (98-107) 125 mmol/L (98-107) Carbon Dioxide Level 21 mmol/L (21-32) 22 mmol/L (21-32) Anion Gap 11 (6-14) 11 (6-14) Blood Urea Nitrogen 22 mg/dL (8-26) 19 mg/dL (8-26) Creatinine 1.1 mg/dL (0.7-1.3) 1.0 mg/dL (0.7-1.3) Estimated GFR (Cockcroft-Gault) 69.2 77.3 Glucose Level 143 mg/dL (70-99) 117 mg/dL (70-99) Calcium Level 7.3 mg/dL (8.5-10.1) 7.5 mg/dL (8.5-10.1) Prothrombin Time 19.4 SEC (11.7-14.0) Prothromb Time International Ratio 1.8 (0.8-1.1) Activated Partial Thromboplast Time 48 SEC (24-38) Fibrinogen 520 mg/dL (200-440) D-Dimer (Angella) 4.99 ug/mlFEU (0.00-0.50) Test 03/14/17 05:30 03/14/17 07:50 White Blood Count 8.4 x10^3/uL (4.0-11.0) Red Blood Count 3.46 x10^6/uL (4.30-5.70) Hemoglobin 10.5 g/dL (13.0-17.5) Hematocrit 30.8 % (39.0-53.0) Mean Corpuscular Volume 89 fL (79-100) Mean Corpuscular Hemoglobin 30 pg (25-35) Mean Corpuscular Hemoglobin Concent 34 g/dL (31-37) Red Cell Distribution Width 17.5 % (11.5-14.5) Platelet Count 70 x10^3/uL (140-400) Neutrophils (%) (Auto) 78 % (31-73) Lymphocytes (%) (Auto) 16 % (24-48) Monocytes (%) (Auto) 5 % (0-9) Eosinophils (%) (Auto) 1 % (0-3) Basophils (%) (Auto) 0 % (0-3) Neutrophils # (Auto) 6.5 x10^3uL (1.8-7.7) Lymphocytes # (Auto) 1.4 x10^3/uL (1.0-4.8) Monocytes # (Auto) 0.4 x10^3/uL (0.0-1.1) Eosinophils # (Auto) 0.1 x10^3/uL (0.0-0.7) Basophils # (Auto) 0.0 x10^3/uL (0.0-0.2) Sodium Level 153 mmol/L (136-145) Potassium Level 3.6 mmol/L (3.5-5.1) Chloride Level 121 mmol/L (98-107) Carbon Dioxide Level 23 mmol/L (21-32) Anion Gap 9 (6-14) Blood Urea Nitrogen 12 mg/dL (8-26) Creatinine 1.2 mg/dL (0.7-1.3) Estimated GFR (Cockcroft-Gault) 62.6 Glucose Level 131 mg/dL (70-99) Calcium Level 7.6 mg/dL (8.5-10.1) Phosphorus Level 1.2 mg/dL (2.6-4.7) Magnesium Level 1.6 mg/dL (1.8-2.4) Albumin 2.0 g/dL (3.4-5.0) O2 Saturation 99 % (92-99) Arterial Blood pH 7.52 (7.35-7.45) Arterial Blood pH (Temp corrected) 7.49 Arterial Blood pCO2 at Patient Temp 27 mmHg (35-46) Arterial Blood pCO2 (Temp correct) 29 mmHg Arterial Blood pO2 at Patient Temp 162 mmHg (75-108) Arterial Blood pO2 (Temp corrected) 174 mmHg Arterial Blood HCO3 21 mmol/L (21-28) Arterial Blood Base Excess -1 mmol/L (-3-3) FiO2 40 Laboratory Tests Test 03/13/17 12:45 03/13/17 16:35 03/13/17 23:50 03/14/17 05:30 Sodium Level 160 mmol/L (136-145) 158 mmol/L (136-145) 158 mmol/L (136-145) 153 mmol/L (136-145) Potassium Level 3.6 mmol/L (3.5-5.1) 3.6 mmol/L (3.5-5.1) 3.6 mmol/L (3.5-5.1) Chloride Level 128 mmol/L (98-107) 125 mmol/L (98-107) 121 mmol/L (98-107) Carbon Dioxide Level 21 mmol/L (21-32) 22 mmol/L (21-32) 23 mmol/L (21-32) Anion Gap 11 (6-14) 11 (6-14) 9 (6-14) Blood Urea Nitrogen 22 mg/dL (8-26) 19 mg/dL (8-26) 12 mg/dL (8-26) Creatinine 1.1 mg/dL (0.7-1.3) 1.0 mg/dL (0.7-1.3) 1.2 mg/dL (0.7-1.3) Estimated GFR (Cockcroft-Gault) 69.2 77.3 62.6 Glucose Level 143 mg/dL (70-99) 117 mg/dL (70-99) 131 mg/dL (70-99) Calcium Level 7.3 mg/dL (8.5-10.1) 7.5 mg/dL (8.5-10.1) 7.6 mg/dL (8.5-10.1) Prothrombin Time 19.4 SEC (11.7-14.0) Prothromb Time International Ratio 1.8 (0.8-1.1) Activated Partial Thromboplast Time 48 SEC (24-38) Fibrinogen 520 mg/dL (200-440) D-Dimer (Angella) 4.99 ug/mlFEU (0.00-0.50) White Blood Count 8.4 x10^3/uL (4.0-11.0) Red Blood Count 3.46 x10^6/uL (4.30-5.70) Hemoglobin 10.5 g/dL (13.0-17.5) Hematocrit 30.8 % (39.0-53.0) Mean Corpuscular Volume 89 fL (79-100) Mean Corpuscular Hemoglobin 30 pg (25-35) Mean Corpuscular Hemoglobin Concent 34 g/dL (31-37) Red Cell Distribution Width 17.5 % (11.5-14.5) Platelet Count 70 x10^3/uL (140-400) Neutrophils (%) (Auto) 78 % (31-73) Lymphocytes (%) (Auto) 16 % (24-48) Monocytes (%) (Auto) 5 % (0-9) Eosinophils (%) (Auto) 1 % (0-3) Basophils (%) (Auto) 0 % (0-3) Neutrophils # (Auto) 6.5 x10^3uL (1.8-7.7) Lymphocytes # (Auto) 1.4 x10^3/uL (1.0-4.8) Monocytes # (Auto) 0.4 x10^3/uL (0.0-1.1) Eosinophils # (Auto) 0.1 x10^3/uL (0.0-0.7) Basophils # (Auto) 0.0 x10^3/uL (0.0-0.2) Phosphorus Level 1.2 mg/dL (2.6-4.7) Magnesium Level 1.6 mg/dL (1.8-2.4) Albumin 2.0 g/dL (3.4-5.0) Test 03/14/17 07:50 O2 Saturation 99 % (92-99) Arterial Blood pH 7.52 (7.35-7.45) Arterial Blood pH (Temp corrected) 7.49 Arterial Blood pCO2 at Patient Temp 27 mmHg (35-46) Arterial Blood pCO2 (Temp correct) 29 mmHg Arterial Blood pO2 at Patient Temp 162 mmHg (75-108) Arterial Blood pO2 (Temp corrected) 174 mmHg Arterial Blood HCO3 21 mmol/L (21-28) Arterial Blood Base Excess -1 mmol/L (-3-3) FiO2 40 Microbiology 03/11/17 Blood Culture - Preliminary, Resulted 03/11/17 Blood Culture Result 1 (STACI) - Preliminary, Resulted 03/12/17 Gram Stain - Final, Complete Medications Current Medications Norepinephrine Bitartrate 250 ml @ 0 mls/hr 1X ONCE IV Last administered on 19:01; Start 03/11/17 at 18:15; Stop 03/11/17 at 18:16; Status DC Sodium Chloride (Normal Saline Flush) 10 ml QSHIFT PRN IV AFTER MEDS AND BLOOD DRAWS; Start 03/11/17 at 18:15 Sodium Chloride 3,300 ml @ 3,300 mls/hr Q1H IV Last administered on 03/11/17 18:33; Start 03/11/17 at 18:15; Stop 03/11/17 at 18:37; Status DC Piperacillin Sod/ Tazobactam Sod 4.5 gm/Sodium Chloride 100 ml @ 200 mls/hr 1X ONCE IV Last administered on 03/11/17 18:54; Start 03/11/17 at 18:15; Stop 03/11/17 at 18:52; Status DC Norepinephrine Bitartrate 250 ml @ 0 mls/hr CONT PRN IV PER PROTOCOL Last administered on 03/13/17 23:55; Start 03/11/17 at 18:15 Midazolam HCl 100 ml @ 0 mls/hr 1X ONCE IV Last administered on 03/11/17 18: 32; Start 03/11/17 at 18:30; Stop 03/11/17 at 18:59; Status DC Vancomycin HCl (Vanco Per Pharmacy) 1 each PRN DAILY PRN MC SEE COMMENTS Last administered on 03/11/17 19:59; Start 03/11/17 at 18:30; Stop 03/12/17 at 09:39 ; Status DC Piperacillin Sod/ Tazobactam Sod (Zosyn Per Pharmacy) 1 each PRN DAILY PRN MC SEE COMMENTS; Start 03/11/17 at 18:30; Stop 03/14/17 at 08:55; Status DC Sodium Chloride 1,000 ml @ 3,300 mls/hr Q19M IV Last administered on 18:45; Start 03/11/17 at 18:45; Stop 03/11/17 at 19:15; Status DC Etomidate (Amidate) 20 mg STK-MED ONCE IV ; Start 03/11/17 at 18:40; Stop at 18:41; Status DC Succinylcholine Chloride (Anectine) 200 mg STK-MED ONCE .ROUTE ; Start 03/11/17 at 18:40; Stop 03/11/17 at 18:41; Status DC Ondansetron HCl (Zofran) 4 mg PRN Q8HRS PRN IV NAUSEA/VOMITING; Start 03/11/17 at 19:00; Stop 03/12/17 at 18:59; Status DC Sodium Chloride 1,000 ml @ 150 mls/hr Q6H40M IV ; Start 03/11/17 at 18:51; Stop 03/11/17 at 21:31; Status DC Albuterol/ Ipratropium (Duoneb) 3 ml RTQID NEB Last administered on 03/12/17 19:25; Start 03/11/17 at 20:00; Stop 03/12/17 at 19:59; Status DC Vancomycin HCl 2 gm/Sodium Chloride 500 ml @ 250 mls/hr 1X ONCE IV Last administered on 03/11/17 19:40; Start 03/11/17 at 20:00; Stop 03/11/17 at 21:59 ; Status DC Piperacillin Sod/ Tazobactam Sod 4.5 gm/Sodium Chloride 100 ml @ 200 mls/hr Q6HRS IV Last administered on 03/12/17 06:35; Start 03/12/17 at 00:00; Stop at 09:39; Status DC Hydrocortisone Sodium Succinate (Solu-CORTEF) 100 mg 1X ONCE IV ; Start at 19:15; Stop 03/11/17 at 19:32; Status DC Hydrocortisone Sodium Succinate (Solu-CORTEF) 250 mg 1X ONCE IV Last administered on 03/11/17t 19:37; Start 03/11/17 at 19:45; Stop 03/11/17 at 19:46 ; Status DC Acetaminophen (Acetaminophen Supp) 1,000 mg 1X ONCE NH Last administered on t 20:27; Start 03/11/17 at 20:00; Stop 03/11/17 at 20:01; Status DC Vancomycin HCl 1.25 gm/Sodium Chloride 250 ml @ 166.667 mls/hr Q24H IV ; Start 03/12/17 at 20:00; Stop 03/12/17 at 20:00; Status DC Vancomycin HCl 1 each 1X ONCE MC ; Start 03/13/17 at 19:30; Stop 03/13/17 at 19 :31; Status Cancel Dextrose/Sodium Chloride 500 ml @ 1,000 mls/hr 1X ONCE IV ; Start 03/11/17 at 21:30; Stop 03/11/17 at 21:59; Status DC Dextrose/Sodium Chloride 1,000 ml @ 150 mls/hr Q6H40M IV ; Start 03/11/17 at 21 :30; Stop 03/12/17 at 04:09; Status DC Potassium Chloride 40 meq/ Dextrose 1,020 ml @ 75 mls/hr 1X ONCE IV ; Start at 21:45; Stop 03/12/17 at 04:09; Status DC Dextrose/Sodium Chloride 500 ml @ 0 mls/hr 1X ONCE IV ; Start 03/11/17 at 22:30 ; Stop 03/11/17 at 22:31; Status DC Sterile Water 1,000 ml @ 50 mls/hr Q20H IV ; Start 03/11/17 at 22:30; Stop at 22:30; Status DC Sterile Water 1,000 ml @ 50 mls/hr Q20H IV ; Start 03/11/17 at 22:30; Stop at 23:45; Status DC Dextrose/Sodium Chloride 1,000 ml @ 125 mls/hr Q8H IV Last administered on t 10:05; Start 03/11/17 at 22:30; Stop 03/12/17 at 11:52; Status DC Dextrose/Sodium Chloride 1,000 ml @ 0 mls/hr 1X ONCE IV Last administered on 03/11/17 22:30; Start 03/11/17 at 22:30; Stop 03/11/17 at 22:31; Status DC Potassium Chloride 100 ml @ 100 mls/hr Q1H IV Last administered on 03/12/17 10:04; Start 03/11/17 at 23:30; Stop 03/12/17 at 07:29; Status DC Piperacillin Sod/ Tazobactam Sod 2.25 gm/Sodium Chloride 50 ml @ 100 mls/hr Q6H IV Last administered on 03/13/17 03:33; Start 03/12/17 at 10:00; Stop at 08:35; Status DC Linezolid 300 ml @ 300 mls/hr Q12HR IV Last administered on 03/13/17 08:55; Start 03/12/17 at 09:45; Stop 03/13/17 at 12:13; Status DC Micafungin Sodium 100 mg/Dextrose 100 ml @ 100 mls/hr Q24H IV Last administered on 03/13/17 10:48; Start 03/12/17 at 11:00; Stop 03/13/17 at 12:14 ; Status DC Pantoprazole Sodium (Protonix Vial) 40 mg DAILYAC IVP Last administered on 03/14 10:11; Start 03/13/17 at 07:30 Heparin Sodium (Porcine) (Heparin Sq) 5,000 unit Q8HRS SQ Last administered on 03/13/17 05:30; Start 03/12/17 at 14:00; Stop 03/13/17 at 10:23; Status DC Cefepime HCl 2 gm/ Sodium Chloride 100 ml @ 200 mls/hr ONCE ONCE IV Last administered on 03/12/17 10:57; Start 03/12/17 at 10:00; Stop 03/12/17 at 10:29 ; Status DC Lidocaine/Sodium Bicarbonate (Buffered Lidocaine 1%) 3 ml 1X ONCE IJ Last administered on 03/12/17 12:26; Start 03/12/17 at 10:15; Stop 03/12/17 at 10:16 ; Status DC Heparin Sodium/ Sodium Chloride 60 unit 1X ONCE IV Last administered on 12:27; Start 03/12/17 at 10:15; Stop 03/12/17 at 10:16; Status DC Metronidazole 100 ml @ 100 mls/hr Q8HRS IV Last administered on 03/13/17 05: 28; Start 03/12/17 at 14:00; Stop 03/13/17 at 12:14; Status DC Atropine Sulfate 0.5 mg STK-MED ONCE .ROUTE ; Start 03/12/17 at 10:55; Stop at 10:56; Status DC Magnesium Sulfate/ Dextrose 50 ml @ 25 mls/hr PRN DAILY PRN IV for Mag < 1.7 on am labs; Start 03/12/17 at 11:30; Stop 03/14/17 at 11:13; Status DC Potassium Chloride/Dextrose/ Sod Cl 1,000 ml @ 100 mls/hr Q10H IV Last administered on 03/12/17 13:19; Start 03/12/17 at 11:30; Stop 03/12/17 at 14:46 ; Status DC Potassium Chloride 100 ml @ 100 mls/hr Q1H IV Last administered on 03/12/17 17:00; Start 03/12/17 at 12:00; Stop 03/12/17 at 19:59; Status DC Potassium Chloride/Dextrose/ Sod Cl 1,000 ml @ 100 mls/hr Q10H IV ; Start 03/12 at 12:15; Status UNV Atropine Sulfate 0.5 mg STK-MED ONCE .ROUTE ; Start 03/12/17 at 12:31; Stop at 12:32; Status DC Potassium Chloride/Dextrose/ Sod Cl 1,000 ml @ 100 mls/hr 1X ONCE IV ; Start 03/12/17 at 12:30; Stop 03/12/17 at 14:46; Status DC Potassium Phosphate 13.6 mmol/Sodium Chloride 104.5333 ml @ 52.267 m... Q2H IV Last administered on 03/12/17 19:23; Start 03/12/17 at 15:00; Stop 03/12/17 at 20:59; Status DC Potassium Chloride/Dextrose/ Sod Cl 1,000 ml @ 100 mls/hr Q10H IV Last administered on 03/13/17 02:42; Start 03/12/17 at 14:45; Stop 03/13/17 at 10:18 ; Status DC Dopamine HCl/ Dextrose 250 ml @ 16.423 mls/ hr CONT PRN IV SEE I/O RECORD; Start 03/12/17 at 16:30 Potassium Chloride 50 ml @ 25 mls/hr Q2H IV Last administered on 03/13/17 02: 29; Start 03/12/17 at 19:00; Stop 03/13/17 at 02:59; Status DC Fentanyl Citrate (Fentanyl 2ml Vial) 50 mcg PRN Q2HR PRN IV PAIN Last administered on 03/13/17 05:28; Start 03/12/17 at 20:30 Lorazepam (Ativan) 2 mg PRN Q4HRS PRN IV ANXIETY / AGITATION Last administered on 03/14/17 02:00; Start 03/12/17 at 20:30 Piperacillin Sod/ Tazobactam Sod 3.375 gm/Sodium Chloride 50 ml @ 100 mls/hr Q6HRS IV Last administered on 03/14/17 05:29; Start 03/13/17 at 10:00; Stop at 08:55; Status DC Potassium Chloride/Dextrose 1,000 ml @ 125 mls/hr Q8H IV Last administered on 03/14/17 10:09; Start 03/13/17 at 10:15 Acetaminophen (Tylenol) 325 mg PRN Q6HRS PRN PO MILD PAIN / TEMP Last administered on 03/14/17 04:00; Start 03/13/17 at 10:45; Stop 03/14/17 at 09:48 ; Status DC Ciprofloxacin Lactate 200 ml @ 200 mls/hr Q12HR IV Last administered on 20:56; Start 03/13/17 at 12:30; Stop 03/14/17 at 08:55; Status DC Iohexol (Omnipaque 300 Mg/ml) 75 ml 1X ONCE IV Last administered on 03/13/17 12:30; Start 03/13/17 at 12:30; Stop 03/13/17 at 12:31; Status DC Iohexol (Omnipaque 240 Mg/ml) 50 ml 1X ONCE PO Last administered on 03/13/17 12:30; Start 03/13/17 at 12:30; Stop 03/13/17 at 12:31; Status DC Info (Do NOT chart on this entry -- for MONITORING) 1 each PRN DAILY PRN MC SEE COMMENTS; Start 03/13/17 at 12:45; Stop 03/15/17 at 12:44 Buspirone HCl (Buspar) 5 mg TID PEG Last administered on 03/14/17 10:11; Start 03/13/17 at 14:00 Olanzapine (ZyPREXA) 5 mg BID PO Last administered on 03/14/17 10:11; Start at 14:00 Quetiapine Fumarate (SEROquel) 50 mg BID PO Last administered on 03/14/17 10: 11; Start 03/13/17 at 14:00 Chlorhexidine Gluconate (Peridex) 15 ml BID SWSP Last administered on 10:10; Start 03/13/17 at 21:00 Gentamicin Sulfate 380 mg/ Sodium Chloride 109.5 ml @ 219 mls/hr 1X ONCE IV Last administered on 03/14/17 10:10; Start 03/14/17 at 09:30; Stop 03/14/17 at 09:59; Status DC Meropenem 1 gm/ Sodium Chloride 100 ml @ 200 mls/hr Q8H IV Last administered on 03/14/17 10:11; Start 03/14/17 at 10:00 Acetaminophen (Tylenol) 325 mg PRN Q4HRS PRN PO MILD PAIN / TEMP Last administered on 03/14/17 10:11; Start 03/14/17 at 10:45 Magnesium Sulfate/ Dextrose 100 ml @ 50 mls/hr PRN DAILY PRN IV LOW MAG - SEE COMMENTS; Start 03/14/17 at 11:13 Potassium Phosphate 20 mmol/ Sodium Chloride 256.6667 ml @ 128.... Q2H IV Last administered on 03/14/17 11:09; Start 03/14/17 at 09:45; Stop 03/14/17 at 13:44 Dextrose/Sodium Chloride 1,000 ml @ 999 mls/hr 1X ONCE IV Last administered on 03/14/17 10:00; Start 03/14/17 at 09:45; Stop 03/14/17 at 10:45; Status DC Active Scripts Active Reported Melatonin 3 Mg Tablet 1 Tab PO QHS Melatonin 1 Mg Tablet 1 Mg PO HS Vitamin D (Cholecalciferol (Vitamin D3)) 1,000 Unit Capsule 1,000 Cap PO DAILY Lactulose 20 Gm/30 Ml Solution 37.5 Gm PO TID PRN Flector (Diclofenac Epolamine) 1 Each Patch.td12 2 Patch TP BID Miralax (Polyethylene Glycol 3350) 17 Gm Powd.pack 1 Packet PO PRN Q12HR Olanzapine 5 Mg Tablet 1 Tab PO BID Nutritional Drink Mix (Protein Supplement) 420 Gm Powder 420 Gm PO Seroquel (Quetiapine Fumarate) 50 Mg Tablet 50 Mg PO BID Trazodone Hcl 100 Mg Tablet 1 Tab PO QHS Tramadol Hcl 50 Mg Tablet 50 Mg PO Q8HRS PRN Tylenol (Acetaminophen) 325 Mg Tablet 2 Tab PEG PRN Q4-6HRS PRN Valtrex (Valacyclovir Hcl) 1,000 Mg Tablet 1 Tab PO DAILY Tamsulosin Hcl 0.4 Mg Cap.er.24h 1 Cap PO DAILY Citrucel (Methylcellulose) 479 Gm Powder 479 Gm PO Fluticasone Propionate Nasal Scio (Fluticasone Propionate) 16 Gm Scio.susp 2 Scio NS HS Xarelto (Rivaroxaban) 20 Mg Tablet 20 Mg PEG DAILY Buspirone Hcl 5 Mg Tablet 1 Tab PEG TID Vitamin D (Cholecalciferol (Vitamin D3)) 10,000 Unit Capsule 50,000 Unit PO QFR Famotidine 20 Mg Tablet 20 Mg PO BID Thiamine Hcl 100 Mg Tablet 100 Mg PEG DAILY Oxcarbazepine 300 Mg Tablet 1 Tab PEG BID Duoneb 0.5-3(2.5) Mg/3 Ml (Albuterol/Ipratropium) 3 Ml Ampul.neb 3 Ml NEB BID Anti-Diarrheal (Loperamide Hcl) 2 Mg Capsule 2 Mg PO BID Vitals/I & O Vital Sign - Last 24 Hours 03/13/17 03/13/17 03/13/17 03/13/17 12:46 13:00 14:00 14:50 Pulse 78 78 Resp 22 22 B/P (MAP) 97/63 (74) 98/65 (76) Pulse Ox 98 99 99 99 O2 Delivery Ventilator Ventilator Ventilator Ventilator 03/13/17 03/13/17 03/13/17 03/13/17 15:00 16:00 16:00 17:00 Temp 102.8 102.8 Pulse 84 80 74 Resp 26 22 21 B/P (MAP) 103/71 (82) 100/59 (73) 100/67 (78) Pulse Ox 99 99 99 O2 Delivery Ventilator Ventilator Mechanical Ventilator Ventilator 03/13/17 03/13/17 03/13/17 03/13/17 17:06 18:00 19:00 19:45 Pulse 76 76 Resp 20 20 B/P (MAP) 98/55 (69) 111/73 (86) 99/63 (75) Pulse Ox 99 99 100 O2 Delivery Ventilator Ventilator Ventilator 03/13/17 03/13/17 03/13/17 03/13/17 20:00 20:00 20:23 21:00 Temp 101.4 101.4 Pulse 74 76 Resp 20 22 B/P (MAP) 102/64 (77) 86/66 (73) Pulse Ox 99 99 100 O2 Delivery Ventilator Mechanical Ventilator Ventilator Ventilator 03/13/17 03/13/17 03/13/17 03/13/17 22:00 22:15 22:45 23:00 Pulse 95 103 Resp 23 21 B/P (MAP) 94/55 (68) 110/65 (80) 95/59 (71) Pulse Ox 99 99 99 O2 Delivery Ventilator Ventilator Ventilator 03/13/17 03/13/17 03/14/17 03/14/17 23:15 23:59 00:00 01:00 Temp 102.1 102.1 Pulse 100 106 Resp 25 22 B/P (MAP) 93/57 (69) 97/64 (75) 90/65 (73) Pulse Ox 99 98 O2 Delivery Mechanical Ventilator Ventilator Ventilator 03/14/17 03/14/17 03/14/17 03/14/17 01:07 01:30 02:00 03:00 Pulse 101 104 Resp 22 24 B/P (MAP) 78/55 (63) 81/55 (64) 80/57 (65) Pulse Ox 98 96 97 O2 Delivery Ventilator Ventilator Ventilator 03/14/17 03/14/17 03/14/17 03/14/17 03:11 04:00 04:00 05:00 Temp 102.8 102.8 Pulse 103 104 Resp 22 27 B/P (MAP) 96/61 (73) 83/56 (65) Pulse Ox 97 98 98 O2 Delivery Ventilator Mechanical Ventilator Ventilator Ventilator 03/14/17 03/14/17 03/14/17 03/14/17 05:13 06:00 06:34 07:00 Temp 102.9 102.2 102.9 102.2 Pulse 100 98 89 Resp 26 20 B/P (MAP) 82/55 (64) 71/52 (58) 91/60 (70) Pulse Ox 98 98 98 O2 Delivery Ventilator Ventilator Ventilator 03/14/17 03/14/17 03/14/17 03/14/17 07:50 08:00 08:00 09:00 Pulse 87 78 Resp 20 20 B/P (MAP) 98/61 (73) 102/67 (79) Pulse Ox 98 98 98 O2 Delivery Ventilator Ventilator Mechanical Ventilator Ventilator 03/14/17 03/14/17 10:00 11:03 Pulse 82 85 Resp 20 23 B/P (MAP) 99/58 (72) 86/52 (63) Pulse Ox 98 98 O2 Delivery Ventilator Ventilator Intake and Output 03/13/17 03/13/17 03/14/17 15:00 23:00 07:00 Intake Total 450 ml 1926 ml 1933 ml Output Total 350 ml 2340 ml 1070 ml Balance 100 ml -414 ml 863 ml AIME RIVAS MD March 14, 2017 12:07
[2017-03-14] MEDS: NOREPINEPHRIN PREMIX 250 ML IV PRN (18:25)
[2017-03-15] VITALS (31 sets, daily range): BP systolic 73–115; BP diastolic 44–73
[2017-03-15] MEDS: ACETAMINOPHEN 325 MG TABLET. PO PRN ×2 (00:26→10:02)
[2017-03-15] MEDS: MEROPENEM 1 GM in IV NORMAL SALINE 100ML 100 ML IV SCH ×3 (04:23→17:05)
[2017-03-15] MEDS: POTASSIUM CL 20MEQ IN D5W 1,000 ML IV SCH ×2 (05:00→10:15)
[2017-03-15 06:28] LABS: ALBUMIN 1.9 g/dL (3.4-5.0); CALCIUM 7.6 mg/dL (8.5-10.1); GFR 77.3; PHOSPHORUS 2.1 mg/dL (2.6-4.7); POTASSIUM 3.7 mmol/L (3.5-5.1)
--- NOTE | 2017-03-15 07:29 | RAD ---
Portable chest, 03/15/2017: History: Respiratory failure Comparison is made to a study from 03/14/2017. The ET tube remains in place with its tip located well 8 cm above the gracie. A right jugular central venous catheter extends to the level of the atriocaval junction. An NG tube extends into the stomach. The heart size and pulmonary vascularity are normal. There is minimal retrocardiac atelectasis/infiltrate in the left base. The lungs are otherwise clear. There is no evidence of pleural fluid. No new abnormality is detected. IMPRESSION: No significant change since yesterday's exam.
--- NOTE | 2017-03-15 07:56 | PDOC ---
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 SKIN: No rash IV: ok Labs Lab Laboratory Tests Test 03/15/17 05:45 Sodium Level 149 mmol/L (136-145) Potassium Level 3.7 mmol/L (3.5-5.1) Chloride Level 117 mmol/L (98-107) Carbon Dioxide Level 25 mmol/L (21-32) Anion Gap 7 (6-14) Blood Urea Nitrogen 10 mg/dL (8-26) Creatinine 1.0 mg/dL (0.7-1.3) Estimated GFR (Cockcroft-Gault) 77.3 Glucose Level 131 mg/dL (70-99) Calcium Level 7.6 mg/dL (8.5-10.1) Phosphorus Level 2.1 mg/dL (2.6-4.7) Magnesium Level 2.3 mg/dL (1.8-2.4) Albumin 1.9 g/dL (3.4-5.0) Micro BLOOD CULTURE PRL Preliminary Preliminary report BLD CULT RESULT 1 Preliminary Escherichia coli Recovered from anaerobic bottle only. ANTIMICROBIAL SUSCEPTIBILITY Preliminary Comment S = Susceptible; I = Intermediate; R = Resistant P = Positive; N = Negative MICS are expressed in micrograms per mL Antibiotic RSLT#1 RSLT#2 RSLT#3 RSLT#4 Amoxicillin/Clavulanic Acid I Ampicillin R Cefazolin R Cefepime R Ceftriaxone R Cefuroxime R Cephalothin R Ciprofloxacin R Ertapenem S Gentamicin S Imipenem S Levofloxacin R Nitrofurantoin S Piperacillin R Tetracycline R Tobramycin S Trimethoprim/Sulfa R Performed at: [address] [id number] [place] Marker: Dania Marroquin MD, Phone: [phone] Objective Assessment Sepsis with hypotension. POA. 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 Fever Leukocytosis. better Acute resp failure ? aspiration with patchy infiltrates. E coli HERNÁN- better Hypernatremia Transaminitis H/o MRSA and C. diff Biaxin allergy Thrombocytopenia Plan Plan of Care meropenem and give one time dose of gent Monitor lab values Supportive care d/w in detail, she is in the process of deciding how long to give, he was DNR and was not conveyed to ER before intubation , that they did not want. LUCRECIA GABRIEL MD March 15, 2017 07:56
[2017-03-15 09:25] LABS: BODY TEMP ABG 101.9 DEG; CORRECTED PCO2 ABG 28 mmHg; CORRECTED PH ABG 7.51; CORRECTED PO2 ABG 115 mmHg; FIO2 ABG 40; HCO3 ABG 21 mmol/L (21-28); PCO2 ABG 26 mmHg (35-46); PH ABG 7.54 (7.35-7.45); PO2 ABG 103 mmHg (75-108); SAT O2 ABG 98 % (92-99)
--- NOTE | 2017-03-15 09:39 | PDOC ---
PROGRESS NOTES Chief Complaint Chief Complaint cc: aspiration, respiratory failure A/P 1. Acute hypoxic respiratory failure, POA: On mechanical ventilation on Assist control, on Vent bundle, iv Protonix daily, DVT prophylaxis on hold, daily CXR , daily ABG. pulmonology following. 2. Suspected aspiration pneumonia, POA, : Blood cx positive Ecoli, ID following , on Meropenem, continue to have fevers, 3. Shock, Septic: on volume resuscitation, Levophed, goal MAP > 65, Echo normal EF, 4. Severe hypernatremia at 175 poa.: previous Na with in normal range, improved. change fluids to NS with potassium. 5. Hypokalemia, Magnesium, and Hypophosphatemia: replace electrolytes, 6. Metabolic acidosis: due to sepsis. 7. Acute kidney injury, present on admission: possible VMN/Sepsis. Resolved, making good urine. 8. Thrombocytopenia: possible due to sepsis, hold heparin, and monitor platelets. PT, APTT, INR, D - dimer, and fibrinogen - elevated, possible due to sepsis. 9. Acute on chronic metabolic encephalopathy.: due to sepsis and Hyponatremia, 10. Nutrition: start tube feeds, nutrition consult. 11. Prognosis poor, Condition is critical , d/w RN, CC TIME 35 MIN. d/w at bedside, answered all questions. History of Present Illness History of Present Illness on Ventilator fevers central line on Levophed Vitals Vitals Vital Signs Date Time Temp Pulse Resp B/P (MAP) Pulse Ox O2 Delivery O2 Flow Rate FiO2 03/15/17 09:15 102 26 106/67 (80) 99 Ventilator 03/15/17 08:00 101.9 101.9 Physical Exam General: Other (intubated) Heart: Regular rate Lungs: Clear, Other Abdomen: Normal bowel sounds Extremities: Other (MILD edema. ) Skin: Other (dressing present in abdominal region. ) Labs LABS Laboratory Tests Test 03/15/17 05:45 03/15/17 08:40 Sodium Level 149 mmol/L (136-145) Potassium Level 3.7 mmol/L (3.5-5.1) Chloride Level 117 mmol/L (98-107) Carbon Dioxide Level 25 mmol/L (21-32) Anion Gap 7 (6-14) Blood Urea Nitrogen 10 mg/dL (8-26) Creatinine 1.0 mg/dL (0.7-1.3) Estimated GFR (Cockcroft-Gault) 77.3 Glucose Level 131 mg/dL (70-99) Calcium Level 7.6 mg/dL (8.5-10.1) Phosphorus Level 2.1 mg/dL (2.6-4.7) Magnesium Level 2.3 mg/dL (1.8-2.4) Albumin 1.9 g/dL (3.4-5.0) O2 Saturation 98 % (92-99) Arterial Blood pH 7.54 (7.35-7.45) Arterial Blood pH (Temp corrected) 7.51 Arterial Blood pCO2 at Patient Temp 26 mmHg (35-46) Arterial Blood pCO2 (Temp correct) 28 mmHg Arterial Blood pO2 at Patient Temp 103 mmHg (75-108) Arterial Blood pO2 (Temp corrected) 115 mmHg Arterial Blood HCO3 21 mmol/L (21-28) Arterial Blood Base Excess 0 mmol/L (-3-3) FiO2 40 Assessment and Plan Assessmemt and Plan Problems Medical Problems: (1) Hypernatremia Status: Acute (2) Hypokalemia Status: Acute Problems: Comment Review of Relevant I have reviewed the following items ambrose (where applicable) has been applied. Labs Laboratory Tests Test 03/13/17 12:45 03/13/17 16:35 03/13/17 23:50 03/14/17 05:30 Sodium Level 160 mmol/L (136-145) 158 mmol/L (136-145) 158 mmol/L (136-145) 153 mmol/L (136-145) Potassium Level 3.6 mmol/L (3.5-5.1) 3.6 mmol/L (3.5-5.1) 3.6 mmol/L (3.5-5.1) Chloride Level 128 mmol/L (98-107) 125 mmol/L (98-107) 121 mmol/L (98-107) Carbon Dioxide Level 21 mmol/L (21-32) 22 mmol/L (21-32) 23 mmol/L (21-32) Anion Gap 11 (6-14) 11 (6-14) 9 (6-14) Blood Urea Nitrogen 22 mg/dL (8-26) 19 mg/dL (8-26) 12 mg/dL (8-26) Creatinine 1.1 mg/dL (0.7-1.3) 1.0 mg/dL (0.7-1.3) 1.2 mg/dL (0.7-1.3) Estimated GFR (Cockcroft-Gault) 69.2 77.3 62.6 Glucose Level 143 mg/dL (70-99) 117 mg/dL (70-99) 131 mg/dL (70-99) Calcium Level 7.3 mg/dL (8.5-10.1) 7.5 mg/dL (8.5-10.1) 7.6 mg/dL (8.5-10.1) Prothrombin Time 19.4 SEC (11.7-14.0) Prothromb Time International Ratio 1.8 (0.8-1.1) Activated Partial Thromboplast Time 48 SEC (24-38) Fibrinogen 520 mg/dL (200-440) D-Dimer (Angella) 4.99 ug/mlFEU (0.00-0.50) White Blood Count 8.4 x10^3/uL (4.0-11.0) Red Blood Count 3.46 x10^6/uL (4.30-5.70) Hemoglobin 10.5 g/dL (13.0-17.5) Hematocrit 30.8 % (39.0-53.0) Mean Corpuscular Volume 89 fL (79-100) Mean Corpuscular Hemoglobin 30 pg (25-35) Mean Corpuscular Hemoglobin Concent 34 g/dL (31-37) Red Cell Distribution Width 17.5 % (11.5-14.5) Platelet Count 70 x10^3/uL (140-400) Neutrophils (%) (Auto) 78 % (31-73) Lymphocytes (%) (Auto) 16 % (24-48) Monocytes (%) (Auto) 5 % (0-9) Eosinophils (%) (Auto) 1 % (0-3) Basophils (%) (Auto) 0 % (0-3) Neutrophils # (Auto) 6.5 x10^3uL (1.8-7.7) Lymphocytes # (Auto) 1.4 x10^3/uL (1.0-4.8) Monocytes # (Auto) 0.4 x10^3/uL (0.0-1.1) Eosinophils # (Auto) 0.1 x10^3/uL (0.0-0.7) Basophils # (Auto) 0.0 x10^3/uL (0.0-0.2) Phosphorus Level 1.2 mg/dL (2.6-4.7) Magnesium Level 1.6 mg/dL (1.8-2.4) Albumin 2.0 g/dL (3.4-5.0) Test 03/14/17 07:50 03/15/17 05:45 03/15/17 08:40 O2 Saturation 99 % (92-99) 98 % (92-99) Arterial Blood pH 7.52 (7.35-7.45) 7.54 (7.35-7.45) Arterial Blood pH (Temp corrected) 7.49 7.51 Arterial Blood pCO2 at Patient Temp 27 mmHg (35-46) 26 mmHg (35-46) Arterial Blood pCO2 (Temp correct) 29 mmHg 28 mmHg Arterial Blood pO2 at Patient Temp 162 mmHg (75-108) 103 mmHg (75-108) Arterial Blood pO2 (Temp corrected) 174 mmHg 115 mmHg Arterial Blood HCO3 21 mmol/L (21-28) 21 mmol/L (21-28) Arterial Blood Base Excess -1 mmol/L (-3-3) 0 mmol/L (-3-3) FiO2 40 40 Sodium Level 149 mmol/L (136-145) Potassium Level 3.7 mmol/L (3.5-5.1) Chloride Level 117 mmol/L (98-107) Carbon Dioxide Level 25 mmol/L (21-32) Anion Gap 7 (6-14) Blood Urea Nitrogen 10 mg/dL (8-26) Creatinine 1.0 mg/dL (0.7-1.3) Estimated GFR (Cockcroft-Gault) 77.3 Glucose Level 131 mg/dL (70-99) Calcium Level 7.6 mg/dL (8.5-10.1) Phosphorus Level 2.1 mg/dL (2.6-4.7) Magnesium Level 2.3 mg/dL (1.8-2.4) Albumin 1.9 g/dL (3.4-5.0) Laboratory Tests Test 03/15/17 05:45 03/15/17 08:40 Sodium Level 149 mmol/L (136-145) Potassium Level 3.7 mmol/L (3.5-5.1) Chloride Level 117 mmol/L (98-107) Carbon Dioxide Level 25 mmol/L (21-32) Anion Gap 7 (6-14) Blood Urea Nitrogen 10 mg/dL (8-26) Creatinine 1.0 mg/dL (0.7-1.3) Estimated GFR (Cockcroft-Gault) 77.3 Glucose Level 131 mg/dL (70-99) Calcium Level 7.6 mg/dL (8.5-10.1) Phosphorus Level 2.1 mg/dL (2.6-4.7) Magnesium Level 2.3 mg/dL (1.8-2.4) Albumin 1.9 g/dL (3.4-5.0) O2 Saturation 98 % (92-99) Arterial Blood pH 7.54 (7.35-7.45) Arterial Blood pH (Temp corrected) 7.51 Arterial Blood pCO2 at Patient Temp 26 mmHg (35-46) Arterial Blood pCO2 (Temp correct) 28 mmHg Arterial Blood pO2 at Patient Temp 103 mmHg (75-108) Arterial Blood pO2 (Temp corrected) 115 mmHg Arterial Blood HCO3 21 mmol/L (21-28) Arterial Blood Base Excess 0 mmol/L (-3-3) FiO2 40 Microbiology 03/11/17 Blood Culture - Preliminary, Resulted 03/11/17 Blood Culture Result 1 (STACI) - Preliminary, Resulted 03/12/17 Gram Stain - Final, Complete Medications Current Medications Norepinephrine Bitartrate 250 ml @ 0 mls/hr 1X ONCE IV Last administered on 19:01; Start 03/11/17 at 18:15; Stop 03/11/17 at 18:16; Status DC Sodium Chloride (Normal Saline Flush) 10 ml QSHIFT PRN IV AFTER MEDS AND BLOOD DRAWS; Start 03/11/17 at 18:15 Sodium Chloride 3,300 ml @ 3,300 mls/hr Q1H IV Last administered on 03/11/17 18:33; Start 03/11/17 at 18:15; Stop 03/11/17 at 18:37; Status DC Piperacillin Sod/ Tazobactam Sod 4.5 gm/Sodium Chloride 100 ml @ 200 mls/hr 1X ONCE IV Last administered on 03/11/17 18:54; Start 03/11/17 at 18:15; Stop 03/11/17 at 18:52; Status DC Norepinephrine Bitartrate 250 ml @ 0 mls/hr CONT PRN IV PER PROTOCOL Last administered on 03/14/17 18:25; Start 03/11/17 at 18:15 Midazolam HCl 100 ml @ 0 mls/hr 1X ONCE IV Last administered on 03/11/17 18: 32; Start 03/11/17 at 18:30; Stop 03/11/17 at 18:59; Status DC Vancomycin HCl (Vanco Per Pharmacy) 1 each PRN DAILY PRN MC SEE COMMENTS Last administered on 03/11/17 19:59; Start 03/11/17 at 18:30; Stop 03/12/17 at 09:39 ; Status DC Piperacillin Sod/ Tazobactam Sod (Zosyn Per Pharmacy) 1 each PRN DAILY PRN MC SEE COMMENTS; Start 03/11/17 at 18:30; Stop 03/14/17 at 08:55; Status DC Sodium Chloride 1,000 ml @ 3,300 mls/hr Q19M IV Last administered on 18:45; Start 03/11/17 at 18:45; Stop 03/11/17 at 19:15; Status DC Etomidate (Amidate) 20 mg STK-MED ONCE IV ; Start 03/11/17 at 18:40; Stop at 18:41; Status DC Succinylcholine Chloride (Anectine) 200 mg STK-MED ONCE .ROUTE ; Start 03/11/17 at 18:40; Stop 03/11/17 at 18:41; Status DC Ondansetron HCl (Zofran) 4 mg PRN Q8HRS PRN IV NAUSEA/VOMITING; Start 03/11/17 at 19:00; Stop 03/12/17 at 18:59; Status DC Sodium Chloride 1,000 ml @ 150 mls/hr Q6H40M IV ; Start 03/11/17 at 18:51; Stop 03/11/17 at 21:31; Status DC Albuterol/ Ipratropium (Duoneb) 3 ml RTQID NEB Last administered on 03/12/17 19:25; Start 03/11/17 at 20:00; Stop 03/12/17 at 19:59; Status DC Vancomycin HCl 2 gm/Sodium Chloride 500 ml @ 250 mls/hr 1X ONCE IV Last administered on 03/11/17 19:40; Start 03/11/17 at 20:00; Stop 03/11/17 at 21:59 ; Status DC Piperacillin Sod/ Tazobactam Sod 4.5 gm/Sodium Chloride 100 ml @ 200 mls/hr Q6HRS IV Last administered on 03/12/17 06:35; Start 03/12/17 at 00:00; Stop at 09:39; Status DC Hydrocortisone Sodium Succinate (Solu-CORTEF) 100 mg 1X ONCE IV ; Start at 19:15; Stop 03/11/17 at 19:32; Status DC Hydrocortisone Sodium Succinate (Solu-CORTEF) 250 mg 1X ONCE IV Last administered on 03/11/17 19:37; Start 03/11/17 at 19:45; Stop 03/11/17 at 19:46 ; Status DC Acetaminophen (Acetaminophen Supp) 1,000 mg 1X ONCE CA Last administered on 20:27; Start 03/11/17 at 20:00; Stop 03/11/17 at 20:01; Status DC Vancomycin HCl 1.25 gm/Sodium Chloride 250 ml @ 166.667 mls/hr Q24H IV ; Start 03/12/17 at 20:00; Stop 03/12/17 at 20:00; Status DC Vancomycin HCl 1 each 1X ONCE MC ; Start 03/13/17 at 19:30; Stop 03/13/17 at 19 :31; Status Cancel Dextrose/Sodium Chloride 500 ml @ 1,000 mls/hr 1X ONCE IV ; Start 03/11/17 at 21:30; Stop 03/11/17 at 21:59; Status DC Dextrose/Sodium Chloride 1,000 ml @ 150 mls/hr Q6H40M IV ; Start 03/11/17 at 21 :30; Stop 03/12/17 at 04:09; Status DC Potassium Chloride 40 meq/ Dextrose 1,020 ml @ 75 mls/hr 1X ONCE IV ; Start at 21:45; Stop 03/12/17 at 04:09; Status DC Dextrose/Sodium Chloride 500 ml @ 0 mls/hr 1X ONCE IV ; Start 03/11/17 at 22:30 ; Stop 03/11/17 at 22:31; Status DC Sterile Water 1,000 ml @ 50 mls/hr Q20H IV ; Start 03/11/17 at 22:30; Stop at 22:30; Status DC Sterile Water 1,000 ml @ 50 mls/hr Q20H IV ; Start 03/11/17 at 22:30; Stop at 23:45; Status DC Dextrose/Sodium Chloride 1,000 ml @ 125 mls/hr Q8H IV Last administered on 10:05; Start 03/11/17 at 22:30; Stop 03/12/17 at 11:52; Status DC Dextrose/Sodium Chloride 1,000 ml @ 0 mls/hr 1X ONCE IV Last administered on 03/11/17 22:30; Start 03/11/17 at 22:30; Stop 03/11/17 at 22:31; Status DC Potassium Chloride 100 ml @ 100 mls/hr Q1H IV Last administered on 03/12/17 10:04; Start 03/11/17 at 23:30; Stop 03/12/17 at 07:29; Status DC Piperacillin Sod/ Tazobactam Sod 2.25 gm/Sodium Chloride 50 ml @ 100 mls/hr Q6H IV Last administered on 03/13/17 03:33; Start 03/12/17 at 10:00; Stop at 08:35; Status DC Linezolid 300 ml @ 300 mls/hr Q12HR IV Last administered on 03/13/17 08:55; Start 03/12/17 at 09:45; Stop 03/13/17 at 12:13; Status DC Micafungin Sodium 100 mg/Dextrose 100 ml @ 100 mls/hr Q24H IV Last administered on 03/13/17 10:48; Start 03/12/17 at 11:00; Stop 03/13/17 at 12:14 ; Status DC Pantoprazole Sodium (Protonix Vial) 40 mg DAILYAC IVP Last administered on 03/14 10:11; Start 03/13/17 at 07:30 Heparin Sodium (Porcine) (Heparin Sq) 5,000 unit Q8HRS SQ Last administered on 03/13/17 05:30; Start 03/12/17 at 14:00; Stop 03/13/17 at 10:23; Status DC Cefepime HCl 2 gm/ Sodium Chloride 100 ml @ 200 mls/hr ONCE ONCE IV Last administered on 03/12/17 10:57; Start 03/12/17 at 10:00; Stop 03/12/17 at 10:29 ; Status DC Lidocaine/Sodium Bicarbonate (Buffered Lidocaine 1%) 3 ml 1X ONCE IJ Last administered on 03/12/17 12:26; Start 03/12/17 at 10:15; Stop 03/12/17 at 10:16 ; Status DC Heparin Sodium/ Sodium Chloride 60 unit 1X ONCE IV Last administered on 12:27; Start 03/12/17 at 10:15; Stop 03/12/17 at 10:16; Status DC Metronidazole 100 ml @ 100 mls/hr Q8HRS IV Last administered on 03/13/17 05: 28; Start 03/12/17 at 14:00; Stop 03/13/17 at 12:14; Status DC Atropine Sulfate 0.5 mg STK-MED ONCE .ROUTE ; Start 03/12/17 at 10:55; Stop at 10:56; Status DC Magnesium Sulfate/ Dextrose 50 ml @ 25 mls/hr PRN DAILY PRN IV for Mag < 1.7 on am labs; Start 03/12/17 at 11:30; Stop 03/14/17 at 11:13; Status DC Potassium Chloride/Dextrose/ Sod Cl 1,000 ml @ 100 mls/hr Q10H IV Last administered on 03/12/17 13:19; Start 03/12/17 at 11:30; Stop 03/12/17 at 14:46 ; Status DC Potassium Chloride 100 ml @ 100 mls/hr Q1H IV Last administered on 03/12/17 17:00; Start 03/12/17 at 12:00; Stop 03/12/17 at 19:59; Status DC Potassium Chloride/Dextrose/ Sod Cl 1,000 ml @ 100 mls/hr Q10H IV ; Start 03/12 at 12:15; Status UNV Atropine Sulfate 0.5 mg STK-MED ONCE .ROUTE ; Start 03/12/17 at 12:31; Stop at 12:32; Status DC Potassium Chloride/Dextrose/ Sod Cl 1,000 ml @ 100 mls/hr 1X ONCE IV ; Start 03/12/17 at 12:30; Stop 03/12/17 at 14:46; Status DC Potassium Phosphate 13.6 mmol/Sodium Chloride 104.5333 ml @ 52.267 m... Q2H IV Last administered on 03/12/17 19:23; Start 03/12/17 at 15:00; Stop 03/12/17 at 20:59; Status DC Potassium Chloride/Dextrose/ Sod Cl 1,000 ml @ 100 mls/hr Q10H IV Last administered on 03/13/17 02:42; Start 03/12/17 at 14:45; Stop 03/13/17 at 10:18 ; Status DC Dopamine HCl/ Dextrose 250 ml @ 16.423 mls/ hr CONT PRN IV SEE I/O RECORD; Start 03/12/17 at 16:30 Potassium Chloride 50 ml @ 25 mls/hr Q2H IV Last administered on 03/13/17 02: 29; Start 03/12/17 at 19:00; Stop 03/13/17 at 02:59; Status DC Fentanyl Citrate (Fentanyl 2ml Vial) 50 mcg PRN Q2HR PRN IV PAIN Last administered on 03/13/17 05:28; Start 03/12/17 at 20:30 Lorazepam (Ativan) 2 mg PRN Q4HRS PRN IV ANXIETY / AGITATION Last administered on 03/14/17 02:00; Start 03/12/17 at 20:30 Piperacillin Sod/ Tazobactam Sod 3.375 gm/Sodium Chloride 50 ml @ 100 mls/hr Q6HRS IV Last administered on 03/14/17 05:29; Start 03/13/17 at 10:00; Stop at 08:55; Status DC Potassium Chloride/Dextrose 1,000 ml @ 125 mls/hr Q8H IV Last administered on 03/15/17 05:00; Start 03/13/17 at 10:15 Acetaminophen (Tylenol) 325 mg PRN Q6HRS PRN PO MILD PAIN / TEMP Last administered on 03/14/17 04:00; Start 03/13/17 at 10:45; Stop 03/14/17 at 09:48 ; Status DC Ciprofloxacin Lactate 200 ml @ 200 mls/hr Q12HR IV Last administered on 20:56; Start 03/13/17 at 12:30; Stop 03/14/17 at 08:55; Status DC Iohexol (Omnipaque 300 Mg/ml) 75 ml 1X ONCE IV Last administered on 03/13/17 12:30; Start 03/13/17 at 12:30; Stop 03/13/17 at 12:31; Status DC Iohexol (Omnipaque 240 Mg/ml) 50 ml 1X ONCE PO Last administered on 03/13/17 12:30; Start 03/13/17 at 12:30; Stop 03/13/17 at 12:31; Status DC Info (Do NOT chart on this entry -- for MONITORING) 1 each PRN DAILY PRN MC SEE COMMENTS; Start 03/13/17 at 12:45; Stop 03/15/17 at 12:44 Buspirone HCl (Buspar) 5 mg TID PEG Last administered on 03/14/17 21:33; Start 03/13/17 at 14:00 Olanzapine (ZyPREXA) 5 mg BID PO Last administered on 03/14/17 21:33; Start at 14:00 Quetiapine Fumarate (SEROquel) 50 mg BID PO Last administered on 03/14/17 21: 33; Start 03/13/17 at 14:00 Chlorhexidine Gluconate (Peridex) 15 ml BID SWSP Last administered on 21:29; Start 03/13/17 at 21:00 Gentamicin Sulfate 380 mg/ Sodium Chloride 109.5 ml @ 219 mls/hr 1X ONCE IV Last administered on 03/14/17 10:10; Start 03/14/17 at 09:30; Stop 03/14/17 at 09:59; Status DC Meropenem 1 gm/ Sodium Chloride 100 ml @ 200 mls/hr Q8H IV Last administered on 03/15/17 04:23; Start 03/14/17 at 10:00 Acetaminophen (Tylenol) 325 mg PRN Q4HRS PRN PO MILD PAIN / TEMP Last administered on 03/15/17 00:26; Start 03/14/17 at 10:45 Magnesium Sulfate/ Dextrose 100 ml @ 50 mls/hr PRN DAILY PRN IV LOW MAG - SEE COMMENTS Last administered on 03/14/17 13:29; Start 03/14/17 at 11:13 Potassium Phosphate 20 mmol/ Sodium Chloride 256.6667 ml @ 128.... Q2H IV Last administered on 03/14/17 14:39; Start 03/14/17 at 09:45; Stop 03/14/17 at 13:44; Status DC Dextrose/Sodium Chloride 1,000 ml @ 999 mls/hr 1X ONCE IV Last administered on 03/14/17 10:00; Start 03/14/17 at 09:45; Stop 03/14/17 at 10:45; Status DC Atropine Sulfate 1 mg STK-MED ONCE .ROUTE ; Start 03/12/17 at 12:00; Stop at 08:35; Status DC Active Scripts Active Reported Melatonin 3 Mg Tablet 1 Tab PO QHS Melatonin 1 Mg Tablet 1 Mg PO HS Vitamin D (Cholecalciferol (Vitamin D3)) 1,000 Unit Capsule 1,000 Cap PO DAILY Lactulose 20 Gm/30 Ml Solution 37.5 Gm PO TID PRN Flector (Diclofenac Epolamine) 1 Each Patch.td12 2 Patch TP BID Miralax (Polyethylene Glycol 3350) 17 Gm Powd.pack 1 Packet PO PRN Q12HR Olanzapine 5 Mg Tablet 1 Tab PO BID Nutritional Drink Mix (Protein Supplement) 420 Gm Powder 420 Gm PO Seroquel (Quetiapine Fumarate) 50 Mg Tablet 50 Mg PO BID Trazodone Hcl 100 Mg Tablet 1 Tab PO QHS Tramadol Hcl 50 Mg Tablet 50 Mg PO Q8HRS PRN Tylenol (Acetaminophen) 325 Mg Tablet 2 Tab PEG PRN Q4-6HRS PRN Valtrex (Valacyclovir Hcl) 1,000 Mg Tablet 1 Tab PO DAILY Tamsulosin Hcl 0.4 Mg Cap.er.24h 1 Cap PO DAILY Citrucel (Methylcellulose) 479 Gm Powder 479 Gm PO Fluticasone Propionate Nasal [place] (Fluticasone Propionate) 16 Gm [place].susp 2 [place] NS HS Xarelto (Rivaroxaban) 20 Mg Tablet 20 Mg PEG DAILY Buspirone Hcl 5 Mg Tablet 1 Tab PEG TID Vitamin D (Cholecalciferol (Vitamin D3)) 10,000 Unit Capsule 50,000 Unit PO QFR Famotidine 20 Mg Tablet 20 Mg PO BID Thiamine Hcl 100 Mg Tablet 100 Mg PEG DAILY Oxcarbazepine 300 Mg Tablet 1 Tab PEG BID Duoneb 0.5-3(2.5) Mg/3 Ml (Albuterol/Ipratropium) 3 Ml Ampul.neb 3 Ml NEB BID Anti-Diarrheal (Loperamide Hcl) 2 Mg Capsule 2 Mg PO BID Vitals/I & O Vital Sign - Last 24 Hours 03/14/17 03/14/17 03/14/17 03/14/17 10:00 10:00 11:03 12:00 Pulse 82 85 82 Resp 20 23 23 B/P (MAP) 99/58 (72) 86/52 (63) 91/59 (70) Pulse Ox 97 98 98 96 O2 Delivery Ventilator Ventilator Ventilator Ventilator 03/14/17 03/14/17 03/14/17 03/14/17 12:00 12:01 12:01 13:01 Temp 101.0 101.0 Pulse 81 Resp 20 B/P (MAP) 109/73 (85) Pulse Ox 96 100 O2 Delivery Mechanical Ventilator Ventilator Ventilator 03/14/17 03/14/17 03/14/17 03/14/17 14:00 14:00 15:00 16:00 Temp 100.4 100.4 Pulse 88 82 80 Resp 24 22 21 B/P (MAP) 98/60 (73) 85/60 (68) 97/75 (82) Pulse Ox 96 98 100 100 O2 Delivery Ventilator Ventilator Ventilator Ventilator 03/14/17 03/14/17 03/14/17 03/14/17 16:00 16:01 17:00 17:53 Pulse 82 Resp 20 B/P (MAP) 92/63 (73) Pulse Ox 96 100 100 O2 Delivery Mechanical Ventilator Ventilator Ventilator Ventilator 03/14/17 03/14/17 03/14/17 03/14/17 18:00 19:00 19:45 20:00 Temp 103.2 101.8 103.2 101.8 Pulse 86 86 84 Resp 20 23 24 B/P (MAP) 100/68 (79) 90/60 (70) 86/55 (65) Pulse Ox 100 99 100 99 O2 Delivery Ventilator Ventilator Ventilator Ventilator 03/14/17 03/14/17 03/14/17 03/14/17 20:00 21:00 21:40 22:00 Pulse 76 86 Resp 21 22 B/P (MAP) 97/64 (75) 86/57 (67) Pulse Ox 100 100 100 O2 Delivery Mechanical Ventilator Ventilator Ventilator Ventilator 03/14/17 03/14/17 03/15/17 03/15/17 23:00 23:45 00:00 00:00 Temp 100.9 100.9 Pulse 86 88 Resp 18 20 B/P (MAP) 96/63 (74) 94/59 (71) Pulse Ox 100 100 100 O2 Delivery Ventilator Ventilator Ventilator Mechanical Ventilator 03/15/17 03/15/17 03/15/17 03/15/17 01:00 01:35 02:00 03:00 Pulse 87 76 78 Resp 22 22 B/P (MAP) 90/63 (72) 101/67 (78) 101/67 (78) Pulse Ox 100 100 100 100 O2 Delivery Ventilator Ventilator Ventilator Ventilator 03/15/17 03/15/17 03/15/17 03/15/17 03:40 04:00 04:00 05:00 Pulse 84 91 Resp 21 B/P (MAP) 104/70 (81) 103/71 (82) Pulse Ox 100 100 100 O2 Delivery Ventilator Ventilator Mechanical Ventilator Ventilator 03/15/17 03/15/17 03/15/17 03/15/17 05:32 06:00 07:00 08:00 Temp 98.2 101.9 98.2 101.9 Pulse 91 95 95 Resp 22 B/P (MAP) 115/73 (87) 113/61 (78) 100/64 (76) Pulse Ox 99 99 100 99 O2 Delivery Ventilator Ventilator Ventilator Ventilator 03/15/17 03/15/17 03/15/17 03/15/17 08:00 08:15 08:30 08:38 Pulse 98 96 Resp 23 24 B/P (MAP) 93/65 (74) 107/66 (80) Pulse Ox 100 100 99 O2 Delivery Mechanical Ventilator Ventilator Ventilator Ventilator 03/15/17 03/15/17 09:00 09:15 Pulse 98 102 Resp 23 26 B/P (MAP) 111/68 (82) 106/67 (80) Pulse Ox 100 99 O2 Delivery Ventilator Ventilator Intake and Output 03/14/17 03/14/17 03/15/17 15:00 23:00 07:00 Intake Total 100 ml 1846 ml 2371.41 ml Output Total 2475 ml 1400 ml Balance 100 ml -629 ml 971.41 ml STORMY ARAIZA MD March 15, 2017 09:39
[2017-03-15] MEDS: CHLORHEXIDINE 0.12% 15 ML MOUTHWASH. SWSP SCH ×2 (10:02→19:18)
[2017-03-15] MEDS: PANTOPRAZOLE IV PUSH 40 MG VIAL. IVP SCH (10:02)
[2017-03-15] MEDS: OLANZapine 5 MG TABLET PO SCH ×2 (10:02→19:18)
[2017-03-15] MEDS: busPIRone 5 MG TABLET. PEG SCH ×3 (10:02→19:17)
[2017-03-15] MEDS: QUEtiapine 25 MG TABLET. PO SCH ×2 (10:03→19:18)
[2017-03-15] MEDS: NOREPINEPHRIN PREMIX 250 ML IV PRN (10:04)
--- NOTE | 2017-03-15 10:44 | PDOC ---
Renal-Progress Notes Subjective Notes Notes REMAINS ON VENT History of Present Illness Hx of present illness NO CHANGE Vitals Vitals Vital Signs Date Time Temp Pulse Resp B/P (MAP) Pulse Ox O2 Delivery O2 Flow Rate FiO2 03/15/17 09:45 103 22 109/70 (83) 100 Ventilator 03/15/17 08:00 101.9 101.9 Weight Weight [ ] I.O. Intake and Output Intake and Output 03/15/17 07:00 Intake Total 4317.41 ml Output Total 3875 ml Balance 442.41 ml IV Total 3235.41 ml Tube Feeding 1082 ml Output Urine Total 3875 ml Labs Labs Laboratory Tests Test 03/15/17 05:45 03/15/17 08:40 Sodium Level 149 mmol/L (136-145) Potassium Level 3.7 mmol/L (3.5-5.1) Chloride Level 117 mmol/L (98-107) Carbon Dioxide Level 25 mmol/L (21-32) Anion Gap 7 (6-14) Blood Urea Nitrogen 10 mg/dL (8-26) Creatinine 1.0 mg/dL (0.7-1.3) Estimated GFR (Cockcroft-Gault) 77.3 Glucose Level 131 mg/dL (70-99) Calcium Level 7.6 mg/dL (8.5-10.1) Phosphorus Level 2.1 mg/dL (2.6-4.7) Magnesium Level 2.3 mg/dL (1.8-2.4) Albumin 1.9 g/dL (3.4-5.0) O2 Saturation 98 % (92-99) Arterial Blood pH 7.54 (7.35-7.45) Arterial Blood pH (Temp corrected) 7.51 Arterial Blood pCO2 at Patient Temp 26 mmHg (35-46) Arterial Blood pCO2 (Temp correct) 28 mmHg Arterial Blood pO2 at Patient Temp 103 mmHg (75-108) Arterial Blood pO2 (Temp corrected) 115 mmHg Arterial Blood HCO3 21 mmol/L (21-28) Arterial Blood Base Excess 0 mmol/L (-3-3) FiO2 40 Micro Micro Microbiology 03/11/17 Blood Culture - Preliminary, Resulted 03/11/17 Blood Culture Result 1 (STACI) - Preliminary, Resulted 03/12/17 Gram Stain - Final, Complete Review of Systems Constitutional: yes: no symptom reported Physical Exam General Appearance: no apparent distress Skin: warm Respiratory: decreased breath sounds Heart: S1S2 Abdomen: soft, bowel sounds present Genitourinary: bladder flat Extremities: no edema, atrophy Neurology: oriented, other (intubated) Musculoskeletal: Other Assessment Assessment IMP HERNÁN-IMPROVING DEHYDRATION HYPERNATREMIA LEUCOCYTOSIS RESP FAILURE G NEG SEPSIS LOW PO4 PLAN REPLACE PO4 CONT WITH IVF'S CONT WITH ANTIBIOTICS CONT TF AND ADD WATER FLUSHES WEAN PRESSORS TOLERATED LABS IN AM RANDALL VENTURA MD March 15, 2017 10:44
[2017-03-15 11:00] LABS: BASO % 0 % (0-3); EOS % 2 % (0-3); HEMATOCRIT 31.4 % (39.0-53.0); HEMOGLOBIN 10.7 g/dL (13.0-17.5); LYMPH % 13 % (24-48); MEAN CORPUSCULAR HEMOGLOBIN 31 pg (25-35); MEAN CORPUSCULAR HGB CONC 34 g/dL (31-37); MEAN CORPUSCULAR VOLUME 90 fL (79-100); MONO % 6 % (0-9); NEUT % 79 % (31-73); PLATELET COUNT 73 x10^3/uL (140-400); RED BLOOD COUNT 3.49 x10^6/uL (4.30-5.70); RED CELL DISTRIBUTION WIDTH 17.3 % (11.5-14.5); WHITE BLOOD COUNT 7.7 x10^3/uL (4.0-11.0)
[2017-03-15] MEDS ORDERED: IV NORMAL SALINE 1000ML BAG 1,000 ML IV ONE (11:00)
[2017-03-15] MEDS ORDERED: POTASSIUM CHLORIDE 20 MEQ in IV NORMAL SALINE 1000ML BAG 1,000 ML IV ONE (11:00)
--- NOTE | 2017-03-15 12:23 | PDOC ---
CARDIO Progress Notes Date and Time Date of Service 03/15/2017 Time of Evaluation 1217 Subjective Subjective: Other (intubated/sedated) Vitals Vitals Vital Signs Date Time Temp Pulse Resp B/P (MAP) Pulse Ox O2 Delivery O2 Flow Rate FiO2 03/15/17 12:00 100.2 90 23 75/54 (61) 100 Ventilator 100.2 Weight Weight [ ] Stability Assessment Stability Assess.: unstable for transfer (Req. medic. for stabiliz. V.S) Input and Output Intake and Output Intake and Output 03/15/17 06:59 Intake Total 4317.41 ml Output Total 3875 ml Balance 442.41 ml IV Total 3235.41 ml Tube Feeding 1082 ml Output Urine Total 3875 ml Laboratory Labs Laboratory Tests Test 03/15/17 05:45 03/15/17 08:40 White Blood Count 7.7 x10^3/uL (4.0-11.0) Red Blood Count 3.49 x10^6/uL (4.30-5.70) Hemoglobin 10.7 g/dL (13.0-17.5) Hematocrit 31.4 % (39.0-53.0) Mean Corpuscular Volume 90 fL (79-100) Mean Corpuscular Hemoglobin 31 pg (25-35) Mean Corpuscular Hemoglobin Concent 34 g/dL (31-37) Red Cell Distribution Width 17.3 % (11.5-14.5) Platelet Count 73 x10^3/uL (140-400) Neutrophils (%) (Auto) 79 % (31-73) Lymphocytes (%) (Auto) 13 % (24-48) Monocytes (%) (Auto) 6 % (0-9) Eosinophils (%) (Auto) 2 % (0-3) Basophils (%) (Auto) 0 % (0-3) Neutrophils # (Auto) 6.1 x10^3uL (1.8-7.7) Lymphocytes # (Auto) 1.0 x10^3/uL (1.0-4.8) Monocytes # (Auto) 0.5 x10^3/uL (0.0-1.1) Eosinophils # (Auto) 0.1 x10^3/uL (0.0-0.7) Basophils # (Auto) 0.0 x10^3/uL (0.0-0.2) Sodium Level 149 mmol/L (136-145) Potassium Level 3.7 mmol/L (3.5-5.1) Chloride Level 117 mmol/L (98-107) Carbon Dioxide Level 25 mmol/L (21-32) Anion Gap 7 (6-14) Blood Urea Nitrogen 10 mg/dL (8-26) Creatinine 1.0 mg/dL (0.7-1.3) Estimated GFR (Cockcroft-Gault) 77.3 Glucose Level 131 mg/dL (70-99) Calcium Level 7.6 mg/dL (8.5-10.1) Phosphorus Level 2.1 mg/dL (2.6-4.7) Magnesium Level 2.3 mg/dL (1.8-2.4) Albumin 1.9 g/dL (3.4-5.0) O2 Saturation 98 % (92-99) Arterial Blood pH 7.54 (7.35-7.45) Arterial Blood pH (Temp corrected) 7.51 Arterial Blood pCO2 at Patient Temp 26 mmHg (35-46) Arterial Blood pCO2 (Temp correct) 28 mmHg Arterial Blood pO2 at Patient Temp 103 mmHg (75-108) Arterial Blood pO2 (Temp corrected) 115 mmHg Arterial Blood HCO3 21 mmol/L (21-28) Arterial Blood Base Excess 0 mmol/L (-3-3) FiO2 40 Microbiology Micro Microbiology 03/11/17 Blood Culture - Preliminary, Resulted 03/11/17 Blood Culture Result 1 (STACI) - Preliminary, Resulted 03/12/17 Gram Stain - Final, Complete Radiology Rad Impression 03/15/2017: CXR: Comparison is made to a study from 03/14/2017. The ET tube remains in place with its tip located well 8 cm above the gracie. A right jugular central venous catheter extends to the level of the atriocaval junction. An NG tube extends into the stomach. The heart size and pulmonary vascularity are normal. There is minimal retrocardiac atelectasis/infiltrate in the left base. The lungs are otherwise clear. There is no evidence of pleural fluid. No new abnormality is detected. IMPRESSION: No significant change since yesterday's exam. Case Discussion Case Discussed with: Other (RN) Review of Systems Constitutional: yes: no symptom reported Physical Exam HEENT: Neck Supple W Full Motion Chest: Symmetric LUNGS: Other (intubated with mechanical ventilation; bibasilar crackles) Heart: S1S2, RRR (SR), no murmurs, other (tele: SR) Extremities: No Edema, Other Neurology: other (intubated/sedated) Assessment Assessment 1. septic shock EFpreserved at 55-60% with normal wall motion SBP - 79 on 5.6 mcg of levophed - has requested gtt rate not be changes SR; no dysrhythmias abx per ID - remains febrile 2. acute respiratory failure Intubated/vent per pulmonary 3. CAD Continue present treatment. 4. Hypernatremia improving and Na level down to 149 Per nephrology ZEFERINO POLLOCK [employer] March 15, 2017 12:23
[2017-03-15] MEDS: POTASSIUM PHOSPHATE DIBASIC 10 MMOL in IV NORMAL SALINE 100ML 100 ML IV SCH ×2 (12:51→15:28)
[2017-03-15] MEDS: POTASSIUM CHLORIDE 20 MEQ in IV NORMAL SALINE 1000ML BAG 1,000 ML IV SCH (12:51)
--- NOTE | 2017-03-15 14:25 | PDOC ---
PULMONARY PROGRESS NOTES Subjective Intubated ac mode Vitals Vital Signs Date Time Temp Pulse Resp B/P (MAP) Pulse Ox O2 Delivery O2 Flow Rate FiO2 03/15/17 13:00 89 23 78/52 (61) 99 Ventilator 03/15/17 12:00 100.2 100.2 Lungs: Clear, Other Cardiovascular: S1 Abdomen: Soft Skin: Warm Labs Laboratory Tests Test 03/13/17 16:35 03/13/17 23:50 03/14/17 05:30 03/14/17 07:50 Prothrombin Time 19.4 SEC (11.7-14.0) Prothromb Time International Ratio 1.8 (0.8-1.1) Activated Partial Thromboplast Time 48 SEC (24-38) Fibrinogen 520 mg/dL (200-440) D-Dimer (Angella) 4.99 ug/mlFEU (0.00-0.50) Sodium Level 158 mmol/L (136-145) 158 mmol/L (136-145) 153 mmol/L (136-145) Potassium Level 3.6 mmol/L (3.5-5.1) 3.6 mmol/L (3.5-5.1) Chloride Level 125 mmol/L (98-107) 121 mmol/L (98-107) Carbon Dioxide Level 22 mmol/L (21-32) 23 mmol/L (21-32) Anion Gap 11 (6-14) 9 (6-14) Blood Urea Nitrogen 19 mg/dL (8-26) 12 mg/dL (8-26) Creatinine 1.0 mg/dL (0.7-1.3) 1.2 mg/dL (0.7-1.3) Estimated GFR (Cockcroft-Gault) 77.3 62.6 Glucose Level 117 mg/dL (70-99) 131 mg/dL (70-99) Calcium Level 7.5 mg/dL (8.5-10.1) 7.6 mg/dL (8.5-10.1) White Blood Count 8.4 x10^3/uL (4.0-11.0) Red Blood Count 3.46 x10^6/uL (4.30-5.70) Hemoglobin 10.5 g/dL (13.0-17.5) Hematocrit 30.8 % (39.0-53.0) Mean Corpuscular Volume 89 fL (79-100) Mean Corpuscular Hemoglobin 30 pg (25-35) Mean Corpuscular Hemoglobin Concent 34 g/dL (31-37) Red Cell Distribution Width 17.5 % (11.5-14.5) Platelet Count 70 x10^3/uL (140-400) Neutrophils (%) (Auto) 78 % (31-73) Lymphocytes (%) (Auto) 16 % (24-48) Monocytes (%) (Auto) 5 % (0-9) Eosinophils (%) (Auto) 1 % (0-3) Basophils (%) (Auto) 0 % (0-3) Neutrophils # (Auto) 6.5 x10^3uL (1.8-7.7) Lymphocytes # (Auto) 1.4 x10^3/uL (1.0-4.8) Monocytes # (Auto) 0.4 x10^3/uL (0.0-1.1) Eosinophils # (Auto) 0.1 x10^3/uL (0.0-0.7) Basophils # (Auto) 0.0 x10^3/uL (0.0-0.2) Phosphorus Level 1.2 mg/dL (2.6-4.7) Magnesium Level 1.6 mg/dL (1.8-2.4) Albumin 2.0 g/dL (3.4-5.0) O2 Saturation 99 % (92-99) Arterial Blood pH 7.52 (7.35-7.45) Arterial Blood pH (Temp corrected) 7.49 Arterial Blood pCO2 at Patient Temp 27 mmHg (35-46) Arterial Blood pCO2 (Temp correct) 29 mmHg Arterial Blood pO2 at Patient Temp 162 mmHg (75-108) Arterial Blood pO2 (Temp corrected) 174 mmHg Arterial Blood HCO3 21 mmol/L (21-28) Arterial Blood Base Excess -1 mmol/L (-3-3) FiO2 40 Test 03/15/17 05:45 03/15/17 08:40 White Blood Count 7.7 x10^3/uL (4.0-11.0) Red Blood Count 3.49 x10^6/uL (4.30-5.70) Hemoglobin 10.7 g/dL (13.0-17.5) Hematocrit 31.4 % (39.0-53.0) Mean Corpuscular Volume 90 fL (79-100) Mean Corpuscular Hemoglobin 31 pg (25-35) Mean Corpuscular Hemoglobin Concent 34 g/dL (31-37) Red Cell Distribution Width 17.3 % (11.5-14.5) Platelet Count 73 x10^3/uL (140-400) Neutrophils (%) (Auto) 79 % (31-73) Lymphocytes (%) (Auto) 13 % (24-48) Monocytes (%) (Auto) 6 % (0-9) Eosinophils (%) (Auto) 2 % (0-3) Basophils (%) (Auto) 0 % (0-3) Neutrophils # (Auto) 6.1 x10^3uL (1.8-7.7) Lymphocytes # (Auto) 1.0 x10^3/uL (1.0-4.8) Monocytes # (Auto) 0.5 x10^3/uL (0.0-1.1) Eosinophils # (Auto) 0.1 x10^3/uL (0.0-0.7) Basophils # (Auto) 0.0 x10^3/uL (0.0-0.2) Sodium Level 149 mmol/L (136-145) Potassium Level 3.7 mmol/L (3.5-5.1) Chloride Level 117 mmol/L (98-107) Carbon Dioxide Level 25 mmol/L (21-32) Anion Gap 7 (6-14) Blood Urea Nitrogen 10 mg/dL (8-26) Creatinine 1.0 mg/dL (0.7-1.3) Estimated GFR (Cockcroft-Gault) 77.3 Glucose Level 131 mg/dL (70-99) Calcium Level 7.6 mg/dL (8.5-10.1) Phosphorus Level 2.1 mg/dL (2.6-4.7) Magnesium Level 2.3 mg/dL (1.8-2.4) Albumin 1.9 g/dL (3.4-5.0) O2 Saturation 98 % (92-99) Arterial Blood pH 7.54 (7.35-7.45) Arterial Blood pH (Temp corrected) 7.51 Arterial Blood pCO2 at Patient Temp 26 mmHg (35-46) Arterial Blood pCO2 (Temp correct) 28 mmHg Arterial Blood pO2 at Patient Temp 103 mmHg (75-108) Arterial Blood pO2 (Temp corrected) 115 mmHg Arterial Blood HCO3 21 mmol/L (21-28) Arterial Blood Base Excess 0 mmol/L (-3-3) FiO2 40 Laboratory Tests Test 03/15/17 05:45 03/15/17 08:40 White Blood Count 7.7 x10^3/uL (4.0-11.0) Red Blood Count 3.49 x10^6/uL (4.30-5.70) Hemoglobin 10.7 g/dL (13.0-17.5) Hematocrit 31.4 % (39.0-53.0) Mean Corpuscular Volume 90 fL (79-100) Mean Corpuscular Hemoglobin 31 pg (25-35) Mean Corpuscular Hemoglobin Concent 34 g/dL (31-37) Red Cell Distribution Width 17.3 % (11.5-14.5) Platelet Count 73 x10^3/uL (140-400) Neutrophils (%) (Auto) 79 % (31-73) Lymphocytes (%) (Auto) 13 % (24-48) Monocytes (%) (Auto) 6 % (0-9) Eosinophils (%) (Auto) 2 % (0-3) Basophils (%) (Auto) 0 % (0-3) Neutrophils # (Auto) 6.1 x10^3uL (1.8-7.7) Lymphocytes # (Auto) 1.0 x10^3/uL (1.0-4.8) Monocytes # (Auto) 0.5 x10^3/uL (0.0-1.1) Eosinophils # (Auto) 0.1 x10^3/uL (0.0-0.7) Basophils # (Auto) 0.0 x10^3/uL (0.0-0.2) Sodium Level 149 mmol/L (136-145) Potassium Level 3.7 mmol/L (3.5-5.1) Chloride Level 117 mmol/L (98-107) Carbon Dioxide Level 25 mmol/L (21-32) Anion Gap 7 (6-14) Blood Urea Nitrogen 10 mg/dL (8-26) Creatinine 1.0 mg/dL (0.7-1.3) Estimated GFR (Cockcroft-Gault) 77.3 Glucose Level 131 mg/dL (70-99) Calcium Level 7.6 mg/dL (8.5-10.1) Phosphorus Level 2.1 mg/dL (2.6-4.7) Magnesium Level 2.3 mg/dL (1.8-2.4) Albumin 1.9 g/dL (3.4-5.0) O2 Saturation 98 % (92-99) Arterial Blood pH 7.54 (7.35-7.45) Arterial Blood pH (Temp corrected) 7.51 Arterial Blood pCO2 at Patient Temp 26 mmHg (35-46) Arterial Blood pCO2 (Temp correct) 28 mmHg Arterial Blood pO2 at Patient Temp 103 mmHg (75-108) Arterial Blood pO2 (Temp corrected) 115 mmHg Arterial Blood HCO3 21 mmol/L (21-28) Arterial Blood Base Excess 0 mmol/L (-3-3) FiO2 40 Medications Active Scripts Medications Dose Route/Sig Max Daily Dose Days Date Category Melatonin 3 Mg Tablet 1 Tab PO QHS 03/12/17 Reported Melatonin 1 Mg Tablet 1 Mg PO HS 03/12/17 Reported Vitamin D (Cholecalciferol (Vitamin D3)) 1,000 Unit Capsule 1,000 Cap PO DAILY 03/12/17 Reported Lactulose 20 Gm/30 Ml Solution 37.5 Gm PO TID PRN 03/12/17 Reported Flector (Diclofenac Epolamine) 1 Each Patch.td12 2 Patch TP BID 03/12/17 Reported Miralax (Polyethylene Glycol 3350) 17 Gm Powd.pack 1 Packet PO PRN Q12HR 03/12/17 Reported Olanzapine 5 Mg Tablet 1 Tab PO BID 03/12/17 Reported Nutritional Drink Mix (Protein Supplement) 420 Gm Powder 420 Gm PO 03/12/17 Reported Seroquel (Quetiapine Fumarate) 50 Mg Tablet 50 Mg PO BID 03/12/17 Reported Trazodone Hcl 100 Mg Tablet 1 Tab PO QHS 03/12/17 Reported Tramadol Hcl 50 Mg Tablet 50 Mg PO Q8HRS PRN 03/12/17 Reported Tylenol (Acetaminophen) 325 Mg Tablet 2 Tab PEG PRN Q4-6HRS PRN 02/01/17 Reported Valtrex (Valacyclovir Hcl) 1,000 Mg Tablet 1 Tab PO DAILY 01/27/17 Reported Tamsulosin Hcl 0.4 Mg Cap.er.24h 1 Cap PO DAILY 01/27/17 Reported Citrucel (Methylcellulose) 479 Gm Powder 479 Gm PO 01/27/17 Reported Fluticasone Propionate Nasal Gilman (Fluticasone Propionate) 16 Gm Gilman.susp 2 Gilman NS HS 01/06/17 Reported Xarelto (Rivaroxaban) 20 Mg Tablet 20 Mg PEG DAILY 01/06/17 Reported Buspirone Hcl 5 Mg Tablet 1 Tab PEG TID 01/06/17 Reported Vitamin D (Cholecalciferol (Vitamin D3)) 10,000 Unit Capsule 50,000 Unit PO QFR 01/06/17 Reported Famotidine 20 Mg Tablet 20 Mg PO BID 01/06/17 Reported Thiamine Hcl 100 Mg Tablet 100 Mg PEG DAILY 01/06/17 Reported Oxcarbazepine 300 Mg Tablet 1 Tab PEG BID 01/06/17 Reported Duoneb 0.5-3(2.5) Mg/3 Ml (Albuterol/Ipratropium) 3 Ml Ampul.neb 3 Ml NEB BID 01/06/17 Reported Anti-Diarrheal (Loperamide Hcl) 2 Mg Capsule 2 Mg PO BID 01/06/17 Reported Comments cxr reviewed Impression . 1. Acute respiratory failure secondary to septic shock. 2. E-Coli septic shock 3. History of respiratory failure in the past post-gastric bypass surgery with multiple complications including leak requiring multiple surgeries. He had history of tracheostomy with subsequent decannulation. 4. Severe hypernatremia. 5. Acute renal failure. 6. Metabolic acidosis 7. Acute renal failure 8. Hypokalemia. 9. Wernicke encephalopathy old Plan . long discussion with pt with advance directive for no intubation will d/c vent support later today when additional family member arrives for now continue the same, I placed him on Ps 10 Vt are good around 500 1. Continue with present assist control mode. 2. antibiotics per ID/ multi-resistant E-coli 3. Wean pressors as tolerated 4. ct abdomen with LLL consolidation 5. Follow chest x-rays. 6. Deep venous thrombosis prophylaxis. 7. Stress ulcer prophylaxis. 8. Follow sodium level. 9. Follow renal recommendations. 10. Monitoring of renal function and electrolytes. FLORIDALMA MALLOY MD March 15, 2017 14:25
[2017-03-16] VITALS (31 sets, daily range): BP systolic 67–108; BP diastolic 47–72
[2017-03-16] MEDS: MEROPENEM 1 GM in IV NORMAL SALINE 100ML 100 ML IV SCH ×3 (04:15→18:27)
--- NOTE | 2017-03-16 07:27 | RAD ---
Portable chest, 03/16/2017: History: Respiratory failure Comparison is made to yesterday's study. The ET tube and NG tube have been removed. A right jugular central venous catheter extends to the level of the atriocaval junction. The heart size and pulmonary vascularity are normal. No pulmonary infiltrate is seen. There is no evidence of pleural fluid. IMPRESSION: No acute cardiopulmonary abnormality is detected.
--- NOTE | 2017-03-16 07:58 | PDOC ---
Infectious Disease Note Subjective Subjective extubated ROS ROS unable to do Vital Sign Vital Signs Vital Signs Date Time Temp Pulse Resp B/P (MAP) Pulse Ox O2 Delivery O2 Flow Rate FiO2 03/16/17 06:00 100 31 89/57 (68) 95 Nasal Cannula 4.0 03/16/17 04:00 102.4 102.4 Physical Exam PHYSICAL EXAM GENERAL: extubated, unresponsive HEENT: PERRL, OC/OP NECK: Supple, no JVD, no LN LUNGS: Clear HEART: S1S2, no gallop, no murmur ABD: Soft, NT, no organomegaly, no rebound EXT: No edema, no cyanosis GOVERNMENT RELATIONS ANALYST: moans SKIN: No rash IV: ok Labs Lab Laboratory Tests Test 03/15/17 08:40 O2 Saturation 98 % (92-99) Arterial Blood pH 7.54 (7.35-7.45) Arterial Blood pH (Temp corrected) 7.51 Arterial Blood pCO2 at Patient Temp 26 mmHg (35-46) Arterial Blood pCO2 (Temp correct) 28 mmHg Arterial Blood pO2 at Patient Temp 103 mmHg (75-108) Arterial Blood pO2 (Temp corrected) 115 mmHg Arterial Blood HCO3 21 mmol/L (21-28) Arterial Blood Base Excess 0 mmol/L (-3-3) FiO2 40 Micro BLOOD CULTURE PRL Preliminary Preliminary report BLD CULT RESULT 1 Preliminary Escherichia coli Recovered from anaerobic bottle only. ANTIMICROBIAL SUSCEPTIBILITY Preliminary Comment S = Susceptible; I = Intermediate; R = Resistant P = Positive; N = Negative MICS are expressed in micrograms per mL Antibiotic RSLT#1 RSLT#2 RSLT#3 RSLT#4 Amoxicillin/Clavulanic Acid I Ampicillin R Cefazolin R Cefepime R Ceftriaxone R Cefuroxime R Cephalothin R Ciprofloxacin R Ertapenem S Gentamicin S Imipenem S Levofloxacin R Nitrofurantoin S Piperacillin R Tetracycline R Tobramycin S Trimethoprim/Sulfa R Performed at: [address] [id number] Mortgage Loan Officer Originator: Dania Marroquin MD, Phone: [phone] Objective Assessment Sepsis with hypotension. POA. 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 Fever Leukocytosis. better Acute resp failure ? aspiration with patchy infiltrates. E coli HERNÁN- better Hypernatremia Transaminitis H/o MRSA and C. diff Biaxin allergy Thrombocytopenia Plan Plan of Care meropenem and gent Monitor lab values Supportive care d/w in detail, LUCRECIA GABRIEL MD March 16, 2017 07:58
[2017-03-16 08:18] LABS: ALBUMIN 1.8 g/dL (3.4-5.0); CALCIUM 7.9 mg/dL (8.5-10.1); CREATININE 0.8 mg/dL (0.7-1.3); PHOSPHORUS 3.1 mg/dL (2.6-4.7); POTASSIUM 4.5 mmol/L (3.5-5.1)
[2017-03-16] MEDS: OLANZapine 5 MG TABLET PO SCH ×2 (09:00→22:02)
[2017-03-16] MEDS: busPIRone 5 MG TABLET. PEG SCH ×3 (09:00→22:02)
[2017-03-16] MEDS: QUEtiapine 25 MG TABLET. PO SCH ×2 (09:00→22:02)
--- NOTE | 2017-03-16 09:53 | PDOC ---
PROGRESS NOTES Chief Complaint Chief Complaint cc: aspiration, respiratory failure A/P 1. Acute hypoxic respiratory failure, POA: extubated on 03/15/17, stable, following commands, per at his baseline, squeezing hands. 2. Suspected aspiration pneumonia, POA, : Blood cx positive Ecoli, ID following , on Meropenem, and Gentamicin, renal dosing, continue to have fevers, 3. Shock, Septic: on volume resuscitation, Levophed, goal MAP > 65, Echo normal EF, 4. Severe hypernatremia at 175 poa.: previous Na with in normal range, improved. change fluids to NS with potassium. 5. Hypokalemia, Magnesium, and Hypophosphatemia: replace electrolytes, 6. Metabolic acidosis: due to sepsis. 7. Acute kidney injury, present on admission: possible VMN/Sepsis. Resolved, making good urine. 8. Thrombocytopenia: possible due to sepsis, hold heparin, and monitor platelets. PT, APTT, INR, D - dimer, and fibrinogen - elevated, possible due to sepsis. 9. Acute on chronic metabolic encephalopathy.: due to sepsis and Hyponatremia, 10. 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 will start him on tube feeds, Place NG, continue psychotropics. 11. Prognosis poor, d/w RN, CC TIME 35 MIN. d/w at bedside, answered all questions. History of Present Illness History of Present Illness off Ventilator fevers central line on Levophed Vitals Vitals Vital Signs Date Time Temp Pulse Resp B/P (MAP) Pulse Ox O2 Delivery O2 Flow Rate FiO2 03/16/17 09:00 88 21 99/67 (78) 100 Nasal Cannula 4.0 03/16/17 08:00 101.4 101.4 Physical Exam General: Alert, Other (following commands, per at baseline. ) Heart: Regular rate, Normal S1, Normal S2 Lungs: Clear, Other Abdomen: Normal bowel sounds Extremities: Other Skin: Other Labs LABS Laboratory Tests Test 03/16/17 07:55 Sodium Level 145 mmol/L (136-145) Potassium Level 4.5 mmol/L (3.5-5.1) Chloride Level 112 mmol/L (98-107) Carbon Dioxide Level 21 mmol/L (21-32) Anion Gap 12 (6-14) Blood Urea Nitrogen 13 mg/dL (8-26) Creatinine 0.8 mg/dL (0.7-1.3) Estimated GFR (Cockcroft-Gault) 100.0 Glucose Level 85 mg/dL (70-99) Calcium Level 7.9 mg/dL (8.5-10.1) Phosphorus Level 3.1 mg/dL (2.6-4.7) Magnesium Level 2.2 mg/dL (1.8-2.4) Albumin 1.8 g/dL (3.4-5.0) Assessment and Plan Assessmemt and Plan Problems Medical Problems: (1) Hypernatremia Status: Acute (2) Hypokalemia Status: Acute Problems: Comment Review of Relevant I have reviewed the following items ambrose (where applicable) has been applied. Labs Laboratory Tests Test 03/15/17 05:45 03/15/17 08:40 03/16/17 07:55 White Blood Count 7.7 x10^3/uL (4.0-11.0) Red Blood Count 3.49 x10^6/uL (4.30-5.70) Hemoglobin 10.7 g/dL (13.0-17.5) Hematocrit 31.4 % (39.0-53.0) Mean Corpuscular Volume 90 fL (79-100) Mean Corpuscular Hemoglobin 31 pg (25-35) Mean Corpuscular Hemoglobin Concent 34 g/dL (31-37) Red Cell Distribution Width 17.3 % (11.5-14.5) Platelet Count 73 x10^3/uL (140-400) Neutrophils (%) (Auto) 79 % (31-73) Lymphocytes (%) (Auto) 13 % (24-48) Monocytes (%) (Auto) 6 % (0-9) Eosinophils (%) (Auto) 2 % (0-3) Basophils (%) (Auto) 0 % (0-3) Neutrophils # (Auto) 6.1 x10^3uL (1.8-7.7) Lymphocytes # (Auto) 1.0 x10^3/uL (1.0-4.8) Monocytes # (Auto) 0.5 x10^3/uL (0.0-1.1) Eosinophils # (Auto) 0.1 x10^3/uL (0.0-0.7) Basophils # (Auto) 0.0 x10^3/uL (0.0-0.2) Sodium Level 149 mmol/L (136-145) 145 mmol/L (136-145) Potassium Level 3.7 mmol/L (3.5-5.1) 4.5 mmol/L (3.5-5.1) Chloride Level 117 mmol/L (98-107) 112 mmol/L (98-107) Carbon Dioxide Level 25 mmol/L (21-32) 21 mmol/L (21-32) Anion Gap 7 (6-14) 12 (6-14) Blood Urea Nitrogen 10 mg/dL (8-26) 13 mg/dL (8-26) Creatinine 1.0 mg/dL (0.7-1.3) 0.8 mg/dL (0.7-1.3) Estimated GFR (Cockcroft-Gault) 77.3 100.0 Glucose Level 131 mg/dL (70-99) 85 mg/dL (70-99) Calcium Level 7.6 mg/dL (8.5-10.1) 7.9 mg/dL (8.5-10.1) Phosphorus Level 2.1 mg/dL (2.6-4.7) 3.1 mg/dL (2.6-4.7) Magnesium Level 2.3 mg/dL (1.8-2.4) 2.2 mg/dL (1.8-2.4) Albumin 1.9 g/dL (3.4-5.0) 1.8 g/dL (3.4-5.0) O2 Saturation 98 % (92-99) Arterial Blood pH 7.54 (7.35-7.45) Arterial Blood pH (Temp corrected) 7.51 Arterial Blood pCO2 at Patient Temp 26 mmHg (35-46) Arterial Blood pCO2 (Temp correct) 28 mmHg Arterial Blood pO2 at Patient Temp 103 mmHg (75-108) Arterial Blood pO2 (Temp corrected) 115 mmHg Arterial Blood HCO3 21 mmol/L (21-28) Arterial Blood Base Excess 0 mmol/L (-3-3) FiO2 40 Laboratory Tests Test 03/16/17 07:55 Sodium Level 145 mmol/L (136-145) Potassium Level 4.5 mmol/L (3.5-5.1) Chloride Level 112 mmol/L (98-107) Carbon Dioxide Level 21 mmol/L (21-32) Anion Gap 12 (6-14) Blood Urea Nitrogen 13 mg/dL (8-26) Creatinine 0.8 mg/dL (0.7-1.3) Estimated GFR (Cockcroft-Gault) 100.0 Glucose Level 85 mg/dL (70-99) Calcium Level 7.9 mg/dL (8.5-10.1) Phosphorus Level 3.1 mg/dL (2.6-4.7) Magnesium Level 2.2 mg/dL (1.8-2.4) Albumin 1.8 g/dL (3.4-5.0) Microbiology 03/11/17 Blood Culture - Final, Complete 03/11/17 Blood Culture Result 1 (STACI) - Final, Complete 03/12/17 Gram Stain - Final, Complete 03/14/17 Urine Culture - Preliminary, Resulted 03/14/17 Urine Culture Result 1 (STACI) - Preliminary, Resulted Medications Current Medications Norepinephrine Bitartrate 250 ml @ 0 mls/hr 1X ONCE IV Last administered on 19:01; Start 03/11/17 at 18:15; Stop 03/11/17 at 18:16; Status DC Sodium Chloride (Normal Saline Flush) 10 ml QSHIFT PRN IV AFTER MEDS AND BLOOD DRAWS; Start 03/11/17 at 18:15 Sodium Chloride 3,300 ml @ 3,300 mls/hr Q1H IV Last administered on 03/11/17 18:33; Start 03/11/17 at 18:15; Stop 03/11/17 at 18:37; Status DC Piperacillin Sod/ Tazobactam Sod 4.5 gm/Sodium Chloride 100 ml @ 200 mls/hr 1X ONCE IV Last administered on 03/11/17 18:54; Start 03/11/17 at 18:15; Stop 03/11/17 at 18:52; Status DC Norepinephrine Bitartrate 250 ml @ 0 mls/hr CONT PRN IV PER PROTOCOL Last administered on 03/15/17 10:04; Start 03/11/17 at 18:15 Midazolam HCl 100 ml @ 0 mls/hr 1X ONCE IV Last administered on 03/11/17 18: 32; Start 03/11/17 at 18:30; Stop 03/11/17 at 18:59; Status DC Vancomycin HCl (Vanco Per Pharmacy) 1 each PRN DAILY PRN MC SEE COMMENTS Last administered on 03/11/17 19:59; Start 03/11/17 at 18:30; Stop 03/12/17 at 09:39 ; Status DC Piperacillin Sod/ Tazobactam Sod (Zosyn Per Pharmacy) 1 each PRN DAILY PRN MC SEE COMMENTS; Start 03/11/17 at 18:30; Stop 03/14/17 at 08:55; Status DC Sodium Chloride 1,000 ml @ 3,300 mls/hr Q19M IV Last administered on 18:45; Start 03/11/17 at 18:45; Stop 03/11/17 at 19:15; Status DC Etomidate (Amidate) 20 mg STK-MED ONCE IV ; Start 03/11/17 at 18:40; Stop at 18:41; Status DC Succinylcholine Chloride (Anectine) 200 mg STK-MED ONCE .ROUTE ; Start 03/11/17 at 18:40; Stop 03/11/17 at 18:41; Status DC Ondansetron HCl (Zofran) 4 mg PRN Q8HRS PRN IV NAUSEA/VOMITING; Start 03/11/17 at 19:00; Stop 03/12/17 at 18:59; Status DC Sodium Chloride 1,000 ml @ 150 mls/hr Q6H40M IV ; Start 03/11/17 at 18:51; Stop 03/11/17 at 21:31; Status DC Albuterol/ Ipratropium (Duoneb) 3 ml RTQID NEB Last administered on 03/12/17 19:25; Start 03/11/17 at 20:00; Stop 03/12/17 at 19:59; Status DC Vancomycin HCl 2 gm/Sodium Chloride 500 ml @ 250 mls/hr 1X ONCE IV Last administered on 03/11/17 19:40; Start 03/11/17 at 20:00; Stop 03/11/17 at 21:59 ; Status DC Piperacillin Sod/ Tazobactam Sod 4.5 gm/Sodium Chloride 100 ml @ 200 mls/hr Q6HRS IV Last administered on 5/19/17at 06:35; Start 03/12/17 at 00:00; Stop at 09:39; Status DC Hydrocortisone Sodium Succinate (Solu-CORTEF) 100 mg 1X ONCE IV ; Start at 19:15; Stop 03/11/17 at 19:32; Status DC Hydrocortisone Sodium Succinate (Solu-CORTEF) 250 mg 1X ONCE IV Last administered on 03/11/17 19:37; Start 03/11/17 at 19:45; Stop 03/11/17 at 19:46 ; Status DC Acetaminophen (Acetaminophen Supp) 1,000 mg 1X ONCE KS Last administered on t 20:27; Start 03/11/17 at 20:00; Stop 03/11/17 at 20:01; Status DC Vancomycin HCl 1.25 gm/Sodium Chloride 250 ml @ 166.667 mls/hr Q24H IV ; Start 03/12/17 at 20:00; Stop 03/12/17 at 20:00; Status DC Vancomycin HCl 1 each 1X ONCE MC ; Start 03/13/17 at 19:30; Stop 03/13/17 at 19 :31; Status Cancel Dextrose/Sodium Chloride 500 ml @ 1,000 mls/hr 1X ONCE IV ; Start 03/11/17 at 21:30; Stop 03/11/17 at 21:59; Status DC Dextrose/Sodium Chloride 1,000 ml @ 150 mls/hr Q6H40M IV ; Start 03/11/17 at 21 :30; Stop 03/12/17 at 04:09; Status DC Potassium Chloride 40 meq/ Dextrose 1,020 ml @ 75 mls/hr 1X ONCE IV ; Start at 21:45; Stop 03/12/17 at 04:09; Status DC Dextrose/Sodium Chloride 500 ml @ 0 mls/hr 1X ONCE IV ; Start 03/11/17 at 22:30 ; Stop 03/11/17 at 22:31; Status DC Sterile Water 1,000 ml @ 50 mls/hr Q20H IV ; Start 03/11/17 at 22:30; Stop at 22:30; Status DC Sterile Water 1,000 ml @ 50 mls/hr Q20H IV ; Start 03/11/17 at 22:30; Stop at 23:45; Status DC Dextrose/Sodium Chloride 1,000 ml @ 125 mls/hr Q8H IV Last administered on 10:05; Start 03/11/17 at 22:30; Stop 03/12/17 at 11:52; Status DC Dextrose/Sodium Chloride 1,000 ml @ 0 mls/hr 1X ONCE IV Last administered on 03/11/17 22:30; Start 03/11/17 at 22:30; Stop 03/11/17 at 22:31; Status DC Potassium Chloride 100 ml @ 100 mls/hr Q1H IV Last administered on 03/12/17 10:04; Start 03/11/17 at 23:30; Stop 03/12/17 at 07:29; Status DC Piperacillin Sod/ Tazobactam Sod 2.25 gm/Sodium Chloride 50 ml @ 100 mls/hr Q6H IV Last administered on 03/13/17 03:33; Start 03/12/17 at 10:00; Stop at 08:35; Status DC Linezolid 300 ml @ 300 mls/hr Q12HR IV Last administered on 03/13/17 08:55; Start 03/12/17 at 09:45; Stop 03/13/17 at 12:13; Status DC Micafungin Sodium 100 mg/Dextrose 100 ml @ 100 mls/hr Q24H IV Last administered on 03/13/17 10:48; Start 03/12/17 at 11:00; Stop 03/13/17 at 12:14 ; Status DC Pantoprazole Sodium (Protonix Vial) 40 mg DAILYAC IVP Last administered on 03/15 10:02; Start 03/13/17 at 07:30 Heparin Sodium (Porcine) (Heparin Sq) 5,000 unit Q8HRS SQ Last administered on 03/13/17 05:30; Start 03/12/17 at 14:00; Stop 03/13/17 at 10:23; Status DC Cefepime HCl 2 gm/ Sodium Chloride 100 ml @ 200 mls/hr ONCE ONCE IV Last administered on 03/12/17 10:57; Start 03/12/17 at 10:00; Stop 03/12/17 at 10:29 ; Status DC Lidocaine/Sodium Bicarbonate (Buffered Lidocaine 1%) 3 ml 1X ONCE IJ Last administered on 03/12/17 12:26; Start 03/12/17 at 10:15; Stop 03/12/17 at 10:16 ; Status DC Heparin Sodium/ Sodium Chloride 60 unit 1X ONCE IV Last administered on 12:27; Start 03/12/17 at 10:15; Stop 03/12/17 at 10:16; Status DC Metronidazole 100 ml @ 100 mls/hr Q8HRS IV Last administered on 03/13/17 05: 28; Start 03/12/17 at 14:00; Stop 03/13/17 at 12:14; Status DC Atropine Sulfate 0.5 mg STK-MED ONCE .ROUTE ; Start 03/12/17 at 10:55; Stop at 10:56; Status DC Magnesium Sulfate/ Dextrose 50 ml @ 25 mls/hr PRN DAILY PRN IV for Mag < 1.7 on am labs; Start 03/12/17 at 11:30; Stop 03/14/17 at 11:13; Status DC Potassium Chloride/Dextrose/ Sod Cl 1,000 ml @ 100 mls/hr Q10H IV Last administered on 03/12/17 13:19; Start 03/12/17 at 11:30; Stop 03/12/17 at 14:46 ; Status DC Potassium Chloride 100 ml @ 100 mls/hr Q1H IV Last administered on 03/12/17 17:00; Start 03/12/17 at 12:00; Stop 03/12/17 at 19:59; Status DC Potassium Chloride/Dextrose/ Sod Cl 1,000 ml @ 100 mls/hr Q10H IV ; Start 03/12 at 12:15; Status UNV Atropine Sulfate 0.5 mg STK-MED ONCE .ROUTE ; Start 03/12/17 at 12:31; Stop at 12:32; Status DC Potassium Chloride/Dextrose/ Sod Cl 1,000 ml @ 100 mls/hr 1X ONCE IV ; Start 03/12/17 at 12:30; Stop 03/12/17 at 14:46; Status DC Potassium Phosphate 13.6 mmol/Sodium Chloride 104.5333 ml @ 52.267 m... Q2H IV Last administered on 03/12/17 19:23; Start 03/12/17 at 15:00; Stop 03/12/17 at 20:59; Status DC Potassium Chloride/Dextrose/ Sod Cl 1,000 ml @ 100 mls/hr Q10H IV Last administered on 03/13/17 02:42; Start 03/12/17 at 14:45; Stop 03/13/17 at 10:18 ; Status DC Dopamine HCl/ Dextrose 250 ml @ 16.423 mls/ hr CONT PRN IV SEE I/O RECORD; Start 03/12/17 at 16:30 Potassium Chloride 50 ml @ 25 mls/hr Q2H IV Last administered on 03/13/17 02: 29; Start 03/12/17 at 19:00; Stop 03/13/17 at 02:59; Status DC Fentanyl Citrate (Fentanyl 2ml Vial) 50 mcg PRN Q2HR PRN IV PAIN Last administered on 03/13/17 05:28; Start 03/12/17 at 20:30 Lorazepam (Ativan) 2 mg PRN Q4HRS PRN IV ANXIETY / AGITATION Last administered on 03/14/17 02:00; Start 03/12/17 at 20:30 Piperacillin Sod/ Tazobactam Sod 3.375 gm/Sodium Chloride 50 ml @ 100 mls/hr Q6HRS IV Last administered on 03/14/17 05:29; Start 03/13/17 at 10:00; Stop at 08:55; Status DC Potassium Chloride/Dextrose 1,000 ml @ 125 mls/hr Q8H IV Last administered on 03/15/17 05:00; Start 03/13/17 at 10:15; Stop 03/15/17 at 11:01; Status DC Acetaminophen (Tylenol) 325 mg PRN Q6HRS PRN PO MILD PAIN / TEMP Last administered on 03/14/17 04:00; Start 03/13/17 at 10:45; Stop 03/14/17 at 09:48 ; Status DC Ciprofloxacin Lactate 200 ml @ 200 mls/hr Q12HR IV Last administered on 20:56; Start 03/13/17 at 12:30; Stop 03/14/17 at 08:55; Status DC Iohexol (Omnipaque 300 Mg/ml) 75 ml 1X ONCE IV Last administered on 03/13/17 12:30; Start 03/13/17 at 12:30; Stop 03/13/17 at 12:31; Status DC Iohexol (Omnipaque 240 Mg/ml) 50 ml 1X ONCE PO Last administered on 03/13/17 12:30; Start 03/13/17 at 12:30; Stop 03/13/17 at 12:31; Status DC Info (Do NOT chart on this entry -- for MONITORING) 1 each PRN DAILY PRN MC SEE COMMENTS; Start 03/13/17 at 12:45; Stop 03/15/17 at 12:44; Status DC Buspirone HCl (Buspar) 5 mg TID PEG Last administered on 03/15/17 15:28; Start 03/13/17 at 14:00 Olanzapine (ZyPREXA) 5 mg BID PO Last administered on 03/15/17 10:02; Start at 14:00 Quetiapine Fumarate (SEROquel) 50 mg BID PO Last administered on 03/15/17 10: 03; Start 03/13/17 at 14:00 Chlorhexidine Gluconate (Peridex) 15 ml BID SWSP Last administered on 10:02; Start 03/13/17 at 21:00 Gentamicin Sulfate 380 mg/ Sodium Chloride 109.5 ml @ 219 mls/hr 1X ONCE IV Last administered on 03/14/17 10:10; Start 03/14/17 at 09:30; Stop 03/14/17 at 09:59; Status DC Meropenem 1 gm/ Sodium Chloride 100 ml @ 200 mls/hr Q8H IV Last administered on 03/16/17 04:15; Start 03/14/17 at 10:00 Acetaminophen (Tylenol) 325 mg PRN Q4HRS PRN PO MILD PAIN / TEMP Last administered on 03/15/17 10:02; Start 03/14/17 at 10:45 Magnesium Sulfate/ Dextrose 100 ml @ 50 mls/hr PRN DAILY PRN IV LOW MAG - SEE COMMENTS Last administered on 03/14/17 13:29; Start 03/14/17 at 11:13 Potassium Phosphate 20 mmol/ Sodium Chloride 256.6667 ml @ 128.... Q2H IV Last administered on 03/14/17 14:39; Start 03/14/17 at 09:45; Stop 03/14/17 at 13:44; Status DC Dextrose/Sodium Chloride 1,000 ml @ 999 mls/hr 1X ONCE IV Last administered on 03/14/17 10:00; Start 03/14/17 at 09:45; Stop 03/14/17 at 10:45; Status DC Atropine Sulfate 1 mg STK-MED ONCE .ROUTE ; Start 03/12/17 at 12:00; Stop at 08:35; Status DC Potassium Phosphate 10 mmol/ Sodium Chloride 103.3333 ml @ 51.667 m... Q2H IV Last administered on 03/15/17 15:28; Start 03/15/17 at 11:00; Stop 03/15/17 at 14:59; Status DC Sodium Chloride 1,000 ml @ 1,000 mls/hr 1X ONCE IV Last administered on 12:50; Start 03/15/17 at 11:00; Stop 03/15/17 at 11:59; Status DC Potassium Chloride 20 meq/ Sodium Chloride 1,010 ml @ 75 mls/hr 1X ONCE IV ; Start 03/15/17 at 11:00; Stop 03/15/17 at 11:00; Status DC Potassium Chloride 20 meq/ Sodium Chloride 1,010 ml @ 75 mls/hr [id number] IV Last administered on 03/15/17 12:51; Start 03/15/17 at 11:00 Gentamicin Sulfate 330 mg/ Sodium Chloride 108.25 ml @ 108.25 mls/hr Q24H IV ; Start 03/16/17 at 09:00 Active Scripts Active Reported Melatonin 3 Mg Tablet 1 Tab PO QHS Melatonin 1 Mg Tablet 1 Mg PO HS Vitamin D (Cholecalciferol (Vitamin D3)) 1,000 Unit Capsule 1,000 Cap PO DAILY Lactulose 20 Gm/30 Ml Solution 37.5 Gm PO TID PRN Flector (Diclofenac Epolamine) 1 Each Patch.td12 2 Patch TP BID Miralax (Polyethylene Glycol 3350) 17 Gm Powd.pack 1 Packet PO PRN Q12HR Olanzapine 5 Mg Tablet 1 Tab PO BID Nutritional Drink Mix (Protein Supplement) 420 Gm Powder 420 Gm PO Seroquel (Quetiapine Fumarate) 50 Mg Tablet 50 Mg PO BID Trazodone Hcl 100 Mg Tablet 1 Tab PO QHS Tramadol Hcl 50 Mg Tablet 50 Mg PO Q8HRS PRN Tylenol (Acetaminophen) 325 Mg Tablet 2 Tab PEG PRN Q4-6HRS PRN Valtrex (Valacyclovir Hcl) 1,000 Mg Tablet 1 Tab PO DAILY Tamsulosin Hcl 0.4 Mg Cap.er.24h 1 Cap PO DAILY Citrucel (Methylcellulose) 479 Gm Powder 479 Gm PO Fluticasone Propionate Nasal [place] (Fluticasone Propionate) 16 Gm [place].susp 2 [place] NS HS Xarelto (Rivaroxaban) 20 Mg Tablet 20 Mg PEG DAILY Buspirone Hcl 5 Mg Tablet 1 Tab PEG TID Vitamin D (Cholecalciferol (Vitamin D3)) 10,000 Unit Capsule 50,000 Unit PO QFR Famotidine 20 Mg Tablet 20 Mg PO BID Thiamine Hcl 100 Mg Tablet 100 Mg PEG DAILY Oxcarbazepine 300 Mg Tablet 1 Tab PEG BID Duoneb 0.5-3(2.5) Mg/3 Ml (Albuterol/Ipratropium) 3 Ml Ampul.neb 3 Ml NEB BID Anti-Diarrheal (Loperamide Hcl) 2 Mg Capsule 2 Mg PO BID Vitals/I & O Vital Sign - Last 24 Hours 03/15/17 03/15/17 03/15/17 03/15/17 10:00 10:15 10:30 10:45 Pulse 105 102 96 Resp 26 23 B/P (MAP) 82/64 (70) 75/44 (54) 73/52 (59) Pulse Ox 100 98 99 100 O2 Delivery Ventilator Ventilator Ventilator Ventilator 03/15/17 03/15/17 03/15/17 03/15/17 11:00 11:30 12:00 12:00 Temp 100.2 100.2 Pulse 93 88 90 Resp 20 24 23 B/P (MAP) 73/53 (60) 77/52 (60) 75/54 (61) Pulse Ox 99 99 100 O2 Delivery Ventilator Ventilator Mechanical Ventilator Ventilator 03/15/17 03/15/17 03/15/17 03/15/17 12:34 13:00 14:00 14:00 Pulse 89 88 Resp 23 21 B/P (MAP) 78/52 (61) 83/52 (62) Pulse Ox 99 99 100 O2 Delivery Ventilator Ventilator Ventilator Ventilator 03/15/17 03/15/17 03/15/1703/15/17 15:00 16:00 16:00 16:20 Temp 100.4 100.4 Pulse 87 91 Resp 23 18 B/P (MAP) 94/57 (69) 83/59 (67) Pulse Ox 100 98 100 O2 Delivery Ventilator Ventilator Mechanical Ventilator Ventilator 03/15/17 03/15/17 03/15/17 03/15/17 17:00 17:20 18:00 19:00 Pulse 86 94 87 Resp 22 B/P (MAP) 92/53 (66) 97/68 (78) 87/68 (74) Pulse Ox 100 99 100 O2 Delivery Ventilator Nasal Cannula Nasal Cannula Nasal Cannula O2 Flow Rate 4.0 4.0 4.0 03/15/17 03/15/17 03/15/17 03/15/17 20:00 20:00 21:00 22:00 Temp 101.7 101.7 Pulse 91 95 96 Resp 17 B/P (MAP) 99/62 (74) 94/63 (73) 84/62 (69) Pulse Ox 100 99 99 O2 Delivery Nasal Cannula Nasal Cannula Nasal Cannula Nasal Cannula O2 Flow Rate 4.0 4.0 4.0 4.0 03/15/17 03/15/17 03/16/17 03/16/17 23:00 23:59 00:00 01:00 Temp 102.8 102.8 Pulse 98 94 99 Resp 22 B/P (MAP) 99/61 (74) 91/64 (73) 100/64 (76) Pulse Ox 97 97 99 O2 Delivery Nasal Cannula Nasal Cannula Nasal Cannula Nasal Cannula O2 Flow Rate 4.0 4.0 4.0 4.0 03/16/17 03/16/17 03/16/17 03/16/17 02:00 03:00 04:00 04:00 Temp 102.4 102.4 Pulse 95 98 100 Resp 16 16 B/P (MAP) 97/63 (74) 84/57 (66) 91/54 (66) Pulse Ox 99 99 99 O2 Delivery Nasal Cannula Nasal Cannula Nasal Cannula Nasal Cannula O2 Flow Rate 4.0 4.0 4.0 4.0 03/16/17 03/16/17 03/16/17 03/16/17 05:00 06:00 07:00 08:00 Pulse 102 100 91 Resp 20 31 22 B/P (MAP) 104/62 (76) 89/57 (68) 95/69 (78) Pulse Ox 100 95 100 O2 Delivery Nasal Cannula Nasal Cannula Nasal Cannula Nasal Cannula O2 Flow Rate 4.0 4.0 4.0 4.0 03/16/17 03/16/17 08:00 09:00 Temp 101.4 101.4 Pulse 89 88 Resp 23 21 B/P (MAP) 105/71 (82) 99/67 (78) Pulse Ox 100 100 O2 Delivery Nasal Cannula Nasal Cannula O2 Flow Rate 4.0 4.0 Intake and Output 03/15/17 03/15/17 03/16/17 15:00 23:00 07:00 Intake Total 1703.33 ml 1023 ml 1101 ml Output Total 2200 ml 450 ml 2450 ml Balance -496.67 ml 573 ml -1349 ml STORMY ARAIZA MD March 16, 2017 09:53
[2017-03-16] MEDS: PANTOPRAZOLE IV PUSH 40 MG VIAL. IVP SCH (09:56)
[2017-03-16] MEDS: NORMAL SALINE IV SCH (09:57)
[2017-03-16] MEDS: GENTAMICIN SULFATE IV SCH (09:57)
[2017-03-16] MEDS: CHLORHEXIDINE 0.12% 15 ML MOUTHWASH. SWSP SCH ×2 (09:57→20:12)
[2017-03-16] MEDS: POTASSIUM CHLORIDE 20 MEQ in IV NORMAL SALINE 1000ML BAG 1,000 ML IV SCH (09:57)
--- NOTE | 2017-03-16 11:01 | PDOC ---
Renal-Progress Notes Subjective Notes Notes NONE History of Present Illness Hx of present illness BETTER Vitals Vitals Vital Signs Date Time Temp Pulse Resp B/P (MAP) Pulse Ox O2 Delivery O2 Flow Rate FiO2 03/16/17 09:00 88 21 99/67 (78) 100 Nasal Cannula 4.0 03/16/17 08:00 101.4 101.4 Weight Weight [ ] Stability Assess. Stability Assess.: unstable for transfer (Req. medic. for stabiliz. V.S) I.O. Intake and Output Intake and Output 03/16/17 07:00 Intake Total 3827.33 ml Output Total 5100 ml Balance -1272.67 ml IV Total 3327.33 ml Tube Feeding 500 ml Output Urine Total 5100 ml Labs Labs Laboratory Tests Test 03/16/17 07:55 Sodium Level 145 mmol/L (136-145) Potassium Level 4.5 mmol/L (3.5-5.1) Chloride Level 112 mmol/L (98-107) Carbon Dioxide Level 21 mmol/L (21-32) Anion Gap 12 (6-14) Blood Urea Nitrogen 13 mg/dL (8-26) Creatinine 0.8 mg/dL (0.7-1.3) Estimated GFR (Cockcroft-Gault) 100.0 Glucose Level 85 mg/dL (70-99) Calcium Level 7.9 mg/dL (8.5-10.1) Phosphorus Level 3.1 mg/dL (2.6-4.7) Magnesium Level 2.2 mg/dL (1.8-2.4) Albumin 1.8 g/dL (3.4-5.0) Micro Micro Microbiology 03/11/17 Blood Culture - Final, Complete 03/11/17 Blood Culture Result 1 (STACI) - Final, Complete 03/12/17 Gram Stain - Final, Complete 03/14/17 Urine Culture - Preliminary, Resulted 03/14/17 Urine Culture Result 1 (STACI) - Preliminary, Resulted Case Discussion Case Discussed with: Other (RN) Review of Systems Constitutional: yes: no symptom reported Physical Exam General Appearance: no apparent distress Skin: warm Respiratory: decreased breath sounds Heart: S1S2 Abdomen: soft, bowel sounds present Genitourinary: bladder flat Extremities: no edema, atrophy Neurology: other (intubated/sedated) Musculoskeletal: Other Assessment Assessment IMP HERNÁN-RESOLVED DEHYDRATION HYPERNATREMIA-RESOLVED LEUCOCYTOSIS RESP FAILURE-S/P EXTUBATION G NEG SEPSIS LOW PO4-CORRECTED PLAN WILL SIGN OFF PLEASE CALL IF NEEDED UPDATED FAMILY RANDALL VENTURA MD March 16, 2017 11:01
--- NOTE | 2017-03-16 12:38 | RAD ---
Indication assess nasogastric tube placement. A single view targeted to the lower chest and upper abdomen was obtained. Nasogastric tube is noted. The tip is in the mid to distal body of the stomach. Note is made of some kinking of the NG tube at the GE junction.
--- NOTE | 2017-03-16 13:51 | PDOC ---
PULMONARY PROGRESS NOTES Subjective extubated yesterday Vitals Vital Signs Date Time Temp Pulse Resp B/P (MAP) Pulse Ox O2 Delivery O2 Flow Rate FiO2 03/16/17 13:00 93 25 86/58 (67) 98 Nasal Cannula 4.0 03/16/17 12:00 99.2 99.2 Lungs: Clear Cardiovascular: S1 Abdomen: Soft Extremities: No Edema, Other Skin: Warm Labs Laboratory Tests Test 03/15/17 05:45 03/15/17 08:40 03/16/17 07:55 White Blood Count 7.7 x10^3/uL (4.0-11.0) Red Blood Count 3.49 x10^6/uL (4.30-5.70) Hemoglobin 10.7 g/dL (13.0-17.5) Hematocrit 31.4 % (39.0-53.0) Mean Corpuscular Volume 90 fL (79-100) Mean Corpuscular Hemoglobin 31 pg (25-35) Mean Corpuscular Hemoglobin Concent 34 g/dL (31-37) Red Cell Distribution Width 17.3 % (11.5-14.5) Platelet Count 73 x10^3/uL (140-400) Neutrophils (%) (Auto) 79 % (31-73) Lymphocytes (%) (Auto) 13 % (24-48) Monocytes (%) (Auto) 6 % (0-9) Eosinophils (%) (Auto) 2 % (0-3) Basophils (%) (Auto) 0 % (0-3) Neutrophils # (Auto) 6.1 x10^3uL (1.8-7.7) Lymphocytes # (Auto) 1.0 x10^3/uL (1.0-4.8) Monocytes # (Auto) 0.5 x10^3/uL (0.0-1.1) Eosinophils # (Auto) 0.1 x10^3/uL (0.0-0.7) Basophils # (Auto) 0.0 x10^3/uL (0.0-0.2) Sodium Level 149 mmol/L (136-145) 145 mmol/L (136-145) Potassium Level 3.7 mmol/L (3.5-5.1) 4.5 mmol/L (3.5-5.1) Chloride Level 117 mmol/L (98-107) 112 mmol/L (98-107) Carbon Dioxide Level 25 mmol/L (21-32) 21 mmol/L (21-32) Anion Gap 7 (6-14) 12 (6-14) Blood Urea Nitrogen 10 mg/dL (8-26) 13 mg/dL (8-26) Creatinine 1.0 mg/dL (0.7-1.3) 0.8 mg/dL (0.7-1.3) Estimated GFR (Cockcroft-Gault) 77.3 100.0 Glucose Level 131 mg/dL (70-99) 85 mg/dL (70-99) Calcium Level 7.6 mg/dL (8.5-10.1) 7.9 mg/dL (8.5-10.1) Phosphorus Level 2.1 mg/dL (2.6-4.7) 3.1 mg/dL (2.6-4.7) Magnesium Level 2.3 mg/dL (1.8-2.4) 2.2 mg/dL (1.8-2.4) Albumin 1.9 g/dL (3.4-5.0) 1.8 g/dL (3.4-5.0) O2 Saturation 98 % (92-99) Arterial Blood pH 7.54 (7.35-7.45) Arterial Blood pH (Temp corrected) 7.51 Arterial Blood pCO2 at Patient Temp 26 mmHg (35-46) Arterial Blood pCO2 (Temp correct) 28 mmHg Arterial Blood pO2 at Patient Temp 103 mmHg (75-108) Arterial Blood pO2 (Temp corrected) 115 mmHg Arterial Blood HCO3 21 mmol/L (21-28) Arterial Blood Base Excess 0 mmol/L (-3-3) FiO2 40 Laboratory Tests Test 03/16/17 07:55 Sodium Level 145 mmol/L (136-145) Potassium Level 4.5 mmol/L (3.5-5.1) Chloride Level 112 mmol/L (98-107) Carbon Dioxide Level 21 mmol/L (21-32) Anion Gap 12 (6-14) Blood Urea Nitrogen 13 mg/dL (8-26) Creatinine 0.8 mg/dL (0.7-1.3) Estimated GFR (Cockcroft-Gault) 100.0 Glucose Level 85 mg/dL (70-99) Calcium Level 7.9 mg/dL (8.5-10.1) Phosphorus Level 3.1 mg/dL (2.6-4.7) Magnesium Level 2.2 mg/dL (1.8-2.4) Albumin 1.8 g/dL (3.4-5.0) Medications Active Scripts Medications Dose Route/Sig Max Daily Dose Days Date Category Melatonin 3 Mg Tablet 1 Tab PO QHS 03/12/17 Reported Melatonin 1 Mg Tablet 1 Mg PO HS 03/12/17 Reported Vitamin D (Cholecalciferol (Vitamin D3)) 1,000 Unit Capsule 1,000 Cap PO DAILY 03/12/17 Reported Lactulose 20 Gm/30 Ml Solution 37.5 Gm PO TID PRN 03/12/17 Reported Flector (Diclofenac Epolamine) 1 Each Patch.td12 2 Patch TP BID 03/12/17 Reported Miralax (Polyethylene Glycol 3350) 17 Gm Powd.pack 1 Packet PO PRN Q12HR 03/12/17 Reported Olanzapine 5 Mg Tablet 1 Tab PO BID 03/12/17 Reported Nutritional Drink Mix (Protein Supplement) 420 Gm Powder 420 Gm PO 03/12/17 Reported Seroquel (Quetiapine Fumarate) 50 Mg Tablet 50 Mg PO BID 03/12/17 Reported Trazodone Hcl 100 Mg Tablet 1 Tab PO QHS 03/12/17 Reported Tramadol Hcl 50 Mg Tablet 50 Mg PO Q8HRS PRN 03/12/17 Reported Tylenol (Acetaminophen) 325 Mg Tablet 2 Tab PEG PRN Q4-6HRS PRN 02/01/17 Reported Valtrex (Valacyclovir Hcl) 1,000 Mg Tablet 1 Tab PO DAILY 01/27/17 Reported Tamsulosin Hcl 0.4 Mg Cap.er.24h 1 Cap PO DAILY 01/27/17 Reported Citrucel (Methylcellulose) 479 Gm Powder 479 Gm PO 01/27/17 Reported Fluticasone Propionate Nasal [place] (Fluticasone Propionate) 16 Gm [place].susp 2 [place] NS HS 01/06/17 Reported Xarelto (Rivaroxaban) 20 Mg Tablet 20 Mg PEG DAILY 01/06/17 Reported Buspirone Hcl 5 Mg Tablet 1 Tab PEG TID 01/06/17 Reported Vitamin D (Cholecalciferol (Vitamin D3)) 10,000 Unit Capsule 50,000 Unit PO QFR 01/06/17 Reported Famotidine 20 Mg Tablet 20 Mg PO BID 01/06/17 Reported Thiamine Hcl 100 Mg Tablet 100 Mg PEG DAILY 01/06/17 Reported Oxcarbazepine 300 Mg Tablet 1 Tab PEG BID 01/06/17 Reported Duoneb 0.5-3(2.5) Mg/3 Ml (Albuterol/Ipratropium) 3 Ml Ampul.neb 3 Ml NEB BID 01/06/17 Reported Anti-Diarrheal (Loperamide Hcl) 2 Mg Capsule 2 Mg PO BID 01/06/17 Reported Comments cxr reviewed Impression . 1. Acute respiratory failure secondary to septic shock. 2. E-Coli septic shock 3. History of respiratory failure in the past post-gastric bypass surgery with multiple complications including leak requiring multiple surgeries. He had history of tracheostomy with subsequent decannulation. 4. Severe hypernatremia. 5. Acute renal failure. 6. Metabolic acidosis 7. Acute renal failure 8. Hypokalemia. 9. Wernicke encephalopathy old Plan . resp status is compensated off vent 1. spoke with 2. antibiotics per ID/ multi-resistant E-coli 3. off pressors 4. ct abdomen with LLL consolidation 5. Follow chest x-rays. 6. Deep venous thrombosis prophylaxis. 7. Stress ulcer prophylaxis. FLORIDALMA MALLOY MD March 16, 2017 13:51
[2017-03-17] VITALS (24 sets, daily range): BP systolic 81–108; BP diastolic 50–68
[2017-03-17] MEDS: POTASSIUM CHLORIDE 20 MEQ in IV NORMAL SALINE 1000ML BAG 1,000 ML IV SCH (02:09)
[2017-03-17] MEDS: MEROPENEM 1 GM in IV NORMAL SALINE 100ML 100 ML IV SCH ×3 (03:26→16:59)
[2017-03-17 06:27] LABS: BASO % 0 % (0-3); EOS % 3 % (0-3); HEMATOCRIT 29.5 % (39.0-53.0); HEMOGLOBIN 9.7 g/dL (13.0-17.5); LYMPH # 1.1 x10^3/uL (1.0-4.8); LYMPH % 24 % (24-48); MEAN CORPUSCULAR HEMOGLOBIN 30 pg (25-35); MEAN CORPUSCULAR HGB CONC 33 g/dL (31-37); MEAN CORPUSCULAR VOLUME 91 fL (79-100); MONO % 9 % (0-9); NEUT % 64 % (31-73); PLATELET COUNT 81 x10^3/uL (140-400); RED BLOOD COUNT 3.25 x10^6/uL (4.30-5.70); RED CELL DISTRIBUTION WIDTH 16.9 % (11.5-14.5); WHITE BLOOD COUNT 4.5 x10^3/uL (4.0-11.0)
[2017-03-17 06:49] LABS: ALBUMIN 1.9 g/dL (3.4-5.0); CALCIUM 7.9 mg/dL (8.5-10.1); CREATININE 0.7 mg/dL (0.7-1.3); GFR 116.7; PHOSPHORUS 3.1 mg/dL (2.6-4.7); POTASSIUM 3.9 mmol/L (3.5-5.1)
--- NOTE | 2017-03-17 07:29 | RAD ---
Portable chest, 03/17/2017: History: Respiratory failure Comparison is made to yesterday's study. An NG tube has been inserted extending into the stomach. A right jugular central venous catheter extends to the level of the atriocaval junction. The heart size and pulmonary vascularity are normal. There is minimal atelectasis/infiltrate in the left base. The lungs are otherwise clear. There is no evidence of pleural fluid or pneumothorax. IMPRESSION: 1. The NG tube and right jugular central venous catheter are in satisfactory positions. 2. Minimal left basilar atelectasis/infiltrate.
--- NOTE | 2017-03-17 07:50 | PDOC ---
Infectious Disease Note Subjective Subjective awake, mumbles ROS ROS unable to do Vital Sign Vital Signs Vital Signs Date Time Temp Pulse Resp B/P (MAP) Pulse Ox O2 Delivery O2 Flow Rate FiO2 03/17/17 07:00 101 22 85/54 (64) 98 Nasal Cannula 2.0 03/17/17 04:00 100.8 100.8 Physical Exam PHYSICAL EXAM GENERAL: NAD, Alert HEENT: PERRL, OC/OP NECK: Supple, no JVD, no LN LUNGS: Clear HEART: S1S2, no gallop, no murmur ABD: Soft, NT, no organomegaly, no rebound EXT: No edema, no cyanosis PLATE FORMER: Alert, mumbles few words SKIN: No rash IV: ok Labs Lab Laboratory Tests Test 03/16/17 07:55 03/17/17 06:14 Sodium Level 145 mmol/L (136-145) 142 mmol/L (136-145) Potassium Level 4.5 mmol/L (3.5-5.1) 3.9 mmol/L (3.5-5.1) Chloride Level 112 mmol/L (98-107) 109 mmol/L (98-107) Carbon Dioxide Level 21 mmol/L (21-32) 24 mmol/L (21-32) Anion Gap 12 (6-14) 9 (6-14) Blood Urea Nitrogen 13 mg/dL (8-26) 17 mg/dL (8-26) Creatinine 0.8 mg/dL (0.7-1.3) 0.7 mg/dL (0.7-1.3) Estimated GFR (Cockcroft-Gault) 100.0 116.7 Glucose Level 85 mg/dL (70-99) 104 mg/dL (70-99) Calcium Level 7.9 mg/dL (8.5-10.1) 7.9 mg/dL (8.5-10.1) Phosphorus Level 3.1 mg/dL (2.6-4.7) 3.1 mg/dL (2.6-4.7) Magnesium Level 2.2 mg/dL (1.8-2.4) 2.3 mg/dL (1.8-2.4) Albumin 1.8 g/dL (3.4-5.0) 1.9 g/dL (3.4-5.0) White Blood Count 4.5 x10^3/uL (4.0-11.0) Red Blood Count 3.25 x10^6/uL (4.30-5.70) Hemoglobin 9.7 g/dL (13.0-17.5) Hematocrit 29.5 % (39.0-53.0) Mean Corpuscular Volume 91 fL (79-100) Mean Corpuscular Hemoglobin 30 pg (25-35) Mean Corpuscular Hemoglobin Concent 33 g/dL (31-37) Red Cell Distribution Width 16.9 % (11.5-14.5) Platelet Count 81 x10^3/uL (140-400) Neutrophils (%) (Auto) 64 % (31-73) Lymphocytes (%) (Auto) 24 % (24-48) Monocytes (%) (Auto) 9 % (0-9) Eosinophils (%) (Auto) 3 % (0-3) Basophils (%) (Auto) 0 % (0-3) Neutrophils # (Auto) 2.9 x10^3uL (1.8-7.7) Lymphocytes # (Auto) 1.1 x10^3/uL (1.0-4.8) Monocytes # (Auto) 0.4 x10^3/uL (0.0-1.1) Eosinophils # (Auto) 0.1 x10^3/uL (0.0-0.7) Basophils # (Auto) 0.0 x10^3/uL (0.0-0.2) Micro BLOOD CULTURE PRL Preliminary Preliminary report BLD CULT RESULT 1 Preliminary Escherichia coli Recovered from anaerobic bottle only. ANTIMICROBIAL SUSCEPTIBILITY Preliminary Comment S = Susceptible; I = Intermediate; R = Resistant P = Positive; N = Negative MICS are expressed in micrograms per mL Antibiotic RSLT#1 RSLT#2 RSLT#3 RSLT#4 Amoxicillin/Clavulanic Acid I Ampicillin R Cefazolin R Cefepime R Ceftriaxone R Cefuroxime R Cephalothin R Ciprofloxacin R Ertapenem S Gentamicin S Imipenem S Levofloxacin R Nitrofurantoin S Piperacillin R Tetracycline R Tobramycin S Trimethoprim/Sulfa R Performed at: [address] [id number] [employer] Professor: Dania Marroquin MD, Phone: [phone] Objective Assessment Sepsis with hypotension. POA. 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 Fever Leukocytosis. better Acute resp failure ? aspiration with patchy infiltrates. E coli HERNÁN- better Hypernatremia Transaminitis H/o MRSA and C. diff Biaxin allergy Thrombocytopenia Plan Plan of Care meropenem and gent Monitor lab values Supportive care ok to transfer out of ICU LUCRECIA GABRIEL MD March 17, 2017 07:49
[2017-03-17] MEDS: busPIRone 5 MG TABLET. PEG SCH ×3 (08:42→21:46)
[2017-03-17] MEDS: QUEtiapine 25 MG TABLET. PO SCH ×2 (08:42→21:46)
[2017-03-17] MEDS: PANTOPRAZOLE IV PUSH 40 MG VIAL. IVP SCH (08:43)
[2017-03-17] MEDS: GENTAMICIN SULFATE IV SCH (08:43)
[2017-03-17] MEDS: NORMAL SALINE IV SCH (08:43)
--- NOTE | 2017-03-17 16:17 | PDOC ---
PULMONARY PROGRESS NOTES Subjective extubated 03/15 Vitals Vital Signs Date Time Temp Pulse Resp B/P (MAP) Pulse Ox O2 Delivery O2 Flow Rate FiO2 03/17/17 15:00 96 19 82/56 (65) 99 Nasal Cannula 2.0 03/17/17 12:00 99.5 99.5 Lungs: Clear Cardiovascular: S1 Abdomen: Soft Extremities: No Edema, Other Skin: Warm Labs Laboratory Tests Test 03/16/17 07:55 03/17/17 06:14 Sodium Level 145 mmol/L (136-145) 142 mmol/L (136-145) Potassium Level 4.5 mmol/L (3.5-5.1) 3.9 mmol/L (3.5-5.1) Chloride Level 112 mmol/L (98-107) 109 mmol/L (98-107) Carbon Dioxide Level 21 mmol/L (21-32) 24 mmol/L (21-32) Anion Gap 12 (6-14) 9 (6-14) Blood Urea Nitrogen 13 mg/dL (8-26) 17 mg/dL (8-26) Creatinine 0.8 mg/dL (0.7-1.3) 0.7 mg/dL (0.7-1.3) Estimated GFR (Cockcroft-Gault) 100.0 116.7 Glucose Level 85 mg/dL (70-99) 104 mg/dL (70-99) Calcium Level 7.9 mg/dL (8.5-10.1) 7.9 mg/dL (8.5-10.1) Phosphorus Level 3.1 mg/dL (2.6-4.7) 3.1 mg/dL (2.6-4.7) Magnesium Level 2.2 mg/dL (1.8-2.4) 2.3 mg/dL (1.8-2.4) Albumin 1.8 g/dL (3.4-5.0) 1.9 g/dL (3.4-5.0) White Blood Count 4.5 x10^3/uL (4.0-11.0) Red Blood Count 3.25 x10^6/uL (4.30-5.70) Hemoglobin 9.7 g/dL (13.0-17.5) Hematocrit 29.5 % (39.0-53.0) Mean Corpuscular Volume 91 fL (79-100) Mean Corpuscular Hemoglobin 30 pg (25-35) Mean Corpuscular Hemoglobin Concent 33 g/dL (31-37) Red Cell Distribution Width 16.9 % (11.5-14.5) Platelet Count 81 x10^3/uL (140-400) Neutrophils (%) (Auto) 64 % (31-73) Lymphocytes (%) (Auto) 24 % (24-48) Monocytes (%) (Auto) 9 % (0-9) Eosinophils (%) (Auto) 3 % (0-3) Basophils (%) (Auto) 0 % (0-3) Neutrophils # (Auto) 2.9 x10^3uL (1.8-7.7) Lymphocytes # (Auto) 1.1 x10^3/uL (1.0-4.8) Monocytes # (Auto) 0.4 x10^3/uL (0.0-1.1) Eosinophils # (Auto) 0.1 x10^3/uL (0.0-0.7) Basophils # (Auto) 0.0 x10^3/uL (0.0-0.2) Laboratory Tests Test 03/17/17 06:14 White Blood Count 4.5 x10^3/uL (4.0-11.0) Red Blood Count 3.25 x10^6/uL (4.30-5.70) Hemoglobin 9.7 g/dL (13.0-17.5) Hematocrit 29.5 % (39.0-53.0) Mean Corpuscular Volume 91 fL (79-100) Mean Corpuscular Hemoglobin 30 pg (25-35) Mean Corpuscular Hemoglobin Concent 33 g/dL (31-37) Red Cell Distribution Width 16.9 % (11.5-14.5) Platelet Count 81 x10^3/uL (140-400) Neutrophils (%) (Auto) 64 % (31-73) Lymphocytes (%) (Auto) 24 % (24-48) Monocytes (%) (Auto) 9 % (0-9) Eosinophils (%) (Auto) 3 % (0-3) Basophils (%) (Auto) 0 % (0-3) Neutrophils # (Auto) 2.9 x10^3uL (1.8-7.7) Lymphocytes # (Auto) 1.1 x10^3/uL (1.0-4.8) Monocytes # (Auto) 0.4 x10^3/uL (0.0-1.1) Eosinophils # (Auto) 0.1 x10^3/uL (0.0-0.7) Basophils # (Auto) 0.0 x10^3/uL (0.0-0.2) Sodium Level 142 mmol/L (136-145) Potassium Level 3.9 mmol/L (3.5-5.1) Chloride Level 109 mmol/L (98-107) Carbon Dioxide Level 24 mmol/L (21-32) Anion Gap 9 (6-14) Blood Urea Nitrogen 17 mg/dL (8-26) Creatinine 0.7 mg/dL (0.7-1.3) Estimated GFR (Cockcroft-Gault) 116.7 Glucose Level 104 mg/dL (70-99) Calcium Level 7.9 mg/dL (8.5-10.1) Phosphorus Level 3.1 mg/dL (2.6-4.7) Magnesium Level 2.3 mg/dL (1.8-2.4) Albumin 1.9 g/dL (3.4-5.0) Medications Active Scripts Medications Dose Route/Sig Max Daily Dose Days Date Category Melatonin 3 Mg Tablet 1 Tab PO QHS 03/12/17 Reported Melatonin 1 Mg Tablet 1 Mg PO HS 03/12/17 Reported Vitamin D (Cholecalciferol (Vitamin D3)) 1,000 Unit Capsule 1,000 Cap PO DAILY 03/12/17 Reported Lactulose 20 Gm/30 Ml Solution 37.5 Gm PO TID PRN 03/12/17 Reported Flector (Diclofenac Epolamine) 1 Each Patch.td12 2 Patch TP BID 03/12/17 Reported Miralax (Polyethylene Glycol 3350) 17 Gm Powd.pack 1 Packet PO PRN Q12HR 03/12/17 Reported Olanzapine 5 Mg Tablet 1 Tab PO BID 03/12/17 Reported Nutritional Drink Mix (Protein Supplement) 420 Gm Powder 420 Gm PO 03/12/17 Reported Seroquel (Quetiapine Fumarate) 50 Mg Tablet 50 Mg PO BID 03/12/17 Reported Trazodone Hcl 100 Mg Tablet 1 Tab PO QHS 03/12/17 Reported Tramadol Hcl 50 Mg Tablet 50 Mg PO Q8HRS PRN 03/12/17 Reported Tylenol (Acetaminophen) 325 Mg Tablet 2 Tab PEG PRN Q4-6HRS PRN 02/01/17 Reported Valtrex (Valacyclovir Hcl) 1,000 Mg Tablet 1 Tab PO DAILY 01/27/17 Reported Tamsulosin Hcl 0.4 Mg Cap.er.24h 1 Cap PO DAILY 01/27/17 Reported Citrucel (Methylcellulose) 479 Gm Powder 479 Gm PO 01/27/17 Reported Fluticasone Propionate Nasal [place] (Fluticasone Propionate) 16 Gm [place].susp 2 [place] NS HS 01/06/17 Reported Xarelto (Rivaroxaban) 20 Mg Tablet 20 Mg PEG DAILY 01/06/17 Reported Buspirone Hcl 5 Mg Tablet 1 Tab PEG TID 01/06/17 Reported Vitamin D (Cholecalciferol (Vitamin D3)) 10,000 Unit Capsule 50,000 Unit PO QFR 01/06/17 Reported Famotidine 20 Mg Tablet 20 Mg PO BID 01/06/17 Reported Thiamine Hcl 100 Mg Tablet 100 Mg PEG DAILY 01/06/17 Reported Oxcarbazepine 300 Mg Tablet 1 Tab PEG BID 01/06/17 Reported Duoneb 0.5-3(2.5) Mg/3 Ml (Albuterol/Ipratropium) 3 Ml Ampul.neb 3 Ml NEB BID 01/06/17 Reported Anti-Diarrheal (Loperamide Hcl) 2 Mg Capsule 2 Mg PO BID 01/06/17 Reported Comments cxr reviewed Impression . 1. Acute respiratory failure secondary to septic shock. s/p extubation 2. E-Coli septic shock 3. History of respiratory failure in the past post-gastric bypass surgery with multiple complications including leak requiring multiple surgeries. He had history of tracheostomy with subsequent decannulation. 4. Severe hypernatremia. 5. Acute renal failure. 6. Metabolic acidosis 7. Acute renal failure 8. Hypokalemia. 9. Wernicke encephalopathy old Plan . NO resp distress, antibx per ID off pressors will continue the same FLORIDALMA MALLOY MD March 17, 2017 16:17
[2017-03-17] MEDS: OLANZapine 5 MG TABLET PO SCH ×2 (16:59→21:51)
--- NOTE | 2017-03-17 20:14 | PDOC ---
PROGRESS NOTES Chief Complaint Chief Complaint cc: aspiration, respiratory failure A/P 1. Acute hypoxic respiratory failure, POA: extubated on 03/15/17, stable, following commands, per at his baseline, squeezing hands. 2. Suspected aspiration pneumonia, POA, : Blood cx positive Ecoli, ID following , on Meropenem, and Gentamicin, renal dosing, continue to have low grade fevers, 3. Shock, Septic: on volume resuscitation, off Levophed for 24hrs Echo normal EF, 4. Severe hypernatremia at 175 poa.: previous Na with in normal range, improved with iV hydration. 5. Hypokalemia, Magnesium, and Hypophosphatemia: replace electrolytes, 6. Metabolic acidosis: due to sepsis. resolved. 7. Acute kidney injury, present on admission: possible VMN/Sepsis. Resolved, making good urine. 8. Thrombocytopenia: possible due to sepsis, hold heparin, and monitor platelets. PT, APTT, INR, D - dimer, and fibrinogen - elevated, possible due to sepsis. Monitor. 9. Acute on chronic metabolic encephalopathy.: due to sepsis and Hyponatremia, at his baseline per wie. 10. 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 will start him on tube feeds, Place NG, continue psychotropics. 11. Prognosis poor, Disposition: LTAC placement, possible DC in AM History of Present Illness History of Present Illness seen this AM d/w ID mild fevers Vitals Vitals Vital Signs Date Time Temp Pulse Resp B/P (MAP) Pulse Ox O2 Delivery O2 Flow Rate FiO2 03/17/17 19:00 97 19 90/64 (73) 96 Nasal Cannula 2.0 03/17/17 16:00 99.2 99.2 Physical Exam General: Alert, Other Heart: Regular rate, Normal S1, Normal S2 Lungs: Clear Abdomen: Normal bowel sounds Extremities: No clubbing, No cyanosis, Other Skin: Other Labs LABS Laboratory Tests Test 03/17/17 06:14 White Blood Count 4.5 x10^3/uL (4.0-11.0) Red Blood Count 3.25 x10^6/uL (4.30-5.70) Hemoglobin 9.7 g/dL (13.0-17.5) Hematocrit 29.5 % (39.0-53.0) Mean Corpuscular Volume 91 fL (79-100) Mean Corpuscular Hemoglobin 30 pg (25-35) Mean Corpuscular Hemoglobin Concent 33 g/dL (31-37) Red Cell Distribution Width 16.9 % (11.5-14.5) Platelet Count 81 x10^3/uL (140-400) Neutrophils (%) (Auto) 64 % (31-73) Lymphocytes (%) (Auto) 24 % (24-48) Monocytes (%) (Auto) 9 % (0-9) Eosinophils (%) (Auto) 3 % (0-3) Basophils (%) (Auto) 0 % (0-3) Neutrophils # (Auto) 2.9 x10^3uL (1.8-7.7) Lymphocytes # (Auto) 1.1 x10^3/uL (1.0-4.8) Monocytes # (Auto) 0.4 x10^3/uL (0.0-1.1) Eosinophils # (Auto) 0.1 x10^3/uL (0.0-0.7) Basophils # (Auto) 0.0 x10^3/uL (0.0-0.2) Sodium Level 142 mmol/L (136-145) Potassium Level 3.9 mmol/L (3.5-5.1) Chloride Level 109 mmol/L (98-107) Carbon Dioxide Level 24 mmol/L (21-32) Anion Gap 9 (6-14) Blood Urea Nitrogen 17 mg/dL (8-26) Creatinine 0.7 mg/dL (0.7-1.3) Estimated GFR (Cockcroft-Gault) 116.7 Glucose Level 104 mg/dL (70-99) Calcium Level 7.9 mg/dL (8.5-10.1) Phosphorus Level 3.1 mg/dL (2.6-4.7) Magnesium Level 2.3 mg/dL (1.8-2.4) Albumin 1.9 g/dL (3.4-5.0) Assessment and Plan Assessmemt and Plan Problems Medical Problems: (1) Hypernatremia Status: Acute (2) Hypokalemia Status: Acute Problems: Comment Review of Relevant I have reviewed the following items ambrose (where applicable) has been applied. Labs Laboratory Tests Test 03/16/17 07:55 03/17/17 06:14 Sodium Level 145 mmol/L (136-145) 142 mmol/L (136-145) Potassium Level 4.5 mmol/L (3.5-5.1) 3.9 mmol/L (3.5-5.1) Chloride Level 112 mmol/L (98-107) 109 mmol/L (98-107) Carbon Dioxide Level 21 mmol/L (21-32) 24 mmol/L (21-32) Anion Gap 12 (6-14) 9 (6-14) Blood Urea Nitrogen 13 mg/dL (8-26) 17 mg/dL (8-26) Creatinine 0.8 mg/dL (0.7-1.3) 0.7 mg/dL (0.7-1.3) Estimated GFR (Cockcroft-Gault) 100.0 116.7 Glucose Level 85 mg/dL (70-99) 104 mg/dL (70-99) Calcium Level 7.9 mg/dL (8.5-10.1) 7.9 mg/dL (8.5-10.1) Phosphorus Level 3.1 mg/dL (2.6-4.7) 3.1 mg/dL (2.6-4.7) Magnesium Level 2.2 mg/dL (1.8-2.4) 2.3 mg/dL (1.8-2.4) Albumin 1.8 g/dL (3.4-5.0) 1.9 g/dL (3.4-5.0) White Blood Count 4.5 x10^3/uL (4.0-11.0) Red Blood Count 3.25 x10^6/uL (4.30-5.70) Hemoglobin 9.7 g/dL (13.0-17.5) Hematocrit 29.5 % (39.0-53.0) Mean Corpuscular Volume 91 fL (79-100) Mean Corpuscular Hemoglobin 30 pg (25-35) Mean Corpuscular Hemoglobin Concent 33 g/dL (31-37) Red Cell Distribution Width 16.9 % (11.5-14.5) Platelet Count 81 x10^3/uL (140-400) Neutrophils (%) (Auto) 64 % (31-73) Lymphocytes (%) (Auto) 24 % (24-48) Monocytes (%) (Auto) 9 % (0-9) Eosinophils (%) (Auto) 3 % (0-3) Basophils (%) (Auto) 0 % (0-3) Neutrophils # (Auto) 2.9 x10^3uL (1.8-7.7) Lymphocytes # (Auto) 1.1 x10^3/uL (1.0-4.8) Monocytes # (Auto) 0.4 x10^3/uL (0.0-1.1) Eosinophils # (Auto) 0.1 x10^3/uL (0.0-0.7) Basophils # (Auto) 0.0 x10^3/uL (0.0-0.2) Laboratory Tests Test 03/17/17 06:14 White Blood Count 4.5 x10^3/uL (4.0-11.0) Red Blood Count 3.25 x10^6/uL (4.30-5.70) Hemoglobin 9.7 g/dL (13.0-17.5) Hematocrit 29.5 % (39.0-53.0) Mean Corpuscular Volume 91 fL (79-100) Mean Corpuscular Hemoglobin 30 pg (25-35) Mean Corpuscular Hemoglobin Concent 33 g/dL (31-37) Red Cell Distribution Width 16.9 % (11.5-14.5) Platelet Count 81 x10^3/uL (140-400) Neutrophils (%) (Auto) 64 % (31-73) Lymphocytes (%) (Auto) 24 % (24-48) Monocytes (%) (Auto) 9 % (0-9) Eosinophils (%) (Auto) 3 % (0-3) Basophils (%) (Auto) 0 % (0-3) Neutrophils # (Auto) 2.9 x10^3uL (1.8-7.7) Lymphocytes # (Auto) 1.1 x10^3/uL (1.0-4.8) Monocytes # (Auto) 0.4 x10^3/uL (0.0-1.1) Eosinophils # (Auto) 0.1 x10^3/uL (0.0-0.7) Basophils # (Auto) 0.0 x10^3/uL (0.0-0.2) Sodium Level 142 mmol/L (136-145) Potassium Level 3.9 mmol/L (3.5-5.1) Chloride Level 109 mmol/L (98-107) Carbon Dioxide Level 24 mmol/L (21-32) Anion Gap 9 (6-14) Blood Urea Nitrogen 17 mg/dL (8-26) Creatinine 0.7 mg/dL (0.7-1.3) Estimated GFR (Cockcroft-Gault) 116.7 Glucose Level 104 mg/dL (70-99) Calcium Level 7.9 mg/dL (8.5-10.1) Phosphorus Level 3.1 mg/dL (2.6-4.7) Magnesium Level 2.3 mg/dL (1.8-2.4) Albumin 1.9 g/dL (3.4-5.0) Microbiology 03/11/17 Blood Culture - Final, Complete 03/11/17 Blood Culture Result 1 (STACI) - Final, Complete 03/12/17 Gram Stain - Final, Complete 03/14/17 Urine Culture - Final, Complete 03/14/17 Urine Culture Result 1 (STACI) - Final, Complete Medications Current Medications Norepinephrine Bitartrate 250 ml @ 0 mls/hr 1X ONCE IV Last administered on 19:01; Start 03/11/17 at 18:15; Stop 03/11/17 at 18:16; Status DC Sodium Chloride (Normal Saline Flush) 10 ml QSHIFT PRN IV AFTER MEDS AND BLOOD DRAWS; Start 03/11/17 at 18:15 Sodium Chloride 3,300 ml @ 3,300 mls/hr Q1H IV Last administered on 03/11/17 18:33; Start 03/11/17 at 18:15; Stop 03/11/17 at 18:37; Status DC Piperacillin Sod/ Tazobactam Sod 4.5 gm/Sodium Chloride 100 ml @ 200 mls/hr 1X ONCE IV Last administered on 03/11/17 18:54; Start 03/11/17 at 18:15; Stop 03/11/17 at 18:52; Status DC Norepinephrine Bitartrate 250 ml @ 0 mls/hr CONT PRN IV PER PROTOCOL Last administered on 03/15/17 10:04; Start 03/11/17 at 18:15 Midazolam HCl 100 ml @ 0 mls/hr 1X ONCE IV Last administered on 03/11/17 18: 32; Start 03/11/17 at 18:30; Stop 03/11/17 at 18:59; Status DC Vancomycin HCl (Vanco Per Pharmacy) 1 each PRN DAILY PRN MC SEE COMMENTS Last administered on 03/11/17 19:59; Start 03/11/17 at 18:30; Stop 03/12/17 at 09:39 ; Status DC Piperacillin Sod/ Tazobactam Sod (Zosyn Per Pharmacy) 1 each PRN DAILY PRN MC SEE COMMENTS; Start 03/11/17 at 18:30; Stop 03/14/17 at 08:55; Status DC Sodium Chloride 1,000 ml @ 3,300 mls/hr Q19M IV Last administered on 18:45; Start 03/11/17 at 18:45; Stop 03/11/17 at 19:15; Status DC Etomidate (Amidate) 20 mg STK-MED ONCE IV ; Start 03/11/17 at 18:40; Stop at 18:41; Status DC Succinylcholine Chloride (Anectine) 200 mg STK-MED ONCE .ROUTE ; Start 03/11/17 at 18:40; Stop 03/11/17 at 18:41; Status DC Ondansetron HCl (Zofran) 4 mg PRN Q8HRS PRN IV NAUSEA/VOMITING; Start 03/11/17 at 19:00; Stop 03/12/17 at 18:59; Status DC Sodium Chloride 1,000 ml @ 150 mls/hr Q6H40M IV ; Start 03/11/17 at 18:51; Stop 03/11/17 at 21:31; Status DC Albuterol/ Ipratropium (Duoneb) 3 ml RTQID NEB Last administered on 03/12/17 19:25; Start 03/11/17 at 20:00; Stop 03/12/17 at 19:59; Status DC Vancomycin HCl 2 gm/Sodium Chloride 500 ml @ 250 mls/hr 1X ONCE IV Last administered on 03/11/17 19:40; Start 03/11/17 at 20:00; Stop 03/11/17 at 21:59 ; Status DC Piperacillin Sod/ Tazobactam Sod 4.5 gm/Sodium Chloride 100 ml @ 200 mls/hr Q6HRS IV Last administered on 03/12/17 06:35; Start 03/12/17 at 00:00; Stop at 09:39; Status DC Hydrocortisone Sodium Succinate (Solu-CORTEF) 100 mg 1X ONCE IV ; Start at 19:15; Stop 03/11/17 at 19:32; Status DC Hydrocortisone Sodium Succinate (Solu-CORTEF) 250 mg 1X ONCE IV Last administered on 03/11/17 19:37; Start 03/11/17 at 19:45; Stop 03/11/17 at 19:46 ; Status DC Acetaminophen (Acetaminophen Supp) 1,000 mg 1X ONCE IL Last administered on 20:27; Start 03/11/17 at 20:00; Stop 03/11/17 at 20:01; Status DC Vancomycin HCl 1.25 gm/Sodium Chloride 250 ml @ 166.667 mls/hr Q24H IV ; Start 03/12/17 at 20:00; Stop 03/12/17 at 20:00; Status DC Vancomycin HCl 1 each 1X ONCE MC ; Start 03/13/17 at 19:30; Stop 03/13/17 at 19 :31; Status Cancel Dextrose/Sodium Chloride 500 ml @ 1,000 mls/hr 1X ONCE IV ; Start 03/11/17 at 21:30; Stop 03/11/17 at 21:59; Status DC Dextrose/Sodium Chloride 1,000 ml @ 150 mls/hr Q6H40M IV ; Start 03/11/17 at 21 :30; Stop 03/12/17 at 04:09; Status DC Potassium Chloride 40 meq/ Dextrose 1,020 ml @ 75 mls/hr 1X ONCE IV ; Start at 21:45; Stop 03/12/17 at 04:09; Status DC Dextrose/Sodium Chloride 500 ml @ 0 mls/hr 1X ONCE IV ; Start 03/11/17 at 22:30 ; Stop 03/11/17 at 22:31; Status DC Sterile Water 1,000 ml @ 50 mls/hr Q20H IV ; Start 03/11/17 at 22:30; Stop at 22:30; Status DC Sterile Water 1,000 ml @ 50 mls/hr Q20H IV ; Start 03/11/17 at 22:30; Stop at 23:45; Status DC Dextrose/Sodium Chloride 1,000 ml @ 125 mls/hr Q8H IV Last administered on 10:05; Start 03/11/17 at 22:30; Stop 03/12/17 at 11:52; Status DC Dextrose/Sodium Chloride 1,000 ml @ 0 mls/hr 1X ONCE IV Last administered on 03/11/17 22:30; Start 03/11/17 at 22:30; Stop 03/11/17 at 22:31; Status DC Potassium Chloride 100 ml @ 100 mls/hr Q1H IV Last administered on 03/12/17 10:04; Start 03/11/17 at 23:30; Stop 03/12/17 at 07:29; Status DC Piperacillin Sod/ Tazobactam Sod 2.25 gm/Sodium Chloride 50 ml @ 100 mls/hr Q6H IV Last administered on 03/13/17 03:33; Start 03/12/17 at 10:00; Stop at 08:35; Status DC Linezolid 300 ml @ 300 mls/hr Q12HR IV Last administered on 03/13/17 08:55; Start 03/12/17 at 09:45; Stop 03/13/17 at 12:13; Status DC Micafungin Sodium 100 mg/Dextrose 100 ml @ 100 mls/hr Q24H IV Last administered on 03/13/17 10:48; Start 03/12/17 at 11:00; Stop 03/13/17 at 12:14 ; Status DC Pantoprazole Sodium (Protonix Vial) 40 mg DAILYAC IVP Last administered on 03/17 08:43; Start 03/13/17 at 07:30 Heparin Sodium (Porcine) (Heparin Sq) 5,000 unit Q8HRS SQ Last administered on 03/13/17 05:30; Start 03/12/17 at 14:00; Stop 03/13/17 at 10:23; Status DC Cefepime HCl 2 gm/ Sodium Chloride 100 ml @ 200 mls/hr ONCE ONCE IV Last administered on 03/12/17 10:57; Start 03/12/17 at 10:00; Stop 03/12/17 at 10:29 ; Status DC Lidocaine/Sodium Bicarbonate (Buffered Lidocaine 1%) 3 ml 1X ONCE IJ Last administered on 03/12/17 12:26; Start 03/12/17 at 10:15; Stop 03/12/17 at 10:16 ; Status DC Heparin Sodium/ Sodium Chloride 60 unit 1X ONCE IV Last administered on 12:27; Start 03/12/17 at 10:15; Stop 03/12/17 at 10:16; Status DC Metronidazole 100 ml @ 100 mls/hr Q8HRS IV Last administered on 03/13/17 05: 28; Start 03/12/17 at 14:00; Stop 03/13/17 at 12:14; Status DC Atropine Sulfate 0.5 mg STK-MED ONCE .ROUTE ; Start 03/12/17 at 10:55; Stop at 10:56; Status DC Magnesium Sulfate/ Dextrose 50 ml @ 25 mls/hr PRN DAILY PRN IV for Mag < 1.7 on am labs; Start 03/12/17 at 11:30; Stop 03/14/17 at 11:13; Status DC Potassium Chloride/Dextrose/ Sod Cl 1,000 ml @ 100 mls/hr Q10H IV Last administered on 03/12/17 13:19; Start 03/12/17 at 11:30; Stop 03/12/17 at 14:46 ; Status DC Potassium Chloride 100 ml @ 100 mls/hr Q1H IV Last administered on 03/12/17 17:00; Start 03/12/17 at 12:00; Stop 03/12/17 at 19:59; Status DC Potassium Chloride/Dextrose/ Sod Cl 1,000 ml @ 100 mls/hr Q10H IV ; Start 03/12 at 12:15; Status UNV Atropine Sulfate 0.5 mg STK-MED ONCE .ROUTE ; Start 03/12/17 at 12:31; Stop at 12:32; Status DC Potassium Chloride/Dextrose/ Sod Cl 1,000 ml @ 100 mls/hr 1X ONCE IV ; Start 03/12/17 at 12:30; Stop 03/12/17 at 14:46; Status DC Potassium Phosphate 13.6 mmol/Sodium Chloride 104.5333 ml @ 52.267 m... Q2H IV Last administered on 03/12/17 19:23; Start 03/12/17 at 15:00; Stop 03/12/17 at 20:59; Status DC Potassium Chloride/Dextrose/ Sod Cl 1,000 ml @ 100 mls/hr Q10H IV Last administered on 03/13/17 02:42; Start 03/12/17 at 14:45; Stop 03/13/17 at 10:18 ; Status DC Dopamine HCl/ Dextrose 250 ml @ 16.423 mls/ hr CONT PRN IV SEE I/O RECORD; Start 03/12/17 at 16:30 Potassium Chloride 50 ml @ 25 mls/hr Q2H IV Last administered on 03/13/17 02: 29; Start 03/12/17 at 19:00; Stop 03/13/17 at 02:59; Status DC Fentanyl Citrate (Fentanyl 2ml Vial) 50 mcg PRN Q2HR PRN IV PAIN Last administered on 03/13/17 05:28; Start 03/12/17 at 20:30 Lorazepam (Ativan) 2 mg PRN Q4HRS PRN IV ANXIETY / AGITATION Last administered on 03/14/17 02:00; Start 03/12/17 at 20:30 Piperacillin Sod/ Tazobactam Sod 3.375 gm/Sodium Chloride 50 ml @ 100 mls/hr Q6HRS IV Last administered on 03/14/17 05:29; Start 03/13/17 at 10:00; Stop at 08:55; Status DC Potassium Chloride/Dextrose 1,000 ml @ 125 mls/hr Q8H IV Last administered on 03/15/17 05:00; Start 03/13/17 at 10:15; Stop 03/15/17 at 11:01; Status DC Acetaminophen (Tylenol) 325 mg PRN Q6HRS PRN PO MILD PAIN / TEMP Last administered on 03/14/17 04:00; Start 03/13/17 at 10:45; Stop 03/14/17 at 09:48 ; Status DC Ciprofloxacin Lactate 200 ml @ 200 mls/hr Q12HR IV Last administered on 20:56; Start 03/13/17 at 12:30; Stop 03/14/17 at 08:55; Status DC Iohexol (Omnipaque 300 Mg/ml) 75 ml 1X ONCE IV Last administered on 03/13/17 12:30; Start 03/13/17 at 12:30; Stop 03/13/17 at 12:31; Status DC Iohexol (Omnipaque 240 Mg/ml) 50 ml 1X ONCE PO Last administered on 03/13/17 12:30; Start 03/13/17 at 12:30; Stop 03/13/17 at 12:31; Status DC Info (Do NOT chart on this entry -- for MONITORING) 1 each PRN DAILY PRN MC SEE COMMENTS; Start 03/13/17 at 12:45; Stop 03/15/17 at 12:44; Status DC Buspirone HCl (Buspar) 5 mg TID PEG Last administered on 03/17/17 16:59; Start 03/13/17 at 14:00 Olanzapine (ZyPREXA) 5 mg BID PO Last administered on 03/17/17 16:59; Start at 14:00 Quetiapine Fumarate (SEROquel) 50 mg BID PO Last administered on 03/17/17 08: 42; Start 03/13/17 at 14:00 Chlorhexidine Gluconate (Peridex) 15 ml BID SWSP Last administered on 09:57; Start 03/13/17 at 21:00; Stop 03/17/17 at 08:34; Status DC Gentamicin Sulfate 380 mg/ Sodium Chloride 109.5 ml @ 219 mls/hr 1X ONCE IV Last administered on 03/14/17 10:10; Start 03/14/17 at 09:30; Stop 03/14/17 at 09:59; Status DC Meropenem 1 gm/ Sodium Chloride 100 ml @ 200 mls/hr Q8H IV Last administered on 03/17/17 16:59; Start 03/14/17 at 10:00 Acetaminophen (Tylenol) 325 mg PRN Q4HRS PRN PO MILD PAIN / TEMP Last administered on 03/15/17 10:02; Start 03/14/17 at 10:45 Magnesium Sulfate/ Dextrose 100 ml @ 50 mls/hr PRN DAILY PRN IV LOW MAG - SEE COMMENTS Last administered on 03/14/17 13:29; Start 03/14/17 at 11:13 Potassium Phosphate 20 mmol/ Sodium Chloride 256.6667 ml @ 128.... Q2H IV Last administered on 03/14/17 14:39; Start 03/14/17 at 09:45; Stop 03/14/17 at 13:44; Status DC Dextrose/Sodium Chloride 1,000 ml @ 999 mls/hr 1X ONCE IV Last administered on 03/14/17 10:00; Start 03/14/17 at 09:45; Stop 03/14/17 at 10:45; Status DC Atropine Sulfate 1 mg STK-MED ONCE .ROUTE ; Start 03/12/17 at 12:00; Stop at 08:35; Status DC Potassium Phosphate 10 mmol/ Sodium Chloride 103.3333 ml @ 51.667 m... Q2H IV Last administered on 03/15/17 15:28; Start 03/15/17 at 11:00; Stop 03/15/17 at 14:59; Status DC Sodium Chloride 1,000 ml @ 1,000 mls/hr 1X ONCE IV Last administered on 12:50; Start 03/15/17 at 11:00; Stop 03/15/17 at 11:59; Status DC Potassium Chloride 20 meq/ Sodium Chloride 1,010 ml @ 75 mls/hr 1X ONCE IV ; Start 03/15/17 at 11:00; Stop 03/15/17 at 11:00; Status DC Potassium Chloride 20 meq/ Sodium Chloride 1,010 ml @ 75 mls/hr [id number] IV Last administered on 03/17/17 02:09; Start 03/15/17 at 11:00; Stop 03/17/17 at 12:43; Status DC Gentamicin Sulfate 330 mg/ Sodium Chloride 108.25 ml @ 108.25 mls/hr Q24H IV Last administered on 03/17/17 08:43; Start 03/16/17 at 09:00 Potassium Chloride/Sodium Chloride 1,000 ml @ 75 mls/hr [id number] IV Last administered on 03/17/17 16:59; Start 03/17/17 at 13:00 Active Scripts Active Reported Melatonin 3 Mg Tablet 1 Tab PO QHS Melatonin 1 Mg Tablet 1 Mg PO HS Vitamin D (Cholecalciferol (Vitamin D3)) 1,000 Unit Capsule 1,000 Cap PO DAILY Lactulose 20 Gm/30 Ml Solution 37.5 Gm PO TID PRN Flector (Diclofenac Epolamine) 1 Each Patch.td12 2 Patch TP BID Miralax (Polyethylene Glycol 3350) 17 Gm Powd.pack 1 Packet PO PRN Q12HR Olanzapine 5 Mg Tablet 1 Tab PO BID Nutritional Drink Mix (Protein Supplement) 420 Gm Powder 420 Gm PO Seroquel (Quetiapine Fumarate) 50 Mg Tablet 50 Mg PO BID Trazodone Hcl 100 Mg Tablet 1 Tab PO QHS Tramadol Hcl 50 Mg Tablet 50 Mg PO Q8HRS PRN Tylenol (Acetaminophen) 325 Mg Tablet 2 Tab PEG PRN Q4-6HRS PRN Valtrex (Valacyclovir Hcl) 1,000 Mg Tablet 1 Tab PO DAILY Tamsulosin Hcl 0.4 Mg Cap.er.24h 1 Cap PO DAILY Citrucel (Methylcellulose) 479 Gm Powder 479 Gm PO Fluticasone Propionate Nasal [place] (Fluticasone Propionate) 16 Gm [place].susp 2 [place] NS HS Xarelto (Rivaroxaban) 20 Mg Tablet 20 Mg PEG DAILY Buspirone Hcl 5 Mg Tablet 1 Tab PEG TID Vitamin D (Cholecalciferol (Vitamin D3)) 10,000 Unit Capsule 50,000 Unit PO QFR Famotidine 20 Mg Tablet 20 Mg PO BID Thiamine Hcl 100 Mg Tablet 100 Mg PEG DAILY Oxcarbazepine 300 Mg Tablet 1 Tab PEG BID Duoneb 0.5-3(2.5) Mg/3 Ml (Albuterol/Ipratropium) 3 Ml Ampul.neb 3 Ml NEB BID Anti-Diarrheal (Loperamide Hcl) 2 Mg Capsule 2 Mg PO BID Vitals/I & O Vital Sign - Last 24 Hours 03/16/17 03/16/17 03/16/17 03/16/17 20:12 21:00 22:00 23:00 Pulse 94 101 104 Resp 14 23 17 B/P (MAP) 85/52 (63) 80/47 (58) 67/53 (58) Pulse Ox 96 93 96 O2 Delivery Nasal Cannula Nasal Cannula Nasal Cannula Nasal Cannula O2 Flow Rate 4.0 4.0 03/16/17 03/17/17 03/17/17 03/17/17 23:59 00:00 01:00 02:00 Temp 99.7 99.7 Pulse 106 102 102 Resp 19 18 19 B/P (MAP) 102/59 (73) 108/64 (79) 90/68 (75) Pulse Ox 97 97 98 O2 Delivery Room Air Nasal Cannula Nasal Cannula Nasal Cannula O2 Flow Rate 4.0 4.0 03/17/17 03/17/17 03/17/17 03/17/17 03:00 04:00 04:00 05:00 Temp 100.8 100.8 Pulse 102 102 103 Resp 20 16 B/P (MAP) 86/53 (64) 85/57 (66) 88/53 (65) Pulse Ox 96 97 97 O2 Delivery Nasal Cannula Nasal Cannula Nasal Cannula Nasal Cannula O2 Flow Rate 4.0 2.0 2.0 2.0 03/17/17 03/17/17 03/17/17 03/17/17 06:00 07:00 08:00 08:00 Pulse 100 101 98 Resp 19 B/P (MAP) 89/50 (63) 85/54 (64) 81/56 (64) Pulse Ox 95 98 97 O2 Delivery Nasal Cannula Nasal Cannula Nasal Cannula Nasal Cannula O2 Flow Rate 2.0 2.0 2.0 2.0 03/17/17 03/17/17 03/17/17 03/17/17 09:00 10:00 11:00 12:00 Temp 99.8 99.8 Pulse 95 99 100 Resp 22 B/P (MAP) 82/50 (61) 82/57 (65) 87/55 (66) Pulse Ox 97 97 96 O2 Delivery Nasal Cannula Nasal Cannula Nasal Cannula Nasal Cannula O2 Flow Rate 2.0 2.0 2.0 2.0 03/17/17 03/17/17 03/17/17 03/17/17 12:00 13:00 14:00 15:00 Temp 99.5 99.5 Pulse 99 96 98 96 Resp 19 B/P (MAP) 86/62 (70) 92/58 (69) 85/63 (70) 82/56 (65) Pulse Ox 99 99 100 99 O2 Delivery Nasal Cannula Nasal Cannula Nasal Cannula Nasal Cannula O2 Flow Rate 2.0 2.0 2.0 2.0 03/17/17 03/17/17 03/17/17 03/17/17 16:00 16:00 17:00 18:00 Temp 99.2 99.2 Pulse 96 98 95 Resp 21 24 19 B/P (MAP) 87/57 (67) 84/55 (65) 101/66 (78) Pulse Ox 97 96 97 O2 Delivery Nasal Cannula Nasal Cannula Nasal Cannula Nasal Cannula O2 Flow Rate 2.0 2.0 2.0 2.0 03/17/17 19:00 Pulse 97 Resp 19 B/P (MAP) 90/64 (73) Pulse Ox 96 O2 Delivery Nasal Cannula O2 Flow Rate 2.0 Intake and Output 03/16/17 03/16/17 03/17/17 15:00 23:00 07:00 Intake Total 132.25 ml 1639 ml 2484 ml Output Total 1060 ml 552 ml 1450 ml Balance -927.75 ml 1087 ml 1034 ml STORMY ARAIZA MD March 17, 2017 20:14
[2017-03-18] VITALS (19 sets, daily range): BP systolic 66–107; BP diastolic 44–68
[2017-03-18] MEDS: fentaNYL PF VIAL 100 MCG/2 ML VIAL IV PRN (00:47)
[2017-03-18] MEDS: MEROPENEM 1 GM in IV NORMAL SALINE 100ML 100 ML IV SCH ×3 (01:32→17:20)
[2017-03-18 06:33] LABS: BASO % 0 % (0-3); EOS % 4 % (0-3); HEMATOCRIT 28.3 % (39.0-53.0); HEMOGLOBIN 9.6 g/dL (13.0-17.5); LYMPH % 22 % (24-48); MEAN CORPUSCULAR HEMOGLOBIN 30 pg (25-35); MEAN CORPUSCULAR HGB CONC 34 g/dL (31-37); MEAN CORPUSCULAR VOLUME 89 fL (79-100); MONO % 8 % (0-9); NEUT % 67 % (31-73); PLATELET COUNT 108 x10^3/uL (140-400); RED BLOOD COUNT 3.19 x10^6/uL (4.30-5.70); RED CELL DISTRIBUTION WIDTH 16.6 % (11.5-14.5); WHITE BLOOD COUNT 4.8 x10^3/uL (4.0-11.0)
[2017-03-18 06:51] LABS: ALBUMIN 1.8 g/dL (3.4-5.0); CALCIUM 7.7 mg/dL (8.5-10.1); CREATININE 0.7 mg/dL (0.7-1.3); GFR 116.7; PHOSPHORUS 3.5 mg/dL (2.6-4.7); POTASSIUM 3.9 mmol/L (3.5-5.1)
--- NOTE | 2017-03-18 07:47 | PDOC ---
Infectious Disease Note Subjective Subjective awake, mumbles ROS ROS unable to do Vital Sign Vital Signs Vital Signs Date Time Temp Pulse Resp B/P (MAP) Pulse Ox O2 Delivery O2 Flow Rate FiO2 03/18/17 06:00 96 22 97/59 (72) 100 Nasal Cannula 2.0 03/18/17 04:00 97.8 97.8 Physical Exam PHYSICAL EXAM GENERAL: NAD, Alert HEENT: PERRL, OC/OP NECK: Supple, no JVD, no LN LUNGS: Clear HEART: S1S2, no gallop, no murmur ABD: Soft, NT, no organomegaly, no rebound EXT: No edema, no cyanosis [employer]: Alert, non verbal SKIN: No rash IV: ok Labs Lab Laboratory Tests Test 03/18/17 06:23 White Blood Count 4.8 x10^3/uL (4.0-11.0) Red Blood Count 3.19 x10^6/uL (4.30-5.70) Hemoglobin 9.6 g/dL (13.0-17.5) Hematocrit 28.3 % (39.0-53.0) Mean Corpuscular Volume 89 fL (79-100) Mean Corpuscular Hemoglobin 30 pg (25-35) Mean Corpuscular Hemoglobin Concent 34 g/dL (31-37) Red Cell Distribution Width 16.6 % (11.5-14.5) Platelet Count 108 x10^3/uL (140-400) Neutrophils (%) (Auto) 67 % (31-73) Lymphocytes (%) (Auto) 22 % (24-48) Monocytes (%) (Auto) 8 % (0-9) Eosinophils (%) (Auto) 4 % (0-3) Basophils (%) (Auto) 0 % (0-3) Neutrophils # (Auto) 3.2 x10^3uL (1.8-7.7) Lymphocytes # (Auto) 1.0 x10^3/uL (1.0-4.8) Monocytes # (Auto) 0.4 x10^3/uL (0.0-1.1) Eosinophils # (Auto) 0.2 x10^3/uL (0.0-0.7) Basophils # (Auto) 0.0 x10^3/uL (0.0-0.2) Sodium Level 143 mmol/L (136-145) Potassium Level 3.9 mmol/L (3.5-5.1) Chloride Level 109 mmol/L (98-107) Carbon Dioxide Level 25 mmol/L (21-32) Anion Gap 9 (6-14) Blood Urea Nitrogen 12 mg/dL (8-26) Creatinine 0.7 mg/dL (0.7-1.3) Estimated GFR (Cockcroft-Gault) 116.7 Glucose Level 96 mg/dL (70-99) Calcium Level 7.7 mg/dL (8.5-10.1) Phosphorus Level 3.5 mg/dL (2.6-4.7) Albumin 1.8 g/dL (3.4-5.0) Micro BLOOD CULTURE PRL Preliminary Preliminary report BLD CULT RESULT 1 Preliminary Escherichia coli Recovered from anaerobic bottle only. ANTIMICROBIAL SUSCEPTIBILITY Preliminary Comment S = Susceptible; I = Intermediate; R = Resistant P = Positive; N = Negative MICS are expressed in micrograms per mL Antibiotic RSLT#1 RSLT#2 RSLT#3 RSLT#4 Amoxicillin/Clavulanic Acid I Ampicillin R Cefazolin R Cefepime R Ceftriaxone R Cefuroxime R Cephalothin R Ciprofloxacin R Ertapenem S Gentamicin S Imipenem S Levofloxacin R Nitrofurantoin S Piperacillin R Tetracycline R Tobramycin S Trimethoprim/Sulfa R Performed at: [address] [id number] Infection Control Specialist: Dania Marroquin MD, Phone: [phone] Objective Assessment Sepsis with hypotension. POA. 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 Fever Leukocytosis. better Acute resp failure ? aspiration with patchy infiltrates. E coli HERNÁN- better Hypernatremia Transaminitis H/o MRSA and C. diff Biaxin allergy Thrombocytopenia Plan Plan of Care meropenem and gent Monitor lab values Supportive care ok to transfer out of ICU LUCRECIA GABRIEL MD March 18, 2017 07:47
[2017-03-18] MEDS: PANTOPRAZOLE IV PUSH 40 MG VIAL. IVP SCH (08:30)
[2017-03-18] MEDS: QUEtiapine 25 MG TABLET. PO SCH ×2 (08:30→21:17)
[2017-03-18] MEDS: busPIRone 5 MG TABLET. PEG SCH ×3 (08:30→21:17)
[2017-03-18] MEDS: OLANZapine 5 MG TABLET PO SCH ×2 (08:30→21:17)
[2017-03-18] MEDS: ACETAMINOPHEN 325 MG TABLET. PO PRN (08:30)
--- NOTE | 2017-03-18 08:31 | RAD ---
Portable chest, 03/18/2017: History: Respiratory failure Comparison is made to yesterday's study. The patient is rotated to the right on the current exam. An NG tube extends into the stomach. A right jugular central venous catheter extends to the level of the atriocaval junction. The heart size and pulmonary vascularity are normal. No pulmonary infiltrate is currently seen. There is no evidence of pleural fluid. IMPRESSION: No acute cardiopulmonary abnormality is detected.
[2017-03-18] MEDS: NORMAL SALINE IV SCH (08:32)
[2017-03-18] MEDS: GENTAMICIN SULFATE IV SCH (08:32)
[2017-03-18] MEDS: MULTIVITAMIN with MINERAL TABLET. PO SCH (09:41)
[2017-03-18] MEDS: ASCORBIC ACID 500 MG TABLET PO SCH (09:41)
--- NOTE | 2017-03-18 14:01 | PDOC ---
PROGRESS NOTES Chief Complaint Chief Complaint cc: aspiration, respiratory failure History of Present Illness History of Present Illness Lying in bed, difficulty communicating No apparent acute distress Vitals Vitals Vital Signs Date Time Temp Pulse Resp B/P (MAP) Pulse Ox O2 Delivery O2 Flow Rate FiO2 03/18/17 13:00 90 18 104/61 (75) 94 Nasal Cannula 2.0 03/18/17 12:00 99.1 99.1 Physical Exam General: Alert, Other (obtunded d/t underlying encephalopathy) Heart: Regular rate, Normal S1, Normal S2 Lungs: Clear, Other (no wheezing) Abdomen: Normal bowel sounds, Soft Extremities: No clubbing, No cyanosis Skin: No rashes, No significant lesion Labs LABS Laboratory Tests Test 03/18/17 06:23 White Blood Count 4.8 x10^3/uL (4.0-11.0) Red Blood Count 3.19 x10^6/uL (4.30-5.70) Hemoglobin 9.6 g/dL (13.0-17.5) Hematocrit 28.3 % (39.0-53.0) Mean Corpuscular Volume 89 fL (79-100) Mean Corpuscular Hemoglobin 30 pg (25-35) Mean Corpuscular Hemoglobin Concent 34 g/dL (31-37) Red Cell Distribution Width 16.6 % (11.5-14.5) Platelet Count 108 x10^3/uL (140-400) Neutrophils (%) (Auto) 67 % (31-73) Lymphocytes (%) (Auto) 22 % (24-48) Monocytes (%) (Auto) 8 % (0-9) Eosinophils (%) (Auto) 4 % (0-3) Basophils (%) (Auto) 0 % (0-3) Neutrophils # (Auto) 3.2 x10^3uL (1.8-7.7) Lymphocytes # (Auto) 1.0 x10^3/uL (1.0-4.8) Monocytes # (Auto) 0.4 x10^3/uL (0.0-1.1) Eosinophils # (Auto) 0.2 x10^3/uL (0.0-0.7) Basophils # (Auto) 0.0 x10^3/uL (0.0-0.2) Sodium Level 143 mmol/L (136-145) Potassium Level 3.9 mmol/L (3.5-5.1) Chloride Level 109 mmol/L (98-107) Carbon Dioxide Level 25 mmol/L (21-32) Anion Gap 9 (6-14) Blood Urea Nitrogen 12 mg/dL (8-26) Creatinine 0.7 mg/dL (0.7-1.3) Estimated GFR (Cockcroft-Gault) 116.7 Glucose Level 96 mg/dL (70-99) Calcium Level 7.7 mg/dL (8.5-10.1) Phosphorus Level 3.5 mg/dL (2.6-4.7) Albumin 1.8 g/dL (3.4-5.0) Review of Systems Review of Systems Denies chest pain Denies fever, n/v Assessment and Plan Assessmemt and Plan Problems Medical Problems: (1) Hypernatremia Status: Acute (2) Hypokalemia Status: Acute Assessment: 1. Acute hypoxic respiratory failure, POA: extubated on 03/15/17, stable, following commands, per at his baseline, squeezing hands. 2. Suspected aspiration pneumonia, POA, : Blood cx positive Ecoli, ID following , on Meropenem, and Gentamicin, renal dosing, continue to have low grade fevers, 3. Shock, Septic: on volume resuscitation, off Levophed for 24hrs Echo normal EF, 4. Severe hypernatremia at 175 poa.: previous Na with in normal range, improved with iV hydration. 5. Hypokalemia, Magnesium, and Hypophosphatemia - resolved 6. Metabolic acidosis: due to sepsis - resolved 7. Acute kidney injury, present on admission: resolved 8. Thrombocytopenia: possible due to sepsis - improved at 108 9. Acute on chronic metabolic encephalopathy.: due to sepsis and Hyponatremia - family reports this is baseline for him 10. 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 will start him on tube feeds, Place NG, continue psychotropics. Disposition: LTAC placement, possible DC in AM Plan: Continue ICU monitoring Continue abx per ID D/W nurse about approval for LTAC placement Check labs in am PT/OT Disp: probable d/c tomorrow once LTAC placement is finalized Total time 32 minutes Problems: Comment Review of Relevant I have reviewed the following items ambrose (where applicable) has been applied. Labs Laboratory Tests Test 03/17/17 06:14 03/18/17 06:23 White Blood Count 4.5 x10^3/uL (4.0-11.0) 4.8 x10^3/uL (4.0-11.0) Red Blood Count 3.25 x10^6/uL (4.30-5.70) 3.19 x10^6/uL (4.30-5.70) Hemoglobin 9.7 g/dL (13.0-17.5) 9.6 g/dL (13.0-17.5) Hematocrit 29.5 % (39.0-53.0) 28.3 % (39.0-53.0) Mean Corpuscular Volume 91 fL (79-100) 89 fL (79-100) Mean Corpuscular Hemoglobin 30 pg (25-35) 30 pg (25-35) Mean Corpuscular Hemoglobin Concent 33 g/dL (31-37) 34 g/dL (31-37) Red Cell Distribution Width 16.9 % (11.5-14.5) 16.6 % (11.5-14.5) Platelet Count 81 x10^3/uL (140-400) 108 x10^3/uL (140-400) Neutrophils (%) (Auto) 64 % (31-73) 67 % (31-73) Lymphocytes (%) (Auto) 24 % (24-48) 22 % (24-48) Monocytes (%) (Auto) 9 % (0-9) 8 % (0-9) Eosinophils (%) (Auto) 3 % (0-3) 4 % (0-3) Basophils (%) (Auto) 0 % (0-3) 0 % (0-3) Neutrophils # (Auto) 2.9 x10^3uL (1.8-7.7) 3.2 x10^3uL (1.8-7.7) Lymphocytes # (Auto) 1.1 x10^3/uL (1.0-4.8) 1.0 x10^3/uL (1.0-4.8) Monocytes # (Auto) 0.4 x10^3/uL (0.0-1.1) 0.4 x10^3/uL (0.0-1.1) Eosinophils # (Auto) 0.1 x10^3/uL (0.0-0.7) 0.2 x10^3/uL (0.0-0.7) Basophils # (Auto) 0.0 x10^3/uL (0.0-0.2) 0.0 x10^3/uL (0.0-0.2) Sodium Level 142 mmol/L (136-145) 143 mmol/L (136-145) Potassium Level 3.9 mmol/L (3.5-5.1) 3.9 mmol/L (3.5-5.1) Chloride Level 109 mmol/L (98-107) 109 mmol/L (98-107) Carbon Dioxide Level 24 mmol/L (21-32) 25 mmol/L (21-32) Anion Gap 9 (6-14) 9 (6-14) Blood Urea Nitrogen 17 mg/dL (8-26) 12 mg/dL (8-26) Creatinine 0.7 mg/dL (0.7-1.3) 0.7 mg/dL (0.7-1.3) Estimated GFR (Cockcroft-Gault) 116.7 116.7 Glucose Level 104 mg/dL (70-99) 96 mg/dL (70-99) Calcium Level 7.9 mg/dL (8.5-10.1) 7.7 mg/dL (8.5-10.1) Phosphorus Level 3.1 mg/dL (2.6-4.7) 3.5 mg/dL (2.6-4.7) Magnesium Level 2.3 mg/dL (1.8-2.4) Albumin 1.9 g/dL (3.4-5.0) 1.8 g/dL (3.4-5.0) Laboratory Tests Test 03/18/17 06:23 White Blood Count 4.8 x10^3/uL (4.0-11.0) Red Blood Count 3.19 x10^6/uL (4.30-5.70) Hemoglobin 9.6 g/dL (13.0-17.5) Hematocrit 28.3 % (39.0-53.0) Mean Corpuscular Volume 89 fL (79-100) Mean Corpuscular Hemoglobin 30 pg (25-35) Mean Corpuscular Hemoglobin Concent 34 g/dL (31-37) Red Cell Distribution Width 16.6 % (11.5-14.5) Platelet Count 108 x10^3/uL (140-400) Neutrophils (%) (Auto) 67 % (31-73) Lymphocytes (%) (Auto) 22 % (24-48) Monocytes (%) (Auto) 8 % (0-9) Eosinophils (%) (Auto) 4 % (0-3) Basophils (%) (Auto) 0 % (0-3) Neutrophils # (Auto) 3.2 x10^3uL (1.8-7.7) Lymphocytes # (Auto) 1.0 x10^3/uL (1.0-4.8) Monocytes # (Auto) 0.4 x10^3/uL (0.0-1.1) Eosinophils # (Auto) 0.2 x10^3/uL (0.0-0.7) Basophils # (Auto) 0.0 x10^3/uL (0.0-0.2) Sodium Level 143 mmol/L (136-145) Potassium Level 3.9 mmol/L (3.5-5.1) Chloride Level 109 mmol/L (98-107) Carbon Dioxide Level 25 mmol/L (21-32) Anion Gap 9 (6-14) Blood Urea Nitrogen 12 mg/dL (8-26) Creatinine 0.7 mg/dL (0.7-1.3) Estimated GFR (Cockcroft-Gault) 116.7 Glucose Level 96 mg/dL (70-99) Calcium Level 7.7 mg/dL (8.5-10.1) Phosphorus Level 3.5 mg/dL (2.6-4.7) Albumin 1.8 g/dL (3.4-5.0) Microbiology 03/17/17 Blood Culture - Preliminary, Resulted NO GROWTH AFTER 1 DAY 03/12/17 Gram Stain - Final, Complete 03/14/17 Urine Culture - Final, Complete 03/14/17 Urine Culture Result 1 (STACI) - Final, Complete Medications Current Medications Norepinephrine Bitartrate 250 ml @ 0 mls/hr 1X ONCE IV Last administered on t 19:01; Start 03/11/17 at 18:15; Stop 03/11/17 at 18:16; Status DC Sodium Chloride (Normal Saline Flush) 10 ml QSHIFT PRN IV AFTER MEDS AND BLOOD DRAWS; Start 03/11/17 at 18:15 Sodium Chloride 3,300 ml @ 3,300 mls/hr Q1H IV Last administered on 03/11/17 18:33; Start 03/11/17 at 18:15; Stop 03/11/17 at 18:37; Status DC Piperacillin Sod/ Tazobactam Sod 4.5 gm/Sodium Chloride 100 ml @ 200 mls/hr 1X ONCE IV Last administered on 03/11/17 18:54; Start 03/11/17 at 18:15; Stop 03/11/17 at 18:52; Status DC Norepinephrine Bitartrate 250 ml @ 0 mls/hr CONT PRN IV PER PROTOCOL Last administered on 03/15/17 10:04; Start 03/11/17 at 18:15 Midazolam HCl 100 ml @ 0 mls/hr 1X ONCE IV Last administered on 03/11/17 18: 32; Start 03/11/17 at 18:30; Stop 03/11/17 at 18:59; Status DC Vancomycin HCl (Vanco Per Pharmacy) 1 each PRN DAILY PRN MC SEE COMMENTS Last administered on 03/11/17 19:59; Start 03/11/17 at 18:30; Stop 03/12/17 at 09:39 ; Status DC Piperacillin Sod/ Tazobactam Sod (Zosyn Per Pharmacy) 1 each PRN DAILY PRN MC SEE COMMENTS; Start 03/11/17 at 18:30; Stop 03/14/17 at 08:55; Status DC Sodium Chloride 1,000 ml @ 3,300 mls/hr Q19M IV Last administered on 18:45; Start 03/11/17 at 18:45; Stop 03/11/17 at 19:15; Status DC Etomidate (Amidate) 20 mg STK-MED ONCE IV ; Start 03/11/17 at 18:40; Stop at 18:41; Status DC Succinylcholine Chloride (Anectine) 200 mg STK-MED ONCE .ROUTE ; Start 03/11/17 at 18:40; Stop 03/11/17 at 18:41; Status DC Ondansetron HCl (Zofran) 4 mg PRN Q8HRS PRN IV NAUSEA/VOMITING; Start 03/11/17 at 19:00; Stop 03/12/17 at 18:59; Status DC Sodium Chloride 1,000 ml @ 150 mls/hr Q6H40M IV ; Start 03/11/17 at 18:51; Stop 03/11/17 at 21:31; Status DC Albuterol/ Ipratropium (Duoneb) 3 ml RTQID NEB Last administered on 03/12/17 19:25; Start 03/11/17 at 20:00; Stop 03/12/17 at 19:59; Status DC Vancomycin HCl 2 gm/Sodium Chloride 500 ml @ 250 mls/hr 1X ONCE IV Last administered on 03/11/17 19:40; Start 03/11/17 at 20:00; Stop 03/11/17 at 21:59 ; Status DC Piperacillin Sod/ Tazobactam Sod 4.5 gm/Sodium Chloride 100 ml @ 200 mls/hr Q6HRS IV Last administered on 03/12/17 06:35; Start 03/12/17 at 00:00; Stop at 09:39; Status DC Hydrocortisone Sodium Succinate (Solu-CORTEF) 100 mg 1X ONCE IV ; Start at 19:15; Stop 03/11/17 at 19:32; Status DC Hydrocortisone Sodium Succinate (Solu-CORTEF) 250 mg 1X ONCE IV Last administered on 03/11/17 19:37; Start 03/11/17 at 19:45; Stop 03/11/17 at 19:46 ; Status DC Acetaminophen (Acetaminophen Supp) 1,000 mg 1X ONCE WV Last administered on 20:27; Start 03/11/17 at 20:00; Stop 03/11/17 at 20:01; Status DC Vancomycin HCl 1.25 gm/Sodium Chloride 250 ml @ 166.667 mls/hr Q24H IV ; Start 03/12/17 at 20:00; Stop 03/12/17 at 20:00; Status DC Vancomycin HCl 1 each 1X ONCE MC ; Start 03/13/17 at 19:30; Stop 03/13/17 at 19 :31; Status Cancel Dextrose/Sodium Chloride 500 ml @ 1,000 mls/hr 1X ONCE IV ; Start 03/11/17 at 21:30; Stop 03/11/17 at 21:59; Status DC Dextrose/Sodium Chloride 1,000 ml @ 150 mls/hr Q6H40M IV ; Start 03/11/17 at 21 :30; Stop 03/12/17 at 04:09; Status DC Potassium Chloride 40 meq/ Dextrose 1,020 ml @ 75 mls/hr 1X ONCE IV ; Start at 21:45; Stop 03/12/17 at 04:09; Status DC Dextrose/Sodium Chloride 500 ml @ 0 mls/hr 1X ONCE IV ; Start 03/11/17 at 22:30 ; Stop 03/11/17 at 22:31; Status DC Sterile Water 1,000 ml @ 50 mls/hr Q20H IV ; Start 03/11/17 at 22:30; Stop at 22:30; Status DC Sterile Water 1,000 ml @ 50 mls/hr Q20H IV ; Start 03/11/17 at 22:30; Stop at 23:45; Status DC Dextrose/Sodium Chloride 1,000 ml @ 125 mls/hr Q8H IV Last administered on 10:05; Start 03/11/17 at 22:30; Stop 03/12/17 at 11:52; Status DC Dextrose/Sodium Chloride 1,000 ml @ 0 mls/hr 1X ONCE IV Last administered on 03/11/17 22:30; Start 03/11/17 at 22:30; Stop 03/11/17 at 22:31; Status DC Potassium Chloride 100 ml @ 100 mls/hr Q1H IV Last administered on 03/12/17 10:04; Start 03/11/17 at 23:30; Stop 03/12/17 at 07:29; Status DC Piperacillin Sod/ Tazobactam Sod 2.25 gm/Sodium Chloride 50 ml @ 100 mls/hr Q6H IV Last administered on 03/13/17 03:33; Start 03/12/17 at 10:00; Stop at 08:35; Status DC Linezolid 300 ml @ 300 mls/hr Q12HR IV Last administered on 03/13/17 08:55; Start 03/12/17 at 09:45; Stop 03/13/17 at 12:13; Status DC Micafungin Sodium 100 mg/Dextrose 100 ml @ 100 mls/hr Q24H IV Last administered on 03/13/17 10:48; Start 03/12/17 at 11:00; Stop 03/13/17 at 12:14 ; Status DC Pantoprazole Sodium (Protonix Vial) 40 mg DAILYAC IVP Last administered on 03/18 08:30; Start 03/13/17 at 07:30 Heparin Sodium (Porcine) (Heparin Sq) 5,000 unit Q8HRS SQ Last administered on 03/13/17 05:30; Start 03/12/17 at 14:00; Stop 03/13/17 at 10:23; Status DC Cefepime HCl 2 gm/ Sodium Chloride 100 ml @ 200 mls/hr ONCE ONCE IV Last administered on 03/12/17 10:57; Start 03/12/17 at 10:00; Stop 03/12/17 at 10:29 ; Status DC Lidocaine/Sodium Bicarbonate (Buffered Lidocaine 1%) 3 ml 1X ONCE IJ Last administered on 03/12/17 12:26; Start 03/12/17 at 10:15; Stop 03/12/17 at 10:16 ; Status DC Heparin Sodium/ Sodium Chloride 60 unit 1X ONCE IV Last administered on 12:27; Start 03/12/17 at 10:15; Stop 03/12/17 at 10:16; Status DC Metronidazole 100 ml @ 100 mls/hr Q8HRS IV Last administered on 03/13/17 05: 28; Start 03/12/17 at 14:00; Stop 03/13/17 at 12:14; Status DC Atropine Sulfate 0.5 mg STK-MED ONCE .ROUTE ; Start 03/12/17 at 10:55; Stop at 10:56; Status DC Magnesium Sulfate/ Dextrose 50 ml @ 25 mls/hr PRN DAILY PRN IV for Mag < 1.7 on am labs; Start 03/12/17 at 11:30; Stop 03/14/17 at 11:13; Status DC Potassium Chloride/Dextrose/ Sod Cl 1,000 ml @ 100 mls/hr Q10H IV Last administered on 03/12/17 13:19; Start 03/12/17 at 11:30; Stop 03/12/17 at 14:46 ; Status DC Potassium Chloride 100 ml @ 100 mls/hr Q1H IV Last administered on 03/12/17 17:00; Start 03/12/17 at 12:00; Stop 03/12/17 at 19:59; Status DC Potassium Chloride/Dextrose/ Sod Cl 1,000 ml @ 100 mls/hr Q10H IV ; Start 03/12 at 12:15; Status UNV Atropine Sulfate 0.5 mg STK-MED ONCE .ROUTE ; Start 03/12/17 at 12:31; Stop at 12:32; Status DC Potassium Chloride/Dextrose/ Sod Cl 1,000 ml @ 100 mls/hr 1X ONCE IV ; Start 03/12/17 at 12:30; Stop 03/12/17 at 14:46; Status DC Potassium Phosphate 13.6 mmol/Sodium Chloride 104.5333 ml @ 52.267 m... Q2H IV Last administered on 03/12/17 19:23; Start 03/12/17 at 15:00; Stop 03/12/17 at 20:59; Status DC Potassium Chloride/Dextrose/ Sod Cl 1,000 ml @ 100 mls/hr Q10H IV Last administered on 03/13/17 02:42; Start 03/12/17 at 14:45; Stop 03/13/17 at 10:18 ; Status DC Dopamine HCl/ Dextrose 250 ml @ 16.423 mls/ hr CONT PRN IV SEE I/O RECORD; Start 03/12/17 at 16:30 Potassium Chloride 50 ml @ 25 mls/hr Q2H IV Last administered on 03/13/17 02: 29; Start 03/12/17 at 19:00; Stop 03/13/17 at 02:59; Status DC Fentanyl Citrate (Fentanyl 2ml Vial) 50 mcg PRN Q2HR PRN IV PAIN Last administered on 03/18/17 00:47; Start 03/12/17 at 20:30 Lorazepam (Ativan) 2 mg PRN Q4HRS PRN IV ANXIETY / AGITATION Last administered on 03/14/17 02:00; Start 03/12/17 at 20:30 Piperacillin Sod/ Tazobactam Sod 3.375 gm/Sodium Chloride 50 ml @ 100 mls/hr Q6HRS IV Last administered on 03/14/17 05:29; Start 03/13/17 at 10:00; Stop at 08:55; Status DC Potassium Chloride/Dextrose 1,000 ml @ 125 mls/hr Q8H IV Last administered on 03/15/17 05:00; Start 03/13/17 at 10:15; Stop 03/15/17 at 11:01; Status DC Acetaminophen (Tylenol) 325 mg PRN Q6HRS PRN PO MILD PAIN / TEMP Last administered on 03/14/17 04:00; Start 03/13/17 at 10:45; Stop 03/14/17 at 09:48 ; Status DC Ciprofloxacin Lactate 200 ml @ 200 mls/hr Q12HR IV Last administered on 20:56; Start 03/13/17 at 12:30; Stop 03/14/17 at 08:55; Status DC Iohexol (Omnipaque 300 Mg/ml) 75 ml 1X ONCE IV Last administered on 03/13/17 12:30; Start 03/13/17 at 12:30; Stop 03/13/17 at 12:31; Status DC Iohexol (Omnipaque 240 Mg/ml) 50 ml 1X ONCE PO Last administered on 03/13/17 12:30; Start 03/13/17 at 12:30; Stop 03/13/17 at 12:31; Status DC Info (Do NOT chart on this entry -- for MONITORING) 1 each PRN DAILY PRN MC SEE COMMENTS; Start 03/13/17 at 12:45; Stop 03/15/17 at 12:44; Status DC Buspirone HCl (Buspar) 5 mg TID PEG Last administered on 03/18/17 08:30; Start 03/13/17 at 14:00 Olanzapine (ZyPREXA) 5 mg BID PO Last administered on 03/18/17 08:30; Start at 14:00 Quetiapine Fumarate (SEROquel) 50 mg BID PO Last administered on 03/18/17 08: 30; Start 03/13/17 at 14:00 Chlorhexidine Gluconate (Peridex) 15 ml BID SWSP Last administered on 09:57; Start 03/13/17 at 21:00; Stop 03/17/17 at 08:34; Status DC Gentamicin Sulfate 380 mg/ Sodium Chloride 109.5 ml @ 219 mls/hr 1X ONCE IV Last administered on 03/14/17 10:10; Start 03/14/17 at 09:30; Stop 03/14/17 at 09:59; Status DC Meropenem 1 gm/ Sodium Chloride 100 ml @ 200 mls/hr Q8H IV Last administered on 03/18/17 10:27; Start 03/14/17 at 10:00 Acetaminophen (Tylenol) 325 mg PRN Q4HRS PRN PO MILD PAIN / TEMP Last administered on 03/18/17 08:30; Start 03/14/17 at 10:45 Magnesium Sulfate/ Dextrose 100 ml @ 50 mls/hr PRN DAILY PRN IV LOW MAG - SEE COMMENTS Last administered on 03/14/17 13:29; Start 03/14/17 at 11:13 Potassium Phosphate 20 mmol/ Sodium Chloride 256.6667 ml @ 128.... Q2H IV Last administered on 03/14/17 14:39; Start 03/14/17 at 09:45; Stop 03/14/17 at 13:44; Status DC Dextrose/Sodium Chloride 1,000 ml @ 999 mls/hr 1X ONCE IV Last administered on 03/14/17 10:00; Start 03/14/17 at 09:45; Stop 03/14/17 at 10:45; Status DC Atropine Sulfate 1 mg STK-MED ONCE .ROUTE ; Start 03/12/17 at 12:00; Stop at 08:35; Status DC Potassium Phosphate 10 mmol/ Sodium Chloride 103.3333 ml @ 51.667 m... Q2H IV Last administered on 03/15/17 15:28; Start 03/15/17 at 11:00; Stop 03/15/17 at 14:59; Status DC Sodium Chloride 1,000 ml @ 1,000 mls/hr 1X ONCE IV Last administered on 12:50; Start 03/15/17 at 11:00; Stop 03/15/17 at 11:59; Status DC Potassium Chloride 20 meq/ Sodium Chloride 1,010 ml @ 75 mls/hr 1X ONCE IV ; Start 03/15/17 at 11:00; Stop 03/15/17 at 11:00; Status DC Potassium Chloride 20 meq/ Sodium Chloride 1,010 ml @ 75 mls/hr [id number] IV Last administered on 03/17/17 02:09; Start 03/15/17 at 11:00; Stop 03/17/17 at 12:43; Status DC Gentamicin Sulfate 330 mg/ Sodium Chloride 108.25 ml @ 108.25 mls/hr Q24H IV Last administered on 03/18/17 08:32; Start 03/16/17 at 09:00 Potassium Chloride/Sodium Chloride 1,000 ml @ 75 mls/hr [id number] IV Last administered on 03/18/17 08:31; Start 03/17/17 at 13:00 Multivitamins (Thera M Plus) 1 tab DAILY PO Last administered on 03/18/17 09: 41; Start 03/18/17 at 09:00 Ascorbic Acid (Vitamin C) 500 mg DAILY PO Last administered on 03/18/17 09:41 ; Start 03/18/17 at 09:00 Active Scripts Active Reported Melatonin 3 Mg Tablet 1 Tab PO QHS Melatonin 1 Mg Tablet 1 Mg PO HS Vitamin D (Cholecalciferol (Vitamin D3)) 1,000 Unit Capsule 1,000 Cap PO DAILY Lactulose 20 Gm/30 Ml Solution 37.5 Gm PO TID PRN Flector (Diclofenac Epolamine) 1 Each Patch.td12 2 Patch TP BID Miralax (Polyethylene Glycol 3350) 17 Gm Powd.pack 1 Packet PO PRN Q12HR Olanzapine 5 Mg Tablet 1 Tab PO BID Nutritional Drink Mix (Protein Supplement) 420 Gm Powder 420 Gm PO Seroquel (Quetiapine Fumarate) 50 Mg Tablet 50 Mg PO BID Trazodone Hcl 100 Mg Tablet 1 Tab PO QHS Tramadol Hcl 50 Mg Tablet 50 Mg PO Q8HRS PRN Tylenol (Acetaminophen) 325 Mg Tablet 2 Tab PEG PRN Q4-6HRS PRN Valtrex (Valacyclovir Hcl) 1,000 Mg Tablet 1 Tab PO DAILY Tamsulosin Hcl 0.4 Mg Cap.er.24h 1 Cap PO DAILY Citrucel (Methylcellulose) 479 Gm Powder 479 Gm PO Fluticasone Propionate Nasal [place] (Fluticasone Propionate) 16 Gm [place].susp 2 [place] NS HS Xarelto (Rivaroxaban) 20 Mg Tablet 20 Mg PEG DAILY Buspirone Hcl 5 Mg Tablet 1 Tab PEG TID Vitamin D (Cholecalciferol (Vitamin D3)) 10,000 Unit Capsule 50,000 Unit PO QFR Famotidine 20 Mg Tablet 20 Mg PO BID Thiamine Hcl 100 Mg Tablet 100 Mg PEG DAILY Oxcarbazepine 300 Mg Tablet 1 Tab PEG BID Duoneb 0.5-3(2.5) Mg/3 Ml (Albuterol/Ipratropium) 3 Ml Ampul.neb 3 Ml NEB BID Anti-Diarrheal (Loperamide Hcl) 2 Mg Capsule 2 Mg PO BID Vitals/I & O Vital Sign - Last 24 Hours 03/17/17 03/17/17 03/17/17 03/17/17 14:00 15:00 16:00 16:00 Temp 99.2 99.2 Pulse 98 96 96 Resp B/P (MAP) 85/63 (70) 82/56 (65) 87/57 (67) Pulse Ox 100 99 97 O2 Delivery Nasal Cannula Nasal Cannula Nasal Cannula Nasal Cannula O2 Flow Rate 2.0 2.0 2.0 2.0 03/17/17 03/17/17 03/17/17 03/17/17 17:00 18:00 19:00 20:00 Pulse 98 95 97 Resp B/P (MAP) 84/55 (65) 101/66 (78) 90/64 (73) Pulse Ox 96 97 96 O2 Delivery Nasal Cannula Nasal Cannula Nasal Cannula Nasal Cannula O2 Flow Rate 2.0 2.0 2.0 2.0 03/17/17 03/17/17 03/17/17 03/17/17 20:00 21:00 22:00 23:00 Temp 98.4 98.4 Pulse 96 100 100 100 Resp 16 B/P (MAP) 90/64 (73) 84/54 (64) 85/56 (66) 98/63 (75) Pulse Ox 96 100 100 100 O2 Delivery Nasal Cannula Nasal Cannula Nasal Cannula Nasal Cannula O2 Flow Rate 2.0 2.0 2.0 2.0 03/17/17 03/18/17 03/18/17 03/18/17 23:59 00:00 00:47 01:00 Temp 99.1 99.1 Pulse 99 100 Resp 13 20 21 B/P (MAP) 82/55 (64) 84/53 (63) Pulse Ox 94 96 O2 Delivery Nasal Cannula Nasal Cannula Nasal Cannula O2 Flow Rate 2.0 2.0 2.0 03/18/17 03/18/17 03/18/17 03/18/17 02:00 03:00 04:00 04:00 Temp 97.8 97.8 Pulse 96 98 94 Resp 18 15 19 B/P (MAP) 89/60 (70) 83/53 (63) 86/59 (68) Pulse Ox 95 93 96 O2 Delivery Nasal Cannula Nasal Cannula Nasal Cannula Nasal Cannula O2 Flow Rate 2.0 2.0 2.0 2.0 03/18/17 03/18/17 03/18/17 03/18/17 05:00 06:00 07:00 08:00 Pulse 93 96 96 Resp 18 22 18 B/P (MAP) 91/46 (61) 97/59 (72) 89/56 (67) Pulse Ox 94 100 99 O2 Delivery Nasal Cannula Nasal Cannula Nasal Cannula Nasal Cannula O2 Flow Rate 2.0 2.0 2.0 2.0 03/18/17 03/18/17 03/18/17 03/18/17 08:00 09:00 10:00 11:00 Temp 99.1 99.1 Pulse 98 100 96 95 Resp 18 15 25 B/P (MAP) 66/44 (51) 67/47 (54) 94/58 (70) 102/64 (77) Pulse Ox 98 97 94 95 O2 Delivery Nasal Cannula Nasal Cannula Nasal Cannula Nasal Cannula O2 Flow Rate 2.0 2.0 2.0 2.0 03/18/17 03/18/17 03/18/17 12:00 12:00 13:00 Temp 99.1 99.1 Pulse 92 90 Resp 19 18 B/P (MAP) 106/68 (81) 104/61 (75) Pulse Ox 94 94 O2 Delivery Nasal Cannula Nasal Cannula Nasal Cannula O2 Flow Rate 2.0 2.0 2.0 Intake and Output 03/17/17 03/17/17 03/18/17 15:00 23:00 07:00 Intake Total 713.25 ml 2477 ml 2048 ml Output Total 1265 ml 825 ml 850 ml Balance -551.75 ml 1652 ml 1198 ml MANNY MONTERO III DO March 18, 2017 14:01
--- NOTE | 2017-03-18 14:12 | PDOC2 ---
PALLIATIVE CARE Palliative Care Note Palliative Care Consult requested by Dr. Ferguson to address goals of care. Diagnosis: Respiratory Failure, suspected aspiration pneumonia, septic shock, HERNÁN; hypokalemia, Thrombocytopenia, metabolic encephalopathy, Tube feedings. Plan: LTAC--[facility]. Awaiting Insurance. Spoke with Cinthia. Confirmed plan. Declined family meeting. Outside the Hospital DNR/DNI form placed on record for and physician to sign. IVONNE POTTER March 18, 2017 14:12
[2017-03-19] MEDS: MEROPENEM 1 GM in IV NORMAL SALINE 100ML 100 ML IV SCH ×2 (01:41→11:55)
[2017-03-19 04:24] LABS: BASO % 1 % (0-3); EOS % 3 % (0-3); HEMATOCRIT 27.6 % (39.0-53.0); HEMOGLOBIN 9.2 g/dL (13.0-17.5); LYMPH # 1.1 x10^3/uL (1.0-4.8); LYMPH % 24 % (24-48); MEAN CORPUSCULAR HEMOGLOBIN 30 pg (25-35); MEAN CORPUSCULAR HGB CONC 33 g/dL (31-37); MEAN CORPUSCULAR VOLUME 91 fL (79-100); MONO % 7 % (0-9); NEUT % 65 % (31-73); PLATELET COUNT 118 x10^3/uL (140-400); RED BLOOD COUNT 3.05 x10^6/uL (4.30-5.70); RED CELL DISTRIBUTION WIDTH 16.8 % (11.5-14.5); WHITE BLOOD COUNT 4.7 x10^3/uL (4.0-11.0)
[2017-03-19 04:51] LABS: ALBUMIN 1.8 g/dL (3.4-5.0); CALCIUM 7.8 mg/dL (8.5-10.1); CREATININE 0.7 mg/dL (0.7-1.3); GFR 116.7; PHOSPHORUS 2.7 mg/dL (2.6-4.7); POTASSIUM 3.9 mmol/L (3.5-5.1)
[2017-03-19 07:00] VITALS: BP 94/61
[2017-03-19] MEDS: busPIRone 5 MG TABLET. PEG SCH ×2 (08:56→14:10)
[2017-03-19] MEDS: ASCORBIC ACID 500 MG TABLET PO SCH (08:56)
[2017-03-19] MEDS: OLANZapine 5 MG TABLET PO SCH (08:56)
[2017-03-19] MEDS: MULTIVITAMIN with MINERAL TABLET. PO SCH (08:56)
[2017-03-19] MEDS: PANTOPRAZOLE IV PUSH 40 MG VIAL. IVP SCH (08:56)
[2017-03-19] MEDS: QUEtiapine 25 MG TABLET. PO SCH (08:57)
[2017-03-19] MEDS: GENTAMICIN SULFATE IV SCH (10:19)
[2017-03-19] MEDS: NORMAL SALINE IV SCH (10:19)
--- NOTE | 2017-03-19 10:24 | PDOC ---
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 SKIN: No rash IV: ok Labs Lab Laboratory Tests Test 03/19/17 04:20 White Blood Count 4.7 x10^3/uL (4.0-11.0) Red Blood Count 3.05 x10^6/uL (4.30-5.70) Hemoglobin 9.2 g/dL (13.0-17.5) Hematocrit 27.6 % (39.0-53.0) Mean Corpuscular Volume 91 fL (79-100) Mean Corpuscular Hemoglobin 30 pg (25-35) Mean Corpuscular Hemoglobin Concent 33 g/dL (31-37) Red Cell Distribution Width 16.8 % (11.5-14.5) Platelet Count 118 x10^3/uL (140-400) Neutrophils (%) (Auto) 65 % (31-73) Lymphocytes (%) (Auto) 24 % (24-48) Monocytes (%) (Auto) 7 % (0-9) Eosinophils (%) (Auto) 3 % (0-3) Basophils (%) (Auto) 1 % (0-3) Neutrophils # (Auto) 3.0 x10^3uL (1.8-7.7) Lymphocytes # (Auto) 1.1 x10^3/uL (1.0-4.8) Monocytes # (Auto) 0.3 x10^3/uL (0.0-1.1) Eosinophils # (Auto) 0.1 x10^3/uL (0.0-0.7) Basophils # (Auto) 0.0 x10^3/uL (0.0-0.2) Sodium Level 143 mmol/L (136-145) Potassium Level 3.9 mmol/L (3.5-5.1) Chloride Level 109 mmol/L (98-107) Carbon Dioxide Level 25 mmol/L (21-32) Anion Gap 9 (6-14) Blood Urea Nitrogen 14 mg/dL (8-26) Creatinine 0.7 mg/dL (0.7-1.3) Estimated GFR (Cockcroft-Gault) 116.7 Glucose Level 129 mg/dL (70-99) Calcium Level 7.8 mg/dL (8.5-10.1) Phosphorus Level 2.7 mg/dL (2.6-4.7) Albumin 1.8 g/dL (3.4-5.0) Micro BLOOD CULTURE PRL Preliminary Preliminary report BLD CULT RESULT 1 Preliminary Escherichia coli Recovered from anaerobic bottle only. ANTIMICROBIAL SUSCEPTIBILITY Preliminary Comment S = Susceptible; I = Intermediate; R = Resistant P = Positive; N = Negative MICS are expressed in micrograms per mL Antibiotic RSLT#1 RSLT#2 RSLT#3 RSLT#4 Amoxicillin/Clavulanic Acid I Ampicillin R Cefazolin R Cefepime R Ceftriaxone R Cefuroxime R Cephalothin R Ciprofloxacin R Ertapenem S Gentamicin S Imipenem S Levofloxacin R Nitrofurantoin S Piperacillin R Tetracycline R Tobramycin S Trimethoprim/Sulfa R Performed at: [address] [id number] [employer]: Dania Marroquin MD, Phone: [phone] Objective Assessment Sepsis with hypotension. POA. 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 Fever Leukocytosis. better Acute resp failure ? aspiration with patchy infiltrates. E coli HERNÁN- better Hypernatremia Transaminitis H/o MRSA and C. diff Biaxin allergy Thrombocytopenia Plan Plan of Care meropenem and gent Monitor lab values Supportive care ok to transfer to [facility] LUCRECIA GABRIEL MD March 19, 2017 10:24
[2017-03-19 11:00] VITALS: BP 92/61
--- NOTE | 2017-03-19 12:17 | PDOC3 ---
Discharge Summary Visit Information Date of Admission: March 11, 2017 Date of Discharge: March 19, 2017 Admitting Diagnosis Comment: 1. Acute hypoxic respiratory failure, POA: extubated on 03/15/17, stable, following commands, per at his baseline, squeezing hands. 2. Suspected aspiration pneumonia, POA, : Blood cx positive Ecoli, ID following , on Meropenem, and Gentamicin, renal dosing, continue to have low grade fevers, 3. Shock, Septic: on volume resuscitation, off Levophed for 24hrs Echo normal EF, 4. Severe hypernatremia at 175 poa.: previous Na with in normal range, improved with iV hydration. 5. Hypokalemia, Magnesium, and Hypophosphatemia: replace electrolytes, 6. Metabolic acidosis: due to sepsis. resolved. 7. Acute kidney injury, present on admission: possible VMN/Sepsis. Resolved, making good urine. 8. Thrombocytopenia: possible due to sepsis, hold heparin, and monitor platelets. PT, APTT, INR, D - dimer, and fibrinogen - elevated, possible due to sepsis. Monitor. 9. Acute on chronic metabolic encephalopathy.: due to sepsis and Hyponatremia, at his baseline per wie. 10. 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 will start him on tube feeds, Place NG, continue psychotropics. 11. Prognosis poor, Disposition: LTAC placement, possible DC in AM Final Diagnosis Problems Medical Problems: (1) Hypernatremia Status: Acute (2) Hypokalemia Status: Acute Brief Hospital Course Allergies Allergies Coded Allergies Type Severity Reaction Last Updated Verified aripiprazole Allergy Intermediate 01/06/17 Yes clarithromycin Allergy Intermediate 01/06/17 Yes divalproex sodium Allergy Intermediate 01/06/17 Yes fluvoxamine Allergy Intermediate 01/06/17 Yes gabapentin Allergy Intermediate 01/06/17 Yes gluten Allergy Intermediate 01/06/17 Yes ibuprofen Allergy Intermediate 03/18/17 Yes lurasidone Allergy Intermediate 01/06/17 Yes pregabalin Allergy Intermediate 01/06/17 Yes I S O L A T I O N *CONTACT* Allergy Unknown 03/15/17 Yes Vital Signs Vital Signs Date Time Temp Pulse Resp B/P (MAP) Pulse Ox O2 Delivery O2 Flow Rate FiO2 03/19/17 11:00 99.4 101 22 92/61 (71) 92 Nasal Cannula 2.0 99.4 Lab Results Laboratory Tests Test 03/18/17 06:23 03/19/17 04:20 White Blood Count 4.8 x10^3/uL (4.0-11.0) 4.7 x10^3/uL (4.0-11.0) Red Blood Count 3.19 x10^6/uL (4.30-5.70) 3.05 x10^6/uL (4.30-5.70) Hemoglobin 9.6 g/dL (13.0-17.5) 9.2 g/dL (13.0-17.5) Hematocrit 28.3 % (39.0-53.0) 27.6 % (39.0-53.0) Mean Corpuscular Volume 89 fL (79-100) 91 fL (79-100) Mean Corpuscular Hemoglobin 30 pg (25-35) 30 pg (25-35) Mean Corpuscular Hemoglobin Concent 34 g/dL (31-37) 33 g/dL (31-37) Red Cell Distribution Width 16.6 % (11.5-14.5) 16.8 % (11.5-14.5) Platelet Count 108 x10^3/uL (140-400) 118 x10^3/uL (140-400) Neutrophils (%) (Auto) 67 % (31-73) 65 % (31-73) Lymphocytes (%) (Auto) 22 % (24-48) 24 % (24-48) Monocytes (%) (Auto) 8 % (0-9) 7 % (0-9) Eosinophils (%) (Auto) 4 % (0-3) 3 % (0-3) Basophils (%) (Auto) 0 % (0-3) 1 % (0-3) Neutrophils # (Auto) 3.2 x10^3uL (1.8-7.7) 3.0 x10^3uL (1.8-7.7) Lymphocytes # (Auto) 1.0 x10^3/uL (1.0-4.8) 1.1 x10^3/uL (1.0-4.8) Monocytes # (Auto) 0.4 x10^3/uL (0.0-1.1) 0.3 x10^3/uL (0.0-1.1) Eosinophils # (Auto) 0.2 x10^3/uL (0.0-0.7) 0.1 x10^3/uL (0.0-0.7) Basophils # (Auto) 0.0 x10^3/uL (0.0-0.2) 0.0 x10^3/uL (0.0-0.2) Sodium Level 143 mmol/L (136-145) 143 mmol/L (136-145) Potassium Level 3.9 mmol/L (3.5-5.1) 3.9 mmol/L (3.5-5.1) Chloride Level 109 mmol/L (98-107) 109 mmol/L (98-107) Carbon Dioxide Level 25 mmol/L (21-32) 25 mmol/L (21-32) Anion Gap 9 (6-14) 9 (6-14) Blood Urea Nitrogen 12 mg/dL (8-26) 14 mg/dL (8-26) Creatinine 0.7 mg/dL (0.7-1.3) 0.7 mg/dL (0.7-1.3) Estimated GFR (Cockcroft-Gault) 116.7 116.7 Glucose Level 96 mg/dL (70-99) 129 mg/dL (70-99) Calcium Level 7.7 mg/dL (8.5-10.1) 7.8 mg/dL (8.5-10.1) Phosphorus Level 3.5 mg/dL (2.6-4.7) 2.7 mg/dL (2.6-4.7) Albumin 1.8 g/dL (3.4-5.0) 1.8 g/dL (3.4-5.0) Laboratory Tests Test 03/19/17 04:20 White Blood Count 4.7 x10^3/uL (4.0-11.0) Red Blood Count 3.05 x10^6/uL (4.30-5.70) Hemoglobin 9.2 g/dL (13.0-17.5) Hematocrit 27.6 % (39.0-53.0) Mean Corpuscular Volume 91 fL (79-100) Mean Corpuscular Hemoglobin 30 pg (25-35) Mean Corpuscular Hemoglobin Concent 33 g/dL (31-37) Red Cell Distribution Width 16.8 % (11.5-14.5) Platelet Count 118 x10^3/uL (140-400) Neutrophils (%) (Auto) 65 % (31-73) Lymphocytes (%) (Auto) 24 % (24-48) Monocytes (%) (Auto) 7 % (0-9) Eosinophils (%) (Auto) 3 % (0-3) Basophils (%) (Auto) 1 % (0-3) Neutrophils # (Auto) 3.0 x10^3uL (1.8-7.7) Lymphocytes # (Auto) 1.1 x10^3/uL (1.0-4.8) Monocytes # (Auto) 0.3 x10^3/uL (0.0-1.1) Eosinophils # (Auto) 0.1 x10^3/uL (0.0-0.7) Basophils # (Auto) 0.0 x10^3/uL (0.0-0.2) Sodium Level 143 mmol/L (136-145) Potassium Level 3.9 mmol/L (3.5-5.1) Chloride Level 109 mmol/L (98-107) Carbon Dioxide Level 25 mmol/L (21-32) Anion Gap 9 (6-14) Blood Urea Nitrogen 14 mg/dL (8-26) Creatinine 0.7 mg/dL (0.7-1.3) Estimated GFR (Cockcroft-Gault) 116.7 Glucose Level 129 mg/dL (70-99) Calcium Level 7.8 mg/dL (8.5-10.1) Phosphorus Level 2.7 mg/dL (2.6-4.7) Albumin 1.8 g/dL (3.4-5.0) Brief Hospital Course Mr. Stevens is a 57 old [ male admitted to icu in respi failure from aspiration, went into septic shock, did not fully recover in terms of mentation , swallowing etc and now has marin in with jean carlos and tube feeds and iV antibiotcis with ID on board. Needed pressors, stayed 7 days in house in ICU, My first time seeing him after a complicated stay in ICU Refer to other notes. Pt seen and examined NO fam at bedside DispO;SELECT Discharge Information Condition at Discharge: Improved, Stable Disposition/Orders: Other (ltac) Scheduled Buspirone Hcl (Buspirone Hcl), 1 TAB PEG TID, (Reported) Cholecalciferol (Vitamin D3) (Vitamin D), 50,000 UNIT PO QFR, (Reported) Cholecalciferol (Vitamin D3) (Vitamin D), 1,000 CAP PO DAILY, (Reported) Diclofenac Epolamine (Flector), 2 PATCH TP BID, (Reported) Famotidine (Famotidine), 20 MG PO BID, (Reported) Fluticasone Propionate (Fluticasone Propionate Nasal [place]), 2 SPRAY NS HS, ( Reported) Ipratropium/Albuterol Sulfate (Duoneb 0.5-3(2.5) Mg/3 Ml), 3 ML NEB BID, ( Reported) Lactulose (Lactulose), 37.5 GM PO TID PRN, (Reported) Loperamide Hcl (Anti-Diarrheal), 2 MG PO BID, (Reported) Melatonin (Melatonin), 1 MG PO HS, (Reported) Melatonin (Melatonin), 1 TAB PO QHS, (Reported) Olanzapine (Olanzapine), 1 TAB PO BID, (Reported) Oxcarbazepine (Oxcarbazepine), 1 TAB PEG BID, (Reported) Polyethylene Glycol 3350 (Miralax), 1 PACKET PO PRN Q12HR, (Reported) Quetiapine Fumarate (Seroquel), 50 MG PO BID, (Reported) Rivaroxaban (Xarelto), 20 MG PEG DAILY, (Reported) Tamsulosin Hcl (Tamsulosin Hcl), 1 CAP PO DAILY, (Reported) Thiamine Hcl (Thiamine Hcl), 100 MG PEG DAILY, (Reported) Trazodone Hcl (Trazodone Hcl), 1 TAB PO QHS, (Reported) Valacyclovir Hcl (Valtrex), 1 TAB PO DAILY, (Reported) Scheduled PRN Acetaminophen (Tylenol), 2 TAB PEG PRN Q4-6HRS PRN for MILD PAIN, (Reported) Tramadol Hcl (Tramadol Hcl), 50 MG PO Q8HRS PRN for PAIN, (Reported) Miscellaneous Medications Methylcellulose (Citrucel), 479 GM PO, (Reported) Protein Supplement (Nutritional Drink Mix), 420 GM PO, (Reported) Discontinued Medications Cyanocobalamin (Vitamin B-12) (Cyanocobalamin Injection), 1,000 MCG IJ, ( Reported) Diclofenac Sodium (Voltaren), 1 GM TP BID, (Reported) Hydrocodone/Acetaminophen (Lortab 5-325 mg Tablet), 1 TAB PEG PRN Q6HRS PRN for PAIN, (Reported) Hydrocodone/Acetaminophen (Lortab 7.5-325 mg Tablet), 1 TAB PO PRN Q12HR PRN for PAIN, (Reported) Lactulose (Lactulose), 10 GM AD BIDWMEALS, (Reported) Melatonin (Melatonin), 3 MG PEG HS, (Reported) Melatonin (Melatonin), 5 MG PEG PRN QHS PRN for INSOMNIA, (Reported) Nystatin (Nystatin), 5 ML PO QID, (Reported) Polyethylene Glycol 3350 (Miralax), 1 PACKET PO DAILY, (Reported) Quetiapine Fumarate (Quetiapine Fumarate), 25 MG PEG HS, (Reported) Trazodone Hcl (Trazodone Hcl), 2 TAB PEG QHS, (Reported) Vancomycin HCl (Vancomycin HCl), 125 MG PO QID, (Reported) KUSUM OSPINA MD March 19, 2017 12:17
== END 2017-03-19 15:30 | DRG 871 ==
LOC: ER 18:02 → 1 WEST ICU 18:28 → 5 SOUTH 03-18 16:38
PROVIDERS: ADMIT Internal Medicine; ATTEND Internal Medicine
PROC: 5A1945Z Respiratory Ventilation, 24-96 Consecutive Hours (ICD-10-PCS; 2017-03-11)
PROC: 0BH18EZ Insertion of Endotracheal Airway into Trachea, Via Natural or Artificial Opening Endoscopic (ICD-10-PCS; 2017-03-11)
PROC: 05HM33Z Insertion of Infusion Device into Right Internal Jugular Vein, Percutaneous Approach (ICD-10-PCS; principal; 2017-03-12)
PROC: B543ZZA Ultrasonography of Right Jugular Veins, Guidance (ICD-10-PCS; 2017-03-12)
DX: A41.51 Sepsis due to Escherichia coli [E. coli] (principal); J96.01 Acute respiratory failure with hypoxia; G93.41 Metabolic encephalopathy; J69.0 Pneumonitis due to inhalation of food and vomit; R65.21 Severe sepsis with septic shock; E87.0 Hyperosmolality and hypernatremia; N17.9 Acute kidney failure, unspecified; E51.2 Wernicke's encephalopathy; Z66 Do not resuscitate; K57.30 Diverticulosis of large intestine without perforation or abscess without bleeding; I95.89 Other hypotension; K43.9 Ventral hernia without obstruction or gangrene; G40.909 Epilepsy, unspecified, not intractable, without status epilepticus; I25.10 Atherosclerotic heart disease of native coronary artery without angina pectoris; E83.39 Other disorders of phosphorus metabolism; D69.6 Thrombocytopenia, unspecified; E86.0 Dehydration; F41.9 Anxiety disorder, unspecified; E87.6 Hypokalemia; F20.9 Schizophrenia, unspecified; F31.9 Bipolar disorder, unspecified; K21.9 Gastro-esophageal reflux disease without esophagitis; Z86.61 Personal history of infections of the central nervous system; Z98.84 Bariatric surgery status; Z93.0 Tracheostomy status; Z88.6 Allergy status to analgesic agent; Z88.8 Allergy status to other drugs, medicaments and biological substances; Z86.14 Personal history of Methicillin resistant Staphylococcus aureus infection
CPT/HCPCS: 31500; 36415; 36556; 36569; 36600; 51702; 71010; 74000; 74177; 76937; 80048; 80053; 80069; 81001; 82150; 82550; 82553; 82805; 83605; 83690; 83735; 84100; 84132; 84145; 84295; 84439; 84443; 84484; 85007; 85027; 85379; 85384; 85610; 85730; 87040; 87070; 87086; 87186; 87205; 87641; 93005; 93308; 94002; 94003; 94640; 96365; 96367; 96375; C1751; C1892; C9113; J0461; J0692; J0744; J1580; J2020; J2060; J2185; J2248; J2250; J2543; J3010; J3370; J3475; J3480; J3490; J7030; J7040; J7042; J7050; J7620; Q9966; Q9967; 99291-25